=== PATIENT | female | born 1930 | race Caucasian/White ===

== ENCOUNTER 2017-06-07 12:06 | Inpatient (IN) ==
[2017-06-07] MEDS ORDERED: Isovue-370 500 ML INFUS..BTL IV ONE (12:16)
[2017-06-07] MEDS ORDERED: 0.9 % Sodium Chloride 1,000 ML IVC ONE (12:16)
[2017-06-07] MEDS ORDERED: Piperacillin/Tazobactam 3.375 GM in 0.9 % Sodium Chloride Mini Bag 100 ML IVPB ONE (12:16)
--- NOTE | 2017-06-07 12:53 | Emergency Department Note ---
Disposition Clinical Impression: Cellulitis Qualifiers: Site of cellulitis: extremity Site of cellulitis of extremity: lower extremity Laterality: right Qualified Code(s): L03.115 - Cellulitis of right lower limb Disposition: Admitted As Inpatient Condition: Good Time of Disposition: 12:55 General Adult HPI - General Chief complaint: ED Skin/Abscess/Foreign Body Stated complaint: R leg swelling/pain Time Seen by Provider: 06/07/17 12:14 Source: patient Limitations: no limitations Nursing Notes Reviewed: Yes Vital Signs Reviewed: Yes - History of Present Illness HPI Narrative: 86 year old female presentes to the ED with complaints of RLE cellulitis. She was refrred by Dr. Guevara to the eD for admission to the hospital. Davi sats that she is not a diabetic but for the past two weeks she has been eperincing pain in the righ calf and had an US done in [facility] which was negative for DVT altough she was gievn PO antibiotics for cellutlsi at that time and has essentially failed outpather therapy. She was following up romero rondon today for a possible procedure and he instructed her to come ot the ED for admision due to outpatinet therapy failure. The cellutlisi is erythematous on the RLE and fruit or nut farmer fromthe tibial platuea to the bottom of the foot. She denies fevers, it appears she was on keflex for therapy Pain Scale: 10 - Related Data Home Medications Medication Instructions Recorded Confirmed Lisinopril [Zestril] 40 mg PO DAILY 12/24/14 03/30/17 Metoprolol [Lopressor] 50 mg PO DAILY 12/24/14 03/30/17 Ibuprofen [Motrin] 600 mg PO TID PRN 05/19/16 03/30/17 Previous Rx's Medication Instructions Recorded Magnesium Oxide [Magnesium] 1 tab PO DAILY #30 tablet 01/27/17 Apixaban [Eliquis] 2.5 mg PO BID #60 tablet 02/16/17 OxyCODONE/APAP 7.5/325 [Percocet 1 tab PO Q12H PRN 30 Days #60 03/30/17 7.5/325 MG] tablet Hydroxyurea [Hydrea] 500 mg PO QDPC #34 capsule 04/04/17 Allergies Allergy/AdvReac Type Severity Reaction Status Date / Time Sulfa (Sulfonamide AdvReac Rash Verified 03/30/17 10:38 Antibiotics) Constitutional: Denies: fever, chills, weakness, weight change Eyes: Denies: eye pain, eye discharge, vision change ENT ED: Denies: ear pain, throat pain, dental pain, hearing loss, epistaxis, congestion, dysphagia Cardiovascular: Denies: chest pain, palpitations, dyspnea on exertion, edema, syncope Respiratory: Denies: cough, dyspnea, wheezes, hemoptysis, stridor Gastrointestinal: Denies: abdominal pain, nausea, vomiting, diarrhea, constipation, hematemesis, melena, hematochezia Genitourinary: Denies: dysuria, frequency, hematuria, discharge Musculoskeletal: Denies: back pain, neck pain, arthralgia, myalgia Integumentary: Reports: other (celllulitis). Denies: rash, abrasion, lesions Neurological: Denies: headache, weakness, numbness, paresthesias, confusion, abnormal gait, vertigo Psychiatric: Denies: anxiety, depression, suicidal thoughts, homicidal thoughts , auditory hallucinations, visual hallucinations Endocrine: Denies: fatigue Hematological/Lymphatic: Denies: easy bleeding, easy bruising Allergic/Immunologic: Denies: facial swelling, urticaria Past Medical History - Past Medical History Medical history: Reports: diabetes, hypertension Psychiatric history: Reports: no psych history - Social History Smoking Status: Never smoker Smokeless Tobacco Status: No Alcohol use: Reports: none Drug use: Reports: none Physical Exam - General Limitations: no limitations General appearance: alert, in no apparent distress - Head Head exam: atraumatic, normocephalic, normal inspection - Eye Eye exam: Present: normal appearance, PERRL, EOMI - Expanded Eye Exam Pupils: Bilateral: reactive - ENT ENT exam: normal exam, normal oropharynx, mucous membranes moist - Expanded ENT Exam External ear exam: Present: normal external inspection Mouth exam: Present: normal external inspection Teeth exam: Present: normal inspection Throat exam: Present: normal inspection - Neck Neck exam: Present: normal inspection, full ROM, trachea midline - Chest Chest inspection: Present: normal inspection, symmetric chest wall rise - Respiratory Respiratory exam: Present: normal lung sounds bilaterally - Cardiovascular Cardiovascular exam: Present: regular rate, normal rhythm, normal heart sounds - Abdominal Exam Abdominal exam: Present: soft, Non-Tender. Absent: tenderness, distention, guarding, rebound, rigidity - Extremities Exam Extremities exam: Present: normal inspection, full ROM. Absent: tenderness, pedal edema - Expanded Upper Extremity Exam Shoulder exam: Present: normal inspection, full ROM Arm exam: Present: normal inspection, full ROM Elbow exam: Present: normal inspection, full ROM Forearm/Wrist exam: Present: normal inspection, full ROM Hand exam: Present: normal inspection, full ROM Vascular exam: Normal: capillary refill, radial pulse - Expanded Lower Extremity Exam Hip/Pelvis exam: Present: normal inspection, full ROM Upper leg exam: Present: normal inspection, full ROM 1 - erythematous changes without abscess formatio, pulses prsent, (-) HOmans sign Knee exam: Present: normal inspection, full ROM Lower leg exam: Present: normal inspection, full ROM Ankle exam: Present: normal inspection, full ROM Foot/toe exam: Present: normal inspection, full ROM Neurovascular/Tendon exam: Absent: motor deficit, sensory deficit, tendon deficit - Back Exam Back exam: Present: normal inspection, full ROM. Absent: tenderness - Neurological Exam Neurological exam: Present: alert, oriented X3 - Expanded Neurological Exam Patient oriented to: Present: person, place, time Coma Scale Eye Opening: Spontaneous Coma Scale Motor Response: Obeys Commands Coma Scale Verbal Response: Oriented Coma Scale Total: 15 - Psychiatric Psychiatric exam: Present: normal affect, normal mood - Skin Skin exam: Present: warm, dry, intact, normal color Course Course Narrative: we will start cellutlisi workup with vanco/zosyn therapy and IVF and admit to medicine. Vital Signs Temperature 98.3 F 06/07/17 12:09 Pulse Rate 81 06/07/17 12:09 Respiratory Rate 18 06/07/17 12:09 Blood Pressure 187/76 06/07/17 12:09 O2 Sat by Pulse Oximetry 93 06/07/17 12:09 Temperature 98.3 F 06/07/17 12:09 Pulse Rate 81 06/07/17 12:09 Respiratory Rate 18 06/07/17 12:09 Blood Pressure 187/76 06/07/17 12:09 O2 Sat by Pulse Oximetry 93 06/07/17 12:09 Oxygen Delivery Oxygen Delivery Room Air Medical Decision Making - Medical Records Medical records reviewed: Yes I reviewed the patient's medical records. - Lab Data Lab results reviewed: Yes I reviewed the patient's lab results. - Radiology Data Radiology results reviewed: Yes I reviewed the patient's radiology results. - EKG Data EKG #1 EKG attestation: Yes I reviewed and interpreted this EKG. EKG results narrative: NSR with rate of 74. PVCs Present. LAD. LVH. NO STEMI. no old ekg. 1247
[2017-06-07 12:56] LABS: Basophils # 0.1 K/mcL (0.0-0.2); Basophils % 0.4 %; Eosinophils # 0.1 K/mcL (0.0-0.6); Eosinophils % 0.4 %; Hematocrit 48.9 % (35.3-44.9); Hemoglobin 14.7 g/dL (11.5-15.4); Immature Granulocytes % 2.9 % (0-4); Lymphocytes # 1.6 K/mcL (0.6-4.6); Lymphocytes % 6.8 %; Mean Corpuscular HGB Conc 30.1 g/dL (31.6-35.5); Mean Corpuscular Hemoglobin 26.8 pg (28.0-33.3); Mean Corpuscular Volume 89.2 fL (83.0-100.0); Monocytes # 1.5 K/mcL (0.0-1.3); Monocytes % 6.3 %; Platelet Count 286 K/mcL (140-400); Red Blood Count 5.48 M/mcL (3.82-4.97); Red Cell Distribution Width 20.9 % (11.5-14.5); Segmented Neutrophils % 83.2 %
[2017-06-07 13:02] LABS: INR 1.3; Prothrombin Time 13.9 Seconds (9.4-12.1)
[2017-06-07 13:05] LABS: Activated Partial Thrombo Time 40.6 Seconds (26.0-36.0)
[2017-06-07 13:23] LABS: Troponin I 0.03 ng/mL (< 0.04)
--- NOTE | 2017-06-07 13:34 | Emergency Department Note ---
Disposition Clinical Impression: Cellulitis Qualifiers: Site of cellulitis: extremity Site of cellulitis of extremity: lower extremity Laterality: right Qualified Code(s): L03.115 - Cellulitis of right lower limb Disposition: Admitted As Inpatient Condition: Good Referrals: Manuela Franco [employer] [Primary Care Provider] - Forms: ED Satisfaction Letter Time of Disposition: 13:43 Skin/Abscess/FB HPI Chief complaint: ED Skin/Abscess/Foreign Body Stated complaint: R leg swelling/pain Time Seen by Provider: 06/07/17 12:14 Source: patient, family Limitations: no limitations Nursing Notes Reviewed: Yes Vital Signs Reviewed: Yes HPI Narrative: 86-year-old female history of atrial fibrillation on Eliquis presents an emergency department for right leg infection and swelling. Patient states she saw Dr. Heller are yesterday and was told to come here for possible admission for her cellulitis after failing outpatient therapy. Patient states she has been having issues with her right foot after having reconstructive surgery. States over the past 2 weeks or so she is noticed some increase in swelling and redness. Ultrasound was performed at outside hospital and reportedly was negative for any deep vein thrombosis. She denies any chest pain or shortness of breath. She denies any fever nausea or vomiting. She has been taken antibiotic but does seem to be helping. Per the patient she is planning to have a procedure done by the vascular surgeon to help with possibly blood flow she reports. She has no history of peripheral stents are bypassed but she has had vein stripping performed before. Varney any other complaints such as recent injury or trauma. She denies history of diabetes. At this time basic labs, lactate and will initiate her on IV antibiotics Vancomycin and Zosyn. Also obtain a CT of the lower extremity to evaluate for any abscess. Patient will be admitted for further management and treatment. She is in agreement with this plan. Pt Subjective Complaint: rash, abscess/boil Home Medications Medication Instructions Recorded Confirmed Metoprolol [Lopressor] 50 mg PO BID 12/24/14 06/07/17 Aspirin [Lo-Dose Aspirin EC] 81 mg PO DAILY 06/07/17 06/07/17 Hydroxyurea [Hydrea] 500 mg PO MOTUWETHFR 06/07/17 06/07/17 LORazepam [Ativan] 0.5 mg PO TID PRN 06/07/17 06/07/17 Lisinopril [Zestril] 10 mg PO DAILY 06/07/17 06/07/17 Magnesium Oxide [Magnesium] 400 mg PO DAILY 06/07/17 06/07/17 Previous Rx's Medication Instructions Recorded Apixaban [Eliquis] 2.5 mg PO BID #60 tablet 02/16/17 OxyCODONE/APAP 7.5/325 [Percocet 1 tab PO Q12H PRN 30 Days #60 03/30/17 7.5/325 MG] tablet Allergies Allergy/AdvReac Type Severity Reaction Status Date / Time Sulfa (Sulfonamide AdvReac Rash Verified 03/30/17 10:38 Antibiotics) All systems ED: reviewed and negative except as stated. Review of Systems: As Per HPI Constitutional: Denies: fever, chills, weakness, weight change Eyes: Denies: eye pain, eye discharge, vision change ENT ED: Denies: ear pain, throat pain, dental pain, hearing loss, epistaxis, congestion, dysphagia Cardiovascular: Denies: chest pain, palpitations, dyspnea on exertion, edema, syncope Respiratory: Denies: cough, dyspnea, wheezes, hemoptysis, stridor Gastrointestinal: Denies: abdominal pain, nausea, vomiting, diarrhea, constipation, hematemesis, melena, hematochezia Genitourinary: Denies: dysuria, frequency, hematuria, discharge Musculoskeletal: Denies: back pain, neck pain, arthralgia, myalgia Integumentary: Reports: other (celllulitis). Denies: rash, abrasion, lesions Neurological: Denies: headache, weakness, numbness, paresthesias, confusion, abnormal gait, vertigo Psychiatric: Denies: anxiety, depression, suicidal thoughts, homicidal thoughts , auditory hallucinations, visual hallucinations Endocrine: Denies: fatigue Hematological/Lymphatic: Denies: easy bleeding, easy bruising Allergic/Immunologic: Denies: facial swelling, urticaria Past Medical History - Past Medical History Attestation: Yes The following information was validated with the patient. Source: patient Medical history: Reports: hypertension Psychiatric history: Reports: no psych history - Social History Smoking Status: Never smoker Smokeless Tobacco Status: No Alcohol use: Reports: none Drug use: Reports: none Physical Exam - General Limitations: no limitations General appearance: alert, in no apparent distress - Head Head exam: atraumatic, normocephalic, normal inspection - Eye Eye exam: Present: normal appearance, PERRL, EOMI - ENT ENT exam: normal exam, normal oropharynx, mucous membranes moist - Neck Neck exam: Present: normal inspection, full ROM, trachea midline - Chest Chest inspection: Present: normal inspection, symmetric chest wall rise. Absent : tenderness - Respiratory Respiratory exam: Present: normal lung sounds bilaterally. Absent: respiratory distress, wheezes - Cardiovascular Cardiovascular exam: Present: regular rate, irregular rhythm, normal heart sounds - Abdominal Exam Abdominal exam: Present: soft, Non-Tender, normal bowel sounds. Absent: tenderness, distention, guarding, rebound, rigidity - Expanded Lower Extremity Exam 1 - erythema, blanching, consistent with cellulitis Knee exam: Present: full ROM Lower leg exam: Present: full ROM, tenderness (RLE, tender varicose veins bilateral), swelling (RLE), erythema, other (bilateral varicose veins) Ankle exam: Present: full ROM, tenderness, swelling, erythema (RLE), other ( ulcer on the right heel) Foot/toe exam: Present: other (ulcer to sole of foot) - Neurological Exam Neurological exam: Present: alert, oriented X3 - Psychiatric Psychiatric exam: Present: normal affect, normal mood - Skin Skin exam: Present: dry, intact, rash, erythema Course Course Narrative: Patient is not septic appearing. Right lower extremity is erythematous from the foot all the way to mid calf. She has tenderness with palpation. It is erythematous and blanches consistent with cellulitis. She has failed outpatient therapy with oral antibiotics. Review of labs she has a leukocytosis 24 that has been persistent throughout her prior values. Her lactate is normal 1.2. Will obtain a CT with contrast of the right lower extremity to evaluate for any abscess. Sensation is intact. Delayed capillary refill. History of recent prior doppler ultrasound negative for deep vein thrombosis. She is been initiated on IV antibiotics and will be admitted. - Reevaluation(s) Reevaluation #1: CT without evidence of trainable abscess. Consistent with cellulitis. Patient will be admitted for continued IV antibiotics. Impression is cellulitis and history of polycythemia vera. - Consultations Consultation #1: Spoke with on-call hospitalist janis Becerra to admit for cellulitis failed therapy. No further orders at this time Time: 15:51 Vital Signs Temperature 98.3 F 06/07/17 12:09 Pulse Rate 81 06/07/17 12:09 Respiratory Rate 18 06/07/17 12:09 Blood Pressure 187/76 06/07/17 12:09 O2 Sat by Pulse Oximetry 93 06/07/17 12:09 Temperature 98.3 F 06/07/17 12:53 Pulse Rate 70 06/07/17 14:00 Respiratory Rate 20 06/07/17 14:00 Blood Pressure 202/73 06/07/17 14:00 O2 Sat by Pulse Oximetry 95 06/07/17 14:00 Oxygen Delivery Oxygen Delivery Room Air Skin/Abscess/Foreign Body - MDM Narrative Medical decision making narrative: Patient was discussed with my attending physician who agrees with ED management and final disposition. They independently evaluated the patient. Please refer to their attestation to this encounter for additional information. This note was generated by [employer] voice recognition software and as a result grammatical or spelling errors may occur using this program. - Medical Records Medical records reviewed: Yes I reviewed the patient's medical records. - Lab Data Lab results reviewed: Yes I reviewed the patient's lab results. Result diagrams: 06/07/17 12:45 06/07/17 12:45 Lab Results 06/07/17 06/07/17 06/07/17 Range/Units 12:45 12:45 12:45 WBC 24.1 H (4.3-11.1) K/mcL RBC 5.48 H (3.82-4.97) M/mcL Hgb 14.7 (11.5-15.4) g/dL Hct 48.9 H (35.3-44.9) % MCV 89.2 (83.0-100.0) fL MCH 26.8 L (28.0-33.3) pg MCHC 30.1 L (31.6-35.5) g/dL RDW 20.9 H (11.5-14.5) % Plt Count 286 (140-400) K/mcL MPV 11.0 (9.4-12.4) fL Immature Gran % 2.9 (0-4) % Seg Neutrophils % 83.2 % Lymphocytes % 6.8 % Monocytes % 6.3 % Eosinophils % 0.4 % Basophils % 0.4 % Neutrophils # 20.0 H (1.6-8.9) K/mcL Lymphocytes # 1.6 (0.6-4.6) K/mcL Monocytes # 1.5 H (0.0-1.3) K/mcL Eosinophils # 0.1 (0.0-0.6) K/mcL Basophils # 0.1 (0.0-0.2) K/mcL PT 13.9 H (9.4-12.1) Seconds INR 1.3 APTT 40.6 H (26.0-36.0) Seconds Sodium 138 (136-145) mEq/L Potassium 4.2 (3.5-5.1) mEq/L Chloride 108 H (98-107) mEq/L Carbon Dioxide 20 L (23-29) mEq/L BUN 23 (8-23) mg/dL Creatinine 0.97 (0.60-1.20) mg/dL Est GFR ( Amer) > 60 (> 60) Est GFR (Non-Af Amer) 54 L (> 60) BUN/Creatinine Ratio 24 (6-26) Glucose 74 (70-105) mg/dL Calculated Osmolality 288 (280-300) Lactic Acid (0.5-2.2) mmol/L Calcium 9.4 (8.6-10.3) mg/dL Phosphorus 3.8 (2.7-4.5) mg/dL Magnesium 2.0 (1.6-2.6) mg/dL Total Bilirubin 0.8 (0.3-1.0) mg/dL Direct Bilirubin 0.3 H (0.0-0.2) mg/dL Indirect Bilirubin 0.5 (0.0-1.2) mg/dL AST 15 (13-39) Units/L ALT 5 L (7-52) Units/L Alkaline Phosphatase 100 (34-104) Units/L Troponin I 0.03 (< 0.04) ng/mL Serum Total Protein 7.2 (6.4-8.9) g/dL Albumin 4.4 (3.5-5.7) g/dL Globulin 2.8 (2.4-3.5) g/dL Albumin/Globulin Ratio 1.6 (1.1-2.2) Urine Color (Yellow) Urine Clarity (Clear) Urine pH (5.0-8.0) pH Units Ur Specific [place] (1.010-1.025) Urine Protein (Neg-Trace) mg/dL Urine Glucose (UA) (Normal) mg/dL Urine Ketones (Negative) mg/dL Urine Blood (Negative) Urine Nitrite (Negative) Urine Bilirubin (Negative) Urine Urobilinogen (Normal) mg/dL Ur Leukocyte Esterase (Negative) Ur Culture Indicated? (NO) 06/07/17 06/07/17 Range/Units 12:45 13:55 WBC (4.3-11.1) K/mcL RBC (3.82-4.97) M/mcL Hgb (11.5-15.4) g/dL Hct (35.3-44.9) % MCV (83.0-100.0) fL MCH (28.0-33.3) pg MCHC (31.6-35.5) g/dL RDW (11.5-14.5) % Plt Count (140-400) K/mcL MPV (9.4-12.4) fL Immature Gran % (0-4) % Seg Neutrophils % % Lymphocytes % % Monocytes % % Eosinophils % % Basophils % % Neutrophils # (1.6-8.9) K/mcL Lymphocytes # (0.6-4.6) K/mcL Monocytes # (0.0-1.3) K/mcL Eosinophils # (0.0-0.6) K/mcL Basophils # (0.0-0.2) K/mcL PT (9.4-12.1) Seconds INR APTT (26.0-36.0) Seconds Sodium (136-145) mEq/L Potassium (3.5-5.1) mEq/L Chloride (98-107) mEq/L Carbon Dioxide (23-29) mEq/L BUN (8-23) mg/dL Creatinine (0.60-1.20) mg/dL Est GFR ( Amer) (> 60) Est GFR (Non-Af Amer) (> 60) BUN/Creatinine Ratio (6-26) Glucose (70-105) mg/dL Calculated Osmolality (280-300) Lactic Acid 1.2 (0.5-2.2) mmol/L Calcium (8.6-10.3) mg/dL Phosphorus (2.7-4.5) mg/dL Magnesium (1.6-2.6) mg/dL Total Bilirubin (0.3-1.0) mg/dL Direct Bilirubin (0.0-0.2) mg/dL Indirect Bilirubin (0.0-1.2) mg/dL AST (13-39) Units/L ALT (7-52) Units/L Alkaline Phosphatase (34-104) Units/L Troponin I (< 0.04) ng/mL Serum Total Protein (6.4-8.9) g/dL Albumin (3.5-5.7) g/dL Globulin (2.4-3.5) g/dL Albumin/Globulin Ratio (1.1-2.2) Urine Color Yellow (Yellow) Urine Clarity Clear (Clear) Urine pH 6.0 (5.0-8.0) pH Units Ur Specific [place] 1.015 (1.010-1.025) Urine Protein Negative (Neg-Trace) mg/dL Urine Glucose (UA) Normal (Normal) mg/dL Urine Ketones Negative (Negative) mg/dL Urine Blood Negative (Negative) Urine Nitrite Negative (Negative) Urine Bilirubin Negative (Negative) Urine Urobilinogen Normal (Normal) mg/dL Ur Leukocyte Esterase Negative (Negative) Ur Culture Indicated? NO (NO) - Radiology Data Radiology results reviewed: Yes I reviewed the patient's radiology results. Lower Extremity CT 06/07/17 12:16 IMPRESSION: 1. Circumferential fat stranding in the calf and dorsal forefoot compatible with cellulitis versus lymphedema. No drainable fluid collection. 2. No acute osseous abnormality. 3. 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 4. Status post talonavicular arthrodesis and calcaneal osteotomy without complication identified. D/ / Bret Fenton MD / Bret Fenton MD Interpreting Provider: Bret Fenton MD
[2017-06-07 13:42] LABS: Alanine Aminotransferase 5 Units/L (7-52); Albumin 4.4 g/dL (3.5-5.7); Albumin/Globulin Ratio 1.6 (1.1-2.2); Alkaline Phosphatase 100 Units/L (34-104); Aspartate Amino Transferase 15 Units/L (13-39); BUN/Creatinine Ratio 24 (6-26); Bilirubin,Direct 0.3 mg/dL (0.0-0.2); Bilirubin,Indirect 0.5 mg/dL (0.0-1.2); Bilirubin,Total 0.8 mg/dL (0.3-1.0); Blood Urea Nitrogen 23 mg/dL (8-23); Calcium 9.4 mg/dL (8.6-10.3); Carbon Dioxide 20 mEq/L (23-29); Chloride 108 mEq/L (98-107); Globulin 2.8 g/dL (2.4-3.5); Glucose 74 mg/dL (70-105); Osmolality,Calculated 288 (280-300); Phosphorous 3.8 mg/dL (2.7-4.5); Potassium 4.2 mEq/L (3.5-5.1); Sodium 138 mEq/L (136-145); Total Protein 7.2 g/dL (6.4-8.9); eGFR For African Americans > 60 (> 60); eGFR For Non-African Americans 54 (> 60)
[2017-06-07 14:29] LABS: Bilirubin,Urine Negative (Negative); Blood,Urine Negative (Negative); Clarity,Urine Clear (Clear); Color,Urine Yellow (Yellow); Glucose,Urine (UA) Normal (Normal); Ketones,Urine Negative (Negative); Leukocyte Esterase,Urine Negative (Negative); Nitrite,Urine Negative (Negative); Protein,Urine Negative (Neg-Trace); Specific Gravity,Urine 1.015 (1.010-1.025); Urobilinogen,Urine Normal (Normal)
[2017-06-07] MEDS ORDERED: *HR* FentaNYL (PF) 100 MCG/2 ML VIAL IVP ONE (15:57)
[2017-06-07] MEDS ORDERED: Acetaminophen 325 MG TABLET PO PRN (19:50)
[2017-06-07] MEDS: *HR* HYDROcodone/Acet 5/325 mg TABLET PO PRN (20:01)
[2017-06-07] MEDS ORDERED: *HR* LORazepam 0.5 MG TABLET PO PRN (22:04)
[2017-06-07] MEDS ORDERED: Naloxone 0.4 MG/ML INJ IVP PRN (22:08)
--- NOTE | 2017-06-07 22:17 | Internal Med History&Physical ---
<Segundo Kyle - Last Filed: 06/07/17 23:08> Date of Encounter: 06/07/17 Time of Encounter: 22:13 Internal Medicine - H&P: HPI Admitted From: Home Plans for Post Hospital Care: Home History of present illness: 86-year-old female history of atrial fibrillation on Eliquis presents to emergency department for right leg infection and swelling. Patient states she saw Dr. Heller yesterday and was told to come here for possible admission for her cellulitis after failing outpatient therapy. Patient states she has been having issues with her right foot after having reconstructive surgery. States over the past 2 weeks or so she is noticed some increase in swelling and redness. Ultrasound was performed at outside hospital and reportedly was negative for any deep vein thrombosis. She denies any chest pain or shortness of breath. She denies any fever nausea or vomiting. She has been taken antibiotic but does seem to be helping. Per the patient she is planning to have a procedure done by the vascular surgeon to help with possibly blood flow she reports. She has no history of peripheral stents or bypassed but she has had vein stripping performed before. denies any other complaints such as recent injury or trauma. She denies history of diabetes. At the ED, CT of right leg revealed possible cellulitis, she will be admitted as inpatient for further treatment. Past Med Surg Social Fam HX - Past Medical History Medical history: hypertension Psychiatric history: no psych history - Social History Smoking Status: Never smoker Smokeless Tobacco Status: No Alcohol use: none Drug use: none - Family History Mother Living Status: Age at : 80 Hx Family Endocrine Disorder: Yes (DM) Father Living Status: Age at : 90 Hx Family Cardiac Disorders: Yes Hx Family Cancer: Yes (colon) Hx Family GI Disorders: Yes (colostomy) Internal Medicine - H&P: Meds Metoprolol [Lopressor] 50 mg PO BID 12/24/14 [History] Apixaban [Eliquis] 2.5 mg PO BID #60 tablet 02/16/17 [Rx] OxyCODONE/APAP 7.5/325 [Percocet 7.5/325 MG] 1 tab PO Q12H PRN 30 Days #60 tablet 03/30/17 [Rx] Aspirin [Lo-Dose Aspirin EC] 81 mg PO DAILY 06/07/17 [History] Hydroxyurea [Hydrea] 500 mg PO MOTUWETHFR 06/07/17 [History] LORazepam [Ativan] 0.5 mg PO TID PRN 06/07/17 [History] Lisinopril [Zestril] 10 mg PO DAILY 06/07/17 [History] Magnesium Oxide [Magnesium] 400 mg PO DAILY 06/07/17 [History] 3 Allergy/AdvReac Type Severity Reaction Status Date / Time Sulfa (Sulfonamide AdvReac Rash Verified 03/30/17 10:38 Antibiotics) All Systems PM: A 10-system review of systems was performed and is negative for pertinent findings except as documented above in the HPI. Review of systems: REVIEW OF SYSTEMS: CONSTITUTIONAL: No weight loss, fever, chills, weakness or fatigue. HEENT: Eyes: No visual loss, blurred vision, double vision or yellow sclerae. Ears, Nose, Throat: No hearing loss, sneezing, congestion, runny nose or sore throat. SKIN: No rash or itching. CARDIOVASCULAR: No chest pain, chest pressure or chest discomfort. No palpitations or edema. RESPIRATORY: No shortness of breath, cough or sputum. GASTROINTESTINAL: No anorexia, nausea, vomiting or diarrhea. No abdominal pain or blood. GENITOURINARY: No dysuria, urgency, or frequency. NEUROLOGICAL: No headache, dizziness, syncope, paralysis, ataxia, numbness or tingling in the extremities. No change in bowel or bladder control. MUSCULOSKELETAL: see HPI. HEMATOLOGIC: No anemia, bleeding or bruising. LYMPHATICS: No enlarged nodes. No history of splenectomy. PSYCHIATRIC: No history of depression or anxiety. ENDOCRINOLOGIC: No reports of sweating, cold or heat intolerance. No polyuria or polydipsia. - Constitutional Vitals: Temp Pulse Resp BP Pulse Ox 98.5 F 88 18 165/66 98 06/07/17 19:04 06/07/17 19:04 06/07/17 19:04 06/07/17 20:39 06/07/17 19:04 General appearance: Present: A&O X 3 Exam: PHYSICAL EXAMINATION: GENERAL APPEARANCE: The patient is alert, oriented and in no acute distress. HEENT: Head is normocephalic. The sinuses are nontender. Pupils are equal and reactive. The nares are patent. Oropharynx clear without lesions. NECK: Supple without lymphadenopathy. HEART: Regular rate and rhythm. LUNGS: No crackles or wheezes are heard. ABDOMEN: Soft, nontender, nondistended with good bowel sounds heard. Inguinal area is normal. EXTREMITIES: right leg diffuse erythematous rash noted with swelling. NEUROLOGICAL: Gross nonfocal. SKIN: Warm and dry without any rash. Internal Med - H&P Results - Labs CBC & Chem 7: 06/07/17 12:45 06/07/17 12:45 - Assessment and plan (1) Cellulitis Current Visit: Yes Status: Acute Assessment and plan: - Severe leukocytosis, CT right leg revealed possible cellulitis without abscess. - Continue antibiotics Zosyn and vancomycin. Qualifiers: Site of cellulitis: extremity Site of cellulitis of extremity: lower extremity Laterality: right Qualified Code(s): L03.115 - Cellulitis of right lower limb (2) Chronic pain of lower extremity, bilateral Current Visit: No Status: Chronic Assessment and plan: - Doppler from outside hospital revealed no DVT. Right leg is cool with weak pulses. Patient also has hypersthethia. - History of PVD, the patient, she is planning to have angiogram by vascular surgery. - We will consult vascular surgery in the morning. (3) HTN (hypertension) Current Visit: No Status: Chronic Assessment and plan: - BP elevated due to stress and a pain. We will control pain. Continue home medication, adjust dose if indicated. Qualifiers: Hypertension type: essential hypertension Qualified Code(s): I10 - Essential (primary) hypertension (4) Polycythemia vera Current Visit: No Status: Chronic Assessment and plan: - H/H stable at this time, continue hydroxyurea, aspirin and Eliquis (5) PVD (peripheral vascular disease) Current Visit: No Status: Acute Assessment and plan: - Same as above. (6) Atrial fibrillation Current Visit: No Status: Chronic Assessment and plan: - Rate controlled, continue Eliquis. Qualifiers: Atrial fibrillation type: chronic Qualified Code(s): I48.2 - Chronic atrial fibrillation - Time Spent With Patient Total time spent is greater than 50% in coordination of care (as documented) at patient's floor/unit and/or counseling patient: Greater than 35 minutes <Jose M Centeno - Last Filed: 06/08/17 06:05> Date of Encounter: 06/08/17 Internal Medicine - H&P: HPI History of present illness: Ms. Honeycutt is a 86 year old female All Systems PM: A 10-system review of systems was performed and is negative for pertinent findings except as documented above in the HPI. - Constitutional Vitals: Temp Pulse Resp BP Pulse Ox 99.0 F 87 18 172/76 94 06/08/17 03:38 06/08/17 03:38 06/08/17 03:38 06/08/17 03:38 06/08/17 03:38 Internal Med - H&P Results - Labs CBC & Chem 7: 06/08/17 04:45 06/08/17 04:45 Labs: Short CBC 06/08/17 Range/Units 04:45 WBC 20.9 H (4.3-11.1) K/mcL Hgb 13.6 (11.5-15.4) g/dL Hct 44.5 (35.3-44.9) % Plt Count 247 (140-400) K/mcL Neutrophils # 16.9 H (1.6-8.9) K/mcL BMP 06/08/17 04:45 Sodium 141 Potassium 3.3 L Chloride 111 H Carbon Dioxide 21 L BUN 15 Creatinine 0.77 Glucose 84 Calcium 8.5 L Liver Function 06/08/17 Range/Units 04:45 Total Bilirubin 0.9 (0.3-1.0) mg/dL AST 14 (13-39) Units/L ALT 5 L (7-52) Units/L Alkaline Phosphatase 86 (34-104) Units/L Albumin 3.7 (3.5-5.7) g/dL - Attending Attestation I have seen and examined this patient independently. I have discussed with LDR NURSE Angelrd regarding the management plan. Agree with the documentation. - Assessment and plan (1) Polycythemia vera Current Visit: No Status: Chronic (2) HTN (hypertension) Current Visit: No Status: Chronic Qualifiers: Hypertension type: essential hypertension Qualified Code(s): I10 - Essential (primary) hypertension (3) PVD (peripheral vascular disease) Current Visit: No Status: Acute (4) Chronic pain of lower extremity, bilateral Current Visit: No Status: Chronic (5) Cellulitis Current Visit: Yes Status: Acute Qualifiers: Site of cellulitis: extremity Site of cellulitis of extremity: lower extremity Laterality: right Qualified Code(s): L03.115 - Cellulitis of right lower limb (6) Atrial fibrillation Current Visit: No Status: Chronic Qualifiers: Atrial fibrillation type: chronic Qualified Code(s): I48.2 - Chronic atrial fibrillation - Time Spent With Patient Total time spent is greater than 50% in coordination of care (as documented) at patient's floor/unit and/or counseling patient:
[2017-06-07] MEDS ORDERED: *HR* Heparin 5,000 UNIT/ML VIAL IVP PRN ×2 (23:25)
[2017-06-07] MEDS ORDERED: *HR* Heparin 5,000 UNIT/ML VIAL IVP ONE (23:25)
[2017-06-07] MEDS ORDERED: Heparin 25,000 UNIT/500 ML D5W 25,000 UNIT/500 ML BAG IVC SCH (23:30)
[2017-06-08] MEDS: Piperacillin/Tazobactam 3.375 GM in 0.9 % Sodium Chloride Mini Bag 100 ML IVPB SCH ×4 (00:54→23:39)
[2017-06-08] MEDS: *HR* HYDROcodone/Acet 5/325 mg TABLET PO PRN ×3 (02:22→20:23)
[2017-06-08 05:35] LABS: Basophils # 0.1 K/mcL (0.0-0.2); Basophils % 0.5 %; Eosinophils # 0.1 K/mcL (0.0-0.6); Eosinophils % 0.4 %; Hematocrit 44.5 % (35.3-44.9); Hemoglobin 13.6 g/dL (11.5-15.4); Immature Granulocytes % 2.7 % (0-4); Lymphocytes # 1.5 K/mcL (0.6-4.6); Lymphocytes % 7.3 %; Mean Corpuscular HGB Conc 30.6 g/dL (31.6-35.5); Mean Corpuscular Hemoglobin 26.5 pg (28.0-33.3); Mean Corpuscular Volume 86.7 fL (83.0-100.0); Mean Platelet Volume 11.3 fL (9.4-12.4); Monocytes # 1.7 K/mcL (0.0-1.3); Monocytes % 8.3 %; Neutrophils # 16.9 K/mcL (1.6-8.9); Platelet Count 247 K/mcL (140-400); Red Blood Count 5.13 M/mcL (3.82-4.97); Red Cell Distribution Width 21.2 % (11.5-14.5); Segmented Neutrophils % 80.8 %
[2017-06-08 05:53] LABS: Alanine Aminotransferase 5 Units/L (7-52); Albumin 3.7 g/dL (3.5-5.7); Albumin/Globulin Ratio 1.6 (1.1-2.2); Alkaline Phosphatase 86 Units/L (34-104); Aspartate Amino Transferase 14 Units/L (13-39); BUN/Creatinine Ratio 19 (6-26); Bilirubin,Total 0.9 mg/dL (0.3-1.0); Blood Urea Nitrogen 15 mg/dL (8-23); Calcium 8.5 mg/dL (8.6-10.3); Carbon Dioxide 21 mEq/L (23-29); Chloride 111 mEq/L (98-107); Globulin 2.3 g/dL (2.4-3.5); Glucose 84 mg/dL (70-105); Osmolality,Calculated 292 (280-300); Potassium 3.3 mEq/L (3.5-5.1); Sodium 141 mEq/L (136-145); eGFR For African Americans > 60 (> 60); eGFR For Non-African Americans > 60 (> 60)
[2017-06-08] MEDS: traMADol 50 MG TABLET PO PRN ×2 (06:46→13:44)
[2017-06-08] MEDS: Aspirin Enteric Coated 81 MG Tablet PO SCH (08:13)
[2017-06-08] MEDS: Magnesium Oxide 400 MG TABLET PO SCH (08:13)
[2017-06-08] MEDS: Lisinopril 20 MG TABLET PO SCH (08:13)
[2017-06-08 08:56] LABS: Activated Partial Thrombo Time 116.9 Seconds (26.0-36.0)
[2017-06-08] MEDS ORDERED: Apixaban 2.5 MG TABLET PO SCH (09:00)
[2017-06-08 09:27] LABS: Heparin anti-factor XA UFH 0.3 IU/mL (0.30-0.70)
[2017-06-08] MEDS ORDERED: Isovue-370 500 ML INFUS..BTL IV ONE (10:00)
[2017-06-08] MEDS: Hydroxyurea 500 MG CAPSULE PO SCH (11:22)
[2017-06-08] MEDS: Apixaban 5 MG TABLET PO SCH ×2 (13:44→20:23)
[2017-06-08] MEDS: Ondansetron 4 MG/2 ML VIAL IVP PRN (13:51)
--- NOTE | 2017-06-08 14:41 | Internal Med Progress Note ---
Date of Encounter: 06/08/17 Time of Encounter: 08:40 - Assessment and plan (1) Polycythemia vera Current Visit: Yes Status: Chronic Assessment and plan: Continue Eliquis. Heparin gtt d/cd, pt will not have angiogram done today due to cellulitis. Continue ASA and Hydroxyurea. (2) HTN (hypertension) Current Visit: No Status: Chronic Assessment and plan: Well-controlled. Continue to monitor. Continue home medications. Qualifiers: Hypertension type: essential hypertension Qualified Code(s): I10 - Essential (primary) hypertension (3) PVD (peripheral vascular disease) Current Visit: No Status: Acute Assessment and plan: Plan as above. Continue ASA and Eliquis, pt will follow up with Dr Garcia for angiography later. (4) Chronic pain of lower extremity, bilateral Current Visit: Yes Status: Chronic Assessment and plan: Patient reports chronic pain and bilateral lower extremities. Continue Tylenol , [place], Ultram prn. Pt with history of PVD. Doppler from outside hospital negative for DVT. Right leg red, edematous, warm, firm in medial calf area. Tender to palpation. Pt was to have angiogram today, will be postponed until when pt is not as ill. Continue home pain medications. (5) Cellulitis Current Visit: Yes Status: Acute Assessment and plan: Severe leukocytosis, CT right leg revealed possible cellulitis without abscess. CT aorta with runoff shows no flow-limiting disease noted in the abdominal aorta , bilateral, external arteries, common femoral arteries. On the right side there is scattered atherosclerosis with 50% narrowing of the right SFA. Subtotal occluded distally at the adductor hiatus with immediate reconstitution. There is 3 vessel runoff to the right foot. There is scattered atherosclerosis but no flow-limiting stenosis of left SFA. Suboptimal evaluation of bilateral popliteal artery secondary to artifact. Also noted is skin thickening and reticulation in the tissues involving bilateral legs. There is soft tissue calcification also identified with some edema findings nonspecific can be seen in the setting of dermatomyositis. We will continue to treat with antibiotics and monitor for improvement. Continue antibiotics Zosyn and vancomycin. Monitor labs and vitals Qualifiers: Site of cellulitis: extremity Site of cellulitis of extremity: lower extremity Laterality: right Qualified Code(s): L03.115 - Cellulitis of right lower limb (6) Atrial fibrillation Current Visit: No Status: Chronic Assessment and plan: Rate controlled, continue Eliqujose an MATEO. Qualifiers: Atrial fibrillation type: chronic Qualified Code(s): I48.2 - Chronic atrial fibrillation - Time Spent With Patient Total time spent is greater than 50% in coordination of care (as documented) at patient's floor/unit and/or counseling patient: less than 15 minutes - Subjective Interval history: Pt was seen and assessed at bedside at 0840. Dr. Garcia stopped to see pt, as well. Pt will not have angiogram until cellulitis is resolved. Pt states that she is feeling some better than she did when she arrived. She states that she has had the infection and pain in her leg for about 2 weeks. She denies headache , n/v/d, abdominal pain, chest pain, or myalgias. She denies fever, chills, rigors at home. - Constitutional Vitals: Temp Pulse Resp BP Pulse Ox 98.4 F 61 18 169/77 95 06/08/17 12:48 06/08/17 12:48 06/08/17 12:48 06/08/17 12:48 06/08/17 12:48 General appearance: Present: cooperative, A&O X 3, pleasant, answers questions appropriately - Head Head exam: Present: atraumatic, normal inspection, normocephalic - Eye Eye exam: Present: conjuntiva pink, sclera anicteric - Neck Neck exam general surgery: Present: supple, trachea midline. Absent: lymphadenopathy - Respiratory Respiratory exam: Present: CTAB. Absent: accessory muscle use, rales, rhonchi, wheezes - Cardiovascular Cardiovascular exam: Present: RRR, +S1, +S2. Absent: diastolic murmur, gallop, rubs, systolic murmur - GI/Abdominal GI/Abdominal exam: Present: soft, no peritoneal signs. Absent: distended, hepatomegaly, tenderness - Extremities Exam Extremities exam: Present: warm, radial pulses palpable and symmetrical. Absent : calf tenderness, cyanotic, normal capillary refill, normal inspection, pedal edema, tenderness - Expanded Lower Extremities Exam Lower Leg exam: Present: erythema, swelling, tenderness. Absent: normal inspection - Neurological Exam Neurological exam: Present: alert, oriented X3, strengths equal and symetr throughout. Absent: facial droop, speech deficit - Skin Skin exam: Present: dry, intact, normal color, rash, warm Internal Medicine: Result - Labs CBC & Chem 7: 06/08/17 04:45 06/08/17 04:45 Labs: Short CBC 06/08/17 Range/Units 04:45 WBC 20.9 H (4.3-11.1) K/mcL Hgb 13.6 (11.5-15.4) g/dL Hct 44.5 (35.3-44.9) % Plt Count 247 (140-400) K/mcL Neutrophils # 16.9 H (1.6-8.9) K/mcL BMP 06/08/17 04:45 Sodium 141 Potassium 3.3 L Chloride 111 H Carbon Dioxide 21 L BUN 15 Creatinine 0.77 Glucose 84 Calcium 8.5 L Liver Function 06/08/17 Range/Units 04:45 Total Bilirubin 0.9 (0.3-1.0) mg/dL AST 14 (13-39) Units/L ALT 5 L (7-52) Units/L Alkaline Phosphatase 86 (34-104) Units/L Albumin 3.7 (3.5-5.7) g/dL - ABG Interpretation ABG results: PT/INR, D-dimer PT 13.9 Seconds (9.4-12.1) H 06/07/17 12:45 - Impressions Impressions Aorta w/Runoff CTA 06/08/17 11:30 IMPRESSION: 1. No aneurysm or dissection. Scattered atherosclerosis of the abdominal aorta but no flow-limiting disease identified. Similar statement applies for the bilateral common external arteries and common femoral arteries. 2. On the right side, there is scattered atherosclerosis with less than 50% narrowing of the right SFA. Subtotal occlusion distally at the adductor hiatus with immediate reconstitution. Three-vessel runoff to the right foot. 3. Scattered atherosclerosis but no flow-limiting stenosis of the left SFA. Dominant supply to the left foot via the anterior tibial artery with weak attenuation of the peroneum and posterior tibial arteries. 4. Suboptimal evaluation of the bilateral popliteal artery secondary to artifact. 5. Regarding cellulitis, there is skin thickening and reticulation in the tissues involving the bilateral legs. Soft tissue calcification is also identified with some edema. Finding is nonspecific but can be seen in the setting of dermatomyositis. MRI would better evaluate. D/ / 06/08/2017 12:54:08 Derek Gonzalez / tresa Interpreting Provider: Derek Gonzalez Consult Discharge Plan - Plan Referrals: Manuela Franco CNP [Primary Care Provider] - 06/17/17 10:40 am
--- NOTE | 2017-06-08 17:11 | Vascular/Endovasc Consult Note ---
Date of Encounter: 06/08/17 Time of Encounter: 11:15 Assessment and Plan (1) Chronic pain of lower extremity, bilateral Current Visit: Yes Status: Chronic (2) Cellulitis Current Visit: Yes Status: Acute Qualifiers: Site of cellulitis: extremity Site of cellulitis of extremity: lower extremity Laterality: right Qualified Code(s): L03.115 - Cellulitis of right lower limb (3) Atrial fibrillation Current Visit: No Status: Chronic Qualifiers: Atrial fibrillation type: chronic Qualified Code(s): I48.2 - Chronic atrial fibrillation (4) HTN (hypertension) Current Visit: No Status: Chronic Qualifiers: Hypertension type: essential hypertension Qualified Code(s): I10 - Essential (primary) hypertension (5) PVD (peripheral vascular disease) Current Visit: No Status: Acute The patient was scheduled for an angiogram today, but due to her current clinical presentation, she will be scheduled for a CTA. She would not likely tolerate an HERNAN or an arterial duplex due to the sensitivity of her right leg. - History of Present Illness Consult date: 06/08/17 Consult reason: Right leg pain Chief complaint: Cellulitis History of present illness: Ms. Honeycutt is a 86 year old female with a history of right lower extremity cellulitis. She was previously admitted to [facility] and treated with intravenous antibiotics. She was discharged on oral antibiotics. She was found to have progressive pain and her white blood cell count was elevated so she was advised to go to the ER. She was admitted and started on intravenous antibiotics. Since admission, she reports that her leg is starting to feel better. She denies chest pain or shortness of breath. She denies fevers or chills. Past Med Surg Social Fam HX - Past Medical History Medical history: hypertension Psychiatric history: no psych history - Social History Smoking Status: Never smoker Smokeless Tobacco Status: No Alcohol use: none Drug use: none - Family History Mother Living Status: Age at : 80 Hx Family Endocrine Disorder: Yes (DM) Father Living Status: Age at : 90 Hx Family Cardiac Disorders: Yes Hx Family Cancer: Yes (colon) Hx Family GI Disorders: Yes (colostomy) Medications and Allergies Metoprolol [Lopressor] 50 mg PO BID 12/24/14 [History] Apixaban [Eliquis] 2.5 mg PO BID #60 tablet 02/16/17 [Rx] OxyCODONE/APAP 7.5/325 [Percocet 7.5/325 MG] 1 tab PO Q12H PRN 30 Days #60 tablet 03/30/17 [Rx] Aspirin [Lo-Dose Aspirin EC] 81 mg PO DAILY 06/07/17 [History] Hydroxyurea [Hydrea] 500 mg PO MOTUWETHFR 06/07/17 [History] LORazepam [Ativan] 0.5 mg PO TID PRN 06/07/17 [History] Lisinopril [Zestril] 10 mg PO DAILY 06/07/17 [History] Magnesium Oxide [Magnesium] 400 mg PO DAILY 06/07/17 [History] 3 Allergy/AdvReac Type Severity Reaction Status Date / Time Sulfa (Sulfonamide AdvReac Rash Verified 03/30/17 10:38 Antibiotics) All Systems Review: The remainder of the systems were reviewed and are negative Exam Vital Signs, Last 4 Hours Temp Pulse Resp BP Pulse Ox 06/08/17 15:22 98.0 F 68 16 161/81 91 General: Present: Conversant, No Apparent Distress HEENT: Present: Pupils equal Neck: Absent: JVD, Lymphadenopathy Cardiac: Present: Normal S1 and S2, Irregular Rhythm Lungs: Present: Normal Breath Sounds Neuro: Present: Alert and responsive, No focal deficits noted, Motor nerves grossly intact, Sensory nerves grossly intact Abdomen: Present: Soft, Non-tender. Absent: Masses Vascular: Present: Normal capillary refill, Edema (right lg) Skin: Present: Other (cellulitis noted on right lower extremity from the right knee to foot, tenderness particularly at the right medial calf.) Consult Discharge Plan - Plan Referrals: Manuela Franco CNP [Primary Care Provider] - 06/17/17 10:40 am
[2017-06-09] MEDS: Piperacillin/Tazobactam 3.375 GM in 0.9 % Sodium Chloride Mini Bag 100 ML IVPB SCH ×3 (08:50→23:27)
[2017-06-09] MEDS: Magnesium Oxide 400 MG TABLET PO SCH (08:51)
[2017-06-09] MEDS: Hydroxyurea 500 MG CAPSULE PO SCH (08:51)
[2017-06-09] MEDS: Aspirin Enteric Coated 81 MG Tablet PO SCH (08:51)
[2017-06-09] MEDS: *HR* HYDROcodone/Acet 5/325 mg TABLET PO PRN ×2 (08:53→15:30)
[2017-06-09] MEDS: Lisinopril 20 MG TABLET PO SCH (08:53)
[2017-06-09] MEDS: Apixaban 5 MG TABLET PO SCH ×2 (08:53→22:16)
[2017-06-09] MEDS ORDERED: hydroCHLOROthiazide 25 MG TABLET PO SCH (09:00)
[2017-06-09 09:07] LABS: Basophils # 0.1 K/mcL (0.0-0.2); Basophils % 0.4 %; Eosinophils # 0.1 K/mcL (0.0-0.6); Eosinophils % 0.5 %; Hematocrit 48.5 % (35.3-44.9); Hemoglobin 14.6 g/dL (11.5-15.4); Lymphocytes # 1.2 K/mcL (0.6-4.6); Mean Corpuscular HGB Conc 30.1 g/dL (31.6-35.5); Mean Corpuscular Volume 89.6 fL (83.0-100.0); Mean Platelet Volume 11.5 fL (9.4-12.4); Monocytes # 2.2 K/mcL (0.0-1.3); Neutrophils # 20.1 K/mcL (1.6-8.9); Nucleated Red Blood Cells 0.1 /100 WBC (0); Platelet Count 250 K/mcL (140-400); Red Blood Count 5.41 M/mcL (3.82-4.97); Red Cell Distribution Width 21.3 % (11.5-14.5); Segmented Neutrophils % 81.1 %
[2017-06-09 09:24] LABS: BUN/Creatinine Ratio 13 (6-26); Blood Urea Nitrogen 11 mg/dL (8-23); Calcium 8.5 mg/dL (8.6-10.3); Carbon Dioxide 21 mEq/L (23-29); Chloride 106 mEq/L (98-107); Glucose 87 mg/dL (70-105); Osmolality,Calculated 277 (280-300); Potassium 3.7 mEq/L (3.5-5.1); Sodium 134 mEq/L (136-145); eGFR For African Americans > 60 (> 60); eGFR For Non-African Americans > 60 (> 60)
[2017-06-09] MEDS: traMADol 50 MG TABLET PO PRN ×2 (11:21→22:18)
--- NOTE | 2017-06-09 13:34 | Internal Med Progress Note ---
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 Continue ASA and Hydroxyurea. (2) HTN (hypertension) Current Visit: Yes Status: Chronic Assessment and plan: Well-controlled. Continue to monitor. Continue home medications. Monitor VS per orders. Qualifiers: Hypertension type: essential hypertension Qualified Code(s): I10 - Essential (primary) hypertension (3) PVD (peripheral vascular disease) Current Visit: Yes Status: Chronic Assessment and plan: Plan as above. Continue ASA and Eliquis, pt will follow up with Dr Garcia for angiography later. 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 (4) Chronic pain of lower extremity, bilateral Current Visit: Yes Status: Chronic Assessment and plan: Patient reports chronic pain and bilateral lower extremities. Continue Tylenol , [place], Ultram prn. Pt reports that BLE are mangle tender cloth, but improved. (5) Cellulitis Current Visit: Yes Status: Acute Assessment and plan: Severe leukocytosis, not improving today. Overall, RLE appears to be improving, pt agress, but it is mangle tender cloth to palpation. MRI ordered to assess for changes associated with dermatomyositis. Continue antibiotics Zosyn and vancomycin. Monitor labs and vitals Qualifiers: Site of cellulitis: extremity Site of cellulitis of extremity: lower extremity Laterality: right Qualified Code(s): L03.115 - Cellulitis of right lower limb (6) Atrial fibrillation Current Visit: No Status: Chronic Assessment and plan: Rate controlled, continue Eliquis an BB. Qualifiers: Atrial fibrillation type: chronic Qualified Code(s): I48.2 - Chronic atrial fibrillation - Time Spent With Patient Total time spent is greater than 50% in coordination of care (as documented) at patient's floor/unit and/or counseling patient: less than 15 minutes - Subjective Interval history: Pt was seen and assessed at bedside at 0850. Pt states that she is feeling better than she did when she arrived and leg pain has improved. She states that she has had the infection and pain in her leg for about 2 weeks and has been hospitalized for the same, given IV abx, discharged on po without resolution of symptoms. She denies headache, n/v/d, abdominal pain, chest pain, or myalgias. She denies fever, chills, rigors at home. - Constitutional Vitals: Temp Pulse Resp BP Pulse Ox 98.7 F 91 16 152/61 94 06/09/17 11:13 06/09/17 11:13 06/09/17 11:13 06/09/17 12:17 06/09/17 11:13 General appearance: Present: cooperative, A&O X 3, pleasant, no acute distress, answers questions appropriately - Head Head exam: Present: atraumatic, normal inspection, normocephalic - Eye Eye exam: Present: normal appearance, conjuntiva pink, sclera anicteric - Neck Neck exam general surgery: Present: supple, trachea midline. Absent: lymphadenopathy - Respiratory Respiratory exam: Present: CTAB. Absent: accessory muscle use, rales, rhonchi, wheezes - Cardiovascular Cardiovascular exam: Present: RRR, +S1, +S2. Absent: diastolic murmur, gallop, rubs, systolic murmur - GI/Abdominal GI/Abdominal exam: Present: normal bowel sounds, soft. Absent: distended, tenderness - Extremities Exam Extremities exam: Present: tenderness, warm, radial pulses palpable and symmetrical. Absent: calf tenderness, cyanotic, normal capillary refill, normal inspection, pedal edema - Neurological Exam Neurological exam: Present: alert, oriented X3, no focal deficits. Absent: facial droop, speech deficit - Skin Skin exam: Present: dry, intact, normal color, warm. Absent: rash Internal Medicine: Result - Labs CBC & Chem 7: 06/09/17 08:44 06/09/17 08:44 Labs: Short CBC 06/09/17 Range/Units 08:44 WBC 24.8 H (4.3-11.1) K/mcL Hgb 14.6 (11.5-15.4) g/dL Hct 48.5 H (35.3-44.9) % Plt Count 250 (140-400) K/mcL Neutrophils # 20.1 H (1.6-8.9) K/mcL BMP 06/09/17 08:44 Sodium 134 L Potassium 3.7 Chloride 106 Carbon Dioxide 21 L BUN 11 Creatinine 0.83 Glucose 87 Calcium 8.5 L - ABG Interpretation ABG results: PT/INR, D-dimer PT 13.9 Seconds (9.4-12.1) H 06/07/17 12:45 - Impressions Impressions Aorta w/Runoff CTA 06/08/17 11:30 IMPRESSION: 1. No aneurysm or dissection. Scattered atherosclerosis of the abdominal aorta but no flow-limiting disease identified. Similar statement applies for the bilateral common external arteries and common femoral arteries. 2. On the right side, there is scattered atherosclerosis with less than 50% narrowing of the right SFA. Subtotal occlusion distally at the adductor hiatus with immediate reconstitution. Three-vessel runoff to the right foot. 3. Scattered atherosclerosis but no flow-limiting stenosis of the left SFA. Dominant supply to the left foot via the anterior tibial artery with weak attenuation of the peroneum and posterior tibial arteries. 4. Suboptimal evaluation of the bilateral popliteal artery secondary to artifact. 5. Regarding cellulitis, there is skin thickening and reticulation in the tissues involving the bilateral legs. Soft tissue calcification is also identified with some edema. Finding is nonspecific but can be seen in the setting of dermatomyositis. MRI would better evaluate. D/ / 06/08/2017 12:54:08 Derek Gonzalez / tresa Interpreting Provider: Derek Gonzalez Consult Discharge Plan - Plan Referrals: Manuela Franco CNP [Primary Care Provider] - 06/17/17 10:40 am
[2017-06-09] MEDS ORDERED: Gadolinium Contrast Agent (WT Based) IV PRN (13:38)
--- NOTE | 2017-06-09 15:38 | Vascular/[facility] Progress Note ---
Date of Encounter: 06/09/17 Time of Encounter: 14:20 - Assessment and plan (1) PVD (peripheral vascular disease) Current Visit: Yes Status: Chronic CTA reveals no evidence of critical limb ischemia. May schedule angiogram after cellulitis resolves. (2) Chronic pain of lower extremity, bilateral Current Visit: Yes Status: Chronic (3) Cellulitis Current Visit: Yes Status: Acute Cellulitis improved despite increased white blood cell count. Continue with antibiotics. MRI scheduled for today. Qualifiers: Site of cellulitis: extremity Site of cellulitis of extremity: lower extremity Laterality: right Qualified Code(s): L03.115 - Cellulitis of right lower limb (4) Atrial fibrillation Current Visit: No Status: Chronic Qualifiers: Atrial fibrillation type: chronic Qualified Code(s): I48.2 - Chronic atrial fibrillation (5) HTN (hypertension) Current Visit: Yes Status: Chronic Qualifiers: Hypertension type: essential hypertension Qualified Code(s): I10 - Essential (primary) hypertension - Subjective Interval history: The patient reports that her leg is less painful today. She denies any acute problems overnight. She denies chest pain or shortness of breath. Vital Signs, Last 4 Hours BP 06/09/17 12:17 152/61 - Physical Examination General: Present: Conversant, No Apparent Distress Cardiac: Present: Reg Rate and Rhythm Lungs: Present: Normal Breath Sounds Neuro: Present: Alert and responsive Vascular: Present: Normal capillary refill Results 06/10/17 04:05 06/10/17 04:05 Lab Results, Last 24 hours 06/09/17 08:44 06/09/17 08:44 Lab Results, Last 24 hours 06/09/17 06/09/17 08:44 08:44 WBC 24.8 H Hgb 14.6 Hct 48.5 H Plt Count 250 Sodium 134 L Potassium 3.7 Chloride 106 Carbon Dioxide 21 L BUN 11 Creatinine 0.83 Glucose 87 Calcium 8.5 L Consult Discharge Plan - Plan Referrals: Manuela Franco CNP [Primary Care Provider] - 06/17/17 10:40 am
[2017-06-09] MEDS: Ondansetron 4 MG/2 ML VIAL IVP PRN (17:34)
[2017-06-10 04:25] LABS: Basophils # 0.1 K/mcL (0.0-0.2); Basophils % 0.6 %; Eosinophils # 0.1 K/mcL (0.0-0.6); Eosinophils % 0.2 %; Hematocrit 46.8 % (35.3-44.9); Hemoglobin 14.2 g/dL (11.5-15.4); Immature Granulocytes % 3.1 % (0-4); Lymphocytes # 1.1 K/mcL (0.6-4.6); Lymphocytes % 4.7 %; Mean Corpuscular HGB Conc 30.3 g/dL (31.6-35.5); Mean Corpuscular Hemoglobin 26.5 pg (28.0-33.3); Mean Corpuscular Volume 87.5 fL (83.0-100.0); Mean Platelet Volume 10.9 fL (9.4-12.4); Monocytes # 1.7 K/mcL (0.0-1.3); Monocytes % 7.2 %; Neutrophils # 19.8 K/mcL (1.6-8.9); Platelet Count 209 K/mcL (140-400); Red Blood Count 5.35 M/mcL (3.82-4.97); Red Cell Distribution Width 21.5 % (11.5-14.5); Segmented Neutrophils % 84.2 %
[2017-06-10 04:45] LABS: Blood Urea Nitrogen 10 mg/dL (8-23); Carbon Dioxide 23 mEq/L (23-29); Chloride 107 mEq/L (98-107); Potassium 3.6 mEq/L (3.5-5.1); Sodium 137 mEq/L (136-145)
[2017-06-10 04:46] LABS: BUN/Creatinine Ratio 13 (6-26); Calcium 8.8 mg/dL (8.6-10.3); Glucose 90 mg/dL (70-105); Osmolality,Calculated 283 (280-300); eGFR For African Americans > 60 (> 60); eGFR For Non-African Americans > 60 (> 60)
[2017-06-10] MEDS: Lisinopril 20 MG TABLET PO SCH (07:38)
[2017-06-10] MEDS: Apixaban 5 MG TABLET PO SCH ×2 (07:38→20:22)
[2017-06-10] MEDS: Aspirin Enteric Coated 81 MG Tablet PO SCH (07:38)
[2017-06-10] MEDS: Magnesium Oxide 400 MG TABLET PO SCH (07:38)
[2017-06-10] MEDS: Hydroxyurea 500 MG CAPSULE PO SCH (07:39)
[2017-06-10] MEDS: Piperacillin/Tazobactam 3.375 GM in 0.9 % Sodium Chloride Mini Bag 100 ML IVPB SCH ×3 (07:39→23:29)
[2017-06-10] MEDS: hydroCHLOROthiazide 25 MG TABLET PO SCH (07:39)
[2017-06-10] MEDS: *HR* HYDROcodone/Acet 5/325 mg TABLET PO PRN ×3 (07:42→20:28)
[2017-06-10] MEDS: Ondansetron 4 MG/2 ML VIAL IVP PRN (11:44)
--- NOTE | 2017-06-10 17:09 | Vascular/[facility] Progress Note ---
Date of Encounter: 06/10/17 Time of Encounter: 11:30 - Assessment and plan (1) PVD (peripheral vascular disease) Current Visit: Yes Status: Chronic No indication for acute intervention. Will schedule angiogram after cellulitis resolves. Will reassess on Tuesday if patient remains hospitalized. Otherwise she may follow-up as an outpatient. (2) Chronic pain of lower extremity, bilateral Current Visit: Yes Status: Chronic (3) Cellulitis Current Visit: Yes Status: Acute Cellulitis slightly decreased today. Symptoms slightly improved. WBC decreasing. MRI reveals no evidence of myositis. Continue with intravenous antibiotics. Qualifiers: Site of cellulitis: extremity Site of cellulitis of extremity: lower extremity Laterality: right Qualified Code(s): L03.115 - Cellulitis of right lower limb (4) Atrial fibrillation Current Visit: No Status: Chronic Qualifiers: Atrial fibrillation type: chronic Qualified Code(s): I48.2 - Chronic atrial fibrillation (5) HTN (hypertension) Current Visit: Yes Status: Chronic Qualifiers: Hypertension type: essential hypertension Qualified Code(s): I10 - Essential (primary) hypertension - Subjective Interval history: Se reports continued but slow improvement of her leg pain. She denies any fevers or chills. She denies any acute issues. She denies chest pain or shortness of breath. Vital Signs, Last 4 Hours Temp Pulse Resp BP Pulse Ox 06/10/17 15:23 98.4 F 77 16 118/72 94 - Physical Examination General: Present: Conversant Cardiac: Present: Reg Rate and Rhythm Lungs: Present: Normal Breath Sounds Neuro: Present: Alert and responsive, No focal deficits noted Vascular: Present: Normal capillary refill, Cyanosis, Other (pedal signals are present bilaterally) Skin: Present: Other (tender at right calf and ankle, cellulitis present, no fluctuance) Results 06/10/17 04:05 06/10/17 04:05 Lab Results, Last 24 hours 06/10/17 06/10/17 04:05 04:05 WBC 23.6 H Hgb 14.2 Hct 46.8 H Plt Count 209 Sodium 137 Potassium 3.6 Chloride 107 Carbon Dioxide 23 BUN 10 Creatinine 0.80 Glucose 90 Calcium 8.8 - Imaging / Other Tests CT/CTA: report reviewed, image reviewed MRI/MRA: report reviewed Consult Discharge Plan - Plan Referrals: Manuela Franco, SENIOR CASE MANAGER [Primary Care Provider] - 06/17/17 10:40 am
--- NOTE | 2017-06-10 17:23 | Internal Med Progress Note ---
Date of Encounter: 06/10/17 Time of Encounter: 09:10 - Assessment and plan (1) Polycythemia vera Current Visit: Yes Status: Chronic Assessment and plan: Continue Eliquis. Continue ASA and Hydroxyurea. Follow up with heme/onc after discharge. (2) HTN (hypertension) Current Visit: Yes Status: Chronic Assessment and plan: Well-controlled. Continue home medications. Monitor VS per orders. Qualifiers: Hypertension type: essential hypertension Qualified Code(s): I10 - Essential (primary) hypertension (3) PVD (peripheral vascular disease) Current Visit: Yes Status: Chronic Assessment and plan: Chronic. Plan as above. Continue ASA and Eliquis, pt will follow up with Dr Garcia for angiography later. 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 No acute osseous abnormality. (4) Chronic pain of lower extremity, bilateral Current Visit: Yes Status: Chronic Assessment and plan: Patient reports chronic pain to bilateral lower extremities, complicated by 2 week history of cellulitis. Continue Tylenol, [place], Ultram prn. Pt reports that BLE are punch box tender, but improved. (5) Cellulitis Current Visit: Yes Status: Acute Assessment and plan: Severe leukocytosis, slight improvement. Overall, RLE appears to be improving, pt agress, but it is punch box tender to palpation, which is also improving. MRI with nonspecific subq edema in the calf and ankle compatible with cellulitis vs lymphedema. no edema to suggest myositis, no acute osseous abnormality Continue antibiotics Zosyn and vancomycin. Monitor labs and vitals Qualifiers: Site of cellulitis: extremity Site of cellulitis of extremity: lower extremity Laterality: right Qualified Code(s): L03.115 - Cellulitis of right lower limb (6) Atrial fibrillation Current Visit: Yes Status: Chronic Assessment and plan: Rate controlled, continue Eliquis an BB. Continue telemetry Qualifiers: Atrial fibrillation type: chronic Qualified Code(s): I48.2 - Chronic atrial fibrillation - Time Spent With Patient Total time spent is greater than 50% in coordination of care (as documented) at patient's floor/unit and/or counseling patient: less than 15 minutes - Subjective Interval history: Pt was seen and assessed at bedside at 0910. Pt states that she is feeling better and leg pain has improved. She denies headache, n/v/d, abdominal pain, chest pain, or myalgias. She denies fever, chills, rigors at home. Pt is aware that she may be here through the weekend and she is ok with that. - Constitutional Vitals: Temp Pulse Resp BP Pulse Ox 98.4 F 77 16 118/72 94 06/10/17 15:23 06/10/17 15:23 06/10/17 15:23 06/10/17 15:23 06/10/17 15:23 General appearance: Present: cooperative, A&O X 3, pleasant, no acute distress, answers questions appropriately - Head Head exam: Present: atraumatic, normal inspection, normocephalic - Eye Eye exam: Present: normal appearance, conjuntiva pink, sclera anicteric - Neck Neck exam general surgery: Present: supple, trachea midline. Absent: lymphadenopathy, tenderness - Respiratory Respiratory exam: Present: CTAB. Absent: accessory muscle use, chest wall tenderness, rales, respiratory distress, rhonchi, wheezes - Cardiovascular Cardiovascular exam: Present: RRR, +S1, +S2. Absent: diastolic murmur, gallop, rubs, systolic murmur - GI/Abdominal GI/Abdominal exam: Present: normal bowel sounds, soft. Absent: distended, hepatomegaly, tenderness - Extremities Exam Extremities exam: Present: pedal edema, tenderness, warm, radial pulses palpable and symmetrical. Absent: calf tenderness, cyanotic - Neurological Exam Neurological exam: Present: alert, oriented X3, no focal deficits. Absent: facial droop, speech deficit - Skin Skin exam: Present: dry, intact, normal color, warm. Absent: rash Internal Medicine: Result - Labs CBC & Chem 7: 06/10/17 04:05 06/10/17 04:05 Labs: Short CBC 06/10/17 Range/Units 04:05 WBC 23.6 H (4.3-11.1) K/mcL Hgb 14.2 (11.5-15.4) g/dL Hct 46.8 H (35.3-44.9) % Plt Count 209 (140-400) K/mcL Neutrophils # 19.8 H (1.6-8.9) K/mcL BMP 06/10/17 04:05 Sodium 137 Potassium 3.6 Chloride 107 Carbon Dioxide 23 BUN 10 Creatinine 0.80 Glucose 90 Calcium 8.8 - ABG Interpretation ABG results: PT/INR, D-dimer PT 13.9 Seconds (9.4-12.1) H 06/07/17 12:45 - Impressions Impressions Lower Extremity MRI 06/09/17 13:38 IMPRESSION: 1. Nonspecific circumferential subcutaneous edema in the calf and ankle and extending along the dorsum of the midfoot compatible with cellulitis versus lymphedema. No drainable fluid collection. 2. No intramuscular edema to suggest myositis. 3. No acute osseous abnormality. D/ / Bret Fenton MD / Bret Fenton MD Interpreting Provider: Bret Fenton MD Consult Discharge Plan - Plan Referrals: Manuela Franco CNP [Primary Care Provider] - 06/17/17 10:40 am
--- NOTE | 2017-06-10 18:04 | Electrocardiograph Report ---
[place] [id number] Test Date: 2017-06-07 Pat Name: Rosa Honeycutt Department: 102 Room: 3B13 Gender: F Medical Education Specialist: Jeni : 1930 Requested By: Caron Reddy Order Number: [id number] Reading MD: Yesi Vazquez Measurements Intervals K[place]it Rate: 74 P: 61 MS: 205 QRS: -36 QRSD: 116 T: 68 QT: 445 QTc: 473 Interpretive Statements SINUS RHYTHM WITH FREQUENT VENTRICULAR PREMATURE COMPLEXES MARKED LEFT AXIS DEVIATION [QRS AXIS < -30] LEFT VENTRICULAR HYPERTROPHY AND ST-T CHANGE [VOLTAGE CRITERIA PLUS ST/T ABNORMALITY] Electronically Signed On 06-10-2017 18:02:36 EDT by Yesi Vazquez
[2017-06-11 05:54] LABS: Basophils # 0.1 K/mcL (0.0-0.2); Basophils % 0.5 %; Eosinophils # 0.1 K/mcL (0.0-0.6); Eosinophils % 0.4 %; Hemoglobin 14.1 g/dL (11.5-15.4); Immature Granulocytes % 3.4 % (0-4); Lymphocytes # 1.4 K/mcL (0.6-4.6); Lymphocytes % 5.5 %; Mean Corpuscular Hemoglobin 26.8 pg (28.0-33.3); Mean Corpuscular Volume 89.4 fL (83.0-100.0); Mean Platelet Volume 10.7 fL (9.4-12.4); Monocytes # 2.1 K/mcL (0.0-1.3); Monocytes % 8.7 %; Neutrophils # 19.9 K/mcL (1.6-8.9); Nucleated Red Blood Cells 0.1 /100 WBC (0); Platelet Count 196 K/mcL (140-400); Red Blood Count 5.26 M/mcL (3.82-4.97); Red Cell Distribution Width 21.5 % (11.5-14.5); Segmented Neutrophils % 81.5 %
[2017-06-11 06:13] LABS: BUN/Creatinine Ratio 10 (6-26); Blood Urea Nitrogen 10 mg/dL (8-23); Calcium 8.7 mg/dL (8.6-10.3); Carbon Dioxide 23 mEq/L (23-29); Chloride 105 mEq/L (98-107); Glucose 61 mg/dL (70-105); Osmolality,Calculated 279 (280-300); Potassium 3.3 mEq/L (3.5-5.1); Sodium 136 mEq/L (136-145); eGFR For African Americans > 60 (> 60); eGFR For Non-African Americans 54 (> 60)
[2017-06-11] MEDS: Magnesium Oxide 400 MG TABLET PO SCH (08:16)
[2017-06-11] MEDS: *HR* HYDROcodone/Acet 5/325 mg TABLET PO PRN ×2 (08:16→16:00)
[2017-06-11] MEDS: Lisinopril 20 MG TABLET PO SCH (08:16)
[2017-06-11] MEDS: Apixaban 5 MG TABLET PO SCH ×2 (08:16→20:14)
[2017-06-11] MEDS: Aspirin Enteric Coated 81 MG Tablet PO SCH (08:16)
[2017-06-11] MEDS: Piperacillin/Tazobactam 3.375 GM in 0.9 % Sodium Chloride Mini Bag 100 ML IVPB SCH ×3 (08:16→23:45)
[2017-06-11] MEDS: hydroCHLOROthiazide 25 MG TABLET PO SCH (08:16)
[2017-06-11] MEDS: Hydroxyurea 500 MG CAPSULE PO SCH (08:19)
--- NOTE | 2017-06-11 15:41 | Internal Med Progress Note ---
Date of Encounter: 06/11/17 Time of Encounter: 08:30 - Assessment and plan (1) Polycythemia vera Current Visit: Yes Status: Chronic Assessment and plan: Continue Eliquis. Continue ASA and Hydroxyurea. Follow up with heme/onc after discharge. Likely source of leukocytosis. (2) HTN (hypertension) Current Visit: Yes Status: Chronic Assessment and plan: Well-controlled. Continue home medications. HCTZ stopped due to little to no effect on BP. Lisinopril increased to 20mg po daily, start in the a.m. Pt has Hydralazine 10mg IV for SBP> 160. Qualifiers: Hypertension type: essential hypertension Qualified Code(s): I10 - Essential (primary) hypertension (3) PVD (peripheral vascular disease) Current Visit: Yes Status: Chronic Assessment and plan: Chronic. Plan as above. Continue ASA and Eliquis, pt will follow up with Dr Garcia for angiography after cellulitis is resolved. (4) Chronic pain of lower extremity, bilateral Current Visit: Yes Status: Chronic Assessment and plan: Patient reports chronic pain to bilateral lower extremities, complicated by 2 week history of cellulitis. Continue Tylenol, [place], Ultram prn. Pt reports that BLE are blocking machine tender, but improved. Pain well controlled. (5) Cellulitis Current Visit: Yes Status: Acute Assessment and plan: Severe leukocytosis, slight improvement, likely unchanged due to polycythemia vera. Overall, RLE appears to be improving,but it is blocking machine tender to palpation. Continue antibiotics Zosyn and vancomycin. Monitor labs and vitals Renal function stable and WNL. Qualifiers: Site of cellulitis: extremity Site of cellulitis of extremity: lower extremity Laterality: right Qualified Code(s): L03.115 - Cellulitis of right lower limb (6) Atrial fibrillation Current Visit: Yes Status: Chronic Assessment and plan: Rate controlled, continue Eliquis and BB. Continue telemetry Pt denies chest pain. Qualifiers: Atrial fibrillation type: chronic Qualified Code(s): I48.2 - Chronic atrial fibrillation - Time Spent With Patient Total time spent is greater than 50% in coordination of care (as documented) at patient's floor/unit and/or counseling patient: less than 15 minutes - Subjective Interval history: Pt was seen and assessed at bedside at 0830. Pt states that she is feeling better and leg pain has improved. RLE foot is red and edematous today, she states that is normal for that foot and that is why she is having the angiogram. She reports that she has been sitting up on the side of the bed for several hours which makes it wores. Otherwise, she states that her leg looks and feels better. She denies headache, n/v/d, abdominal pain, chest pain, or myalgias. She denies fever, chills, rigors at home. - Constitutional Vitals: Temp Pulse Resp BP Pulse Ox 99.0 F 71 15 181/73 96 06/11/17 15:03 06/11/17 15:03 06/11/17 15:03 06/11/17 15:03 06/11/17 15:03 General appearance: Present: cooperative, A&O X 3, pleasant, no acute distress, answers questions appropriately - Head Head exam: Present: atraumatic, normal inspection, normocephalic - Eye Eye exam: Present: normal appearance, conjuntiva pink, sclera anicteric - Neck Neck exam general surgery: Present: supple, trachea midline - Respiratory Respiratory exam: Present: CTAB. Absent: accessory muscle use, chest wall tenderness, rales, respiratory distress, rhonchi, wheezes - Cardiovascular Cardiovascular exam: Present: RRR, +S1, +S2. Absent: diastolic murmur, gallop, rubs, systolic murmur - GI/Abdominal GI/Abdominal exam: Present: normal bowel sounds, soft. Absent: distended, hepatomegaly, tenderness - Extremities Exam Extremities exam: Present: normal capillary refill, normal inspection, warm, radial pulses palpable and symmetrical. Absent: calf tenderness, cyanotic, pedal edema, tenderness - Expanded Lower Extremities Exam Lower Leg exam: Present: erythema, swelling, tenderness. Absent: normal inspection Foot/Toe exam: Present: erythema, onychomycosis, swelling, tenderness. Absent: normal inspection - Neurological Exam Neurological exam: Present: alert, oriented X3, no focal deficits. Absent: facial droop, speech deficit - Skin Skin exam: Present: dry, intact, normal color, warm. Absent: rash Internal Medicine: Result - Labs CBC & Chem 7: 06/11/17 03:34 06/11/17 03:34 Labs: Short CBC 06/11/17 Range/Units 03:34 WBC 24.4 H (4.3-11.1) K/mcL Hgb 14.1 (11.5-15.4) g/dL Hct 47.0 H (35.3-44.9) % Plt Count 196 (140-400) K/mcL Neutrophils # 19.9 H (1.6-8.9) K/mcL BMP 06/11/17 03:34 Sodium 136 Potassium 3.3 L Chloride 105 Carbon Dioxide 23 BUN 10 Creatinine 0.98 Glucose 61 L Calcium 8.7 - ABG Interpretation ABG results: PT/INR, D-dimer PT 13.9 Seconds (9.4-12.1) H 06/07/17 12:45 Consult Discharge Plan - Plan Referrals: Manuela Franco CNP [Primary Care Provider] - 06/17/17 10:40 am
[2017-06-11] MEDS: traMADol 50 MG TABLET PO PRN (21:14)
[2017-06-12] MEDS: *HR* HYDROcodone/Acet 5/325 mg TABLET PO PRN ×3 (00:10→19:52)
[2017-06-12] MEDS ORDERED: *HR* OxyCODONE/APAP 5/325 TABLET PO ONE (04:13)
[2017-06-12 04:26] LABS: Basophils % 0.6 %
[2017-06-12 04:27] LABS: Eosinophils % 0.4 %; Hematocrit 47.7 % (35.3-44.9); Hemoglobin 14.6 g/dL (11.5-15.4); Immature Granulocytes % 3.4 % (0-4); Lymphocytes # 1.8 K/mcL (0.6-4.6); Lymphocytes % 6.7 %; Mean Corpuscular HGB Conc 30.6 g/dL (31.6-35.5); Mean Corpuscular Hemoglobin 27.2 pg (28.0-33.3); Mean Corpuscular Volume 88.8 fL (83.0-100.0); Mean Platelet Volume 11.5 fL (9.4-12.4); Monocytes % 8.2 %; Platelet Count 219 K/mcL (140-400); Red Blood Count 5.37 M/mcL (3.82-4.97); Red Cell Distribution Width 21.7 % (11.5-14.5); Segmented Neutrophils % 80.7 %
[2017-06-12 04:28] LABS: Basophils # 0.2 K/mcL (0.0-0.2); Eosinophils # 0.1 K/mcL (0.0-0.6); Monocytes # 2.2 K/mcL (0.0-1.3); Neutrophils # 21.6 K/mcL (1.6-8.9)
[2017-06-12 04:44] LABS: Platelet Estimate Normal (Normal)
[2017-06-12 04:50] LABS: BUN/Creatinine Ratio 13 (6-26); Blood Urea Nitrogen 11 mg/dL (8-23); Calcium 8.9 mg/dL (8.6-10.3); Carbon Dioxide 23 mEq/L (23-29); Chloride 107 mEq/L (98-107); Glucose 89 mg/dL (70-105); Osmolality,Calculated 285 (280-300); Potassium 3.6 mEq/L (3.5-5.1); Sodium 138 mEq/L (136-145); eGFR For African Americans > 60 (> 60); eGFR For Non-African Americans > 60 (> 60)
[2017-06-12] MEDS ORDERED: Aminoglycoside Consult 1 EACH MC ONE (08:05)
[2017-06-12] MEDS: Hydroxyurea 500 MG CAPSULE PO SCH (08:20)
[2017-06-12] MEDS: Piperacillin/Tazobactam 3.375 GM in 0.9 % Sodium Chloride Mini Bag 100 ML IVPB SCH (08:21)
[2017-06-12] MEDS: Lisinopril 20 MG TABLET PO SCH (08:21)
[2017-06-12] MEDS: Aspirin Enteric Coated 81 MG Tablet PO SCH (08:21)
[2017-06-12] MEDS: Apixaban 5 MG TABLET PO SCH ×2 (08:21→19:52)
[2017-06-12] MEDS: Magnesium Oxide 400 MG TABLET PO SCH (08:21)
[2017-06-12] MEDS ORDERED: Lisinopril 20 MG TABLET PO SCH (09:00)
[2017-06-13] MEDS: *HR* HYDROcodone/Acet 5/325 mg TABLET PO PRN (04:56)
[2017-06-13] MEDS: Apixaban 5 MG TABLET PO SCH (08:13)
[2017-06-13] MEDS: Magnesium Oxide 400 MG TABLET PO SCH (08:13)
[2017-06-13] MEDS: Aspirin Enteric Coated 81 MG Tablet PO SCH (08:13)
[2017-06-13] MEDS: Hydroxyurea 500 MG CAPSULE PO SCH (08:13)
[2017-06-13] MEDS ORDERED: Lisinopril 20 MG TABLET PO SCH (09:00)
--- NOTE | 2017-06-13 11:06 | Discharge Summary ---
- NOTES TO OUTPATIENT PROVIDER Notes to Outpatient Provider: Pt was admitted for cellulitis, treated with IV Vancomycin and Zosyn, transitioned to Clindamycin 300mg po QID. Pt had significant improvement and will be sent home to finish po antibiotics and will follow up with Dr. Heller to reschedule angiogram. 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 Follow up with heme/onc after discharge. Likely source of leukocytosis. Chronic leukocytosis since 2013. No other signs of infection. (2) HTN (hypertension) Priority: Secondary Status: Chronic Assessment and Plan: Well-controlled. Continue home medications. HCTZ stopped due to little to no effect on BP. Lisinopril increased to 20mg po daily, normal home dose was 10mg po daily. Continue at home. Pt had manual BP done in both arms prior to discharge. Pt with history of vascular disease, requested manual BP 165/70. Pt reports that her BP is better at home than it has been here, daughter agrees and states that pt is stressed out about getting home to her ill for whom she is the sole caregiver. Qualifiers: Hypertension type: essential hypertension Qualified Code(s): I10 - Essential (primary) hypertension (3) PVD (peripheral vascular disease) Priority: Secondary Status: Chronic Assessment and Plan: Chronic. Plan as above. Continue ASA and Eliquis, pt will follow up with Dr Garcia after discharge. (4) Chronic pain of lower extremity, bilateral Priority: Secondary Status: Chronic Assessment and Plan: Patient reports chronic pain to bilateral lower extremities, complicated by 2 week history of cellulitis. Pt reports that pain is controlled and much better. Continue home dose of Percocet. Doppler RLE negative for DVT/SVT Lower Extremity CT 06/07/17 12:16 IMPRESSION: 1. Circumferential fat stranding in the calf and dorsal forefoot compatible with cellulitis versus lymphedema. No drainable fluid collection. 2. No acute osseous abnormality. 3. 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 4. Status post talonavicular arthrodesis and calcaneal osteotomy without complication identified. D/ / Bret Fenton MD / Bret Fenton MD Interpreting Provider: Bret Fenton MD Aorta w/Runoff CTA 06/08/17 11:30 IMPRESSION: 1. No aneurysm or dissection. Scattered atherosclerosis of the abdominal aorta but no flow-limiting disease identified. Similar statement applies for the bilateral common external arteries and common femoral arteries. 2. On the right side, there is scattered atherosclerosis with less than 50% narrowing of the right SFA. Subtotal occlusion distally at the adductor hiatus with immediate reconstitution. Three-vessel runoff to the right foot. 3. Scattered atherosclerosis but no flow-limiting stenosis of the left SFA. Dominant supply to the left foot via the anterior tibial artery with weak attenuation of the peroneum and posterior tibial arteries. 4. Suboptimal evaluation of the bilateral popliteal artery secondary to artifact. 5. Regarding cellulitis, there is skin thickening and reticulation in the tissues involving the bilateral legs. Soft tissue calcification is also identified with some edema. Finding is nonspecific but can be seen in the setting of dermatomyositis. MRI would better evaluate. D/ / 06/08/2017 12:54:08 Derek Gonzalez / tresa Interpreting Provider: Derek Gonzalez Lower Extremity MRI 06/09/17 13:38 IMPRESSION: 1. Nonspecific circumferential subcutaneous edema in the calf and ankle and extending along the dorsum of the midfoot compatible with cellulitis versus lymphedema. No drainable fluid collection. 2. No intramuscular edema to suggest myositis. 3. No acute osseous abnormality. D/ / Bret Fenton MD / Bret Fenton MD Interpreting Provider: Bret Fenton MD (5) Cellulitis Priority: Secondary Status: Acute Assessment and Plan: Severe leukocytosis, likely unchanged due to polycythemia vera. Overall, RLE appears to be much better. Foot remains the same, pt will follow with Dr. Heller to complete angiogram after discharge. Continue Clindamycin po for 10 days. Qualifiers: Site of cellulitis: extremity Site of cellulitis of extremity: lower extremity Laterality: right Qualified Code(s): L03.115 - Cellulitis of right lower limb (6) Atrial fibrillation Priority: Secondary Status: Chronic Assessment and Plan: Rate controlled, continue Eliquis and BB. Pt denies chest pain, palpitations, or SOB. Qualifiers: Atrial fibrillation type: chronic Qualified Code(s): I48.2 - Chronic atrial fibrillation Hospital course: Ms. Honeycutt is a 86 year old female with PMH of PVD, arthritis, HAM, a-fib, polycythemia vera, and recent cellulitis with failed outpatient therapy. Pt was to have angiogram to RLE and was sent to ED for evaluation of cellulitis. She was admitted for IV antibiotics, Vancomycin and Zosyn, and improved significantly. She has been transitioned to Clindamycin 300mg po QID x7 days and will follow up with Dr Heller to reschedule her angiogram. Doppler RLE negative for SVT or DVT. Pt with severe leukocytosis, normal for pt, secondary to Polycythemia Vera. Family states is normal for pt, review of trend shows leukocytosis chronic since 2014. Vitals and labs are stable and WNL. Pt is ready for discharge. Discharge discussed with: patient, nurse - Time Spent with Patient Total time spent providing and/or coordinating discharge services: Less than 30 minutes - Discharge Medications Prescriptions: Clindamycin [Cleocin] 300 mg PO Q6HR #56 capsule Lisinopril [Zestril] 20 mg PO DAILY #30 tablet Home Medications: Metoprolol [Lopressor] 50 mg PO BID 12/24/14 [History] Apixaban [Eliquis] 2.5 mg PO BID #60 tablet 02/16/17 [Rx] OxyCODONE/APAP 7.5/325 [Percocet 7.5/325 MG] 1 tab PO Q12H PRN 30 Days #60 tablet 03/30/17 [Rx] Aspirin [Lo-Dose Aspirin EC] 81 mg PO DAILY 06/07/17 [History] Hydroxyurea [Hydrea] 500 mg PO MOTUWETHFR 06/07/17 [History] LORazepam [Ativan] 0.5 mg PO TID PRN 06/07/17 [History] Magnesium Oxide [Magnesium] 400 mg PO DAILY 06/07/17 [History] Clindamycin [Cleocin] 300 mg PO Q6HR #56 capsule 06/13/17 [Rx] Lisinopril [Zestril] 20 mg PO DAILY #30 tablet 06/13/17 [Rx] Allergies/Adverse Reactions: 3 Allergy/AdvReac Type Severity Reaction Status Date / Time Sulfa (Sulfonamide AdvReac Rash Verified 03/30/17 10:38 Antibiotics) Date of admission: 06/08/17 03:38 Primary care physician: Manuela Franco, [employer] Discharging clinician: Mary Hammer Anticipated date of discharge: 06/13/17 - Constitutional Vitals: Temp Pulse Resp BP Pulse Ox 98.8 F 77 16 187/68 93 06/13/17 07:20 06/13/17 07:20 06/13/17 07:20 06/13/17 07:20 06/13/17 07:20 General appearance: Present: cooperative, A&O X 3, pleasant, no acute distress, answers questions appropriately - Head Head exam: Present: atraumatic, normal inspection, normocephalic - Eye Eye exam: Present: normal appearance, conjuntiva pink, sclera anicteric - Neck Neck exam general surgery: Present: normal inspection, supple, trachea midline. Absent: lymphadenopathy - Respiratory Respiratory exam: Present: CTAB. Absent: accessory muscle use, rales, respiratory distress, rhonchi, wheezes - Cardiovascular Cardiovascular exam: Present: RRR, +S1, +S2. Absent: diastolic murmur, gallop, rubs, systolic murmur - GI/Abdominal GI/Abdominal exam: Present: normal bowel sounds, soft. Absent: distended, hepatomegaly, tenderness - Extremities Exam Extremities exam: Present: tenderness, warm, radial pulses palpable and symmetrical. Absent: calf tenderness, cyanotic, joint swelling, normal inspection, pedal edema - Neurological Exam Neurological exam: Present: alert, oriented X3, no focal deficits. Absent: altered, facial droop, speech deficit - Skin Skin exam: Present: dry, intact, normal color, warm. Absent: rash - Patient Status Disposition: Home, Self-Care Condition: Good Functional capacity at discharge: uses cane/walker Overall status at discharge: patient is progressing back to baseline - Discharge Instructions Instructions: Clindamycin (By mouth), Cellulitis (DC) Follow Up With: Manuela Franco CNP [Primary Care Provider] - 06/17/17 10:40 am Trevor Heller MD [Partnered Physician] - 07/06/17 2:30 pm (PAD) Additional Instructions: Please follow up with Dr. Heller for a recheck and to reschedule angiogram. Take your antibiotics every 6 hours until they are gone. Follow with your PCP as scheduled. Return to the ER immediately if your symptoms return or worsen, or for any other problems or concerns. REturn to your normal diet and activities as tolerated. - Diet and Activity Activity: increase activity as tolerated Diet: advance to your usual diet
[2017-06-13] MEDS ORDERED: amLODIPine 5 MG TABLET PO SCH (12:30)
[2017-06-13 14:44] VITALS: BP 185/75
== END 2017-06-13 16:26 | disposition home or self-care (01) | DRG 603 ==
LOC: EMEROO 12:06 → 3BNU 12:06
PROVIDERS: ADMIT Internal Medicine; ATTEND Pediatrics

== ENCOUNTER 2017-08-01 14:12 | Inpatient (IN) ==
--- NOTE | 2017-08-01 14:45 | Emergency Department Note ---
Disposition Clinical Impression: Cellulitis Qualifiers: Site of cellulitis: extremity Laterality: right Disposition: Admitted As Inpatient Condition: Good Referrals: Manuela Franco CNP [Primary Care Provider] - Forms: ED Satisfaction Letter Time of Disposition: 15:48 General Adult HPI - General Chief complaint: ED Extremity Problem,Nontraumatic Stated complaint: Right Foot Wound Time Seen by Provider: 08/01/17 14:32 Nursing Notes Reviewed: Yes Vital Signs Reviewed: Yes - History of Present Illness HPI Narrative: Patient failing outpatient therapy for MRSA in her right lower extremity. She has been on doxycycline for 1 week with ulcers on her right foot getting worse. She does see Dr. silveira for vascular. He started today and was requesting she come to the hospital for IV antibiotics. Pain Scale: 10 - Related Data Home Medications Medication Instructions Recorded Confirmed Magnesium Oxide [Magnesium] 400 mg PO DAILY 06/07/17 07/12/17 Hydroxyurea [Hydrea] 500 mg PO DAILY 07/12/17 07/12/17 Apixaban [Eliquis] 2.5 mg PO BID 08/01/17 08/01/17 Collagenase Oint [Santyl] 1 appl TP DAILY 08/01/17 08/01/17 Doxycycline Hyclate [Vibramycin] 100 mg PO BID 08/01/17 08/01/17 LORazepam [Ativan] 0.5 mg PO TID PRN 08/01/17 08/01/17 Metoprolol [Lopressor] 50 mg PO BID 08/01/17 08/01/17 Previous Rx's Medication Instructions Recorded OxyCODONE/APAP 7.5/325 [Percocet 1 tab PO Q12H PRN 30 Days #60 06/29/17 7.5/325 MG] tablet Clopidogrel [Plavix] 75 mg PO DAILY #30 tab 07/12/17 Allergies Allergy/AdvReac Type Severity Reaction Status Date / Time clindamycin AdvReac Shakiness Verified 07/12/17 06:53 Sulfa (Sulfonamide AdvReac Rash Verified 06/29/17 09:46 Antibiotics) All systems ED: reviewed and negative except as stated. Constitutional: Denies: fever, chills ENT ED: Denies: congestion Cardiovascular: Denies: chest pain, palpitations, syncope Respiratory: Denies: cough, dyspnea Gastrointestinal: Denies: abdominal pain, nausea, vomiting, diarrhea Genitourinary: Denies: urgency, dysuria, frequency Musculoskeletal: Denies: back pain, neck pain Integumentary: Reports: other (Ulcerative lesions to the right lower extremity. Getting worse over the past week. Has been on doxycycline. Purulent discharge.). Denies: rash Past Medical History - Past Medical History Attestation: Yes The following information was validated with the patient. Source: patient Medical history: Reports: atrial fibrillation, cancer, CVA, GERD, hypertension Surgical history: Reports: hysterectomy Psychiatric history: Reports: no psych history - Social History Smoking Status: Never smoker Smokeless Tobacco Status: Yes Alcohol use: Reports: none Drug use: Reports: none Physical Exam - General Limitations: no limitations General appearance: alert, in no apparent distress - Head Head exam: atraumatic, normocephalic, normal inspection - Eye Eye exam: Present: normal appearance, PERRL, EOMI - ENT ENT exam: normal exam, normal oropharynx, mucous membranes moist - Neck Neck exam: Present: normal inspection, full ROM, trachea midline - Chest Chest inspection: Present: normal inspection, symmetric chest wall rise - Respiratory Respiratory exam: Present: normal lung sounds bilaterally. Absent: respiratory distress, accessory muscle use - Cardiovascular Cardiovascular exam: Present: regular rate, normal rhythm, normal heart sounds - Abdominal Exam Abdominal exam: Present: soft, Non-Tender. Absent: tenderness, distention, guarding, rebound, rigidity, organomegaly - Expanded Upper Extremity Exam Shoulder exam: Present: normal inspection, full ROM Arm exam: Present: normal inspection, full ROM Elbow exam: Present: normal inspection, full ROM Forearm/Wrist exam: Present: normal inspection, full ROM Hand exam: Present: normal inspection, full ROM Vascular exam: Normal: capillary refill, radial pulse - Expanded Lower Extremity Exam Hip/Pelvis exam: Present: normal inspection, full ROM Upper leg exam: Present: normal inspection, full ROM Knee exam: Present: normal inspection, full ROM Lower leg exam: Present: normal inspection, full ROM Ankle exam: Present: normal inspection, full ROM Foot/toe exam: Present: full ROM, tenderness (To right foot), other (Multiple ulcerated lesions with purulent discharge of the right foot and posterior lower leg. 2 large lesions to the right great digit on her right foot. There are eschar areas.) Neurovascular/Tendon exam: Absent: motor deficit, sensory deficit, tendon deficit Course Course Narrative: Female patient sent to the emergency department after being seen at Dr. Heller office. She was diagnosed with MRSA in her right foot. She has been sent here for admission and IV antibiotics. 2 months ago she had a "wound to her left foot. One month ago it began to become ulcerated. One week ago she was started on doxycycline for drainage. She has failed outpatient therapy and continues to have drainage from these wounds. They have been dressed appropriately daily from home health nurses however they continue to get worse. She has seen Dr. Heller and had balloons placed in her legs. She states that her surgeries have failed. We will get a basic lab workup on patient and start her on IV vancomycin. She has the microbiology with her along with the sensitivities. He does appear to be sensitive to vancomycin. We will start this. - Consultations Consultation #1: I spoke with Dr Heller. He is requesting a podiatry consult and admission with IV antibiotics. Time: 15:21 Consultation #2: I spoke with Dr Maxwell he will see the Pt tomorrow. Time: 15:28 Consultation #3: Dr Dr Nascimento accepted Pt in stable condition. Time: 15:31 Vital Signs Temperature 98.1 F 08/01/17 14:14 Pulse Rate 90 08/01/17 14:14 Respiratory Rate 14 08/01/17 14:14 Blood Pressure 194/89 08/01/17 14:14 O2 Sat by Pulse Oximetry 97 08/01/17 14:14 Temperature 98.1 F 08/01/17 14:44 Pulse Rate 58 08/01/17 15:34 Respiratory Rate 17 08/01/17 15:34 Blood Pressure 193/75 08/01/17 15:34 O2 Sat by Pulse Oximetry 98 08/01/17 15:34 Oxygen Delivery Oxygen Delivery Room Air Medical Decision Making - Medical Records Medical records reviewed: Yes I reviewed the patient's medical records. - Lab Data Lab results reviewed: Yes I reviewed the patient's lab results. Result diagrams: 08/01/17 14:55 08/01/17 14:55 Lab Results 08/01/17 08/01/17 Range/Units 14:55 14:55 WBC 15.4 H (4.3-11.1) K/mcL RBC 4.17 (3.82-4.97) M/mcL Hgb 12.7 (11.5-15.4) g/dL Hct 40.7 (35.3-44.9) % MCV 97.6 D (83.0-100.0) fL MCH 30.5 (28.0-33.3) pg MCHC 31.2 L (31.6-35.5) g/dL RDW 23.6 H (11.5-14.5) % Plt Count 250 (140-400) K/mcL MPV 11.0 (9.4-12.4) fL Sodium 136 (136-145) mEq/L Potassium 4.3 (3.5-5.1) mEq/L Chloride 105 (98-107) mEq/L Carbon Dioxide 22 L (23-29) mEq/L BUN 17 (8-23) mg/dL Creatinine 0.88 (0.60-1.20) mg/dL Est GFR ( Amer) > 60 (> 60) Est GFR (Non-Af Amer) > 60 (> 60) BUN/Creatinine Ratio 19 (6-26) Glucose 111 H (70-105) mg/dL Calculated Osmolality 284 (280-300) Calcium 9.5 (8.6-10.3) mg/dL - EKG Data EKG #1 EKG attestation: Yes I reviewed and interpreted this EKG. EKG results narrative: Sinus rhythm with frequent PVCs. Ventricular rate is 62. OR interval is 195. QRS duration is 125. QTC is 447. QTC is 452. No signs of acute ischemia. No significant changes from previous EKG dated 07/07/2017. She also have frequent PVCs at that time.
--- NOTE | 2017-08-01 15:02 | Emergency Department Note ---
Disposition Clinical Impression: Cellulitis Disposition: Admitted As Inpatient Condition: Good General Adult HPI - General Chief complaint: ED Extremity Problem,Nontraumatic Stated complaint: Right Foot Wound Time Seen by Provider: 08/01/17 14:32 Nursing Notes Reviewed: Yes Vital Signs Reviewed: Yes - History of Present Illness Pain Scale: 10 - Related Data Home Medications Medication Instructions Recorded Confirmed Magnesium Oxide [Magnesium] 400 mg PO DAILY 06/07/17 08/01/17 Hydroxyurea [Hydrea] 500 mg PO DAILY 07/12/17 08/01/17 Apixaban [Eliquis] 2.5 mg PO BID 08/01/17 08/01/17 Collagenase Oint [Santyl] 1 appl TP DAILY 08/01/17 08/01/17 Doxycycline Hyclate [Vibramycin] 100 mg PO BID 08/01/17 08/01/17 LORazepam [Ativan] 0.5 mg PO TID PRN 08/01/17 08/01/17 Metoprolol [Lopressor] 50 mg PO BID 08/01/17 08/01/17 Previous Rx's Medication Instructions Recorded OxyCODONE/APAP 7.5/325 [Percocet 1 tab PO Q12H PRN 30 Days #60 06/29/17 7.5/325 MG] tablet Clopidogrel [Plavix] 75 mg PO DAILY #30 tab 07/12/17 Allergies Allergy/AdvReac Type Severity Reaction Status Date / Time clindamycin AdvReac Shakiness Verified 07/12/17 06:53 Sulfa (Sulfonamide AdvReac Rash Verified 06/29/17 09:46 Antibiotics) Past Medical History - Past Medical History Medical history: Reports: atrial fibrillation, cancer, CVA, GERD, hypertension Surgical history: Reports: hysterectomy Psychiatric history: Reports: no psych history - Social History Smoking Status: Never smoker Smokeless Tobacco Status: Yes Alcohol use: Reports: none Drug use: Reports: none Course Vital Signs Temperature 98.1 F 08/01/17 14:14 Pulse Rate 90 08/01/17 14:14 Respiratory Rate 14 08/01/17 14:14 Blood Pressure 194/89 08/01/17 14:14 O2 Sat by Pulse Oximetry 97 08/01/17 14:14 Temperature 98.1 F 08/01/17 14:44 Pulse Rate 58 08/01/17 15:34 Respiratory Rate 14 08/01/17 16:06 Blood Pressure 185/99 08/01/17 16:06 O2 Sat by Pulse Oximetry 98 08/01/17 15:34 Oxygen Delivery Oxygen Delivery Room Air Medical Decision Making - MDM Narrative Medical decision making narrative: 1600 hrs.: Admission to hospitalist with podiatry consult. - Lab Data Result diagrams: 08/01/17 14:55 08/01/17 14:55 Lab Results 08/01/17 08/01/17 08/01/17 Range/Units 14:55 14:55 14:55 WBC 15.4 H (4.3-11.1) K/mcL RBC 4.17 (3.82-4.97) M/mcL Hgb 12.7 (11.5-15.4) g/dL Hct 40.7 (35.3-44.9) % MCV 97.6 D (83.0-100.0) fL MCH 30.5 (28.0-33.3) pg MCHC 31.2 L (31.6-35.5) g/dL RDW 23.6 H (11.5-14.5) % Plt Count 250 (140-400) K/mcL MPV 11.0 (9.4-12.4) fL Immature Gran % 0.8 (0-4) % Seg Neutrophils % 78.9 % Lymphocytes % 8.3 % Monocytes % 11.0 % Eosinophils % 0.6 % Basophils % 0.4 % Neutrophils # 12.2 H (1.6-8.9) K/mcL Lymphocytes # 1.3 (0.6-4.6) K/mcL Monocytes # 1.7 H (0.0-1.3) K/mcL Eosinophils # 0.1 (0.0-0.6) K/mcL Basophils # 0.1 (0.0-0.2) K/mcL Platelet Estimate Normal (Normal) Anisocytosis 1+ A (Not Present) ESR 11 (0-15) mm/hr Sodium 136 (136-145) mEq/L Potassium 4.3 (3.5-5.1) mEq/L Chloride 105 (98-107) mEq/L Carbon Dioxide 22 L (23-29) mEq/L BUN 17 (8-23) mg/dL Creatinine 0.88 (0.60-1.20) mg/dL Est GFR ( Amer) > 60 (> 60) Est GFR (Non-Af Amer) > 60 (> 60) BUN/Creatinine Ratio 19 (6-26) Glucose 111 H (70-105) mg/dL Calculated Osmolality 284 (280-300) Calcium 9.5 (8.6-10.3) mg/dL C-Reactive Protein 14 H (Less than 10) mg/L Attestation Statement - Attestation Attestation: This documentation is done with the assistance of Dragon dictation. Despite efforts made to ensure accuracy, there may be inaccuracies in interventional physiatrist or spelling and typographical errors. I examined this patient and my medical decision-making was reviewed with the Resident Physician. I agree with the documented findings, disposition and treatment plan as described except to the extent set forth below. Patient presents today and was seen by Dr. Carrillo and myself I agree with her evaluation management plan, supervise care the patient's stay. Patient has no lesions on her right foot is followed by vascular. She had cultures done grew out MRSA. She is allergic to clindamycin and also Bactrim so we will start her on vancomycin check labs and admit. She is in agreement with plan. She has been on vancomycin the past.
[2017-08-01 15:10] LABS: Basophils # 0.1 K/mcL (0.0-0.2); Basophils % 0.4 %; Eosinophils # 0.1 K/mcL (0.0-0.6); Eosinophils % 0.6 %; Hematocrit 40.7 % (35.3-44.9); Hemoglobin 12.7 g/dL (11.5-15.4); Immature Granulocytes % 0.8 % (0-4); Lymphocytes # 1.3 K/mcL (0.6-4.6); Lymphocytes % 8.3 %; Mean Corpuscular HGB Conc 31.2 g/dL (31.6-35.5); Mean Corpuscular Hemoglobin 30.5 pg (28.0-33.3); Mean Corpuscular Volume 97.6 fL (83.0-100.0); Monocytes # 1.7 K/mcL (0.0-1.3); Neutrophils # 12.2 K/mcL (1.6-8.9); Platelet Count 250 K/mcL (140-400); Red Blood Count 4.17 M/mcL (3.82-4.97); Red Cell Distribution Width 23.6 % (11.5-14.5); Segmented Neutrophils % 78.9 %
[2017-08-01 15:26] LABS: BUN/Creatinine Ratio 19 (6-26); Blood Urea Nitrogen 17 mg/dL (8-23); Calcium 9.5 mg/dL (8.6-10.3); Carbon Dioxide 22 mEq/L (23-29); Chloride 105 mEq/L (98-107); Glucose 111 mg/dL (70-105); Osmolality,Calculated 284 (280-300); Potassium 4.3 mEq/L (3.5-5.1); Sodium 136 mEq/L (136-145); eGFR For African Americans > 60 (> 60); eGFR For Non-African Americans > 60 (> 60)
[2017-08-01 15:51] LABS: Anisocytosis 1+ (Not Present); Platelet Estimate Normal (Normal)
[2017-08-01 16:05] LABS: C-Reactive Protein 14 mg/L (Less than 10)
[2017-08-01] MEDS ORDERED: Acetaminophen 325 MG TABLET PO PRN (17:11)
[2017-08-01] MEDS: *HR* OxyCODONE/APAP 7.5/325 TABLET PO PRN (18:02)
[2017-08-01] MEDS: *HR* HYDROcodone/Acet 5/325 mg TABLET PO PRN (20:38)
[2017-08-01] MEDS ORDERED: Naloxone 0.4 MG/ML INJ IVP PRN (20:54)
[2017-08-02] MEDS: *HR* LORazepam 0.5 MG TABLET PO PRN ×2 (00:01→22:24)
[2017-08-02] MEDS: *HR* OxyCODONE/APAP 7.5/325 TABLET PO PRN ×3 (02:55→14:35)
[2017-08-02 05:02] LABS: Hematocrit 37.6 % (35.3-44.9); Mean Corpuscular HGB Conc 31.9 g/dL (31.6-35.5); Mean Corpuscular Hemoglobin 31.3 pg (28.0-33.3); Mean Corpuscular Volume 97.9 fL (83.0-100.0); Mean Platelet Volume 11.2 fL (9.4-12.4); Platelet Count 212 K/mcL (140-400); Red Blood Count 3.84 M/mcL (3.82-4.97); Red Cell Distribution Width 23.5 % (11.5-14.5)
[2017-08-02 05:21] LABS: BUN/Creatinine Ratio 18 (6-26); Blood Urea Nitrogen 14 mg/dL (8-23); Calcium 9.1 mg/dL (8.6-10.3); Carbon Dioxide 23 mEq/L (23-29); Chloride 108 mEq/L (98-107); Glucose 84 mg/dL (70-105); Osmolality,Calculated 288 (280-300); Potassium 3.9 mEq/L (3.5-5.1); Sodium 139 mEq/L (136-145); eGFR For African Americans > 60 (> 60); eGFR For Non-African Americans > 60 (> 60)
--- NOTE | 2017-08-02 05:22 | Internal Med History&Physical ---
Date of Encounter: 08/02/17 Time of Encounter: 19:20 Internal Medicine - H&P: HPI Chief complaint: Right foot wounds Admitted From: Home Plans for Post Hospital Care: Home History of present illness: Ms. Honeycutt is a 86 year old female Patient has been seen outpatient by Dr. Maxwell of major gifts [facility] and Dr. Heller of vascular surgery for her right foot. She has been having wounds and infections. For the last week she has been treated with doxycycline, however the foot infections have not improved. She has had the wounds for what she describes as quite a while, initially seen by wound care in [place], and while there a debridement was attempted but unsuccessful. She was then referred to the hospital for admission to be treated with IV antibiotics. It is quite painful, and she is unable to walk on her foot. Past Med Surg Social Fam HX - Past Medical History Medical history: atrial fibrillation, cancer, CVA, GERD, hypertension Additional medical history: POLYCYTHEMIA. SKIN CANCER Psychiatric history: no psych history - Past Surgical History Surgical History: hysterectomy Additional surgical history: bilateral knee replacements,R leg balloon procedure for circulation, TKR. BILAT FOOT RECONSTRUCTION - Social History Smoking Status: Never smoker Smokeless Tobacco Status: Yes Alcohol use: none Drug use: none - Family History Mother Adopted: No Family Member Ethnicity: Non- Living Status: Hx Family Cardiac Disorders: No Hx Family Respiratory Disorders: No Hx Family Cancer: Yes Hx Family GI Disorders: No Hx Family Endocrine Disorder: Yes Hx Family Neuromuscular Disorders: No Hx Family Neurologic Disorders: No Hx Family HEENT Disorders: No Hx Family Autoimmune Disorders: No Father Adopted: No Family Member Ethnicity: Non- Living Status: Hx Family Cardiac Disorders: Yes Hx Family Respiratory Disorders: Yes Hx Family Cancer: No Hx Family GI Disorders: No Hx Family Endocrine Disorder: No Hx Family Neuromuscular Disorders: No Hx Family Neurologic Disorders: No Hx Family HEENT Disorders: No Hx Family Autoimmune Disorders: No Internal Medicine - H&P: Meds Magnesium Oxide [Magnesium] 400 mg PO DAILY 06/07/17 [History] OxyCODONE/APAP 7.5/325 [Percocet 7.5/325 MG] 1 tab PO Q12H PRN 30 Days #60 tablet 06/29/17 [Rx] Clopidogrel [Plavix] 75 mg PO DAILY #30 tab 07/12/17 [Rx] Hydroxyurea [Hydrea] 500 mg PO DAILY 07/12/17 [History] Apixaban [Eliquis] 2.5 mg PO BID 08/01/17 [History] Collagenase Oint [Santyl] 1 appl TP DAILY 08/01/17 [History] Doxycycline Hyclate [Vibramycin] 100 mg PO BID 08/01/17 [History] LORazepam [Ativan] 0.5 mg PO TID PRN 08/01/17 [History] Metoprolol [Lopressor] 50 mg PO BID 08/01/17 [History] 3 Allergy/AdvReac Type Severity Reaction Status Date / Time clindamycin AdvReac Shakiness Verified 07/12/17 06:53 Sulfa (Sulfonamide AdvReac Rash Verified 06/29/17 09:46 Antibiotics) All Systems PM: A 10-system review of systems was performed and is negative for pertinent findings except as documented above in the HPI. - Constitutional Vitals: Temp Pulse Resp BP Pulse Ox 98.2 F 64 15 185/78 96 08/02/17 04:26 08/02/17 04:26 08/02/17 04:26 08/02/17 04:26 08/02/17 04:26 General appearance: Present: A&O X 3, pleasant, no acute distress - Head Head exam: Present: atraumatic, normocephalic - Eye Eye exam: Present: EOMI, normal appearance - Respiratory Respiratory exam: Present: CTAB. Absent: rales, respiratory distress, rhonchi - Cardiovascular Cardiovascular exam: Present: irregular rhythm. Absent: diastolic murmur, systolic murmur - GI/Abdominal GI/Abdominal exam: Present: normal bowel sounds, soft. Absent: distended - Extremities Exam Extremities exam: Present: warm Additional comments: Right foot exam as follows: For wounds one located at the right calf approximately 1 cm in diameter, one wound right heel approximately 2 cm in diameter, one wound at great toe irregular borders greater than 1.5 cm and dark in color. Additional wound about 3 cm x 2 cm located approximately to the great toe and extending to the medial side of the foot. There is erythema of the skin surrounding the wounds, and tenderness with palpation. - Neurological Exam Neurological exam: Present: alert, altered, CN II-XII intact, oriented X3 - Skin Skin exam: Present: rash Additional comments: Please see foot exam above for details. Internal Med - H&P Results - Labs CBC & Chem 7: 08/02/17 04:25 08/02/17 04:25 Labs: Short CBC 08/02/17 Range/Units 04:25 WBC 11.3 H (4.3-11.1) K/mcL Hgb 12.0 (11.5-15.4) g/dL Hct 37.6 (35.3-44.9) % Plt Count 212 (140-400) K/mcL - VTE Reasons for not Prescribing Prophylaxis: Not indicated-Anticoagulated or INR therapeutic - Assessment and plan (1) Cellulitis Current Visit: Yes Status: Acute Assessment and plan: Failed outpatient therapy with doxycycline, has been evaluated by podiatry and vascular surgery. They have been contacted by the emergency room and will see the patient during her hospital stay. Continue vancomycin IV. Monitor vitals. Follow-up blood cultures. Qualifiers: Site of cellulitis: extremity Laterality: right Qualified Code(s): L03.115 - Cellulitis of right lower limb (2) Atrial fibrillation Current Visit: No Status: Chronic Assessment and plan: Stable, on metoprolol, plavix and eliquis,. We will continue these medications. Will need to consider alternatives if patient requires surgical procedure for her foot. Qualifiers: Atrial fibrillation type: chronic Qualified Code(s): I48.2 - Chronic atrial fibrillation (3) PVD (peripheral vascular disease) Current Visit: No Status: Chronic Assessment and plan: Likely the root cause of her foot ulcers and subsequent infections. Patient follows with [facility] and vascular surgeon as indicated above. Treating for cellulitis as above. (4) Anxiety Current Visit: Yes Status: Acute Assessment and plan: Stable, patient takes lorazepam for this. Continue during hospital stay (5) HTN (hypertension) Current Visit: No Status: Chronic Assessment and plan: Chronic, continue home meds. Qualifiers: Hypertension type: essential hypertension Qualified Code(s): I10 - Essential (primary) hypertension - Time Spent With Patient Total time spent is greater than 50% in coordination of care (as documented) at patient's floor/unit and/or counseling patient: Greater than 35 minutes
--- NOTE | 2017-08-02 06:40 | Electrocardiograph Report ---
[place] [id number] Test Date: 2017-08-01 Pat Name: Rosa Honeycutt Department: 103 Room: 3A22 Gender: F Mobile Home Technician: JACKIE TSAIB: [id number] Requested By: Jennifer Carrillo Order Number: [id number] Reading MD: Jorge Cuello Measurements Intervals [place] Rate: 62 P: 64 OK: 195 QRS: -32 QRSD: 125 T: 77 QT: 447 QTc: 452 Interpretive Statements SINUS RHYTHM WITH FREQUENT VENTRICULAR PREMATURE COMPLEXES MARKED LEFT AXIS DEVIATION LEFT VENTRICULAR HYPERTROPHY AND ST-T CHANGE Electronically Signed On 08-02-2017 6:39:36 EDT by Jorge Cuello
[2017-08-02] MEDS: *HR* HYDROcodone/Acet 5/325 mg TABLET PO PRN (08:01)
[2017-08-02] MEDS: Hydroxyurea 500 MG CAPSULE PO SCH (08:01)
[2017-08-02] MEDS: Magnesium Oxide 400 MG TABLET PO SCH (08:01)
--- NOTE | 2017-08-02 08:28 | Event Note ---
<Chance De - Last Filed: 08/02/17 13:18> Date of Encounter: 08/02/17 Time of Encounter: 08:15 Subjective: Patient seen and examined resting comfortably in bed. Patient remains on antibioitcs and is NPO, awaiting Podiatry/ vascular surgery recommendations. Her right foot pain is controlled on current medications. Objective: Last Vital Signs Temp 98.3 F 08/02/17 07:31 Pulse 77 08/02/17 07:31 Resp 16 08/02/17 07:31 BP 203/80 08/02/17 07:31 Pulse Ox 98 08/02/17 07:31 Physical Exam: General appearance: Present: A&O X 3, pleasant, no acute distress Head exam: Present: atraumatic, normocephalic Eye exam: Present: EOMI, normal appearance Respiratory exam: Present: CTAB. Absent: rales, respiratory distress, rhonchi Cardiovascular exam: Present: irregular rhythm. Absent: diastolic murmur, systolic murmur GI/Abdominal exam: Present: normal bowel sounds, soft. Absent: distended Extremities exam: Present: multiple right foot wounds, one located at the right calf approximately 1 cm in diameter, one wound right heel approximately 2 cm in diameter, one wound at right great toe with irregular borders greater than 1.5 cm and dark in color, and additional wound about 3 cm x 2 cm located proximal to the great toe and extending to the medial side of the foot with erythema of the skin surrounding the wounds and tenderness with palpation. Thready distal pulses RLE, 2+ distal pulses LLE Neurological exam: Present: alert, altered, CN II-XII intact, oriented X3 Skin exam: Present: erythema, warm and dry Assessment and plan: (1) Cellulitis Current Visit: Yes Status: Acute Assessment and plan: Failed outpatient therapy with doxycycline, patient has been evaluated by podiatry and vascular surgery. Continue IV vancomycin and Zosyn (Day 1) Blood cultures and wound cultures pending. NPO, Awaiting Podiatry/ vascular surgery recommendations Qualifiers: Site of cellulitis: extremity Laterality: right Qualified Code(s): L03.115 - Cellulitis of right lower limb (2) PVD (peripheral vascular disease) Current Visit: No Status: Chronic Assessment and plan: Likely etiology of her foot ulcers and subsequent infections. 07/29/17 EV arterial imaging LE RT revealed proximal right popliteal artery occlusion Patient follows with general i farmworker and vascular surgeon. Treating for cellulitis as above. Case discussed with vascular surgeon, awaiting further Podiatry recommendations. (3) Atrial fibrillation Current Visit: No Status: Chronic Assessment and plan: Rate controlled on Metoprolol. Hold Plavix and Eliquis due to possible surgical procedure for her foot. Qualifiers: Atrial fibrillation type: chronic Qualified Code(s): I48.2 - Chronic atrial fibrillation (4) Anxiety Current Visit: Yes Status: Acute Assessment and plan: Stable, Continue lorazepam during hospital stay (5) HTN (hypertension) Current Visit: No Status: Chronic Assessment and plan: Continue home meds. Qualifiers: Hypertension type: essential hypertension Qualified Code(s): I10 - Essential (primary) hypertension (6) DVT prophylaxis Current Visit: No Status: Chronic Assessment and plan: Hold Plavix and Eliquis due to possible surgical procedure for her foot. Plan discussed with and agreed upon with Dr. Mcnamara. <Leo Mcnamara - Last Filed: 08/02/17 14:46> Date of Encounter: 08/02/17 I examined this patient and my medical decision-making was reviewed with the Resident Physician Dr. De. I agree with the documented findings, disposition and treatment plan as described except to the extent set forth below. Ms. Honeycutt is a 86 year old female with known PMH of Paroxysmal A fib on eliquis for anti coag, severe PAD on Plavix, recurrent Rt foot ulcer. Pt was sent to hospital from Dr. Heller office for further work up and possible debridement. Pt does c/o severe Rt foot pain. Gen: A, A, O x 3 in mild distress with pain Ext: 2-3 CM ulcer over Rt heel. 2 cm size circular ulcers over Rt foot dorsum region at great toe, with tenderness, swelling and erythema. a/p 1. Rt foot ulcer with cellulites 2. Severe PAD Vascualr surgery and Podiatry consulted May need wound debridement, however prior to that will check with vascular surgery wether pt needs any angiogram cont empirical abx Hold Eliquis and Plavix 3. Paroxysmal A fib rate controlled
[2017-08-02] MEDS ORDERED: Apixaban 2.5 MG TABLET PO SCH (09:00)
[2017-08-02] MEDS: Piperacillin/Tazobactam 3.375 GM in 0.9 % Sodium Chloride Mini Bag 100 ML IVPB SCH ×3 (10:12→23:12)
[2017-08-02] MEDS: Lisinopril 20 MG TABLET PO SCH (10:14)
[2017-08-02] MEDS ORDERED: *HR* Heparin 5,000 UNIT/ML VIAL SQ SCH (14:00)
[2017-08-02] MEDS ORDERED: *HR* OxyCODONE Immed Rel 5 MG TABLET PO PRN (15:11)
[2017-08-02] MEDS ORDERED: Gadolinium Contrast Agent (WT Based) IV PRN (15:40)
--- NOTE | 2017-08-02 15:51 | Podiatry Consult Note ---
Date of Encounter: 08/02/17 Time of Encounter: 13:00 Assessment and Plan (1) Cellulitis Current visit: Yes Status: Acute Continue with current antibiotic therapy Failed outpatient doxycycline therapy Now on Zosyn and Vanc x1 day Blood and wound cultures pending Per assessment there is minimal clinical suspicion of abscess formation or osteomyelitis Wounds appear related to ischemic insult Will order MRI of the foot to rule out any underlying osteomyelitis or abscess formation Qualifiers: Site of cellulitis: extremity Site of cellulitis of extremity: lower extremity Laterality: right Qualified Code(s): L03.115 - Cellulitis of right lower limb (2) 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 Current visit: No Status: Chronic Most recent HERNAN Side Location Pressure Index Result Right Posterior Tibial 104 0.51 Right Dorsalis Pedis 71 0.35 Left Posterior Tibial 171 0.83 Left Dorsalis Pedis 174 0.85 Ankle Brachial Index Right Systolic Diastolic HERNAN Brachial 190 0.51 Dorsalis Pedis 71 0.35 Posterior Tibial 104 0.51 Left Systolic Diastolic HERNAN Brachial 205 0.85 Dorsalis Pedis 174 0.85 Posterior Tibial 171 0.83 Wounds appear ischemic per clinical assessment- recommend vascular consult- Once blood flow is restored can take patient for I&D of wounds to promote healing Explained to patient, verbalized understanding Continue with pain control at this time. 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 History of Present Illness HPI: Ms. Honeycutt is a 86 year old female admitted to [facility] for management of wounds of the RLE. Patient has PMH sig for polycythemia vera and PVD. Patient reports about 1 year ago she started having severe pain to her foot. States there were no ulcerations just pain. Patient reports about 1 month ago ulcerations to her foot opened up. States she sees nela on an outpatient basis and saw him in clinic yesterday prior to coming to the ED. Patient was treated on PO doxycycline. Patient was admitted and started on vanc and zosyn. Admit WBC 15.4 , CRP 14, ESR 11. Patient denies any fevers, chills, n/v or flu like symptoms. There is no odor noted within room. Patient is a poor historian. Past Med Surg Social Fam HX - Past Medical History Medical history: atrial fibrillation, cancer, CVA, GERD, hypertension Additional medical history: POLYCYTHEMIA. SKIN CANCER Psychiatric history: no psych history - Past Surgical History Surgical History: hysterectomy Additional surgical history: bilateral knee replacements,R leg balloon procedure for circulation, TKR. BILAT FOOT RECONSTRUCTION - Social History Smoking Status: Never smoker Smokeless Tobacco Status: Yes Alcohol use: none Drug use: none - Family History Mother Adopted: No Family Member Ethnicity: Non- Living Status: Hx Family Cardiac Disorders: No Hx Family Respiratory Disorders: No Hx Family Cancer: Yes Hx Family GI Disorders: No Hx Family Endocrine Disorder: Yes Hx Family Neuromuscular Disorders: No Hx Family Neurologic Disorders: No Hx Family HEENT Disorders: No Hx Family Autoimmune Disorders: No Father Adopted: No Family Member Ethnicity: Non- Living Status: Hx Family Cardiac Disorders: Yes Hx Family Respiratory Disorders: Yes Hx Family Cancer: No Hx Family GI Disorders: No Hx Family Endocrine Disorder: No Hx Family Neuromuscular Disorders: No Hx Family Neurologic Disorders: No Hx Family HEENT Disorders: No Hx Family Autoimmune Disorders: No Medications and Allergies Magnesium Oxide [Magnesium] 400 mg PO DAILY 06/07/17 [History] OxyCODONE/APAP 7.5/325 [Percocet 7.5/325 MG] 1 tab PO Q12H PRN 30 Days #60 tablet 06/29/17 [Rx] Clopidogrel [Plavix] 75 mg PO DAILY #30 tab 07/12/17 [Rx] Hydroxyurea [Hydrea] 500 mg PO DAILY 07/12/17 [History] Apixaban [Eliquis] 2.5 mg PO BID 08/01/17 [History] Collagenase Oint [Santyl] 1 appl TP DAILY 08/01/17 [History] Doxycycline Hyclate [Vibramycin] 100 mg PO BID 08/01/17 [History] LORazepam [Ativan] 0.5 mg PO TID PRN 08/01/17 [History] Metoprolol [Lopressor] 50 mg PO BID 08/01/17 [History] Lisinopril [Zestril] 10 mg PO DAILY 08/02/17 [History] 3 Allergy/AdvReac Type Severity Reaction Status Date / Time clindamycin AdvReac Shakiness Verified 07/12/17 06:53 Sulfa (Sulfonamide AdvReac Rash Verified 06/29/17 09:46 Antibiotics) All Systems Reviewed: The remainder of the systems were reviewed and are negative - Constitutional Constitutional: other (awake, alert and oriented ) - Cardiovascular Cardiovascular: other Additional comments: patient has known history of afib Denies any chest pain or sob - Respiratory Respiratory: other Additional comments: normal respirations, denies any cough, denies sob, denies any drainage. - Musculoskeletal Additional comments: patient reports severe pain to foot. 09/23. Patient states pain has been ongoing x1 year but worst in the past month. Patient reports pain is most profound to ulceration sites. Physical Exam - Constitutional Vitals: Temp Pulse Resp BP Pulse Ox 98.3 F 94 16 169/71 95 08/02/17 12:07 08/02/17 12:07 08/02/17 12:07 08/02/17 12:07 08/02/17 12:07 Exam: General Examination: CONSTITUTIONAL: Alert, oriented, in no acute distress, non-toxic. EXTREMITIES: CFT sluggish to toes 3-4 seconds. Edema +1 and pedal pulses non palpable DP/PT to right, mild faint palpation to left. SKIN: Skin with decreased turgor, decreased subcutaneous tissue, skin thin and shiny with trophic changes associated with comorbidities as described in history.. See noted ulcerations under foot examination NEUROLOGIC: Intact sensation to light or moderate touch- severe pain to touch. - Expanded Lower Extremities Exam Foot/Toe exam: Present: full ROM 1 - Small [id number] ulceration, shallow, no surrounding edema or erythema. No drainage noted. No warmth noted at this time. 1 - Ischemic heel wound, [id number], 100% eschar base, mild surrounding erythema and edema. No warmth. No drainage. No odor. No probe to bone. 1 - ischemic ulceration, [id number] ischemic base 100% mild surrounding edema and erythema- no warmth. No odor. No drainage. No probe to bone 2 - ischemic ulceration- [id number]. 100% eschar base- mild edema and erythema surrounding, no warmth, no drainage. No odor. No probe to bone Results - Labs Result Diagrams: 08/02/17 04:25 08/02/17 04:25 Labs: Abnormal lab results WBC 11.3 K/mcL (4.3-11.1) H 08/02/17 04:25 RDW 23.5 % (11.5-14.5) H 08/02/17 04:25 Neutrophils # 12.2 K/mcL (1.6-8.9) H 08/01/17 14:55 Monocytes # 1.7 K/mcL (0.0-1.3) H 08/01/17 14:55 Anisocytosis 1+ (Not Present) A 08/01/17 14:55 Chloride 108 mEq/L (98-107) H 08/02/17 04:25 C-Reactive Protein 14 mg/L (Less than 10) H 08/01/17 14:55 H & H 08/02/17 Range/Units 04:25 Hgb 12.0 (11.5-15.4) g/dL Hct 37.6 (35.3-44.9) % All other labs normal. Consult Discharge Plan - Plan Referrals: Manuela Franco, DIRECTOR OF USER EXPERIENCE [Primary Care Provider] -
--- NOTE | 2017-08-02 18:05 | Vascular/Endovasc Consult Note ---
Date of Encounter: 08/02/17 Time of Encounter: 17:00 Assessment and Plan (1) Atherosclerosis of [place] arteries of right leg with ulceration of other part of foot Current Visit: Yes Status: Chronic The patient is a history of peripheral vascular disease. She is previously undergone a right popliteal artery angioplasty for a high-grade stenosis. The patient also was noted to have an occluded dorsalis pedis artery as well as an occlusion of the posterior tibial artery at the level of the ankle. She is limited collateralization of flow into the foot. At this time the patient has a severe cellulitis with active ulcerations of her forefoot and hindfoot in the right lower extremity. Her cultures are positive for MRSA. She failed oral doxycycline therapy. She is now admitted with intravenous vancomycin and Zosyn. White blood cell count has decreased since admission. She reports that she has not had fevers since admission. The patient recently underwent ankle- brachial indices. Her right ankle-brachial index is consistent with moderate disease. An ankle-brachial index of 0.51 is not typically consistent with the severity of disease seen in the patient's right forefoot. Concern for distal non-reconstructable tibial disease exists. This combined with her underlying cellulitis, possible osteomyelitis and possible abscess, the patient is at significant risk for amputation. It is recommended that intravenous antibiotics are continued in this patient. The patient is scheduled for an MRI of the foot to rule out osteomyelitis and/or abscess formation. If abscess formation and her osteomyelitis has been identified the patient may require debridement by podiatry. Repeat angiography can be considered for this patient provided her white blood cell count continues to trend downward. If revascularization is not an option amputation may be required. This was discussed the patient in detail and all questions were answered. The plan of care was discussed with the patient and her son. (2) Cellulitis Current Visit: Yes Status: Acute Qualifiers: Site of cellulitis: extremity Site of cellulitis of extremity: lower extremity Laterality: right Qualified Code(s): L03.115 - Cellulitis of right lower limb (3) Atrial fibrillation Current Visit: No Status: Chronic Qualifiers: Atrial fibrillation type: chronic Qualified Code(s): I48.2 - Chronic atrial fibrillation (4) HTN (hypertension) Current Visit: No Status: Chronic Qualifiers: Hypertension type: essential hypertension Qualified Code(s): I10 - Essential (primary) hypertension - History of Present Illness Consult date: 08/02/17 Consult reason: Peripheral vascular disease with ulceration Chief complaint: MRSA cellulitis with right lower extremity ulcers History of present illness: Ms. Honeycutt is a 86 year old female with a history of hypertension, atrial fibrillation and peripheral vascular disease with ulceration. The patient has a history of severe and refractory right lower extremity cellulitis which was initially treated by her primary physician and weight trainer with oral antibiotics. The patient has required multiple admissions to the hospital due to the recurrent and refractory cellulitis of the right lower extremity. She is previously undergone a CT scan and MRI of the extremity. The etiology of her cellulitis remained unclear. The patient previously underwent an angiography was found have a popliteal artery stenosis. This was treated with angioplasty. The patient was also noted to have severe distal tibial disease at and below the level of the ankle including a posterior tibial artery occlusion and dorsalis pedis artery occlusion. The patient reports that she has developed progressive ulcerations on her right foot. She was seen and treated by her weight trainer over the last few weeks. She was treated with oral antibiotics for a cellulitis. Her culture revealed MRSA. She reported that during the last week the antibiotics had no significant improvement in her cellulitis had progressed. She was directed to the emergency room for admission intravenous antibiotics and podiatry consultation. The patient reports that she has not had any fever since admission. She was seen by the podiatry physician microbiology lab assistant but she has not yet seen the attending weight trainer. Vascular surgery was called for further input and evaluation. The patient denies chest pain or shortness of breath. Past Med Surg Social Fam HX - Past Medical History Medical history: atrial fibrillation, cancer, CVA, GERD, hypertension Additional medical history: POLYCYTHEMIA. SKIN CANCER Psychiatric history: no psych history - Past Surgical History Surgical History: hysterectomy Additional surgical history: bilateral knee replacements,R leg balloon procedure for circulation, TKR. BILAT FOOT RECONSTRUCTION - Social History Smoking Status: Never smoker Smokeless Tobacco Status: Yes Alcohol use: none Drug use: none - Family History Mother Adopted: No Family Member Ethnicity: Non- Living Status: Hx Family Cardiac Disorders: No Hx Family Respiratory Disorders: No Hx Family Cancer: Yes Hx Family GI Disorders: No Hx Family Endocrine Disorder: Yes Hx Family Neuromuscular Disorders: No Hx Family Neurologic Disorders: No Hx Family HEENT Disorders: No Hx Family Autoimmune Disorders: No Father Adopted: No Family Member Ethnicity: Non- Living Status: Hx Family Cardiac Disorders: Yes Hx Family Respiratory Disorders: Yes Hx Family Cancer: No Hx Family GI Disorders: No Hx Family Endocrine Disorder: No Hx Family Neuromuscular Disorders: No Hx Family Neurologic Disorders: No Hx Family HEENT Disorders: No Hx Family Autoimmune Disorders: No Medications and Allergies Magnesium Oxide [Magnesium] 400 mg PO DAILY 06/07/17 [History] OxyCODONE/APAP 7.5/325 [Percocet 7.5/325 MG] 1 tab PO Q12H PRN 30 Days #60 tablet 06/29/17 [Rx] Clopidogrel [Plavix] 75 mg PO DAILY #30 tab 07/12/17 [Rx] Hydroxyurea [Hydrea] 500 mg PO DAILY 07/12/17 [History] Apixaban [Eliquis] 2.5 mg PO BID 08/01/17 [History] Collagenase Oint [Santyl] 1 appl TP DAILY 08/01/17 [History] Doxycycline Hyclate [Vibramycin] 100 mg PO BID 08/01/17 [History] LORazepam [Ativan] 0.5 mg PO TID PRN 08/01/17 [History] Metoprolol [Lopressor] 50 mg PO BID 08/01/17 [History] Lisinopril [Zestril] 10 mg PO DAILY 08/02/17 [History] 3 Allergy/AdvReac Type Severity Reaction Status Date / Time clindamycin AdvReac Shakiness Verified 07/12/17 06:53 Sulfa (Sulfonamide AdvReac Rash Verified 06/29/17 09:46 Antibiotics) All Systems Review: The remainder of the systems were reviewed and are negative Exam Vital Signs, Last 4 Hours Temp Pulse Resp BP Pulse Ox 08/02/17 17:53 98.2 F 94 18 201/80 96 08/02/17 15:53 98.3 F 76 16 206/89 95 General: Present: Conversant, No Apparent Distress HEENT: Present: Atraumatic, Pupils equal Neck: Absent: JVD, Left Carotid bruit, Right Carotid bruit Cardiac: Present: Normal S1 and S2, No Murmur Lungs: Present: Normal Breath Sounds, No Wheeze, Rales, Rhonchi Neuro: Present: Alert and responsive, Motor nerves grossly intact, Sensory nerves grossly intact Abdomen: Present: Soft, Non-tender Vascular: Present: Pulse, diminished (Right pedal pulses are absent.). Absent: Edema Skin: Present: Wound/ulcer(s) (Multiple ulcers are present on the right for and hindfoot, no fluctuance is noted, erythema is noted.) Consult Discharge Plan - Plan Referrals: Manuela Franco, [facility] [Primary Care Provider] -
[2017-08-02] MEDS: MORPHINE SUL Oral CONC 10 MG/0.5 ML ORAL.SYG SL PRN ×2 (18:53→23:11)
[2017-08-03] MEDS: MORPHINE SUL Oral CONC 10 MG/0.5 ML ORAL.SYG SL PRN ×4 (03:17→15:36)
[2017-08-03 06:37] LABS: Basophils % 0.3 %; Eosinophils # 0.1 K/mcL (0.0-0.6); Eosinophils % 0.5 %; Hematocrit 38.7 % (35.3-44.9); Hemoglobin 11.9 g/dL (11.5-15.4); Immature Granulocytes % 0.6 % (0-4); Lymphocytes # 1.1 K/mcL (0.6-4.6); Lymphocytes % 7.5 %; Mean Corpuscular HGB Conc 30.7 g/dL (31.6-35.5); Mean Corpuscular Hemoglobin 30.3 pg (28.0-33.3); Mean Corpuscular Volume 98.5 fL (83.0-100.0); Mean Platelet Volume 11.2 fL (9.4-12.4); Monocytes # 1.6 K/mcL (0.0-1.3); Monocytes % 11.3 %; Neutrophils # 11.6 K/mcL (1.6-8.9); Platelet Count 249 K/mcL (140-400); Red Blood Count 3.93 M/mcL (3.82-4.97); Segmented Neutrophils % 79.8 %
[2017-08-03 06:47] LABS: INR 1.5; Prothrombin Time 16.6 Seconds (9.4-12.1)
--- NOTE | 2017-08-03 06:50 | Internal Med Progress Note ---
<Chance De - Last Filed: 08/03/17 13:58> Date of Encounter: 08/03/17 Time of Encounter: 06:48 - Assessment and plan (1) Cellulitis Current Visit: Yes Status: Acute Assessment and plan: Failed outpatient therapy with doxycycline, patient has been evaluated by podiatry and vascular surgery. Continue IV vancomycin and Zosyn (Day 1) Wound cultures presumptively positive for MRSA Blood cultures show no growth to date. MRI was negative for osteomyelitis. Case discussed with Podiatry and vascular surgeon. Will continue symptomatic care, dressing changes, IV antibiotics, and increase analgesics. Continue MRSA precautions ID consulted for further recommendations. Qualifiers: Site of cellulitis: extremity Site of cellulitis of extremity: lower extremity Laterality: right Qualified Code(s): L03.115 - Cellulitis of right lower limb (2) Atherosclerosis of [place] arteries of right leg with ulceration of other part of foot Current Visit: Yes Status: Chronic Assessment and plan: Likely etiology of her foot ulcers and subsequent infections. 07/29/17 EV arterial imaging LE RT revealed proximal right popliteal artery occlusion Case discussed with Podiatry and vascular surgeon. Will continue symptomatic care, dressing changes, IV antibiotics, and increase analgesics dose. (3) HTN (hypertension) Current Visit: No Status: Chronic Assessment and plan: Patient reports elevated blood pressure due to poorly controlled pain with current analgesic regimen. Continue home meds Start Amlodipine Continue monitoring Qualifiers: Hypertension type: essential hypertension Qualified Code(s): I10 - Essential (primary) hypertension (4) Atrial fibrillation Current Visit: No Status: Chronic Assessment and plan: Rate controlled on Metoprolol. Resume home Plavix and Eliquis given surgical procedure for her foot is unlikely during current hospitalization Qualifiers: Atrial fibrillation type: chronic Qualified Code(s): I48.2 - Chronic atrial fibrillation (5) Anxiety Current Visit: Yes Status: Acute Assessment and plan: Stable, Continue lorazepam during hospital stay (6) DVT prophylaxis Current Visit: Yes Status: Acute Assessment and plan: Resume home Plavix and Eliquis given surgical procedure for her foot is unlikely during current hospitalization - Time Spent With Patient Total time spent is greater than 50% in coordination of care (as documented) at patient's floor/unit and/or counseling patient: - Subjective Interval history: Patient seen and examined resting comfortably in bed. MRI was negative for osteomyelitis. Patient reports elevatedf blood pressure due to poorly controlled pain with current analgesic regimen. Case discussed with Podiatry and vascular surgeon. Will continue symptomatic care, dressing changes, IV antibiotics, and increase analgesics. ID consulted for further recommendations. - Constitutional Vitals: Temp Pulse Resp BP Pulse Ox 98.6 F 69 15 187/71 98 08/03/17 05:30 08/03/17 05:30 08/03/17 05:30 08/03/17 05:30 08/03/17 05:30 General appearance: Present: cooperative, mild distress, A&O X 3, pleasant, answers questions appropriately. Absent: no acute distress - Head Head exam: Present: atraumatic, normocephalic - Eye Eye exam: Present: PERRL, conjuntiva pink, sclera anicteric Pupils: Present: PERRL - ENT ENT exam: Present: mucous membranes dry, normal oropharynx - Neck Neck exam general surgery: Present: supple, trachea midline. Absent: lymphadenopathy - Respiratory Respiratory exam: Present: CTAB. Absent: accessory muscle use, decreased breath sounds, rales, rhonchi, wheezes - Cardiovascular Cardiovascular exam: Present: RRR, +S1, +S2. Absent: diastolic murmur, gallop, rubs, systolic murmur - GI/Abdominal GI/Abdominal exam: Present: normal bowel sounds, soft, no peritoneal signs. Absent: distended, tenderness - Extremities Exam Extremities exam: Present: warm, radial pulses palpable and symmetrical. Absent : calf tenderness, cyanotic, normal inspection (multiple right foot wounds, one located at the right calf approximately 1 cm in diameter, one wound right heel approximately 2 cm in diameter, one wound at right great toe with irregular borders greater than 1.5 cm and dark in color, and additional wound about 3 cm x 2 cm located proximal to the great toe and extending to the medial side of the foot with erythema of the skin surrounding the wounds and tenderness with palpation. Thready distal pulses RLE, 2+ distal pulses LLE), pedal edema - Back Exam Back exam: Present: normal inspection. Absent: paraspinal tenderness, tenderness - Neurological Exam Neurological exam: Present: CN II-XII intact, oriented X3, no focal deficits. Absent: pronater drift, facial droop, speech deficit - Psychiatric Psychiatric exam: Present: normal affect, normal mood - Skin Skin exam: Present: dry, intact, warm. Absent: normal color Internal Medicine: Result - Labs CBC & Chem 7: 08/03/17 06:01 08/03/17 06:01 Labs: Short CBC 08/03/17 Range/Units 06:01 WBC 14.5 H (4.3-11.1) K/mcL Hgb 11.9 (11.5-15.4) g/dL Hct 38.7 (35.3-44.9) % Plt Count 249 (140-400) K/mcL - Pulse Oximetry Interpretation Digit-Finger Pulse Oximetry Readin (On RA) - Impressions Impressions Ankle MRI 08/02/17 00:00 IMPRESSION: 1. Metallic susceptibility artifact does limit evaluation of the hindfoot. Within limits of the exam no evidence for osteomyelitis of the hindfoot. 2. Diffuse soft tissue edema throughout the ankle and extending to the dorsal foot with mild enhancement of the great toe suggestive of cellulitis. There is an apparent ulceration along the lateral aspect of the great toe. No organized drainable fluid collection identified. 3. No evidence for osteomyelitis of the forefoot. 4. 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 5. 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 6. Findings suggesting remote injury of the anterior talofibular ligament. 7. Tendinosis of the Achilles tendon. D/ / Arley Pedarza MD / Arley Pedraza MD Interpreting Provider: Arley Pedraza MD Foot MRI 08/02/17 15:40 IMPRESSION: 1. Metallic susceptibility artifact does limit evaluation of the hindfoot. Within limits of the exam no evidence for osteomyelitis of the hindfoot. 2. Diffuse soft tissue edema throughout the ankle and extending to the dorsal foot with mild enhancement of the great toe suggestive of cellulitis. There is an apparent ulceration along the lateral aspect of the great toe. No organized drainable fluid collection identified. 3. No evidence for osteomyelitis of the forefoot. 4. 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 5. 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 6. Findings suggesting remote injury of the anterior talofibular ligament. 7. Tendinosis of the Achilles tendon. D/ / Arley Pedraza MD / Arley Pedraza MD Interpreting Provider: Arley Pedraza MD - VTE Reasons for not Prescribing Prophylaxis: Not indicated-Anticoagulated or INR therapeutic Consult Discharge Plan - Plan Referrals: Manuela Franco [facility] [Primary Care Provider] - <NaimaLeo - Last Filed: 08/03/17 14:18> Date of Encounter: 08/03/17 - Assessment and plan (1) HTN (hypertension) Current Visit: No Status: Chronic Qualifiers: Hypertension type: essential hypertension Qualified Code(s): I10 - Essential (primary) hypertension (2) Cellulitis Current Visit: Yes Status: Acute Qualifiers: Site of cellulitis: extremity Site of cellulitis of extremity: lower extremity Laterality: right Qualified Code(s): L03.115 - Cellulitis of right lower limb (3) Atrial fibrillation Current Visit: No Status: Chronic Qualifiers: Atrial fibrillation type: chronic Qualified Code(s): I48.2 - Chronic atrial fibrillation (4) Anxiety Current Visit: Yes Status: Acute (5) Atherosclerosis of [place] arteries of right leg with ulceration of other part of foot Current Visit: Yes Status: Chronic (6) DVT prophylaxis Current Visit: Yes Status: Acute - Time Spent With Patient Total time spent is greater than 50% in coordination of care (as documented) at patient's floor/unit and/or counseling patient: - Constitutional Vitals: Temp Pulse Resp BP Pulse Ox 98.5 F 86 15 197/77 95 08/03/17 10:37 08/03/17 10:37 08/03/17 10:37 08/03/17 10:37 08/03/17 10:37 Internal Medicine: Result - Labs CBC & Chem 7: 08/03/17 06:01 08/03/17 06:01 Labs: Short CBC 08/03/17 Range/Units 06:01 WBC 14.5 H (4.3-11.1) K/mcL Hgb 11.9 (11.5-15.4) g/dL Hct 38.7 (35.3-44.9) % Plt Count 249 (140-400) K/mcL Neutrophils # 11.6 H (1.6-8.9) K/mcL BMP 08/03/17 06:01 Sodium 138 Potassium 3.8 Chloride 107 Carbon Dioxide 22 L BUN 11 Creatinine 0.77 Glucose 80 Calcium 9.2 - ABG Interpretation ABG results: PT/INR, D-dimer PT 16.6 Seconds (9.4-12.1) H 08/03/17 06:01 - Impressions Impressions Ankle MRI 08/02/17 00:00 IMPRESSION: 1. Metallic susceptibility artifact does limit evaluation of the hindfoot. Within limits of the exam no evidence for osteomyelitis of the hindfoot. 2. Diffuse soft tissue edema throughout the ankle and extending to the dorsal foot with mild enhancement of the great toe suggestive of cellulitis. There is an apparent ulceration along the lateral aspect of the great toe. No organized drainable fluid collection identified. 3. No evidence for osteomyelitis of the forefoot. 4. 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 5. 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 6. Findings suggesting remote injury of the anterior talofibular ligament. 7. Tendinosis of the Achilles tendon. D/ / Arley Pedraza MD / Arley Pedraza MD Interpreting Provider: Arley Pedraza MD Foot MRI 08/02/17 15:40 IMPRESSION: 1. Metallic susceptibility artifact does limit evaluation of the hindfoot. Within limits of the exam no evidence for osteomyelitis of the hindfoot. 2. Diffuse soft tissue edema throughout the ankle and extending to the dorsal foot with mild enhancement of the great toe suggestive of cellulitis. There is an apparent ulceration along the lateral aspect of the great toe. No organized drainable fluid collection identified. 3. No evidence for osteomyelitis of the forefoot. 4. 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 5. 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 6. Findings suggesting remote injury of the anterior talofibular ligament. 7. Tendinosis of the Achilles tendon. D/ / Arley Pedraza MD / Arley Pedraza MD Interpreting Provider: Arley Pedraza MD - Attending Attestation I examined this patient and my medical decision-making was reviewed with the Resident Physician Dr. De. I agree with the documented findings, disposition and treatment plan as described except to the extent set forth below. Ms. Honeycutt is a 86 year old female with known PMH of Paroxysmal A fib on eliquis for anti coag, severe PAD on Plavix, recurrent Rt foot ulcer. Pt was sent to hospital from Dr. Heller office for further care with possible IV abx and podatrist eval.. Pt still c/o severe Rt foot pain. Gen: A, A, O x 3 in mild distress with pain Ext: 2-3 CM ulcer over Rt heel. 2 cm size circular ulcers over Rt foot dorsum region at great toe, with tenderness, swelling and erythema. a/p 1. Rt foot ulcer with cellulites 2. Severe PAD Podiatry not planning on any debridement recommend cont IV abx and pain management Vascular surgery also recommend IV abx and pain meds Wound cx growing Staph - possibly MRSA cont zosyn and Vanc ID consulted for further abx management resumed Eliquis and Plavix for better pain management, started on Morphin ER 15mg BID with Roxanol for break through pain 3. Paroxysmal A fib rate controlled Since pt is not need any surgeries, resumed home anti coag Eliquis
[2017-08-03 06:56] LABS: BUN/Creatinine Ratio 14 (6-26); Blood Urea Nitrogen 11 mg/dL (8-23); Calcium 9.2 mg/dL (8.6-10.3); Carbon Dioxide 22 mEq/L (23-29); Chloride 107 mEq/L (98-107); Glucose 80 mg/dL (70-105); Osmolality,Calculated 284 (280-300); Potassium 3.8 mEq/L (3.5-5.1); Sodium 138 mEq/L (136-145); eGFR For African Americans > 60 (> 60); eGFR For Non-African Americans > 60 (> 60)
[2017-08-03 07:01] LABS: Platelet Estimate Normal (Normal)
[2017-08-03 07:02] LABS: Anisocytosis 1+ (Not Present)
[2017-08-03] MEDS: Piperacillin/Tazobactam 3.375 GM in 0.9 % Sodium Chloride Mini Bag 100 ML IVPB SCH ×2 (08:35→19:04)
[2017-08-03] MEDS: Magnesium Oxide 400 MG TABLET PO SCH (08:36)
[2017-08-03] MEDS: Lisinopril 20 MG TABLET PO SCH (08:36)
[2017-08-03] MEDS: Hydroxyurea 500 MG CAPSULE PO SCH (08:36)
[2017-08-03] MEDS ORDERED: *HR* OxyCODONE ER (12 HR) 10 MG TABLET PO SCH (12:00)
[2017-08-03] MEDS: *HR* OxyCODONE ER (12 HR) 10 MG TABLET PO SCH ×2 (13:00→23:44)
[2017-08-03] MEDS: amLODIPine 5 MG TABLET PO SCH (15:35)
[2017-08-03] MEDS ORDERED: 0.9 % Sodium Chloride 2,000 ML ONE (15:58)
[2017-08-03] MEDS ORDERED: Heparin 1,000 UNITS/500 mL 500 ML ONE (15:58)
[2017-08-03] MEDS ORDERED: ISOVUE-250 150 ML INFUS..BTL IV ONE (15:58)
[2017-08-03] MEDS ORDERED: *HR* Heparin 10,000 UNIT/10 ML VIAL ONE (15:58)
[2017-08-03] MEDS ORDERED: Ondansetron 4 MG/2 ML VIAL ONE (17:22)
--- NOTE | 2017-08-03 17:31 | Pre-Sedation Evaluation ---
Pre-sedation evaluation - Pre-sedation checklist Date of procedure: 08/03/17 Procedure: peripheral angiogram Recent Vitals: Last Vital Signs Temp 98.1 F 08/03/17 15:09 Pulse 71 08/03/17 15:09 Resp 14 08/03/17 15:09 BP 168/74 08/03/17 15:09 Pulse Ox 95 08/03/17 15:09 H&P (including ROS) documented in medical record: Yes Previous reaction to sedatives/anesthetics: No Dietary Status: No solid food in preceding 4 hrs and no liquid in preceding 2 hrs Dentition: dentures removed ASA Classification *see protocol: CLASS III-Severe systemic disease Plan of Care: Pt appropriate candidate for procedure/moderate/conscious sedation , Risks/benefits of procedure/sedation discussed w/ patient/family
--- NOTE | 2017-08-03 18:20 | Procedure Note ---
Date of procedure: 08/03/17 Pre-op diagnosis: Peripheral vascular disease with ulceration Post-op diagnosis: same Procedure: Angiogram with right popliteal angioplasty and 5 x 27mm stent placement via 6 cypriot sheath in left common femoral artery. Starclose deployed for hemostasis. Anesthesia: local Surgeon: Trevor Heller Was there an itinerant teacher assistant present: No Estimated blood loss (cc): 1 Specimen: None Pathology: none sent Condition: stable (no complications) Disposition: floor
[2017-08-03] MEDS: *HR* FentaNYL PATCH 50 MCG PATCH TD SCH (19:22)
--- NOTE | 2017-08-03 20:03 | Infectious Disease Consult ---
Date of Encounter: 08/03/17 Time of Encounter: 20:00 Assessment and Plan (1) Chronic foot ulcer Status: Acute Assessment and plan: Has been following wound care Received Keflex 3 courses in May and July of this year with no improvement Likely secondary to ischemia Cultures positive for staph aureus presumably MRSA Qualifiers: Laterality: right Non-pressure ulcer stage: unspecified non-pressure ulcer stage Qualified Code(s): L97.519 - Non-pressure chronic ulcer of other part of right foot with unspecified severity (2) Cellulitis Status: Acute Assessment and plan: Likely secondary to MRSA MRIs of the ankle and the foot noted, no osteomyelitis, no abscesses. Patient is on vancomycin and Zosyn. Cultures only suggesting MRSA, but I understand if we need to cover gram- negative including Pseudomonas Consider the seeing Zosyn and starting cefepime since the combination of cefepime and vancomycin are less nephrotoxic Patient is 86 years old so we will watch kidney function very closely. CrCl now measured at around 40 Goal vancomycin trough is only 10 dose adjust cefepime based on CrCl to 1 gram daily Once clinically better we will likely switch her to oral antibiotics Duration of treatment likely 14 days Qualifiers: Site of cellulitis: extremity Site of cellulitis of extremity: lower extremity Laterality: right Qualified Code(s): L03.115 - Cellulitis of right lower limb (3) Atrial fibrillation Status: Chronic Qualifiers: Atrial fibrillation type: chronic Qualified Code(s): I48.2 - Chronic atrial fibrillation (4) Atherosclerosis of [place] arteries of right leg with ulceration of other part of foot Status: Chronic (5) PVD (peripheral vascular disease) Status: Chronic Infectious Disease HPI - Data of Consult Patient: new to practice Consult date: 08/03/17 Requesting Physician: Wayne Nascimento Primary Care Provider: Manuela Franco CNP - Consult Narrative Reason for consult: cellulitis History of present illness: Ms. Honeycutt is a 86 year old female Patient is an 86-year-old woman who came to [place] on 08/01 for right foot wound, we are consulted on 08/07 for cellulitis and peripheral vascular disease when needing antibiotic recommendations. Patient is an 86-year-old woman with extensive past medical history including atrial fibrillation is rate controlled, history of CVA history of malignancy, hypertension follows vascular surgery (Dr. Heller) as outpatient has chronic peripheral vascular disease and apparently chronic foot wound. Based on the records from [facility] looks like Dr. martinez has given her a 3 different courses of Keflex in May and July of this year. The foot infection did not improve and the wound was not looking any better. Patient was being followed by wound care in [place] and debridement attempt was unsuccessful. Patient was referred to the hospital for IV antibiotics. Since admission patient has been afebrile, heart rate within normal limit, she has been hypertensive though and her blood pressure sometimes is as high as 197/ 77. Presenting labs were WBC of 15.4, normal kidney function with a BUN of 17 creatinine 0.88, ESR of 11 and CRP of 14. Initial blood cultures were no growth to date. Foot wound culture grew staph aureus presumed MRSA. Patient had a foot MRI which revealed metallic susceptibility artifact does limited evaluation of the hindfoot. Within limits of the exam no evidence of osteomyelitis of the hindfoot. Diffuse soft tissue edema throughout the ankle and extending to the dorsal foot with mild enhancement of the great toe suggestive of cellulitis. There is an apparent ulceration along the lateral aspect of the great toe. No organized drainable fluid collection identified. No evidence for osteomyelitis of the forefoot. Patient was taken for angioplasty by Dr. martinez today and she underwent an angiogram with right popliteal angioplasty and 527 mm stent placement the 6-Amharic sheath in the left common femoral artery. CC: Wayne Nascimento Past Med Surg Social Fam HX - Past Medical History Medical history: atrial fibrillation, cancer, CVA, GERD, hypertension Additional medical history: POLYCYTHEMIA. SKIN CANCER Psychiatric history: no psych history - Past Surgical History Surgical History: hysterectomy Additional surgical history: bilateral knee replacements,R leg balloon procedure for circulation, TKR. BILAT FOOT RECONSTRUCTION - Social History Smoking Status: Never smoker Smokeless Tobacco Status: Yes Alcohol use: none Drug use: none - Family History Mother Adopted: No Family Member Ethnicity: Non- Living Status: Hx Family Cardiac Disorders: No Hx Family Respiratory Disorders: No Hx Family Cancer: Yes Hx Family GI Disorders: No Hx Family Endocrine Disorder: Yes Hx Family Neuromuscular Disorders: No Hx Family Neurologic Disorders: No Hx Family HEENT Disorders: No Hx Family Autoimmune Disorders: No Father Adopted: No Family Member Ethnicity: Non- Living Status: Hx Family Cardiac Disorders: Yes Hx Family Respiratory Disorders: Yes Hx Family Cancer: No Hx Family GI Disorders: No Hx Family Endocrine Disorder: No Hx Family Neuromuscular Disorders: No Hx Family Neurologic Disorders: No Hx Family HEENT Disorders: No Hx Family Autoimmune Disorders: No Infectious Disease-CN:Meds Magnesium Oxide [Magnesium] 400 mg PO DAILY 06/07/17 [History] OxyCODONE/APAP 7.5/325 [Percocet 7.5/325 MG] 1 tab PO Q12H PRN 30 Days #60 tablet 06/29/17 [Rx] Clopidogrel [Plavix] 75 mg PO DAILY #30 tab 07/12/17 [Rx] Hydroxyurea [Hydrea] 500 mg PO DAILY 07/12/17 [History] Apixaban [Eliquis] 2.5 mg PO BID 08/01/17 [History] Collagenase Oint [Santyl] 1 appl TP DAILY 08/01/17 [History] Doxycycline Hyclate [Vibramycin] 100 mg PO BID 08/01/17 [History] LORazepam [Ativan] 0.5 mg PO TID PRN 08/01/17 [History] Metoprolol [Lopressor] 50 mg PO BID 08/01/17 [History] Lisinopril [Zestril] 10 mg PO DAILY 08/02/17 [History] 3 Allergy/AdvReac Type Severity Reaction Status Date / Time clindamycin AdvReac Shakiness Verified 07/12/17 06:53 Sulfa (Sulfonamide AdvReac Rash Verified 06/29/17 09:46 Antibiotics) Review of systems: 10 point review of systems done, negative other for nausea and what is mentioned in history of present illness Exam - Constitutional Vitals: Temp Pulse Resp BP Pulse Ox 98.4 F 83 15 169/72 95 08/03/17 19:08 08/03/17 19:08 08/03/17 19:08 08/03/17 19:08 08/03/17 19:08 General appearance: no acute distress, no febrile - Head Head exam: Present: atraumatic, normocephalic - Eye Eye exam: Present: EOMI, PERRL - Neck Neck exam: Present: full ROM. Absent: meningismus - Respiratory Respiratory exam: Present: CTAB. Absent: wheezes - Cardiovascular Cardiovascular exam: Absent: RRR Additional comments: Irregularly irregular. No murmur noted. - GI/Abdominal GI/Abdominal exam: Present: normal bowel sounds, soft. Absent: tenderness - Extremities Exam Additional comments: Lower extremity surgically wrapped. There is some erythema and warmth to touch. - Neurological Exam Neurological exam: Present: alert, oriented X3 - Psychiatric Psychiatric exam: Present: normal affect, normal mood Infectious Disease CN: Results - Labs CBC & Chem 7: 08/03/17 06:01 08/03/17 06:01 Cultures: Cultures 08/02/17 10:20 Wound Culture - Preliminary Right Foot Staphylococcus aureus - VTE Reasons for not Prescribing Prophylaxis: Not indicated-Anticoagulated or INR therapeutic Consult Discharge Plan - Plan Referrals: Manuela Franco, BACKPACKERS MANAGER [Primary Care Provider] -
[2017-08-03] MEDS ORDERED: Ondansetron 4 MG/2 ML VIAL IVP PRN (20:24)
[2017-08-03] MEDS ORDERED: Apixaban 5 MG TABLET PO SCH (21:00)
[2017-08-03] MEDS: Cefepime HCl 1,000 MG in Water for inj. (sterile) 20 ML 10 ML IVP SCH (21:22)
[2017-08-03] MEDS: *HR* LORazepam 0.5 MG TABLET PO PRN (23:44)
[2017-08-03] MEDS: *HR* OxyCODONE/APAP 5/325 TABLET PO PRN (23:44)
[2017-08-04 04:54] LABS: Basophils # 0.1 K/mcL (0.0-0.2); Basophils % 0.4 %; Eosinophils # 0.1 K/mcL (0.0-0.6); Eosinophils % 0.8 %; Hematocrit 44.4 % (35.3-44.9); Immature Granulocytes % 0.9 % (0-4); Lymphocytes # 1.5 K/mcL (0.6-4.6); Lymphocytes % 9.3 %; Mean Corpuscular HGB Conc 30.9 g/dL (31.6-35.5); Mean Corpuscular Hemoglobin 30.9 pg (28.0-33.3); Mean Corpuscular Volume 100.2 fL (83.0-100.0); Mean Platelet Volume 11.7 fL (9.4-12.4); Monocytes # 1.7 K/mcL (0.0-1.3); Monocytes % 10.5 %; Neutrophils # 12.4 K/mcL (1.6-8.9); Platelet Count 238 K/mcL (140-400); Red Blood Count 4.43 M/mcL (3.82-4.97); Red Cell Distribution Width 23.9 % (11.5-14.5); Segmented Neutrophils % 78.1 %
[2017-08-04 04:59] LABS: Hemoglobin 13.7 g/dL (11.5-15.4)
[2017-08-04 05:16] LABS: BUN/Creatinine Ratio 13 (6-26); Blood Urea Nitrogen 10 mg/dL (8-23); Calcium 9.2 mg/dL (8.6-10.3); Carbon Dioxide 24 mEq/L (23-29); Chloride 105 mEq/L (98-107); Glucose 78 mg/dL (70-105); Osmolality,Calculated 282 (280-300); Potassium 3.9 mEq/L (3.5-5.1); Sodium 137 mEq/L (136-145); eGFR For African Americans > 60 (> 60); eGFR For Non-African Americans > 60 (> 60)
[2017-08-04 05:17] LABS: Platelet Estimate Normal (Normal)
[2017-08-04 05:20] LABS: Anisocytosis 1+ (Not Present)
--- NOTE | 2017-08-04 07:24 | Internal Med Progress Note ---
<Chance De - Last Filed: 08/04/17 11:49> Date of Encounter: 08/04/17 Time of Encounter: 07:22 - Assessment and plan (1) Cellulitis Current Visit: Yes Status: Acute Assessment and plan: Failed outpatient therapy, patient has been evaluated by ID, podiatry and vascular surgery. Wound cultures positive for MRSA Blood cultures show no growth to date. MRI was negative for osteomyelitis. Will continue symptomatic care, dressing changes, IV antibiotics, and increase analgesics. Continue MRSA precautions ID recommended switching IV Zosyn to Cefepime since the combination of Cefepime and Vancomycin are less nephrotoxic. Continue IV vancomycin (Day 2) and Cefepime (Day 1) Once clinically better we will likely switch her to oral antibiotics Duration of treatment likely 14 days Qualifiers: Site of cellulitis: extremity Site of cellulitis of extremity: lower extremity Laterality: right Qualified Code(s): L03.115 - Cellulitis of right lower limb (2) Atherosclerosis of [place] arteries of right leg with ulceration of other part of foot Current Visit: Yes Status: Chronic Assessment and plan: POD#1 s/p angiogram with right popliteal angioplasty and 5 x 27mm stent placement via 6 gibraltarian sheath in left common femoral artery. 07/29/17 EV arterial imaging LE RT revealed proximal right popliteal artery occlusion Will continue symptomatic care, dressing changes, IV antibiotics, and analgesics. Vascular surgeon following. Continue Plavix. She will follow-up in vascular clinic in 1 month (3) HTN (hypertension) Current Visit: No Status: Chronic Assessment and plan: Patient reports elevated blood pressure due to pain. Continue home meds Started Amlodipine Continue monitoring Qualifiers: Hypertension type: essential hypertension Qualified Code(s): I10 - Essential (primary) hypertension (4) Atrial fibrillation Current Visit: No Status: Chronic Assessment and plan: Rate controlled on Metoprolol. Resume home Plavix and Eliquis Qualifiers: Atrial fibrillation type: chronic Qualified Code(s): I48.2 - Chronic atrial fibrillation (5) Anxiety Current Visit: Yes Status: Acute Assessment and plan: Stable, Continue lorazepam during hospital stay (6) DVT prophylaxis Current Visit: Yes Status: Acute Assessment and plan: Resume home Plavix and Eliquis - Time Spent With Patient Total time spent is greater than 50% in coordination of care (as documented) at patient's floor/unit and/or counseling patient: - Subjective Interval history: Patient seen and examined resting comfortably in bed on POD#1 s/p angiogram with right popliteal angioplasty and 5 x 27mm stent placement via 6 gibraltarian sheath in left common femoral artery. Patient reports her pain level is well controlled pain with current analgesic regimen. ID recommended switching IV Zosyn to Cefepime since the combination of Cefepime and Vancomycin are less nephrotoxic. - Constitutional Vitals: Temp Pulse Resp BP Pulse Ox 98.0 F 74 15 150/74 93 08/04/17 05:29 08/04/17 05:29 08/04/17 05:29 08/04/17 05:29 08/04/17 05:29 General appearance: Present: cooperative, A&O X 3, pleasant, no acute distress, answers questions appropriately. Absent: mild distress - Head Head exam: Present: atraumatic, normocephalic - Eye Eye exam: Present: PERRL, conjuntiva pink, sclera anicteric Pupils: Present: PERRL - ENT ENT exam: Present: mucous membranes moist, normal exam, normal oropharynx - Neck Neck exam general surgery: Present: supple, trachea midline. Absent: lymphadenopathy - Respiratory Respiratory exam: Present: CTAB. Absent: accessory muscle use, rales, rhonchi, wheezes - Cardiovascular Cardiovascular exam: Present: RRR, +S1, +S2. Absent: diastolic murmur, gallop, rubs, systolic murmur - GI/Abdominal GI/Abdominal exam: Present: normal bowel sounds, soft, no peritoneal signs. Absent: distended, tenderness - Extremities Exam Extremities exam: Present: warm, radial pulses palpable and symmetrical. Absent : calf tenderness, cyanotic, normal inspection, pedal edema Additional comments: multiple right foot wounds, one located at the right calf approximately 1 cm in diameter, one wound right heel approximately 2 cm in diameter, one wound at right great toe with irregular borders greater than 1.5 cm and dark in color, and additional wound about 3 cm x 2 cm located proximal to the great toe and extending to the medial side of the foot with erythema of the skin surrounding the wounds and tenderness with palpation. - Incison Incision: Present: red, clean and dry (left groin ecchymosis) - Back Exam Back exam: Present: normal inspection. Absent: paraspinal tenderness, tenderness - Neurological Exam Neurological exam: Present: CN II-XII intact, oriented X3, no focal deficits. Absent: pronater drift, facial droop, speech deficit - Psychiatric Psychiatric exam: Present: normal affect, normal mood - Skin Skin exam: Present: dry, intact, warm. Absent: normal color (ecchymosis left groin, no bleeding) Internal Medicine: Result - Labs CBC & Chem 7: 08/04/17 04:01 08/04/17 04:01 Labs: Short CBC 08/04/17 Range/Units 04:01 WBC 15.9 H (4.3-11.1) K/mcL Hgb 13.7 D (11.5-15.4) g/dL Hct 44.4 (35.3-44.9) % Plt Count 238 (140-400) K/mcL Neutrophils # 12.4 H (1.6-8.9) K/mcL BMP 08/04/17 04:01 Sodium 137 Potassium 3.9 Chloride 105 Carbon Dioxide 24 BUN 10 Creatinine 0.80 Glucose 78 Calcium 9.2 - ABG Interpretation ABG results: PT/INR, D-dimer PT 16.6 Seconds (9.4-12.1) H 08/03/17 06:01 - Pulse Oximetry Interpretation Digit-Finger Pulse Oximetry Readin (On RA) - VTE Reasons for not Prescribing Prophylaxis: Not indicated-Anticoagulated or INR therapeutic Documentation of Mechanical Device: Intermittent pneumatic compression device Consult Discharge Plan - Plan Referrals: Manuela Franco CNP [Primary Care Provider] - 08/12/17 10:40 am (Please take with you to your appointment your ID, and copay if you have one per the office of Manuela Franco) Trevor Heller MD [Partnered Physician] - 09/20/17 2:40 pm <Leo Mcnamara - Last Filed: 08/04/17 12:27> Date of Encounter: 08/04/17 - Assessment and plan (1) HTN (hypertension) Current Visit: No Status: Chronic Qualifiers: Hypertension type: essential hypertension Qualified Code(s): I10 - Essential (primary) hypertension (2) Cellulitis Current Visit: Yes Status: Acute Qualifiers: Site of cellulitis: extremity Site of cellulitis of extremity: lower extremity Laterality: right Qualified Code(s): L03.115 - Cellulitis of right lower limb (3) Atrial fibrillation Current Visit: No Status: Chronic Qualifiers: Atrial fibrillation type: chronic Qualified Code(s): I48.2 - Chronic atrial fibrillation (4) Anxiety Current Visit: Yes Status: Acute (5) Atherosclerosis of [place] arteries of right leg with ulceration of other part of foot Current Visit: Yes Status: Chronic (6) DVT prophylaxis Current Visit: Yes Status: Acute - Time Spent With Patient Total time spent is greater than 50% in coordination of care (as documented) at patient's floor/unit and/or counseling patient: - Constitutional Vitals: Temp Pulse Resp BP Pulse Ox 98.4 F 71 16 143/53 94 08/04/17 12:15 08/04/17 12:15 08/04/17 12:15 08/04/17 12:15 08/04/17 12:15 Internal Medicine: Result - Labs CBC & Chem 7: 08/04/17 04:01 08/04/17 04:01 Labs: Short CBC 08/04/17 Range/Units 04:01 WBC 15.9 H (4.3-11.1) K/mcL Hgb 13.7 D (11.5-15.4) g/dL Hct 44.4 (35.3-44.9) % Plt Count 238 (140-400) K/mcL Neutrophils # 12.4 H (1.6-8.9) K/mcL BMP 08/04/17 04:01 Sodium 137 Potassium 3.9 Chloride 105 Carbon Dioxide 24 BUN 10 Creatinine 0.80 Glucose 78 Calcium 9.2 - ABG Interpretation ABG results: PT/INR, D-dimer PT 16.6 Seconds (9.4-12.1) H 08/03/17 06:01 - Attending Attestation I examined this patient and my medical decision-making was reviewed with the Resident Physician Dr. De. I agree with the documented findings, disposition and treatment plan as described except to the extent set forth below. Ms. Honeycutt is a 86 year old female with known PMH of Paroxysmal A fib on eliquis for anti coag, severe PAD on Plavix, recurrent Rt foot ulcer. Pt was sent to hospital from Dr. Heller office for further care with possible IV abx and carpentry specialist eval.. Pt did go for angiogram with Rt popliteal angioplasty and stent placement. Pt states her pain is better today. Gen: A, A, O x 3 Ext: 2-3 CM ulcer over Rt heel. 2 cm size circular ulcers over Rt foot dorsum region at great toe, with tenderness, swelling and erythema. a/p 1. Rt foot ulcer with cellulites 2. Severe PAD Wound cx growing Staph - possibly MRSA cont cefepime and Vanc ID consulted for further abx management- appreciate their recommendations resumed Eliquis and Plavix Since pt had a stent placed now, will recheck with carpentry specialist about wound debridement 3. Severe PAD s/p angiogram with right popliteal angioplasty and stent placement cont Eliquis and Plavix 4. Paroxysmal A fib rate controlled resumed eliquis too
[2017-08-04] MEDS: Hydroxyurea 500 MG CAPSULE PO SCH (08:47)
[2017-08-04] MEDS: Magnesium Oxide 400 MG TABLET PO SCH (08:47)
[2017-08-04] MEDS: Apixaban 5 MG TABLET PO SCH ×2 (08:48→22:52)
[2017-08-04] MEDS: Lisinopril 20 MG TABLET PO SCH (08:49)
[2017-08-04] MEDS: amLODIPine 5 MG TABLET PO SCH (08:49)
[2017-08-04] MEDS: *HR* HYDROcodone/Acet 5/325 mg TABLET PO PRN ×2 (08:51→17:34)
--- NOTE | 2017-08-04 09:20 | Vascular/[facility] Progress Note ---
Date of Encounter: 08/04/17 Time of Encounter: 07:45 - Assessment and plan (1) Atherosclerosis of [place] arteries of right leg with ulceration of other part of foot Current Visit: Yes Status: Chronic The patient is a history of peripheral vascular disease. She underwent a right superficial femoral angioplasty and stent placement. She now has polyphasic pedal signals at the ankle. Her right foot wounds appear stable. She has no hematoma. She may be discharged from a vascular standpoint. She will continue with plavix. She will follow-up in vascular clinic in 1 month. Podiatry to further evaluate right lower extremity wounds. (2) Cellulitis Current Visit: Yes Status: Acute Continue antibiotics per hospitalist service. Qualifiers: Site of cellulitis: extremity Site of cellulitis of extremity: lower extremity Laterality: right Qualified Code(s): L03.115 - Cellulitis of right lower limb (3) Atrial fibrillation Current Visit: No Status: Chronic Qualifiers: Atrial fibrillation type: chronic Qualified Code(s): I48.2 - Chronic atrial fibrillation (4) HTN (hypertension) Current Visit: No Status: Chronic Qualifiers: Hypertension type: essential hypertension Qualified Code(s): I10 - Essential (primary) hypertension - Subjective Procedure(s) Performed: The patient reports that her leg feels much better today. She denies any fevers or chills. She denies chest pain or shortness of breath. Vital Signs, Last 4 Hours Temp Pulse Resp BP Pulse Ox 08/04/17 07:15 98.3 F 71 14 169/66 95 08/04/17 05:29 98.0 F 74 15 150/74 93 - Physical Examination General: Present: Conversant HEENT: Present: Atraumatic, Pupils equal Cardiac: Present: Normal S1 and S2 Lungs: Present: Normal Breath Sounds Neuro: Present: Alert and responsive, Motor nerves grossly intact, Sensory nerves grossly intact Vascular: Present: Normal capillary refill, Pulse, normal, Surgical incisions ( no hematoma at left groin). Absent: Cyanosis, Edema Abdomen: Present: Soft, Non-tender Skin: Present: Wound/ulcer(s) (ulcers unchanges at right foot.) - VTE Reasons for not Prescribing Prophylaxis: Not indicated-Anticoagulated or INR therapeutic Documentation of Mechanical Device: Intermittent pneumatic compression device Results 08/04/17 04:01 08/04/17 04:01 Lab Results, Last 24 hours 08/04/17 08/04/17 04:01 04:01 WBC 15.9 H Hgb 13.7 D Hct 44.4 Plt Count 238 Sodium 137 Potassium 3.9 Chloride 105 Carbon Dioxide 24 BUN 10 Creatinine 0.80 Glucose 78 Calcium 9.2 Consult Discharge Plan - Plan Referrals: Manuela Franco, [employer] [Primary Care Provider] -
[2017-08-04] MEDS: *HR* LORazepam 0.5 MG TABLET PO PRN (10:04)
[2017-08-04] MEDS: *HR* OxyCODONE ER (12 HR) 10 MG TABLET PO SCH (13:33)
[2017-08-04] MEDS: *HR* OxyCODONE/APAP 5/325 TABLET PO PRN (15:14)
[2017-08-04] MEDS: Cefepime HCl 1,000 MG in Water for inj. (sterile) 20 ML 10 ML IVP SCH (22:52)
[2017-08-05] MEDS: *HR* OxyCODONE ER (12 HR) 10 MG TABLET PO SCH ×2 (02:26→15:18)
[2017-08-05 05:58] LABS: Basophils % 0.3 %; Eosinophils # 0.1 K/mcL (0.0-0.6); Eosinophils % 0.8 %; Hematocrit 36.4 % (35.3-44.9); Immature Granulocytes % 0.9 % (0-4); Lymphocytes # 1.1 K/mcL (0.6-4.6); Lymphocytes % 8.3 %; Mean Corpuscular Hemoglobin 30.8 pg (28.0-33.3); Mean Corpuscular Volume 99.2 fL (83.0-100.0); Mean Platelet Volume 11.1 fL (9.4-12.4); Monocytes # 1.8 K/mcL (0.0-1.3); Monocytes % 13.4 %; Platelet Count 242 K/mcL (140-400); Red Blood Count 3.67 M/mcL (3.82-4.97); Red Cell Distribution Width 23.7 % (11.5-14.5); Segmented Neutrophils % 76.3 %
[2017-08-05 06:06] LABS: Neutrophils # 10.1 K/mcL (1.6-8.9)
[2017-08-05 06:07] LABS: Hemoglobin 11.3 g/dL (11.5-15.4)
[2017-08-05 06:16] LABS: BUN/Creatinine Ratio 18 (6-26); Blood Urea Nitrogen 14 mg/dL (8-23); Calcium 8.9 mg/dL (8.6-10.3); Carbon Dioxide 22 mEq/L (23-29); Chloride 106 mEq/L (98-107); Glucose 70 mg/dL (70-105); Osmolality,Calculated 283 (280-300); Potassium 3.7 mEq/L (3.5-5.1); Sodium 137 mEq/L (136-145); eGFR For African Americans > 60 (> 60); eGFR For Non-African Americans > 60 (> 60)
[2017-08-05 06:40] LABS: Anisocytosis 3+ (Not Present); Hypochromasia Present (Not Present); Tear Drop Cells 1+ (Not Present)
[2017-08-05 06:41] LABS: Platelet Estimate Normal (Normal)
--- NOTE | 2017-08-05 08:56 | Internal Med Progress Note ---
<Chance De - Last Filed: 08/05/17 09:21> Date of Encounter: 08/05/17 Time of Encounter: 08:54 - Assessment and plan (1) Cellulitis Current Visit: Yes Status: Acute Assessment and plan: Failed outpatient therapy, patient has been evaluated by ID, podiatry and vascular surgery. Wound cultures positive for MRSA Blood cultures show no growth to date. MRI was negative for osteomyelitis. Will continue symptomatic care, dressing changes, IV antibiotics, and increase analgesics. Continue MRSA precautions ID switched IV Zosyn to Cefepime since the combination of Cefepime and Vancomycin is less nephrotoxic. Continue IV vancomycin (Day 3) and Cefepime (Day 2) Once clinically better we will likely switch her to oral antibiotics Duration of treatment likely 14 days Qualifiers: Site of cellulitis: extremity Site of cellulitis of extremity: lower extremity Laterality: right Qualified Code(s): L03.115 - Cellulitis of right lower limb (2) Atherosclerosis of [place] arteries of right leg with ulceration of other part of foot Current Visit: Yes Status: Chronic Assessment and plan: POD#1 s/p angiogram with right popliteal angioplasty and 5 x 27mm stent placement via 6 haitian sheath in left common femoral artery. 07/29/17 EV arterial imaging LE RT revealed proximal right popliteal artery occlusion Will continue symptomatic care, dressing changes, IV antibiotics, and analgesics. Continue Plavix. Vascular surgeon following. She will follow-up in vascular clinic in 1 month PT/OT consults ordered. (3) HTN (hypertension) Current Visit: No Status: Chronic Assessment and plan: Patient reports elevated blood pressure due to pain. Continue home meds Continue Amlodipine Continue monitoring Qualifiers: Hypertension type: essential hypertension Qualified Code(s): I10 - Essential (primary) hypertension (4) Atrial fibrillation Current Visit: No Status: Chronic Assessment and plan: Rate controlled on Metoprolol. Resume home Plavix and Eliquis Qualifiers: Atrial fibrillation type: chronic Qualified Code(s): I48.2 - Chronic atrial fibrillation (5) Anxiety Current Visit: Yes Status: Acute Assessment and plan: Stable, Continue lorazepam during hospital stay (6) DVT prophylaxis Current Visit: Yes Status: Acute Assessment and plan: Resume home Plavix and Eliquis - Time Spent With Patient Total time spent is greater than 50% in coordination of care (as documented) at patient's floor/unit and/or counseling patient: - Subjective Interval history: Patient seen and examined resting comfortably in bed on POD#2 s/p angiogram with right popliteal angioplasty and 5 x 27mm stent placement via 6 haitian sheath in left common femoral artery. Patient reports her pain level is well controlled pain with current analgesic regimen. She denies any new c/o and was able to sleep last Pm without difficulty. PT/OT consults ordered. - Constitutional Vitals: Temp Pulse Resp BP Pulse Ox 98.4 F 86 16 153/66 94 08/05/17 06:47 08/05/17 06:47 08/05/17 06:47 08/05/17 06:47 08/05/17 06:47 General appearance: Present: cooperative, A&O X 3, pleasant, no acute distress, answers questions appropriately. Absent: mild distress - Head Head exam: Present: atraumatic, normocephalic - Eye Eye exam: Present: PERRL, conjuntiva pink, sclera anicteric Pupils: Present: PERRL - ENT ENT exam: Present: mucous membranes moist, normal oropharynx - Neck Neck exam general surgery: Present: supple, trachea midline. Absent: lymphadenopathy - Respiratory Respiratory exam: Present: CTAB. Absent: accessory muscle use, rales, rhonchi, wheezes - Cardiovascular Cardiovascular exam: Present: RRR, +S1, +S2. Absent: diastolic murmur, gallop, rubs, systolic murmur - GI/Abdominal GI/Abdominal exam: Present: normal bowel sounds, soft, no peritoneal signs. Absent: distended, tenderness - Extremities Exam Extremities exam: Present: warm, radial pulses palpable and symmetrical. Absent : calf tenderness, cyanotic, normal inspection (multiple right foot wounds, one located at the right calf approximately 1 cm in diameter, one wound right heel approximately 2 cm in diameter, one wound at right great toe with irregular borders greater than 1.5 cm and dark in color, and additional wound about 3 cm x 2 cm located proximal to the great toe and extending to the medial side of the foot with erythema of the skin surrounding the wounds and tenderness with palpation. ), pedal edema - Back Exam Back exam: Present: normal inspection. Absent: paraspinal tenderness, tenderness - Neurological Exam Neurological exam: Present: CN II-XII intact, oriented X3, no focal deficits. Absent: pronater drift, facial droop, speech deficit - Psychiatric Psychiatric exam: Present: normal affect, normal mood - Skin Skin exam: Present: dry (multiple right foot wounds, one located at the right calf approximately 1 cm in diameter, one wound right heel approximately 2 cm in diameter, one wound at right great toe with irregular borders greater than 1.5 cm and dark in color, and additional wound about 3 cm x 2 cm located proximal to the great toe and extending to the medial side of the foot with erythema of the skin surrounding the wounds and tenderness with palpation. ), intact Internal Medicine: Result - Labs CBC & Chem 7: 08/05/17 03:30 08/05/17 03:30 Labs: Short CBC 08/05/17 Range/Units 03:30 WBC 13.2 H (4.3-11.1) K/mcL Hgb 11.3 L D (11.5-15.4) g/dL Hct 36.4 (35.3-44.9) % Plt Count 242 (140-400) K/mcL Neutrophils # 10.1 H (1.6-8.9) K/mcL BMP 08/05/17 03:30 Sodium 137 Potassium 3.7 Chloride 106 Carbon Dioxide 22 L BUN 14 Creatinine 0.77 Glucose 70 Calcium 8.9 - ABG Interpretation ABG results: PT/INR, D-dimer PT 16.6 Seconds (9.4-12.1) H 08/03/17 06:01 - Pulse Oximetry Interpretation Digit-Finger Pulse Oximetry Readin (On RA) - VTE Reasons for not Prescribing Prophylaxis: Not indicated-Anticoagulated or INR therapeutic Documentation of Mechanical Device: Intermittent pneumatic compression device Consult Discharge Plan - Plan Referrals: Manuela Franco CNP [Primary Care Provider] - 08/12/17 10:40 am (Please take with you to your appointment your ID, and copay if you have one per the office of Manuela Franco) Trevor Heller MD [Partnered Physician] - 09/20/17 2:40 pm <Yordan Wetzel - Last Filed: 08/05/17 17:44> Date of Encounter: 08/05/17 - Assessment and plan (1) HTN (hypertension) Current Visit: No Status: Chronic Qualifiers: Hypertension type: essential hypertension Qualified Code(s): I10 - Essential (primary) hypertension (2) Cellulitis Current Visit: Yes Status: Acute Qualifiers: Site of cellulitis: extremity Site of cellulitis of extremity: lower extremity Laterality: right Qualified Code(s): L03.115 - Cellulitis of right lower limb (3) Atrial fibrillation Current Visit: No Status: Chronic Qualifiers: Atrial fibrillation type: chronic Qualified Code(s): I48.2 - Chronic atrial fibrillation (4) Anxiety Current Visit: Yes Status: Acute (5) Atherosclerosis of [place] arteries of right leg with ulceration of other part of foot Current Visit: Yes Status: Chronic (6) DVT prophylaxis Current Visit: Yes Status: Acute - Time Spent With Patient Total time spent is greater than 50% in coordination of care (as documented) at patient's floor/unit and/or counseling patient: - Constitutional Vitals: Temp Pulse Resp BP Pulse Ox 98.3 F 73 15 135/62 97 08/05/17 14:48 08/05/17 14:48 08/05/17 14:48 08/05/17 14:48 08/05/17 14:48 Internal Medicine: Result - Labs CBC & Chem 7: 08/05/17 03:30 08/05/17 03:30 Labs: Short CBC 08/05/17 Range/Units 03:30 WBC 13.2 H (4.3-11.1) K/mcL Hgb 11.3 L D (11.5-15.4) g/dL Hct 36.4 (35.3-44.9) % Plt Count 242 (140-400) K/mcL Neutrophils # 10.1 H (1.6-8.9) K/mcL BMP 08/05/17 03:30 Sodium 137 Potassium 3.7 Chloride 106 Carbon Dioxide 22 L BUN 14 Creatinine 0.77 Glucose 70 Calcium 8.9 - ABG Interpretation ABG results: PT/INR, D-dimer PT 16.6 Seconds (9.4-12.1) H 08/03/17 06:01 - Attending Attestation I examined this patient and my medical decision-making was reviewed with the Resident Physician. I agree with the documented findings, disposition and treatment plan as described except to the extent set forth below.
[2017-08-05] MEDS: Apixaban 5 MG TABLET PO SCH ×2 (09:36→21:46)
[2017-08-05] MEDS: Magnesium Oxide 400 MG TABLET PO SCH (09:36)
[2017-08-05] MEDS: Hydroxyurea 500 MG CAPSULE PO SCH (09:37)
[2017-08-05] MEDS: amLODIPine 5 MG TABLET PO SCH (09:37)
[2017-08-05] MEDS: Lisinopril 20 MG TABLET PO SCH (09:37)
[2017-08-05] MEDS: *HR* HYDROcodone/Acet 5/325 mg TABLET PO PRN ×2 (09:37→19:07)
[2017-08-05] MEDS: *HR* LORazepam 0.5 MG TABLET PO PRN ×2 (10:53→21:45)
--- NOTE | 2017-08-05 13:37 | Invasive Diagnostic Lab Proc ---
Name: Rosa Honeycutt Date of Study: 08/03/2017 Date: 1930 Ht: 168.0 in Medical Record#: [id number] Age: 86 Wt: 80.8 lb Gender: Female BSA: 1.91 Order #: [id number] BMI: 28.63 Physicians Performing MD: Trevor Heller MD Referring MD: Referring MD: Staff Name Position Time In Inge Harmon RN Chief Librarian Branch Doris Maldonado RN Chief Librarian Branch Taisha, Peggy RT (R) Scrub Deidre Blankenship RN Nurse SherrieTaty hernandez RN Monitor Indications Peripheral Vascular Disease with nonhealing right lower extremity ulcerations Procedures Performed AORTOGRAPHY, ABDOMINAL S&I FEM/POPL REVASC W/STENT ANGIOGRAM, EXT UNILAT S&I Pre-Procedure Checklist Informed consent is complete signed and on chart. H&P is on chart. ID band is on and ID verified with patient. Patient NPO for procedure The procedure was described for the patient and questions were answered. ECG is on chart. Rhythm: NSR Plan of Care Patient will tolerate the procedure without complications. Adequate level of comfort will be maintained. Hemodynamics will remain stable Patient will recover from procedure without complications. Respiratory function will be maintained. Cardiac rhythm will remain stable. Patient temperature will be maintained. Patient and/or family have verbalized understanding of the procedure. Patient Education Chief Complaint/Reason for Test: Peripheral angiogram Developmental Category: Geriatric (65+ years) Learning Barriers: None Education Needs: Procedure Education Method: Verbal Information Taught: Peripheral angiogram Educational Evaluation: Able to repeat information Intravenous Access Time IV Size Location DC'd Fluid/Drip Rate Units RN 17:03 20g 1 /" Patent On Arrival Lt Antecubital 0.9NaCl 25 ml/hr Doris Maldonado RN Allergies SULFA clindamycin Sulfa (Sulfonamide Antibiotics) Vital Signs Time BP Systolic BP Diastolic HR O2 Sats ASA 05:06 PM 168 74 71 95 05:29 PM 05:29 PM 05:44 PM 05:59 PM Procedure Medications Time Medication Dose Units Method Route 05:35 PM Zofran 4 mg Intravenous 05:45 PM Lidocaine 2% 10 ml Subcutaneous 05:52 PM Heparin 3000 units Intra-arterial ASA Classification: CLASS III- Severe systemic disease (i.e. prior AMI, diabetes with vascular complications, morbid obesity) Otilia Score Preprocedure Postprocedure Activity 2- Moves 4 extremities sustained head lift Activity 2- Moves 4 extremities sustained head lift Circulation 2- SBP +/= 20 points of pre-anesthetic level Circulation 2- SBP +/= 20 points of pre-anesthetic level Consciousness 2- Awake and alert oriented x 3 Consciousness 2- Awake and alert oriented x 3 O2 Saturation 2- Able to maintain O2 satruation of 92% on room air O2 Saturation 2- Able to maintain O2 satruation of 92% on room air Respiratory 2- Able to deep breathe and cough well Respiratory 2- Able to deep breathe and cough well Total Score 10 Total Score 10 Contrast: Isovue 250- 150ml Contrast Amount: 31 ml Fluoro Dose: 94 mGy Procedure Log Time Note Entered By 05:03 PM Pt arrived to aquatic laborer 1 at 17:03 scoates 05:09 PM Inge Harmon RN Position: Chief Librarian Branch Time in: 17:09 scoates 05:09 PM Doris Maldonado RN Position: Chief Librarian Branch Time in: 17:09 scoates 05:09 PM Peggy Sumner RT (R) Position: Scrub Time in: 17:09 scoates 05:09 PM Deidre Blankenship RN Position: Nurse Time in: 17:09 scoates 05:10 PM Taty Fuentes RN Position: Monitor Time in: 17:10 scoates 05:28 PM Meet and crystal completed scoates 05:28 PM Sign in performed according to hospital policy. scoates 05:28 PM Procedure start 17:28 scoates 05:26 PM Physician arrived 17:26 scoates 05:29 PM Hair removed from procedure site in procedure lab using clippers. bilateral groin prepped with Chloraprep by Deidre Blankenship RN, then patient was draped. Skin intact. scoates 05:29 PM Time: 17:29 Is patient comfortable and pain free?: Yes scoates 05:29 PM Time: 17:29LOC: 5 = Fully awake and oriented or at pre-proc level scoates 05:29 PM Patient charges- Angio tray pack, Pulse Oximetry and ACIST tubing and transducer scoates 05:33 PM ecchymosis observed to left hip, left inner thigh, and left lower abdomen. Pt also has an open wound to right groin. No drainage observed. scoates 05:35 PM Time: 17:35 Zofran 4 mg Intravenous Given by Doris Maldonado RN scoates 05:39 PM ASA Class CLASS III- Severe systemic disease (i.e. prior AMI, diabetes with vascular complications, morbid obesity) scoates 05:42 PM Time out perfomed scoates 05:44 PM Time: 17:29LOC: 5 = Fully awake and oriented or at pre-proc level scoates 05:44 PM Time: 17:29 Is patient comfortable and pain free?: yes scoates 05:45 PM 17:45 10 ml Lidocaine 2% to left groin Subcutaneous Given By Trevor Heller MD scoates 05:46 PM Access obtained in the left femoral artery by percutaneous puncture. 4 Fr. 10 cm Terumo [place] sheath placed in left femoral artery scoates 05:46 PM 0.035 180cm AthleteNetworkson wire utilized to assist with catheter placement scoates 05:46 PM 4Fr Omniflush catheter inserted over the wire scoates 05:47 PM Abdominal aorta angiography performed in AP contrast injected 20/10 mls. scoates 05:49 PM 5ml of contrast hand injected into right SFA scoates 05:50 PM 5 ml of contrast hand injected into right SFA scoates 05:51 PM Catheter removed scoates 05:53 PM 17:52 Heparin 3000 units Intra-arterial by Trevor Heller MD scoates 05:52 PM Sheath exchanged for a 6 Fr 45 cm Terumo [place] sheath inserted into left femoral artery scoates 05:54 PM 0.014 Journey 300cm guidewire advanced to target vessel. scoates 05:55 PM 4Fr 150cm Orange Blazer guide catheter across target lesion scoates 05:57 PM 2cc contrast injected scoates 05:58 PM Orange Blazer removed scoates 05:59 PM Time: 17:44 Is patient comfortable and pain free?: Yes scoates 05:59 PM Time: 17:44LOC: 5 = Fully awake and oriented or at pre-proc level scoates 06:00 PM 4 mm x 200 mm Precision Honing Machine Operator balloon catheter placed into right popliteal scoates 06:03 PM Balloon inflated @ 10 shelby for 80 seconds scoates 06:05 PM Balloon removed intact scoates 06:09 PM 5 mm x 27 mm Express LD stent placed in right superficial femoral artery Lot # [id number] scoates 06:09 PM Stent deployed @ 12 shelby for 14 seconds scoates 06:11 PM 10cc contrast injected scoates 06:12 PM Stent delivery system removed intact scoates 06:12 PM Guide wire removed intact scoates 06:12 PM Guide catheter removed intact scoates 06:13 PM Procedure completed at 18:13 scoates 06:13 PM Sign Out completed: Radiation Dose 94.22 mGy Fluoro Time: 4.8 minutes. Isovue 250- 150ml contrast 31 ml given by Trevor Heller MD. Complications: None. Confirmed administered medications:Yes scoates 06:14 PM Isovue 250- 150ml,1 bottle(s) used. scoates 06:15 PM Arterial sheath pulled. [place] Starclose closure device used and was Successful [id number] S/N. scoates 06:15 PM Time: 17:59LOC: 5 = Fully awake and oriented or at pre-proc level scoates 06:15 PM Time: 17:59 Is patient comfortable and pain free?: Yes scoates 06:15 PM Estimated Blood Loss: minimal scoates 06:15 PM Post Blood Pressure: 155/84 scoates 06:15 PM Information taught: Peripheral angiogram and Starclose scoates 06:15 PM Education needs: Procedure, Plan of Care, and Responsibilities of Patient in Care scoates 06:15 PM Learning barriers: None scoates 06:15 PM Education methods: Verbal scoates 06:15 PM Education evaluation: Able to repeat information scoates 06:15 PM Patient pain level 0/10 scoates 06:16 PM Site status No bleeding/hematoma - Lt Groin as reported by Sites, Peggy RT (R) at 18:15 scoates 06:16 PM Opsite applied scoates 06:16 PM Delay to floor: No scoates 06:16 PM Pt taken to 2N Room# 5 scoates 06:16 PM Family placed in consult room. scoates 06:16 PM Complications: None scoates 06:16 PM Fluoro Time: 4.8 minutes scoates 06:16 PM Isovue 250- 150ml contrast 31 ml given by Trevor Heller MD scoates 06:16 PM Radiation Dose 94.22 mGy scoates 06:22 PM Report given to Rolo YING. Pt taken to , Room # 05 18:22 scoates 06:24 PM Patient out of room 18:24 scoates Peripheral Anatomy Vessel Pathology Lesion Stenosis Aneurysm Diameter Thrombus Type Right Popliteal Lesion 100 Right Post. Tibial Lesion 100 Right Dorsalis Pedis Lesion 100 Peripheral Intervention Anatomical Region:LE Vessel Segment:Undefined Bookmark: [email or web address] Pathology Type:Lesion Pre-Stenosis:100 Post-Stenosis:0 Post Procedure Information Blood Pressure: 155/84 mmHg Post procedure instructions given Report Given To: oneal Site Checks Time Location Status Staff Sheath In? Note 6:15:00 PM Lt Groin No bleeding/hematoma Sites, Peggy RT (R) Pulses Time Site Pre Procedure Post Procedure Note 08/03/2017 5:03:00 PM Bilateral DP 1+ Updated by Kiah Cote, RT (R) on 08/05/2017 1:29:40 PM electronically signed on 08/05/2017 1:30:07 PM with status of Final
--- NOTE | 2017-08-05 16:37 | Infectious Disease Progress No ---
Date of Encounter: 08/05/17 Time of Encounter: 16:35 - Assessment and Plan (1) Chronic foot ulcer Current Visit: Yes Status: Acute as been following wound care Received Keflex 3 courses in May and July of this year with no improvement Likely secondary to ischemia Cultures positive for MRSA Qualifiers: Laterality: right Non-pressure ulcer stage: unspecified non-pressure ulcer stage Qualified Code(s): L97.519 - Non-pressure chronic ulcer of other part of right foot with unspecified severity (2) Cellulitis Current Visit: Yes Status: Acute ikely secondary to MRSA MRIs of the ankle and the foot noted, no osteomyelitis, no abscesses. Patient is on vancomycin and Zosyn. Cultures only suggesting MRSA, but I understand if we need to cover gram- negative including Pseudomonas Consider the seeing Zosyn and starting cefepime since the combination of cefepime and vancomycin are less nephrotoxic Patient is 86 years old so we will watch kidney function very closely. CrCl now measured at around 40 Goal vancomycin trough is only 10 dose adjust cefepime based on CrCl to 1 gram daily Once clinically better we will likely switch her to oral antibiotics Duration of treatment likely 14 days Considered the seeing patient on doxycycline and Cipro Qualifiers: Site of cellulitis: extremity Site of cellulitis of extremity: lower extremity Laterality: right Qualified Code(s): L03.115 - Cellulitis of right lower limb (3) Atrial fibrillation Current Visit: No Status: Chronic Qualifiers: Atrial fibrillation type: chronic Qualified Code(s): I48.2 - Chronic atrial fibrillation (4) Atherosclerosis of [place] arteries of right leg with ulceration of other part of foot Current Visit: Yes Status: Chronic (5) PVD (peripheral vascular disease) Current Visit: No Status: Chronic - Subjective Interval history: Patient seen and examined. Appears comfortable. No acute distress. Patient continues to be afebrile heart rate is stable. O2 sats within normal limit WBC is slightly better today than yesterday at 13.2 with normal differential. BUN/creatinine within normal limits Vanco trough 13 Wound culture is still positive for MRSA no other organism identified Infect Dis PN-Objective Data - Labs CBC & Chem 7: 08/05/17 03:30 08/05/17 03:30 Labs: Laboratory Results - last 24 hr 08/03/17 08/05/17 08/05/17 11:26 03:30 03:30 WBC 13.2 H RBC 3.67 L Hgb 11.3 L D Hct 36.4 MCV 99.2 MCH 30.8 MCHC 31.0 L RDW 23.7 H Plt Count 242 MPV 11.1 Immature Gran % 0.9 Seg Neutrophils % 76.3 Lymphocytes % 8.3 Monocytes % 13.4 Eosinophils % 0.8 Basophils % 0.3 Neutrophils # 10.1 H Lymphocytes # 1.1 Monocytes # 1.8 H Eosinophils # 0.1 Basophils # 0.0 Platelet Estimate Normal Hypochromasia Present A Anisocytosis 3+ A Tear Drop Cells 1+ A Sodium 137 Potassium 3.7 Chloride 106 Carbon Dioxide 22 L BUN 14 Creatinine 0.77 Est GFR ( Amer) > 60 Est GFR (Non-Af Amer) > 60 BUN/Creatinine Ratio 18 Glucose 70 POC Glucose 94 Calculated Osmolality 283 Calcium 8.9 Vancomycin Trough 08/05/17 14:56 WBC RBC Hgb Hct MCV MCH MCHC RDW Plt Count MPV Immature Gran % Seg Neutrophils % Lymphocytes % Monocytes % Eosinophils % Basophils % Neutrophils # Lymphocytes # Monocytes # Eosinophils # Basophils # Platelet Estimate Hypochromasia Anisocytosis Tear Drop Cells Sodium Potassium Chloride Carbon Dioxide BUN Creatinine Est GFR ( Amer) Est GFR (Non-Af Amer) BUN/Creatinine Ratio Glucose POC Glucose Calculated Osmolality Calcium Vancomycin Trough 13 H Cultures: Cultures 08/02/17 10:20 Wound Culture - Final Right Foot Methicillin Resistant S.aureus Exam - Constitutional Vitals: Temp Pulse Resp BP Pulse Ox 98.3 F 73 15 135/62 97 08/05/17 14:48 08/05/17 14:48 08/05/17 14:48 08/05/17 14:48 08/05/17 14:48 General appearance: no acute distress, no febrile - Head Head exam: Present: atraumatic, normocephalic - Respiratory Respiratory exam: Present: CTAB. Absent: wheezes - Cardiovascular Cardiovascular exam: Present: RRR, +S1, +S2 - GI/Abdominal GI/Abdominal exam: Present: normal bowel sounds, soft. Absent: tenderness - Extremities Exam Additional comments: Wrapped unable to evaluate - VTE Reasons for not Prescribing Prophylaxis: Not indicated-Anticoagulated or INR therapeutic Documentation of Mechanical Device: Intermittent pneumatic compression device Consult Discharge Plan - Plan Referrals: Manuela Franco CNP [Primary Care Provider] - 08/12/17 10:40 am (Please take with you to your appointment your ID, and copay if you have one per the office of Manuela Franco) Trevor Heller MD [Partnered Physician] - 09/20/17 2:40 pm
[2017-08-05] MEDS: Cefepime HCl 1,000 MG in Water for inj. (sterile) 20 ML 10 ML IVP SCH (21:46)
[2017-08-05] MEDS: *HR* OxyCODONE/APAP 5/325 TABLET PO PRN (21:46)
[2017-08-06] MEDS: *HR* OxyCODONE ER (12 HR) 10 MG TABLET PO SCH ×2 (01:37→13:41)
[2017-08-06 04:20] LABS: Basophils % 0.3 %; Eosinophils # 0.1 K/mcL (0.0-0.6); Eosinophils % 0.8 %; Hematocrit 34.2 % (35.3-44.9); Hemoglobin 10.7 g/dL (11.5-15.4); Immature Granulocytes % 0.7 % (0-4); Lymphocytes # 1.2 K/mcL (0.6-4.6); Lymphocytes % 11.7 %; Mean Corpuscular HGB Conc 31.3 g/dL (31.6-35.5); Mean Corpuscular Hemoglobin 31.3 pg (28.0-33.3); Mean Platelet Volume 11.2 fL (9.4-12.4); Monocytes # 1.5 K/mcL (0.0-1.3); Monocytes % 14.1 %; Neutrophils # 7.7 K/mcL (1.6-8.9); Platelet Count 227 K/mcL (140-400); Red Blood Count 3.42 M/mcL (3.82-4.97); Red Cell Distribution Width 23.2 % (11.5-14.5); Segmented Neutrophils % 72.4 %
[2017-08-06 04:36] LABS: BUN/Creatinine Ratio 18 (6-26); Blood Urea Nitrogen 14 mg/dL (8-23); Calcium 8.6 mg/dL (8.6-10.3); Carbon Dioxide 22 mEq/L (23-29); Chloride 110 mEq/L (98-107); Glucose 83 mg/dL (70-105); Osmolality,Calculated 286 (280-300); Potassium 3.7 mEq/L (3.5-5.1); Sodium 138 mEq/L (136-145); eGFR For African Americans > 60 (> 60); eGFR For Non-African Americans > 60 (> 60)
[2017-08-06 05:01] LABS: Anisocytosis 2+ (Not Present); Hypochromasia Present (Not Present); Large Platelets Present (Not Present); Platelet Estimate Normal (Normal); Poikilocytosis 1+ (Not Present); Reactive Lymphocytes Present (Not Present); Tear Drop Cells 1+ (Not Present)
[2017-08-06] MEDS: Magnesium Oxide 400 MG TABLET PO SCH (07:50)
[2017-08-06] MEDS: Apixaban 5 MG TABLET PO SCH (07:50)
[2017-08-06] MEDS: amLODIPine 5 MG TABLET PO SCH (07:50)
[2017-08-06] MEDS: Hydroxyurea 500 MG CAPSULE PO SCH (07:50)
[2017-08-06] MEDS: Lisinopril 20 MG TABLET PO SCH (07:50)
--- NOTE | 2017-08-06 09:23 | Podiatry Progress Note ---
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 This will be a long arduous course that immediately surgical intervention to debride these wounds would be counterproductive given the fact there is marginalize circulation, that aggressive debridement may not yield positive outcome from a surgical standpoint. #3 we will approach wound care conservatively with use of enzymatic debridement/Santyl dressings twice a day. We will let the wounds declare themselves as to whether they have a reasonable opportunity to heal over time and that we will monitor her closely as an outpatient in wound care clinic. We discussed the need for taken as wound care and follow-up with vascular surgery. Patient and son both voice comprehension. They both realize that there are no guarantees or assurances as to the outcome of conservative measures but the fact that intervention surgically may precipitate amputation. Subjective Principal diagnosis: Multiple, Ischemic ulcers right foot Interval history: This 86-year-old female underwent endovascular procedure for ischemic right foot multiple ulcerations approximately 72 hours ago. She presently states she has significantly less pain than she did prior to the procedure. She presently is comfortable resting in bed talking on the phone no acute distress. Vital signs are stable. Patient still complains of pain of the right foot when she moves about/transfers from the bed to chair. Objective - Vital Signs Vital Signs: Vital Signs Temp Pulse Resp BP Pulse Ox 08/06/17 07:43 98.7 F 77 17 146/71 97 08/06/17 04:52 98 F 72 15 134/63 93 08/06/17 00:25 98.8 F 62 15 137/71 92 08/05/17 19:52 98.4 F 79 16 147/66 95 08/05/17 14:48 98.3 F 73 15 135/62 97 08/05/17 10:52 98.6 F 96 16 152/76 93 Intake and Output 08/05/17 08/06/17 08/06/17 23:59 07:59 15:59 Intake Total 370 / 370 0 / 0 Output Total 600 / 600 0 / 0 Balance -230 / -230 0 / 0 Intake: IV Fluids 250 / 250 Vancocin 1,000 MG In 0.9 % 250 / 250 Sodium Chloride 250 ML @ 167 mls/hr IVPB Q24H [facility] Rx#: [id number] Oral 120 / 120 0 / 0 Output: Urine 600 / 600 0 / 0 Other: Meal Dinner Percent of Meal Consumed 100% Weight 76 kg Patient Weight 08/06/17 23:59 Weight 76 kg - Exam Exam: 3 separate ischemic wounds dorsal medial great toe medial aspect of the first metatarsal distal right heel posterior aspect of the right Achilles tendon. All wounds are dry clean and unstageable. Wounds as measured. No cellulitis or lymphangitis no odor no purulence. No fluctuance. No exudate. Small amount of serosanguineous drainage on the bandage. Not impressive. Capillary Refill: sluggish - Lab Result Diagrams: 08/06/17 03:55 08/06/17 03:55 Labs: Abnormal lab results RBC 3.42 M/mcL (3.82-4.97) L 08/06/17 03:55 Hgb 10.7 g/dL (11.5-15.4) L 08/06/17 03:55 Hct 34.2 % (35.3-44.9) L 08/06/17 03:55 MCHC 31.3 g/dL (31.6-35.5) L 08/06/17 03:55 RDW 23.2 % (11.5-14.5) H 08/06/17 03:55 Monocytes # 1.5 K/mcL (0.0-1.3) H 08/06/17 03:55 Reactive Lymphocytes Present (Not Present) A 08/06/17 03:55 Large Platelets Present (Not Present) A 08/06/17 03:55 Hypochromasia Present (Not Present) A 08/06/17 03:55 Poikilocytosis 1+ (Not Present) A 08/06/17 03:55 Anisocytosis 2+ (Not Present) A 08/06/17 03:55 Tear Drop Cells 1+ (Not Present) A 08/06/17 03:55 PT 16.6 Seconds (9.4-12.1) H 08/03/17 06:01 Chloride 110 mEq/L (98-107) H 08/06/17 03:55 Carbon Dioxide 22 mEq/L (23-29) L 08/06/17 03:55 C-Reactive Protein 14 mg/L (Less than 10) H 08/01/17 14:55 Vancomycin Trough 13 mcg/mL (5-10) H 08/05/17 14:56 Microbiology, Last 48 Hours 08/02/17 10:20 Wound Culture - Final Right Foot Methicillin Resistant S.aureus - VTE Reasons for not Prescribing Prophylaxis: Not indicated-Anticoagulated or INR therapeutic Documentation of Mechanical Device: Intermittent pneumatic compression device Consult Discharge Plan - Plan Referrals: Manuela Franco CNP [Primary Care Provider] - 08/12/17 10:40 am (Please take with you to your appointment your ID, and copay if you have one per the office of Manuela Franco) Trevor Heller MD [Partnered Physician] - 09/20/17 2:40 pm
--- NOTE | 2017-08-06 10:51 | Discharge Summary ---
<Sesar Nuñez - Last Filed: 08/06/17 13:12> - NOTES TO OUTPATIENT PROVIDER Notes to Outpatient Provider: Antibiotic course of Levaquin and Doxy. Plan for close follow up with wound care clinic. Holding Mag-Ox for potential interaction with Doxy, will order for repeat Mag level in 1 week and PCP can re- evaluate risk/benefit of holding Mag-Ox. 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 Priority: Primary Status: Chronic (2) Cellulitis Priority: Secondary Status: Acute Qualifiers: Site of cellulitis: extremity Site of cellulitis of extremity: lower extremity Laterality: right Qualified Code(s): L03.115 - Cellulitis of right lower limb (3) Atherosclerosis of [place] arteries of right leg with ulceration of other part of foot Priority: Secondary Status: Chronic (4) HTN (hypertension) Priority: Secondary Status: Chronic Qualifiers: Hypertension type: essential hypertension Qualified Code(s): I10 - Essential (primary) hypertension (5) Atrial fibrillation Priority: Secondary Status: Chronic Qualifiers: Atrial fibrillation type: chronic Qualified Code(s): I48.2 - Chronic atrial fibrillation (6) Anxiety Priority: Secondary Status: Acute (7) DVT prophylaxis Priority: Secondary Status: Acute Hospital course: Ms. Honeycutt is a 86 year old female that was admitted for RLE wounds that failed outpatient therapy. Patient has been seen as an outpatient by Dr. Maxwell, cobol application developer and Dr. Heller,vascular surgery for her right foot. She was noted to have ulcerations and possible infection. Failed outpatient treatment with Doxycycline only. Initially seen by wound care in [place], and while there a debridement was attempted but unsuccessful. She was then referred to the hospital for admission to be treated with IV antibiotics. Due to severe pain she was unable to walk on her foot. During admission she was initialy treated with Vancomycin and Zosyn. Infectious Disease consulted, Zosyn was transitioned to Cefepime to reduce combined nephrotoxic affect on the kidneys. MRI was negative for osteomyletitis. 07/29/17 EV arterial imaging LE RT revealed proximal right popliteal artery occlusion. Patient underwent angiogram with right popliteal angioplasty and a 5x 27mm stent placement via 6 stateless sheath in the left common femoral artery. Patient notes RLE pain and warmth improved. She has been evaluated by Pt/OT and plans to go to [facility] for rehab later today. Wound culture grew MRSA, plan to discharge on oral antibiotics or levaquin and doxycycline. Planning for close follow up with wound care and vascular surgery. Discharge discussed with: patient - Time Spent with Patient Total time spent providing and/or coordinating discharge services: Greater than 30 minutes (45mins) - Discharge Medications Prescriptions: Oxycodone HCl/Acetaminophen [Percocet 5-325 mg Tablet] 1 each PO Q4HR PRN 4 Days #24 tablet PRN Reason: Breakthrough Pain amLODIPine [Norvasc] 10 mg PO DAILY 30 Days #60 tablet Doxycycline Hyclate [Vibramycin] 100 mg PO BID 14 Days #28 capsule Fentanyl [Duragesic] 50 mcg TD Q72H 3 Days #1 patch.td72 levoFLOXacin [Levaquin] 750 mg PO DAILY #14 tablet Lisinopril [Zestril] 20 mg PO DAILY 30 Days #60 tablet LORazepam [Ativan] 0.5 mg PO TID PRN 4 Days #12 tablet PRN Reason: Anxiety Oxycodone HCl [Oxycontin] 10 mg PO Q12H 4 Days #8 tab.er.12h Home Medications: OxyCODONE/APAP 7.5/325 [Percocet 7.5/325 MG] 1 tab PO Q12H PRN 30 Days #60 tablet 06/29/17 [Rx] Clopidogrel [Plavix] 75 mg PO DAILY #30 tab 07/12/17 [Rx] Hydroxyurea [Hydrea] 500 mg PO DAILY 07/12/17 [History] Apixaban [Eliquis] 2.5 mg PO BID 08/01/17 [History] Collagenase Oint [Santyl] 1 appl TP DAILY 08/01/17 [History] Metoprolol [Lopressor] 50 mg PO BID 08/01/17 [History] Doxycycline Hyclate [Vibramycin] 100 mg PO BID 14 Days #28 capsule 08/06/17 [Rx] Fentanyl [Duragesic] 50 mcg TD Q72H 3 Days #1 patch.td72 08/06/17 [Rx] LORazepam [Ativan] 0.5 mg PO TID PRN 4 Days #12 tablet 08/06/17 [Rx] Lisinopril [Zestril] 20 mg PO DAILY 30 Days #60 tablet 08/06/17 [Rx] Oxycodone HCl [Oxycontin] 10 mg PO Q12H 4 Days #8 tab.er.12h 08/06/17 [Rx] Oxycodone HCl/Acetaminophen [Percocet 5-325 mg Tablet] 1 each PO Q4HR PRN 4 Days #24 tablet 08/06/17 [Rx] amLODIPine [Norvasc] 10 mg PO DAILY 30 Days #60 tablet 08/06/17 [Rx] levoFLOXacin [Levaquin] 750 mg PO DAILY #14 tablet 08/06/17 [Rx] Allergies/Adverse Reactions: 3 Allergy/AdvReac Type Severity Reaction Status Date / Time clindamycin AdvReac Shakiness Verified 07/12/17 06:53 Sulfa (Sulfonamide AdvReac Rash Verified 06/29/17 09:46 Antibiotics) Date of admission: 08/01/17 15:52 Primary care physician: Manuela Franco CNP Consults: 08/01/17 17:12 Consult for Pharmacy Education [CONS] Routine Reason for Consult: Vancomycin Dosing Call Completed: No 08/02/17 13:07 Consult to Vascular Surgery [CONS] Routine Consulting Provider: Vascular Surgery [place] Reason for Consult: PAD Time Notified: 13:09 Call Completed: Yes 08/03/17 11:58 Consult to Infectious Diseases [CONS] Routine Consulting Provider: Infectious Disease [place] Reason for Consult: Cellulitis, PVD, antibiotic recommendation Time Notified: 11:59 Call Completed: Yes 08/05/17 09:19 Consult to Physical Therapy [CONS] Routine Comment: Evaluate, develop and implement POC Reason for Consult: right foot ulcer Does patient have active BEDREST order?: No Is patient medically & hemodynamically stable?: Yes Patient assessed for mobility or mobilized this visit?: No OT [Consult to Occupational Therapy] [CONS] Routine Comment: Evaluate, develop and implement POC Reason for Consult: right foot ulcer Does patient have active BEDREST order?: No Is patient medically & hemodynamically stable?: Yes Patient assessed for mobility or mobilized this visit?: No Discharging clinician: Yordan Wetzel Anticipated date of discharge: 08/06/17 - Constitutional Vitals: Temp Pulse Resp BP Pulse Ox 98.7 F 77 17 146/71 97 08/06/17 07:43 08/06/17 07:43 08/06/17 07:43 08/06/17 07:43 08/06/17 07:43 General appearance: Present: cooperative, A&O X 3, pleasant, no acute distress, answers questions appropriately. Absent: mild distress - Head Head exam: Present: atraumatic, normocephalic - Eye Eye exam: Present: EOMI, normal appearance, conjuntiva pink, sclera anicteric - ENT ENT exam: Present: mucous membranes moist - Neck Neck exam general surgery: Present: full ROM, normal inspection, supple - Respiratory Respiratory exam: Present: CTAB. Absent: accessory muscle use, rales, respiratory distress, rhonchi, stridor, wheezes - Cardiovascular Cardiovascular exam: Present: RRR, +S1, +S2. Absent: diastolic murmur, gallop, rubs, systolic murmur - GI/Abdominal GI/Abdominal exam: Present: normal bowel sounds, soft. Absent: tenderness, no peritoneal signs - Extremities Exam Extremities exam: Present: tenderness (L groin with bruising and tenderness to palpation. RLE dressing is clean, dry, and intact. ), warm (RLE is slightly warmer than LLE). Absent: cyanotic (and no erythema), pedal edema - Neurological Exam Neurological exam: Present: alert, oriented X3, no focal deficits. Absent: speech deficit - Psychiatric Psychiatric exam: Present: normal affect, normal mood - Skin Additional comments: RLE skin not evaluated at this time due to dressing is clean/dry/intact at this time. Wounds seen and evaluated by podiatry this morning. - Patient Status Disposition: Transfer Inpatient Rehab Fac Condition: Good Functional capacity at discharge: uses cane/walker Overall status at discharge: patient is progressing back to baseline - Discharge Instructions Follow Up With: Manuela Franco CNP [Primary Care Provider] - 08/12/17 10:40 am (Please take with you to your appointment your ID, and copay if you have one per the office of Manuela Franco) Trevor Heller MD [Partnered Physician] - 09/20/17 2:40 pm Additional Instructions: Please complete antibiotics x 14 days. Hold Mag-Ox for potential drug interaction with Doxycycline, plan to recheck Mag level in 1 week. Wound care: with use of enzymatic debridement/Santyl dressings twice a day. Plan for close follow up with wound care. Plan for follow up with vascular surgery in 1 month as outpatient. - Diet and Activity Activity: as per physical therapy Diet: low salt diet - VTE Reasons for not Prescribing Prophylaxis: Not indicated-Anticoagulated or INR therapeutic Documentation of Mechanical Device: Intermittent pneumatic compression device <Yordan Wetzel - Last Filed: 08/06/17 15:31> Date of Encounter: 08/06/17 - Discharge Diagnosis (1) HTN (hypertension) Status: Chronic Qualifiers: Hypertension type: essential hypertension Qualified Code(s): I10 - Essential (primary) hypertension (2) Cellulitis Status: Acute Qualifiers: Site of cellulitis: extremity Site of cellulitis of extremity: lower extremity Laterality: right Qualified Code(s): L03.115 - Cellulitis of right lower limb (3) Atrial fibrillation Status: Chronic Qualifiers: Atrial fibrillation type: chronic Qualified Code(s): I48.2 - Chronic atrial fibrillation (4) 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 Honeycutt is a 86 year old female - Time Spent with Patient Total time spent providing and/or coordinating discharge services: Date of admission: 08/01/17 15:52 Primary care physician: Manuela Franco CNP Consults: 08/01/17 17:12 Consult for Pharmacy Education [CONS] Routine Reason for Consult: Vancomycin Dosing Call Completed: No 08/02/17 13:07 Consult to Vascular Surgery [CONS] Routine Consulting Provider: Vascular Surgery [place] Reason for Consult: PAD Time Notified: 13:09 Call Completed: Yes 08/03/17 11:58 Consult to Infectious Diseases [CONS] Routine Consulting Provider: Infectious Disease [place] Reason for Consult: Cellulitis, PVD, antibiotic recommendation Time Notified: 11:59 Call Completed: Yes 08/05/17 09:19 Consult to Physical Therapy [CONS] Routine Comment: Evaluate, develop and implement POC Reason for Consult: right foot ulcer Does patient have active BEDREST order?: No Is patient medically & hemodynamically stable?: Yes Patient assessed for mobility or mobilized this visit?: No OT [Consult to Occupational Therapy] [CONS] Routine Comment: Evaluate, develop and implement POC Reason for Consult: right foot ulcer Does patient have active BEDREST order?: No Is patient medically & hemodynamically stable?: Yes Patient assessed for mobility or mobilized this visit?: No - Constitutional Vitals: Temp Pulse Resp BP Pulse Ox 98.7 F 68 18 152/64 97 08/06/17 11:07 08/06/17 11:07 08/06/17 11:07 08/06/17 11:07 08/06/17 11:07 - Attending Attestation I examined this patient and my medical decision-making was reviewed with the Resident Physician. I agree with the documented findings, disposition and treatment plan as described except to the extent set forth below.
[2017-08-06] MEDS: *HR* OxyCODONE/APAP 5/325 TABLET PO PRN (11:03)
[2017-08-06 11:15] VITALS: BP 152/64
--- NOTE | 2017-08-06 12:07 | Vascular/[facility] Progress Note ---
Date of Encounter: 08/05/17 Time of Encounter: 15:00 - Assessment and plan (1) Atherosclerosis of [place] arteries of right leg with ulceration of other part of foot Current Visit: Yes Status: Chronic The patient is a history of peripheral vascular disease. Her foot remained warm and well perfused. She is polyphasic pedal signals at the level of the ankle. His no hematoma. She may follow-up in clinic as an outpatient. Podiatry will continue to follow the patient regarding her wound. Antibiotics as directed by infectious disease. We will sign off on this patient. Reconsult if necessary. (2) Cellulitis Current Visit: Yes Status: Acute Qualifiers: Qualified Code(s): L03.115 - Cellulitis of right lower limb (3) Atrial fibrillation Current Visit: No Status: Chronic Qualifiers: Qualified Code(s): I48.2 - Chronic atrial fibrillation (4) HTN (hypertension) Current Visit: No Status: Chronic Qualifiers: Qualified Code(s): I10 - Essential (primary) hypertension - Subjective Interval history: The patient reports that her leg is feeling much better today. She denies any fevers or chills. She denies any chest pain or shortness of breath. Vital Signs, Last 4 Hours Temp Pulse Resp BP Pulse Ox 08/06/17 11:07 98.7 F 68 18 152/64 97 - Physical Examination General: Present: Conversant HEENT: Present: Pupils equal Cardiac: Present: Reg Rate and Rhythm Lungs: Present: Normal Breath Sounds Neuro: Present: Alert and responsive, Motor nerves grossly intact, Sensory nerves grossly intact Vascular: Present: Normal capillary refill, Pulse, normal (Pedal signals are polyphasic), Color/Temperature (Warm), Surgical incisions (No hematoma at the left groin). Absent: Cyanosis, Edema Abdomen: Present: Soft, Non-tender Skin: Present: Wound/ulcer(s) (Ulcers are unchanged decreased erythema noted) - VTE Reasons for not Prescribing Prophylaxis: Not indicated-Anticoagulated or INR therapeutic Documentation of Mechanical Device: Intermittent pneumatic compression device Results 08/06/17 03:55 08/06/17 03:55 Lab Results, Last 24 hours 08/06/17 08/06/17 03:55 03:55 WBC 10.6 Hgb 10.7 L Hct 34.2 L Plt Count 227 Sodium 138 Potassium 3.7 Chloride 110 H Carbon Dioxide 22 L BUN 14 Creatinine 0.80 Glucose 83 Calcium 8.6 Consult Discharge Plan - Plan Referrals: Manuela Franco CNP [Primary Care Provider] - 08/12/17 10:40 am (Please take with you to your appointment your ID, and copay if you have one per the office of Manuela Franco) Trevor Heller MD [Partnered Physician] - 09/20/17 2:40 pm
--- NOTE | 2017-08-06 12:35 | Physician Discharge Referral ---
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 Priority: Primary Status: Chronic (2) Cellulitis Priority: Secondary Status: Acute (3) Atherosclerosis of [place] arteries of right leg with ulceration of other part of foot Priority: Secondary Status: Chronic (4) HTN (hypertension) Priority: Secondary Status: Chronic (5) Atrial fibrillation Priority: Secondary Status: Chronic (6) Anxiety Priority: Secondary Status: Acute (7) DVT prophylaxis Priority: Secondary Status: Acute Prognosis: Fair Aware of Diagnosis: Patient, Family Aware of Prognosis: Patient, Family - Transfer Medications Prescriptions: amLODIPine [Norvasc] 10 mg PO DAILY 30 Days #60 tablet Doxycycline Hyclate [Vibramycin] 100 mg PO BID 14 Days #28 capsule levoFLOXacin [Levaquin] 750 mg PO DAILY #14 tablet Lisinopril [Zestril] 20 mg PO DAILY 30 Days #60 tablet Home Medications: OxyCODONE/APAP 7.5/325 [Percocet 7.5/325 MG] 1 tab PO Q12H PRN 30 Days #60 tablet 06/29/17 [Rx] Clopidogrel [Plavix] 75 mg PO DAILY #30 tab 07/12/17 [Rx] Hydroxyurea [Hydrea] 500 mg PO DAILY 07/12/17 [History] Apixaban [Eliquis] 2.5 mg PO BID 08/01/17 [History] Collagenase Oint [Santyl] 1 appl TP DAILY 08/01/17 [History] LORazepam [Ativan] 0.5 mg PO TID PRN 08/01/17 [History] Metoprolol [Lopressor] 50 mg PO BID 08/01/17 [History] Doxycycline Hyclate [Vibramycin] 100 mg PO BID 14 Days #28 capsule 08/06/17 [Rx] Lisinopril [Zestril] 20 mg PO DAILY 30 Days #60 tablet 08/06/17 [Rx] amLODIPine [Norvasc] 10 mg PO DAILY 30 Days #60 tablet 08/06/17 [Rx] levoFLOXacin [Levaquin] 750 mg PO DAILY #14 tablet 08/06/17 [Rx] Allergies/Adverse Reactions: 3 Allergy/AdvReac Type Severity Reaction Status Date / Time clindamycin AdvReac Shakiness Verified 07/12/17 06:53 Sulfa (Sulfonamide AdvReac Rash Verified 06/29/17 09:46 Antibiotics) - Respiratory Orders None Smoking Cessation: Smoking cessation has been advised. For more information, call the [place] Tobacco Quit Line at 7-864-WZAY-NOW. - Lab Orders Lab Orders: Other (include drug levels w/frequency) (Ordered BMP and Mag level to be completed in the next 5-7 days.) - Advance Directives Living Will: Yes Code Status: Full Code - Mobility Orders Chair, Ambulate - Rehabiliation Orders Rehab Potential: Fair Rehab Orders: Evaluation for Physical Therapy, Evaluation for Occupational Therapy - Treatments Skin tear care topically daily PRN per policy, May check for fecal impaction rectally daily PRN, Fleet enema rectally every other day PRN cleansing purposes List/Other: Wound care conservatively with use of enzymatic debridement/Santyl dressings twice a day. (Close follow up with outpatient wound care.) - Diet Orders Cardiac CERTIFICATION: I certify that the transfer of the above named patient to an Extended Care Facility is necessary for the continuing treatment of the diagnosis listed. The above information is true and accurate reflection of patient's current condition. Confidential - Redisclosure prohibited without a patient's written consent.
[2017-08-06] MEDS: *HR* FentaNYL PATCH 50 MCG PATCH TD SCH (13:42)
== END 2017-08-06 14:38 | DRG 253 ==
LOC: EMEROO 14:12 → SUATTDRO 15:52 → 3ANU 15:52 → 2NNU 08-03 18:01 → 3ANU 08-04 16:59
PROVIDERS: ADMIT Family Medicine; ATTEND Student in an Organized Health Care Education/Training Program

== ENCOUNTER 2017-10-05 14:58 | Inpatient (IN) ==
--- NOTE | 2017-10-05 15:10 | Emergency Department Note ---
Disposition Clinical Impression: Ulcer of right foot, Ulcer of right calf Skin ulcer of right great toe Qualifiers: Qualified Code(s): L97.512 - Disposition: Admitted As Inpatient Condition: Fair Time of Disposition: 23:45 Wound/Laceration HPI - General Stated Complaint: MRSA in wounds Time Seen by Provider: 10/05/17 15:02 - History of Present Illness HPI Narrative: 86-year-old female presents from podiatry office to the emergency department for admission for IV antibiotics. She has history of peripheral vascular disease, polycythemia vera. She has had ulcers on her right foot for the past year. They are painful though she is still ambulatory with a walker. She does have home health nurse that comes to change her bandaging every day. Wound culture from her primary care physician at [facility] showed multiple organisms also susceptible to vancomycin. She followed with Dr. Brito today who is out of the office. His partner, gracie Delacruz evaluated her and recommended she present to the emergency department for admission to the hospitalist, podiatry consult, infectious disease consult, and possible operative debridement. Patient is no other complaints at this time. PMH: CVA, hypertension, peripheral vascular disease, polycythemia vera with hydroxyurea. Followed by [place] [facility], Dr. Brito. History of polycythemia vera with Dmitriy 2 mutation. 4 phlebotomies last on 2012. Antiplatelet: Aspirin 81 mg daily Anti-coagulan: Eliquis ROS: Positive: As above Negative: Knee pain, ankle pain, chest pain, palpitations, fever, chills, diaphoresis, dyspnea, dominant pain. - Related Data Home Medications Medication Instructions Recorded Confirmed Hydroxyurea [Hydrea] 500 mg PO MOTUWETHFR 07/12/17 10/05/17 Apixaban [Eliquis] 2.5 mg PO BID 08/01/17 10/05/17 Collagenase Oint [Santyl] 1 appl TP DAILY 08/01/17 10/05/17 Metoprolol [Lopressor] 50 mg PO BID 08/01/17 10/05/17 Ampicillin Trihydrate 500 mg PO QID 10/05/17 10/05/17 Doxycycline Hyclate [Vibramycin] 100 mg PO BID 10/05/17 10/05/17 Lisinopril [Zestril] 10 mg PO DAILY 10/05/17 10/05/17 Previous Rx's Medication Instructions Recorded OxyCODONE/APAP 7.5/325 [Percocet 1 tab PO Q12H PRN 30 Days #60 06/29/17 7.5/325 MG] tablet Clopidogrel [Plavix] 75 mg PO DAILY #30 tab 07/12/17 LORazepam [Ativan] 0.5 mg PO TID PRN 4 Days #12 tablet 08/06/17 Oxycodone HCl [Oxycontin] 10 mg PO Q12H 4 Days #8 tab.er.12h 08/06/17 Allergies Allergy/AdvReac Type Severity Reaction Status Date / Time Sulfa (Sulfonamide AdvReac Severe Rash Verified 10/05/17 18:49 Antibiotics) clindamycin AdvReac Shakiness Verified 07/12/17 06:53 All systems ED: reviewed and negative except as stated. Review of Systems: As Per HPI Past Medical History - Past Medical History Medical history: Reports: atrial fibrillation, cancer, CVA, GERD, hypertension Surgical history: Reports: hysterectomy, LE stent (s) Psychiatric history: Reports: anxiety, panic disorder - Social History Smoking Status: Never smoker Smokeless Tobacco Status: Yes Alcohol use: Reports: none Drug use: Reports: none Physical Exam Vital Signs Reviewed General: Patient is alert, oriented, and in no acute distress. Head: atraumatic, normocephalic Eye: normal appearance, no scleral icterus, no conjunctival injection ENT: mucous membranes moist, normal external ear exam Neck: normal inspection, trachea midline, full ROM Chest: normal inspection, symmetric chest rise Respiratory: Good respiratory effort. Bilateral breath sounds are clear without wheezing, crackles, or rhonchi. Cardiovascular: Regular rate and rhythm. No clicks, rubs, gallops, or murmors. Normal heart sounds. Abdomen: Bowel sounds present normoactive x-4 quadrants. Abdomen is soft, nondistended, and nontender. No guarding or rebound. No organomegaly noted. Musculoskeletal: Spontaneously moving all extremities. Skin: warm, dry. Ulcer on right heel-2 cm diameter, full-thickness, beefy red with yellow sloughing. Ulcer of right medial distal calf, 1 cm, full-thickness , with yellow sloughing. Ulcer of right great toe-3 cm x 6 cm, full-thickness, beefy red with yellow sloughing. No surrounding erythema of the skin. Neuro: Alert and oriented x4. Sensation light touch intact. Psych: Patient's affect is appropriate for situation. Course Course Narrative: 08/02/17 MRI right foot and ankle with and without contrast radiology impression : MR/MR foot RT wo/w con IMPRESSION: 1. Metallic susceptibility artifact does limit evaluation of the hindfoot. Within limits of the exam no evidence for osteomyelitis of the hindfoot. 2. Diffuse soft tissue edema throughout the ankle and extending to the dorsal foot with mild enhancement of the great toe suggestive of cellulitis. There is an apparent ulceration along the lateral aspect of the great toe. No organized drainable fluid collection identified. 3. No evidence for osteomyelitis of the forefoot. 4. 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 5. 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 6. Findings suggesting remote injury of the anterior talofibular ligament. 7. Tendinosis of the Achilles tendon. D/ / Arley Pedraza MD / Arley Pedraza MD Interpreting Provider: Arley Pedraza MD I discussed the patient with the podiatry office nurse. Patient was sent from that office at the request of Dr. Dong; he requested patient be admitted to hospitals with podiatry and infectious disease consultation.. Previous visit, patient did see her primary care physician Rex; documentation of that lack about she is being faxed from podiatry office to the ER. Discussed the patient with on-call podiatry, Dr. Jain. He plans on taking the patient to the OR for debridement. He requested admission to hospitals with podiatry consultation. I discussed the patient with the mini physician, Dr. Daley, who agrees to accept the patient for continued evaluation and management of her foot ulcers Vital Signs Temperature 98.4 F 10/05/17 15:12 Pulse Rate 59 10/05/17 15:12 Respiratory Rate 16 10/05/17 15:12 Blood Pressure 177/68 10/05/17 15:12 O2 Sat by Pulse Oximetry 96 10/05/17 15:12 Temperature 98.0 F 10/05/17 21:03 Pulse Rate 64 10/05/17 21:03 Respiratory Rate 14 10/05/17 21:03 Blood Pressure 184/78 10/05/17 21:03 O2 Sat by Pulse Oximetry 97 10/05/17 21:03 Oxygen Delivery Oxygen Delivery Room Air Wound/Laceration - Lab Data Result diagrams: 10/05/17 15:47 10/05/17 15:47 Lab Results 10/05/17 10/05/17 10/05/17 Range/Units 15:47 15:47 15:47 WBC 17.6 H (4.3-11.1) K/mcL RBC 3.94 (3.82-4.97) M/mcL Hgb 11.7 (11.5-15.4) g/dL Hct 37.8 (35.3-44.9) % MCV 95.9 (83.0-100.0) fL MCH 29.7 (28.0-33.3) pg MCHC 31.0 L (31.6-35.5) g/dL RDW 16.9 H (11.5-14.5) % Plt Count 273 (140-400) K/mcL MPV 11.1 (9.4-12.4) fL Immature Gran % 1.0 (0-4) % Seg Neutrophils % 76.8 % Lymphocytes % 8.9 % Monocytes % 11.5 % Eosinophils % 1.3 % Basophils % 0.5 % Neutrophils # 13.5 H (1.6-8.9) K/mcL Lymphocytes # 1.6 (0.6-4.6) K/mcL Monocytes # 2.0 H (0.0-1.3) K/mcL Eosinophils # 0.2 (0.0-0.6) K/mcL Basophils # 0.1 (0.0-0.2) K/mcL Sodium 129 L (136-145) mEq/L Potassium 5.3 H (3.5-5.1) mEq/L Chloride 98 (98-107) mEq/L Carbon Dioxide 25 (23-29) mEq/L BUN 27 H (8-23) mg/dL Creatinine 1.11 (0.60-1.20) mg/dL Est GFR ( Amer) 56 L (> 60) Est GFR (Non-Af Amer) 46 L (> 60) BUN/Creatinine Ratio 24 (6-26) Glucose 91 (70-105) mg/dL Calculated Osmolality 273 L (280-300) Lactic Acid 0.6 (0.5-2.2) mmol/L Calcium 9.1 (8.6-10.3) mg/dL Attestation Statement - Attestation Attestation: I examined this patient and my medical decision-making was reviewed with the Resident Physician. I agree with the documented findings, disposition and treatment plan as described except to the extent set forth below. Findings consistent with infected ulcers. Patient will be admitted for podiatry consultation, antibiotics initiated, prior to consult initiated from the emergency department.
[2017-10-05] MEDS ORDERED: Td (TENIVAC) Vaccine 0.5 ML VIAL IM ONE (15:27)
[2017-10-05] MEDS ORDERED: Vancomycin 1,000 MG VIAL IVPB ONE (15:27)
[2017-10-05] MEDS ORDERED: Tdap (Boostrix) Vaccine 0.5 ML SYRINGE IM ONE ×2 (15:41→15:51)
[2017-10-05 16:00] LABS: Basophils # 0.1 K/mcL (0.0-0.2); Basophils % 0.5 %; Eosinophils # 0.2 K/mcL (0.0-0.6); Eosinophils % 1.3 %; Hematocrit 37.8 % (35.3-44.9); Hemoglobin 11.7 g/dL (11.5-15.4); Lymphocytes # 1.6 K/mcL (0.6-4.6); Lymphocytes % 8.9 %; Mean Corpuscular Hemoglobin 29.7 pg (28.0-33.3); Mean Corpuscular Volume 95.9 fL (83.0-100.0); Mean Platelet Volume 11.1 fL (9.4-12.4); Monocytes % 11.5 %; Neutrophils # 13.5 K/mcL (1.6-8.9); Platelet Count 273 K/mcL (140-400); Red Blood Count 3.94 M/mcL (3.82-4.97); Red Cell Distribution Width 16.9 % (11.5-14.5); Segmented Neutrophils % 76.8 %
[2017-10-05 16:25] LABS: Calcium 9.1 mg/dL (8.6-10.3); Potassium 5.3 mEq/L (3.5-5.1)
[2017-10-05] MEDS ORDERED: *HR* OxyCODONE Immed Rel 5 MG TABLET PO STA (16:30)
[2017-10-05] MEDS ORDERED: Lidocaine -MPF 1% 2 ML VIAL INFILT STA (16:39)
[2017-10-05] MEDS ORDERED: Acetaminophen 325 MG TABLET PO PRN (17:56)
[2017-10-05] MEDS ORDERED: Naloxone 0.4 MG/ML INJ IVP PRN (17:56)
[2017-10-05] MEDS ORDERED: *HR* OxyCODONE Immed Rel 5 MG TABLET PO PRN (17:56)
[2017-10-05] MEDS ORDERED: *HR* HYDROcodone/Acet 5/325 mg TABLET PO PRN (17:56)
[2017-10-05] MEDS ORDERED: 0.9 % Sodium Chloride 1,000 ML IVC SCH (18:00)
[2017-10-05] MEDS ORDERED: *HR* LORazepam 0.5 MG TABLET PO PRN (18:16)
[2017-10-05] MEDS ORDERED: *HR* OxyCODONE/APAP 7.5/325 TABLET PO PRN (18:16)
--- NOTE | 2017-10-05 18:44 | Internal Med History&Physical ---
Date of Encounter: 10/05/17 Time of Encounter: 17:45 Internal Medicine - H&P: HPI Chief complaint: non healing foot ulcer Admitted From: Emergency Dept Plans for Post Hospital Care: Transfer Long Term Facility History of present illness: Ms. Honeycutt is a 86 year old female with past medical history of hypertension, peripheral vascular disease, polycythemia vera with jak2 mutation, CVA, He presents to the ER from podiatry office. She has history for chronic ulcer on her right foot with pain for more than one year and ulcer developing for past many months she was recently treated with antibiotics inpatient and had significant wound care. She also had a recent stent placed in her right lower extremity for poor perfusion. She had a nurse came to change dressing every day. wound culture drawn and drawn recently through MRSA enterococcus faecalis and another gram-positive organism. She denies any fevers chills nausea vomiting. She was on doxycycline and ampicillin outpatient orally. Denies any diarrhea or constipation bowel or urinary complaints. Patient notably was on hydroxyurea for her polycythemia vera which has been on hold as it might have contributed to the ulcer as per patient, also her Plavix is on hold. She takes pain medication at home. She will hold her ambulate and feel comfortable. Past Med Surg Social Fam HX - Past Medical History Medical history: atrial fibrillation, cancer, CVA, GERD, hypertension Additional medical history: POLYCYTHEMIA. SKIN CANCER Psychiatric history: anxiety, panic disorder - Past Surgical History Surgical History: hysterectomy, LE stent (s) Additional surgical history: bilateral knee replacements,R leg balloon procedure for circulation, TKR. BILAT FOOT RECONSTRUCTION - Social History Smoking Status: Never smoker Smokeless Tobacco Status: Yes Alcohol use: none Drug use: none Current living situation: With Family Activity Level: Uses cane/walker - Family History Mother Adopted: No Family Member Ethnicity: Non- Living Status: Hx Family Cardiac Disorders: Yes Hx Family Respiratory Disorders: No Hx Family Cancer: No Hx Family GI Disorders: No Hx Family Endocrine Disorder: Yes Hx Family Neuromuscular Disorders: No Hx Family Neurologic Disorders: Yes Hx Family HEENT Disorders: No Hx Family Autoimmune Disorders: No Father Adopted: No Family Member Ethnicity: Non- Living Status: Hx Family Cardiac Disorders: Yes Hx Family Respiratory Disorders: No Hx Family Cancer: Yes Hx Family GI Disorders: No Hx Family Endocrine Disorder: No Hx Family Neuromuscular Disorders: Yes Hx Family Neurologic Disorders: Yes Hx Family HEENT Disorders: No Hx Family Autoimmune Disorders: No Internal Medicine - H&P: Meds OxyCODONE/APAP 7.5/325 [Percocet 7.5/325 MG] 1 tab PO Q12H PRN 30 Days #60 tablet 06/29/17 [Rx] Clopidogrel [Plavix] 75 mg PO DAILY #30 tab 07/12/17 [Rx] Hydroxyurea [Hydrea] 500 mg PO MOTUWETHFR 07/12/17 [History] Apixaban [Eliquis] 2.5 mg PO BID 08/01/17 [History] Collagenase Oint [Santyl] 1 appl TP DAILY 08/01/17 [History] Metoprolol [Lopressor] 50 mg PO BID 08/01/17 [History] LORazepam [Ativan] 0.5 mg PO TID PRN 4 Days #12 tablet 08/06/17 [Rx] Oxycodone HCl [Oxycontin] 10 mg PO Q12H 4 Days #8 tab.er.12h 08/06/17 [Rx] Ampicillin Trihydrate 500 mg PO QID 10/05/17 [History] Doxycycline Hyclate [Vibramycin] 100 mg PO BID 10/05/17 [History] Lisinopril [Zestril] 10 mg PO DAILY 10/05/17 [History] 3 Allergy/AdvReac Type Severity Reaction Status Date / Time Sulfa (Sulfonamide AdvReac Severe Rash Verified 10/05/17 18:49 Antibiotics) clindamycin AdvReac Shakiness Verified 07/12/17 06:53 All Systems PM: A 10-system review of systems was performed and is negative for pertinent findings except as documented above in the HPI. - Constitutional Constitutional: no fever(s), no night sweats - EENT Eyes: no change in vision, no discharge, no pain, no photophobia Ears: no ear discharge, no ear pain, no tinnitus Nose, mouth and throat: no dysphagia, no nasal discharge, no neck pain, no sore throat - Cardiovascular Cardiovascular ROS IM: no chest pain, no diaphoresis, no dyspnea, no lightheadedness, no palpitations, no syncope - Respiratory Respiratory: no cough, no dyspnea, no wheezing, no excessive phlegm production - Gastrointestinal Gastrointestinal: no abdominal pain, no diarrhea, no hematemesis, no hematochezia, no melena, no nausea, no vomiting - Genitourinary Genitourinary: no change in urinary stream, no dysuria, no flank pain, no hematuria - Musculoskeletal Musculoskeletal ROS IM: no numbness, no tingling - Integumentary Integumentary IM: as per HPI, skin ulcer, no rash, no unusual bruising - Neurological Neurological ROS: no confusion, no convulsions, no focal weakness, no numbness, no tingling, no tremor(s) - Hematologic/Lymphatic Hematologic/Lymphatic: no easy bruising - Constitutional Vitals: Temp Pulse Resp BP Pulse Ox 98.4 F 60 16 177/78 96 10/05/17 15:12 10/05/17 16:27 10/05/17 18:05 10/05/17 18:05 10/05/17 16:27 General appearance: Present: cooperative, A&O X 3, pleasant, no acute distress Exam: Constitutional: Denies fever, chills, or fatigue - Head Head exam: Present: atraumatic, normocephalic - Eye Eye exam: Present: PERRL, conjuntiva pink, sclera anicteric Pupils: Present: PERRL - Neck Neck exam general surgery: Present: supple, trachea midline. Absent: lymphadenopathy - Respiratory Respiratory exam: Present: CTAB. Absent: accessory muscle use, rales, rhonchi, wheezes - Cardiovascular Cardiovascular exam: Present: RRR, +S1, +S2. Absent: diastolic murmur, gallop, rubs, systolic murmur - GI/Abdominal GI/Abdominal exam: Present: normal bowel sounds, soft, no peritoneal signs. Absent: distended, tenderness - Neurological Exam Neurological exam: Present: CN II-XII intact, motor sensory deficit, oriented X3. Absent: pronater drift, facial droop, speech deficit - Skin Skin exam: Present: dry, intact - Head Head exam: Present: atraumatic, normal inspection - Eye Eye exam: Present: conjunctival injection, EOMI - ENT ENT exam: Present: mucous membranes moist, normal exam - Neck Neck exam general surgery: Present: full ROM - Respiratory Respiratory exam: Absent: accessory muscle use, rales - Cardiovascular Cardiovascular exam: Present: irregular rhythm, RRR, +S1, +S2 - GI/Abdominal GI/Abdominal exam: Present: soft, no peritoneal signs. Absent: hepatomegaly - Extremities Exam Extremities exam: Present: calf tenderness, pedal edema, warm - Expanded Lower Extremities Exam Ankle exam: Present: tenderness Foot/Toe exam: Present: tenderness Neuro vascular tendon exam: Absent: motor deficit, pulse deficit (Rt foot covered with recent dressing. Image shown by family indicated 2 deep ulcer with slough on Rt ball of toe medially and on heal medially about 2x3 cm) - Neurological Exam Neurological exam: Present: alert, CN II-XII intact, oriented X3, no focal deficits - Psychiatric Psychiatric exam: Present: normal affect, normal mood Internal Med - H&P Results - Labs CBC & Chem 7: 10/05/17 15:47 10/05/17 15:47 - Assessment and plan (1) Skin ulcer of right great toe Current Visit: Yes Status: Acute Assessment and plan: Patient has nonhealing ulcer on her right foot likely due to her PVD. She is growing MRSA and Enterococcus faecalis. We will admit the patient inpatient for IV antibiotics we will keep patient on vancomycin. We will reculture the wounds. We will consult podiatry and infectious disease. Patient might need debridement of her wounds. We will also consult wound care. Will continue patient's home pain medication regimen Qualifiers: Qualified Code(s): L97.512 - Non-pressure chronic ulcer of other part of right foot with fat layer exposed (2) Atrial fibrillation Current Visit: No Status: Chronic Assessment and plan: Patient currently rate controlled with metoprolol Anticoagulated with Copaxone and 2.5 mg twice a day. we will continue it Qualifiers: Atrial fibrillation type: chronic Qualified Code(s): I48.2 - Chronic atrial fibrillation (3) HTN (hypertension) Current Visit: No Status: Chronic Assessment and plan: Patient is on lisinopril for hypertension however has hyperkalemia. We will hold the home lisinopril for now and keep patient on hydralazine 25 q8hr. Qualifiers: Hypertension type: essential hypertension Qualified Code(s): I10 - Essential (primary) hypertension (4) PVD (peripheral vascular disease) Current Visit: No Status: Chronic (5) Polycythemia vera Current Visit: No Status: Chronic Assessment and plan: Will continue patient's low-dose aspirin (6) Hyponatremia Current Visit: Yes Status: Acute Assessment and plan: Patient with a mild hyponatremia with sodium of 129. We will keep patient on gentle hydration with 100 mL of normal saline for 1 L. We will follow labs in the morning. (7) Hyperkalemia Current Visit: Yes Status: Acute Assessment and plan: Patient's potassium is 5.3 minimally elevated without EKG changes We will hold patient's home lisinopril for now. Follow up in the morning. - Time Spent With Patient Total time spent is greater than 50% in coordination of care (as documented) at patient's floor/unit and/or counseling patient: Greater than 35 minutes - VTE Reasons for not Prescribing Prophylaxis: Not indicated-Anticoagulated or INR therapeutic
[2017-10-05] MEDS: *HR* OxyCODONE ER (12 HR) 10 MG TABLET PO SCH (20:31)
[2017-10-05] MEDS: Apixaban 2.5 MG TABLET PO SCH (20:31)
--- NOTE | 2017-10-05 21:23 | Podiatry Consult Note ---
Date of Encounter: 10/05/17 Time of Encounter: 19:00 Assessment and Plan (1) Chronic ulcer of right foot with fat layer exposed Current visit: Yes Status: Acute full thickness ulcerations 2 dorsomedial right foot over 1st ray and one posterior heel I had a thorough review with the patient and family regarding my findings and recommendations for treatment. We discussed her infection present and MRI which was done. Discussed her increased wbc count and MRSA which grew from her wound culture done at [facility]. C/W vancomycin. consult ID for abx recommendations. OR tomorrow as add on for excisional debridement of right foot wounds. Nature of procedure, risks vs benefits, potential complications and consequences of surgery discussed. all questions answered and the informed consent was signed. NPO after breakfast. History of Present Illness HPI: Ms. Honeycutt is a 86 year old female who has been seeing Dr. Brito in the woundcare center for her right foot wounds. She went to [facility] where a culture was taken which came back MRSA and labs were done showing an elevated wbc of 17.5. She says her right foot big toe has become increasingly painful and red. She denies any injuries. She says the wounds look worse. She denies f/c/n/v. Patient has been previously evaluated and treated by Vascular, Dr. Heller. Past Med Surg Social Fam HX - Past Medical History Medical history: atrial fibrillation, cancer, CVA, GERD, hypertension Additional medical history: POLYCYTHEMIA. SKIN CANCER Psychiatric history: anxiety, panic disorder - Past Surgical History Surgical History: hysterectomy, LE stent (s) Additional surgical history: bilateral knee replacements,R leg balloon procedure for circulation, TKR. BILAT FOOT RECONSTRUCTION - Social History Smoking Status: Never smoker Smokeless Tobacco Status: Yes Alcohol use: none Drug use: none - Family History Mother Adopted: No Family Member Ethnicity: Non- Living Status: Hx Family Cardiac Disorders: Yes Hx Family Respiratory Disorders: No Hx Family Cancer: No Hx Family GI Disorders: No Hx Family Endocrine Disorder: Yes Hx Family Neuromuscular Disorders: No Hx Family Neurologic Disorders: Yes Hx Family HEENT Disorders: No Hx Family Autoimmune Disorders: No Father Adopted: No Family Member Ethnicity: Non- Living Status: Hx Family Cardiac Disorders: Yes Hx Family Respiratory Disorders: No Hx Family Cancer: Yes Hx Family GI Disorders: No Hx Family Endocrine Disorder: No Hx Family Neuromuscular Disorders: Yes Hx Family Neurologic Disorders: Yes Hx Family HEENT Disorders: No Hx Family Autoimmune Disorders: No Medications and Allergies OxyCODONE/APAP 7.5/325 [Percocet 7.5/325 MG] 1 tab PO Q12H PRN 30 Days #60 tablet 06/29/17 [Rx] Clopidogrel [Plavix] 75 mg PO DAILY #30 tab 07/12/17 [Rx] Hydroxyurea [Hydrea] 500 mg PO MOTUWETHFR 07/12/17 [History] Apixaban [Eliquis] 2.5 mg PO BID 08/01/17 [History] Collagenase Oint [Santyl] 1 appl TP DAILY 08/01/17 [History] Metoprolol [Lopressor] 50 mg PO BID 08/01/17 [History] LORazepam [Ativan] 0.5 mg PO TID PRN 4 Days #12 tablet 08/06/17 [Rx] Oxycodone HCl [Oxycontin] 10 mg PO Q12H 4 Days #8 tab.er.12h 08/06/17 [Rx] Ampicillin Trihydrate 500 mg PO QID 10/05/17 [History] Doxycycline Hyclate [Vibramycin] 100 mg PO BID 10/05/17 [History] Lisinopril [Zestril] 10 mg PO DAILY 10/05/17 [History] 3 Allergy/AdvReac Type Severity Reaction Status Date / Time Sulfa (Sulfonamide AdvReac Severe Rash Verified 10/05/17 18:49 Antibiotics) clindamycin AdvReac Shakiness Verified 07/12/17 06:53 All Systems Reviewed: The remainder of the systems were reviewed and are negative - Constitutional Constitutional: no fever(s) - Cardiovascular Cardiovascular: no chest pain, no dyspnea - Respiratory Respiratory: no cough, no dyspnea - Musculoskeletal Musculoskeletal: other (pain right foot) Physical Exam - Constitutional Vitals: Temp Pulse Resp BP Pulse Ox 98.0 F 64 14 184/78 97 10/05/17 21:03 10/05/17 21:03 10/05/17 21:03 10/05/17 21:03 10/05/17 21:03 - Ankle & Foot Instability: anterior talofibular ligament injury tests: positive Exam: well developed and nourished female in no acute distress CFT < 3 sec x 5 digits right foot. foot is warm to touch. erythema of the right hallux and mild edema. pain with palpation of the right hallux and wounds and with attempted motion of the 1st MTP joint. two words dorsomedial foot with no fluctuance. intact sensation to touch. significantly fibrotic base. Results - Labs Result Diagrams: 10/05/17 15:47 10/05/17 15:47 Labs: Abnormal lab results WBC 17.6 K/mcL (4.3-11.1) H 10/05/17 15:47 MCHC 31.0 g/dL (31.6-35.5) L 10/05/17 15:47 RDW 16.9 % (11.5-14.5) H 10/05/17 15:47 Neutrophils # 13.5 K/mcL (1.6-8.9) H 10/05/17 15:47 Monocytes # 2.0 K/mcL (0.0-1.3) H 10/05/17 15:47 Sodium 129 mEq/L (136-145) L 10/05/17 15:47 Potassium 5.3 mEq/L (3.5-5.1) H 10/05/17 15:47 BUN 27 mg/dL (8-23) H 10/05/17 15:47 Est GFR ( Amer) 56 (> 60) L 10/05/17 15:47 Est GFR (Non-Af Amer) 46 (> 60) L 10/05/17 15:47 Calculated Osmolality 273 (280-300) L 10/05/17 15:47 All other labs normal. Consult Discharge Plan - Plan Referrals: Manuela Franco, [employer] [Primary Care Provider] -
[2017-10-05] MEDS: hydrALAZINE 25 MG TABLET PO SCH (23:12)
[2017-10-06 03:33] LABS: Hematocrit 38.5 % (35.3-44.9); Hemoglobin 11.9 g/dL (11.5-15.4); Mean Corpuscular HGB Conc 30.9 g/dL (31.6-35.5); Mean Corpuscular Hemoglobin 30.1 pg (28.0-33.3); Mean Corpuscular Volume 97.5 fL (83.0-100.0); Platelet Count 251 K/mcL (140-400); Red Blood Count 3.95 M/mcL (3.82-4.97); Red Cell Distribution Width 16.8 % (11.5-14.5)
[2017-10-06 03:53] LABS: Alanine Aminotransferase 6 Units/L (7-52); Albumin 3.7 g/dL (3.5-5.7); Albumin/Globulin Ratio 1.6 (1.1-2.2); Alkaline Phosphatase 97 Units/L (34-104); Aspartate Amino Transferase 19 Units/L (13-39); BUN/Creatinine Ratio 23 (6-26); Bilirubin,Total 0.7 mg/dL (0.3-1.0); Blood Urea Nitrogen 22 mg/dL (8-23); Calcium 8.8 mg/dL (8.6-10.3); Carbon Dioxide 23 mEq/L (23-29); Chloride 104 mEq/L (98-107); Globulin 2.3 g/dL (2.4-3.5); Glucose 82 mg/dL (70-105); Osmolality,Calculated 276 (280-300); Potassium 4.8 mEq/L (3.5-5.1); Sodium 132 mEq/L (136-145); eGFR For Non-African Americans 56 (> 60)
[2017-10-06] MEDS: *HR* OxyCODONE ER (12 HR) 10 MG TABLET PO SCH (05:42)
[2017-10-06] MEDS: hydrALAZINE 25 MG TABLET PO SCH (08:28)
[2017-10-06] MEDS: Apixaban 2.5 MG TABLET PO SCH (08:28)
[2017-10-06] MEDS ORDERED: Collagenase Oint 1 APPL GRAM TP SCH (09:00)
[2017-10-06] MEDS ORDERED: Aspirin Enteric Coated 81 MG Tablet PO SCH (09:00)
--- NOTE | 2017-10-06 09:37 | Internal Med Progress Note ---
Hospitalist Progress Note - Encounter Date of Encounter: 10/06/17 Time of Encounter: 09:43 - Subjective Interval History: Patient seen and examined this morning denies new complaints no fever or chills nausea vomiting or diarrhea - Exam Vitals: Temp Pulse Resp BP Pulse Ox 98.0 F 64 15 174/70 91 10/06/17 07:01 10/06/17 07:01 10/06/17 07:01 10/06/17 07:01 10/06/17 08:32 Exam: Constitutional: Denies fever, chills, or fatigue - Head Head exam: Present: atraumatic, normocephalic - Eye Eye exam: Present: PERRL, conjuntiva pink, sclera anicteric Pupils: Present: PERRL - Neck Neck exam general surgery: Present: supple, trachea midline. Absent: lymphadenopathy - Respiratory Respiratory exam: Present: CTAB. Absent: accessory muscle use, rales, rhonchi, wheezes - Cardiovascular Cardiovascular exam: Present: RRR, +S1, +S2. Absent: diastolic murmur, gallop, rubs, systolic murmur - GI/Abdominal GI/Abdominal exam: Present: normal bowel sounds, soft, no peritoneal signs. Absent: distended, tenderness - Neurological Exam Neurological exam: Present: CN II-XII intact, motor sensory deficit, oriented X3. Absent: pronater drift, facial droop, speech deficit - Skin Skin exam: Present: dry, intact Etremeties: foot dressing in place. - Assessment and Plan (1) Skin ulcer of right great toe Current Visit: Yes Status: Acute Assessment and Plan: Patient has nonhealing ulcer on her right foot likely due to her PVD. She is growing MRSA and Enterococcus faecalis. We will admit the patient inpatient for IV antibiotics we will keep patient on vancomycin. f/u ID recommendation. We will consult podiatry and infectious disease. Patient might need debridement of her wounds. Plan for OR today for excisional debrideent. Will continue patient's home pain medication regimen (2) Atrial fibrillation Current Visit: No Status: Chronic Assessment and Plan: Patient currently rate controlled with metoprolol Anticoagulated with Copaxone and 2.5 mg twice a day. Will hold given plan for debridement (3) HTN (hypertension) Current Visit: No Status: Chronic Assessment and Plan: Patient is on lisinopril for hypertension however has hyperkalemia. - We will hold the home lisinopril for now and keep patient on hydralazine 25 q8hr. - Will resume lisinopril once potassium normalize. (4) PVD (peripheral vascular disease) Current Visit: No Status: Chronic (5) Polycythemia vera Current Visit: No Status: Chronic Assessment and Plan: Will continue patient's low-dose aspirin (6) Hyponatremia Current Visit: Yes Status: Acute Assessment and Plan: Patient with a mild hyponatremia with sodium of 129. Improved. No further fluid needed (7) Hyperkalemia Current Visit: Yes Status: Acute Assessment and Plan: Improved to 4.8 Continue to hold patient's home lisinopril for now. - Time Spent with Patient Total time spent is greater than 50% in coordination of care (as documented) at patient's floor/unit and/or counseling patient: Internal Medicine: Result - Labs CBC & Chem 7: 10/06/17 03:18 10/06/17 03:18 Labs: Short CBC 10/06/17 Range/Units 03:18 WBC 16.7 H (4.3-11.1) K/mcL Hgb 11.9 (11.5-15.4) g/dL Hct 38.5 (35.3-44.9) % Plt Count 251 (140-400) K/mcL BMP 10/06/17 03:18 Sodium 132 L Potassium 4.8 Chloride 104 Carbon Dioxide 23 BUN 22 Creatinine 0.95 Glucose 82 Calcium 8.8 Liver Function 10/06/17 Range/Units 03:18 Total Bilirubin 0.7 (0.3-1.0) mg/dL AST 19 (13-39) Units/L ALT 6 L (7-52) Units/L Alkaline Phosphatase 97 (34-104) Units/L Albumin 3.7 (3.5-5.7) g/dL - VTE Reasons for not Prescribing Prophylaxis: Not indicated-Anticoagulated or INR therapeutic Consult Discharge Plan - Plan Referrals: Manuela Franco, VESSEL MASTER [Primary Care Provider] - (1) Skin ulcer of right great toe Qualifiers: Qualified Code(s): L97.512 - Non-pressure chronic ulcer of other part of right foot with fat layer exposed (2) Atrial fibrillation Qualifiers: Atrial fibrillation type: chronic Qualified Code(s): I48.2 - Chronic atrial fibrillation (3) HTN (hypertension) Qualifiers: Hypertension type: essential hypertension Qualified Code(s): I10 - Essential (primary) hypertension
[2017-10-06] MEDS ORDERED: *HR* OxyCODONE/APAP 5/325 TABLET PO PRN (10:11)
--- NOTE | 2017-10-06 14:37 | Infectious Disease Consult ---
Date of Encounter: 10/06/17 Time of Encounter: 14:31 Assessment and Plan (1) Leukocytosis Status: Acute Assessment and plan: The patient's white count was elevated at 17.6 thousand with neutrophilic predominance upon admission. Improved. Continue to trend. Likely secondary to right foot ulcer infection. Qualifiers: Leukocytosis type: unspecified Qualified Code(s): D72.829 - Elevated white blood cell count, unspecified (2) Ulcer of right foot Status: Acute Assessment and plan: Location: Medial aspect of the first metatarsal. Etiology: Unclear. Duration: about six months per the patient. Follows with [facility]. Wound culture obtained as an outpatient supposedly grew MRSA and Enterococcus. She also had a positive MRSA culture in July. No imaging has been done. Podiatry consulted and following. Planning to take the patient to the OR later today. Please obtain wound cultures intra-op. Check ESR and CRP. Wound care and activity restrictions per the podiatry team. Continue Vancomycin IV. Pharmacy to dose. Goal trough ~15. Start Zosyn 3.375 grams IV Q8H. Duration of treatment depends on the clinical picture. Monitor renal function and for drug toxicity and dose-adjust antibiotics. Qualifiers: Non-pressure ulcer stage: with fat layer exposed Qualified Code(s): L97.512 - Non-pressure chronic ulcer of other part of right foot with fat layer exposed (3) Skin ulcer of right great toe Status: Acute Assessment and plan: Location: Medial aspect of the right great toe. Etiology: Unclear. Duration: Approximately 6 months. Follows with the [facility]. Wound culture obtained as an outpatient supposedly grew MRSA and Enterococcus, although I am unsure which wound was cultured. She also had a positive MRSA culture in July, again it is unclear which wound was cultured. No imaging has been done. Podiatry consulted and following. Planning to take the patient to the OR later today. Please obtain wound cultures intra-op. Check ESR and CRP. Wound care and activity restrictions per the podiatry team. Continue Vancomycin IV. Pharmacy to dose. Goal trough ~15. Start Zosyn 3.375 grams IV Q8H. Duration of treatment depends on the clinical picture. Monitor renal function and for drug toxicity and dose-adjust antibiotics. Qualifiers: Qualified Code(s): L97.512 - Non-pressure chronic ulcer of other part of right foot with fat layer exposed (4) Ulcer of right heel Status: Acute Assessment and plan: Location: Posterior aspect of the right heel. Etiology unclear. Duration: About 6 months. Clinically does not appear infected. Podiatry consulted. Continue wound care per the podiatry team. Qualifiers: Non-pressure ulcer stage: limited to breakdown of skin Qualified Code(s): L97.411 - Non-pressure chronic ulcer of right heel and midfoot limited to breakdown of skin (5) Ulcer of right calf Status: Acute Assessment and plan: Location: Posterior right calf. Clinically does not appear infected. Wound care per the Podiatry team. Qualifiers: Non-pressure ulcer stage: limited to breakdown of skin Qualified Code(s): L97.211 - Non-pressure chronic ulcer of right calf limited to breakdown of skin (6) Hyponatremia Status: Acute Assessment and plan: Etiology unclear. Improved. Further workup and management per the primary team. (7) HTN (hypertension) Status: Chronic Qualifiers: Hypertension type: essential hypertension Qualified Code(s): I10 - Essential (primary) hypertension (8) Polycythemia Status: Chronic (9) PVD (peripheral vascular disease) Status: Chronic Assessment and plan: Status post abdominal aortography, femoropopliteal revascularization with T LA, and angiogram of the right lower extremity June [address] Heller. 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 Status post repeat abdominal aortography, femoropopliteal revascularization with stent, and angiogram of the right lower extremity in July [address] Heller. (10) Atrial fibrillation Status: Chronic Qualifiers: Atrial fibrillation type: chronic Qualified Code(s): I48.2 - Chronic atrial fibrillation Infectious Disease HPI - Data of Consult Patient: new to practice Consult date: 10/06/17 Requesting Physician: Thomas Bledsoe MD Primary Care Provider: Manuela Franco CNP - Consult Narrative Reason for consult: Right foot wounds History of present illness: Ms. Honeycutt is a 86 year old female with a past medical history of hypertension, PVD status post right lower extremity angioplasty with stent placement in July 2017, polycythemia vera, CVA, A. fib, GERD, skin cancer, and bilateral foot reconstruction approximately 45 years ago. The patient was admitted to the hospital October 05 for right foot infection. We are consulted October 06 for antibiotic recommendations for right foot infection. Briefly, the patient's 86-year-old female with a past medical history as stated above. The patient presented to the emergency department with complaints of worsening ulcers to her right foot. The patient tells me that she has had multiple ulcers to the right foot of unknown etiology for the last 6 months. She had been seeing podiatry down at [facility] who referred her to the wound clinic here at [facility]. Back in July, the patient was hospitalized for cellulitis. MRI completed during that hospitalization was negative for osteomyelitis. She received IV Vanco and cefepime on here and was discharged home on oral doxycycline and Cipro, which improved her symptoms. It was at that time that she underwent angiogram with stent placement. Wound cultures at that time grew out MRSA. The patient has continued to have nonhealing ulcers to the right foot despite aggressive wound care. She was noted to have progression of her wounds and a wound culture obtained by her home health nurse came back positive for enterococcus and ampicillin sensitive enterococcus. She was started on oral doxycycline and oral ampicillin by her primary care provider. She was scheduled to see the wound clinic on the day of admission, but was advised to come to the emergency department for admission to the hospital. Upon arrival, the patient was afebrile and hemodynamically stable. She did have leukocytosis with neutrophilic predominance. Lactic acid and renal function were normal. Blood cultures obtained 2 sets are pending. She was started on Vanco and admitted to the hospital for further evaluation. Since admission, the patient remains afebrile hemodynamically stable. Her leukocytosis is improving. She has been evaluated by podiatry and is scheduled to operating room later today for debridement of her wounds. She is currently only on IV vancomycin. We have been asked to evaluate and make further recommendations. During my exam today, the patient endorses a history as stated above. She states she was in her usual state of health prior to admission. She denies any fevers or chills or rigors. Denies chest pain, shortness of breath, or cough. She denies URI symptoms. She reports some intermittent nausea since starting oral antibiotics, but denies vomiting. She reports that at baseline her appetite is pretty poor, but she does force herself to eat. She denies abdominal pain, urinary complaints. She denies oral thrush or additional skin lesions except as previously mentioned. The patient lives at home with her and son. She is retired. She denies any tobacco alcohol, or illicit drug use. She denies any travel outside the [facility]. She denies any known infectious diseases. CC: Thomas Bledsoe MD Past Med Surg Social Fam HX - Past Medical History Attestation: Yes The following information was validated with the patient. Source: patient, old records reviewed, nursing notes reviewed Medical history: atrial fibrillation, cancer (skin cancer), CVA, GERD, hypertension Additional medical history: POLYCYTHEMIA. SKIN CANCER Psychiatric history: anxiety, panic disorder - Past Surgical History Surgical History: hysterectomy, LE stent (s) Additional surgical history: bilateral knee replacements,R leg balloon procedure for circulation, TKR. BILAT FOOT RECONSTRUCTION - Social History Smoking Status: Never smoker Smokeless Tobacco Status: Yes Alcohol use: none Drug use: none Occupational status: retired Current living situation: Home, With Family Activity Level: Uses cane/walker Recent Out of Country Travel Within the Last 8 Weeks: No Exposure or Possible Exposure to Illness During Travel: No - Family History Mother Adopted: No Family Member Ethnicity: Non- Living Status: Hx Family Cardiac Disorders: Yes Hx Family Respiratory Disorders: No Hx Family Cancer: No Hx Family GI Disorders: No Hx Family Endocrine Disorder: Yes Hx Family Neuromuscular Disorders: No Hx Family Neurologic Disorders: Yes Hx Family HEENT Disorders: No Hx Family Autoimmune Disorders: No Father Adopted: No Family Member Ethnicity: Non- Living Status: Hx Family Cardiac Disorders: Yes Hx Family Respiratory Disorders: No Hx Family Cancer: Yes Hx Family GI Disorders: No Hx Family Endocrine Disorder: No Hx Family Neuromuscular Disorders: Yes Hx Family Neurologic Disorders: Yes Hx Family HEENT Disorders: No Hx Family Autoimmune Disorders: No Infectious Disease-CN:Meds Clopidogrel [Plavix] 75 mg PO DAILY #30 tab 07/12/17 [Rx] Hydroxyurea [Hydrea] 500 mg PO MOTUWETHFR 07/12/17 [History] Apixaban [Eliquis] 2.5 mg PO BID 08/01/17 [History] Collagenase Oint [Santyl] 1 appl TP DAILY 08/01/17 [History] Metoprolol [Lopressor] 50 mg PO BID 08/01/17 [History] LORazepam [Ativan] 0.5 mg PO TID PRN 4 Days #12 tablet 08/06/17 [Rx] Ampicillin Trihydrate 500 mg PO QID 10/05/17 [History] Doxycycline Hyclate [Vibramycin] 100 mg PO BID 10/05/17 [History] Lisinopril [Zestril] 10 mg PO DAILY 10/05/17 [History] OxyCODONE/APAP 5/325 [Percocet 5/325 MG] 1 each PO TID 10/06/17 [History] Oxycodone HCl 10 mg PO Q6H 10/06/17 [History] 3 Allergy/AdvReac Type Severity Reaction Status Date / Time Sulfa (Sulfonamide AdvReac Severe Rash Verified 10/05/17 18:49 Antibiotics) clindamycin AdvReac Shakiness Verified 07/12/17 06:53 All systems: reviewed and no additional remarkable complaints except as stated Exam - Constitutional Vitals: Temp Pulse Resp BP Pulse Ox 98.3 F 93 15 155/73 96 10/06/17 10:11 10/06/17 10:11 10/06/17 10:11 10/06/17 10:11 10/06/17 10:11 General appearance: average body habitus, cooperative, no acute distress - Head Head exam: Present: atraumatic, normal inspection, normocephalic - Eye Eye exam: Present: EOMI, normal appearance, PERRL Pupils: Present: normal accommodation - ENT ENT exam: Present: mucous membranes moist - Neck Neck exam: Present: normal inspection - Respiratory Respiratory exam: Present: CTAB. Absent: rales, respiratory distress, rhonchi, wheezes - Cardiovascular Cardiovascular exam: Present: irregular rhythm. Absent: tachycardia - GI/Abdominal GI/Abdominal exam: Present: normal bowel sounds, soft. Absent: distended, tenderness - Extremities Exam Extremities exam: Present: tenderness (right foot). Absent: joint swelling, pedal edema Additional comments: Grade 2 ulcer noted to the medial aspect of the right gret toe with 100% slough in the wound bed. No drainage, fluctuance, or warmth noted. Mild perwound erythema noted. Grade 2 ulcer noted to the medial aspect of the right MTP #1 with 50% slough. No draiange,fluctuance, or warmth noted. Mild periwound erythema noted. Scabbed ulceration noted to the posterior right heel without erythema, warmth, drainage, or fluctuance. Scabbed ulceration noted to the posterior/medial aspect of the right calf/ankle without redness warmth, or erythema noted. - Neurological Exam Neurological exam: Present: alert, oriented X3, no focal deficits - Psychiatric Psychiatric exam: Present: normal affect, normal mood - Skin Skin exam: Present: dry, intact, normal color, warm Infectious Disease CN: Results - Labs CBC & Chem 7: 10/06/17 03:18 10/06/17 03:18 Cultures: Cultures 10/05/17 15:47 Blood Culture - Preliminary Peripheral Venipuncture Culture is incubating and being continuously monitored for growth. Final report to follow. 10/05/17 15:47 Blood Culture - Preliminary Peripheral Venipuncture Culture is incubating and being continuously monitored for growth. Final report to follow. - VTE Reasons for not Prescribing Prophylaxis: Not indicated-Anticoagulated or INR therapeutic Consult Discharge Plan - Plan Referrals: Manuela Franco, DENTAL LABORATORY TECHNOLOGY TEACHER [Primary Care Provider] -
[2017-10-06] MEDS ORDERED: Piperacillin/Tazobactam 3.375 GM in 0.9 % Sodium Chloride Mini Bag 100 ML IVPB SCH (16:00)
--- NOTE | 2017-10-06 16:30 | Anesthesia Evaluation PreOp ---
Date of Encounter: 10/06/17 Time of Encounter: 16:28 - Past History Planned Operation: I and D R foot Cardiac History: HTN, Arrhythmia (hx of afib) Pulmonary History: Denies Any Significant HX MANAGER OF PROGRAM History: CVA (residual R hand numbness), Other (anxiety, depression) Other Medical History: GERD, Other (skin ca,polycythemia) Anesthesia History: No Prior Anesthetic Complications, Past Anesthesia ( hysterectomy, brigette TKR, R leg balloon angioplasty and stent) Alcohol Use: none Drug use: none Medications and Allergies Clopidogrel [Plavix] 75 mg PO DAILY #30 tab 07/12/17 [Rx] Hydroxyurea [Hydrea] 500 mg PO MOTUWETHFR 07/12/17 [History] Apixaban [Eliquis] 2.5 mg PO BID 08/01/17 [History] Collagenase Oint [Santyl] 1 appl TP DAILY 08/01/17 [History] Metoprolol [Lopressor] 50 mg PO BID 08/01/17 [History] LORazepam [Ativan] 0.5 mg PO TID PRN 4 Days #12 tablet 08/06/17 [Rx] Ampicillin Trihydrate 500 mg PO QID 10/05/17 [History] Doxycycline Hyclate [Vibramycin] 100 mg PO BID 10/05/17 [History] Lisinopril [Zestril] 10 mg PO DAILY 10/05/17 [History] OxyCODONE/APAP 5/325 [Percocet 5/325 MG] 1 each PO TID 10/06/17 [History] Oxycodone HCl 10 mg PO Q6H 10/06/17 [History] 3 Allergy/AdvReac Type Severity Reaction Status Date / Time Sulfa (Sulfonamide AdvReac Severe Rash Verified 10/05/17 18:49 Antibiotics) clindamycin AdvReac Shakiness Verified 07/12/17 06:53 - Meds/Allergy Pre-op Review Medications Reviewed: Yes Allergies Reviewed: Yes Beta Blockers on Current Med List: Yes If Beta Blockers taken, Date/Time (Last Dose taken): 828am today Anesthesia Results - Labs 10/06/17 03:18 10/06/17 03:18 - Imaging EKG: report reviewed ( Interpretive Statements SINUS RHYTHM WITH FREQUENT VENTRICULAR PREMATURE COMPLEXES MARKED LEFT AXIS DEVIATION LEFT VENTRICULAR HYPERTROPHY AND ST-T CHANGE Electronically Signed On 08-02-2017 6:39:36 EDT by Jorge Cuello) Anesthesia Exam Vital Signs/O2 Sat, Most Current Temp Pulse Resp BP Pulse Ox 98.1 F 53 14 186/70 94 10/06/17 14:44 10/06/17 14:44 10/06/17 14:44 10/06/17 14:44 10/06/17 14:44 Weight: 79kg NPO (# of Hours): >8 - HEENT Pupil (Motor): Pupils equal, EOMI Mallampati: II Oral Opening: Greater than 3 - MANAGER OF PROGRAM LOC: Oriented MANAGER OF PROGRAM Motor: Normal RUE, Normal LUE, Normal RLE, Normal LLE, Normal Face MANAGER OF PROGRAM Sensory: Normal: LUE, RLE, LLE, Face, Deficit: RUE (numbness) - Cardiac Rhythm: Regular - Pulmonary Breath Sounds: bilateral Clear Respiratory Effort: Symmetrical Anesthesia Assess/Plan ASA Score: 3 Modified Lorna Scale for Level of Consciousness: Cooperative, oriented, and tranquil Anesthetic Plan: MAC Monitoring Plan: Standard Monitors Recovery Plan: PACU
[2017-10-06] MEDS ORDERED: Lidocaine -MPF 2% 2 ML VIAL ONE (16:47)
[2017-10-06] MEDS ORDERED: Lidocaine 1% 20 ML MDV ONE (16:52)
[2017-10-06] MEDS ORDERED: *HR* Propofol 200 MG/20 ML VIAL IVP ONE ×2 (16:52→16:53)
[2017-10-06] MEDS ORDERED: *HR* Magnesium Sulfate 1 GM/2 ML VIAL ONE (17:25)
[2017-10-06] MEDS ORDERED: *HR* Morphine 10 MG/ML VIAL ONE (17:30)
--- NOTE | 2017-10-06 17:51 | Anesthesia Evaluation Post Op ---
Date of Encounter: 10/06/17 Time of Encounter: 17:50 - Vital Signs Vital Signs: see nursing notes - Airway Airway: Non-obstructed - Cardiovascular Regular Rate - Mental Status Mental Status: Alert & Oriented, Answers Appropriately, Baseline Status - Pain Pain Scale: 0 Pain Scale used: Numeric (1 - 10) - Nausea Vomiting Nausea Vomiting: Not Present - Hydration Hydration: NPO - Discharge PostOp Status: Transfer Patient to floor
--- NOTE | 2017-10-06 18:02 | Operative Note ---
Date of procedure: 10/06/17 Pre-op diagnosis: Right foot multiple non-healing ulcerations Post-op diagnosis: same Procedure: excisional debridement of wounds into deep fascia first 20 sq cm and additional application of PRP Implants: none Complications: none Anesthesia: GETA Local Anesthetics: 1% Lidocaine HCL SubQ (cc) Surgeon: Elton Dong Was there an rn first assistant present: No Estimated blood loss (cc): 15 Specimen: none Condition: stable Disposition: PACU Procedure in Detail: Indications: 86-year-old female with multiple chronic right foot wounds the first at the heel measuring 2 cm x 2 cm x 0.3 cm and the second at the medial aspect of the first MTP joint measuring 4.5 cm x 3.5 cm x 0.3 cm and one on the distal medial hallux measuring 3 cm x 3 cm x 0.3 cm which have surrounding erythema. And they all have fibronecrotic bases. MRI was done and negative for abscess or osteomyelitis. Patient has had previous workup and procedures by vascular. Patient did come with a wound culture showing MRSA of the right foot wounds and an elevated white count over 17 on admission. Inflammatory markers were low. Nature of the above procedure, risks versus benefits potential complications and consequences of surgery and her condition were discussed at length. No guarantees were made that the wounds would heal and she understood that she would still have wounds to heal on her feet. All of her questions were answered and the informed consent was signed. The right foot was scrubbed prepped and draped in the usual sterile fashion. 1% lidocaine plain was injected into the patient's right foot and the following procedures began Excisional debridement of right foot wounds to the leve of the deep fascia. Attention was directed to the posterior aspect of the patient's heel where the Misonex debrider was utilized to remove fibrnecrotic tissue into the deep fasial layer. Attention was then directed medial and the Misonex debrider was utlized to remove fibronecrotic tissue into the deep fascia layer at the two remaining wound sites. No purulence was expressed. The wounds had a completely granular base. There was a thin layer covering the dorsal aspect of the bone of the first metatarsal and phalanx. Bone was not exposed. The wound bases had increased granulation tissue present. PRP was spun by the perfusion team and was applied to all of the wounds followed by Adaptic, 4 x 4 gauze and Kerlix. The patient tolerated the anesthesia and the procedure well and was escorted to the recovery room with vital signs stable and capillary refill time intact to the right foot. The right foot was warm to touch. There was adequate hemostasis. Patient will return to the floor where she will continue IV antibiotics.
[2017-10-06] MEDS ORDERED: Naloxone 0.4 MG/ML INJ IVP PRN (18:07)
[2017-10-06] MEDS ORDERED: Acetaminophen 325 MG TABLET PO PRN (18:07)
[2017-10-06] MEDS ORDERED: *HR* Labetalol 20 MG/4 ML SYRINGE IVP ONE (18:17)
[2017-10-06] MEDS: *HR* OxyCODONE/APAP 5/325 TABLET PO PRN ×2 (18:25→22:32)
[2017-10-06] MEDS ORDERED: *HR* OxyCODONE/APAP 5/325 TABLET PO ONE (21:32)
[2017-10-06] MEDS: *HR* LORazepam 0.5 MG TABLET PO PRN (21:44)
[2017-10-07] MEDS: Piperacillin/Tazobactam 3.375 GM in 0.9 % Sodium Chloride Mini Bag 100 ML IVPB SCH ×4 (00:04→23:11)
[2017-10-07] MEDS: hydrALAZINE 25 MG TABLET PO SCH ×4 (00:04→23:14)
[2017-10-07] MEDS: *HR* OxyCODONE/APAP 5/325 TABLET PO PRN ×4 (02:28→19:53)
[2017-10-07] MEDS: Aspirin Enteric Coated 81 MG Tablet PO SCH (08:33)
--- NOTE | 2017-10-07 08:47 | Internal Med Progress Note ---
Hospitalist Progress Note - Encounter Date of Encounter: 10/07/17 Time of Encounter: 08:45 - Subjective Interval History: Patient seen and examined this morning. no fever or chills nausea vomiting or diarrhea. Currently pain is not well-controlled. Overnight elevated blood pressure. - Exam Vitals: Temp Pulse Resp BP Pulse Ox 97.9 F 79 18 197/78 97 10/07/17 06:42 10/07/17 06:42 10/07/17 06:42 10/07/17 06:42 10/07/17 06:42 Exam: Constitutional: Denies fever, chills, or fatigue - Head Head exam: Present: atraumatic, normocephalic - Eye Eye exam: Present: PERRL, conjuntiva pink, sclera anicteric pupils: Present: PERRL - Neck Neck exam general surgery: Present: supple, trachea midline. Absent: lymphadenopathy - Respiratory Respiratory exam: Present: CTAB. Absent: accessory muscle use, rales, rhonchi, wheezes - Cardiovascular Cardiovascular exam: Present: RRR, +S1, +S2. Systolic murmur in aortic region. Absent: diastolic murmur, gallop, rubs, - GI/Abdominal GI/Abdominal exam: Present: normal bowel sounds, soft, no peritoneal signs. Absent: distended, tenderness - Neurological Exam Neurological exam: Present: CN II-XII intact, motor sensory deficit, oriented X3. Absent: pronater drift, facial droop, speech deficit - Skin Skin exam: Present: dry, intact Extremities: Foot dressing in place. Leg elevated on pillow. - Assessment and Plan (1) Skin ulcer of right great toe Current Visit: Yes Status: Acute Assessment and Plan: - Patient has nonhealing ulcer on her right foot on medial aspect of first metatarsal and great toe. likely due to her PVD. - She was growing MRSA and Enterococcus faecalis. - continue IV antibiotics we will keep patient on vancomycin and zosyn. ID rec appreciated. -podiatry and infectious disease following. - Status post excisional debridement of wound, I doubt fibronecrotic tissue is removed into the physician -Pain currently not controlled well. She is on Percocet 5325 one every 4 hours when necessary. We had morphine SL 5q4hr prn. I'll escalate as needed - Follow up podiatry for activity restrictions and wound care (2) Atrial fibrillation Current Visit: No Status: Chronic Assessment and Plan: Patient currently rate controlled with metoprolol Anticoagulated with apixaban 2.5 mg twice a day. Will resume. (3) HTN (hypertension) Current Visit: No Status: Chronic Assessment and Plan: Patient is on lisinopril for hypertension however had hyperkalemia. - We will resume lisinopril for today. c/w hydralazine 25 q8hr and prn 10 mg IV. - Elevated likely due to poor pain control. Pain medication and rest (4) PVD (peripheral vascular disease) Current Visit: No Status: Chronic (5) Polycythemia vera Current Visit: No Status: Chronic Assessment and Plan: Will continue patient's low-dose aspirin (6) Hyponatremia Current Visit: Yes Status: Acute Assessment and Plan: Patient with a mild hyponatremia with sodium of 129. - Better with 1 L of NS. - f/u BMP tommorrow. (7) Hyperkalemia Current Visit: Yes Status: Acute Assessment and Plan: - Improved to 4.8 - Follow BMP tomorrow - lisinopril resumed. DVT Prophylaxis: On apixaban - Time Spent with Patient Total time spent is greater than 50% in coordination of care (as documented) at patient's floor/unit and/or counseling patient: Internal Medicine: Result - Labs CBC & Chem 7: 10/06/17 03:18 10/06/17 03:18 - VTE Reasons for not Prescribing Prophylaxis: Not indicated-Anticoagulated or INR therapeutic Consult Discharge Plan - Plan Referrals: Manuela Franco, SCHOOL BUS MONITOR [Primary Care Provider] - (2) Atrial fibrillation Qualifiers: Atrial fibrillation type: chronic Qualified Code(s): I48.2 - Chronic atrial fibrillation (3) HTN (hypertension) Qualifiers: Hypertension type: essential hypertension Qualified Code(s): I10 - Essential (primary) hypertension
[2017-10-07] MEDS: MORPHINE SUL Oral CONC 10 MG/0.5 ML ORAL.SYG SL PRN ×3 (10:30→21:04)
[2017-10-07] MEDS: Apixaban 5 MG TABLET PO SCH ×2 (11:16→21:03)
[2017-10-07 12:59] LABS: Basophils # 0.1 K/mcL (0.0-0.2); Basophils % 0.5 %; Eosinophils # 0.2 K/mcL (0.0-0.6); Eosinophils % 0.8 %; Hemoglobin 12.8 g/dL (11.5-15.4); Immature Granulocytes % 1.3 % (0-4); Lymphocytes # 1.1 K/mcL (0.6-4.6); Lymphocytes % 5.6 %; Mean Corpuscular HGB Conc 31.2 g/dL (31.6-35.5); Mean Corpuscular Hemoglobin 30.2 pg (28.0-33.3); Mean Corpuscular Volume 96.7 fL (83.0-100.0); Mean Platelet Volume 11.1 fL (9.4-12.4); Monocytes # 2.6 K/mcL (0.0-1.3); Monocytes % 13.9 %; Neutrophils # 14.7 K/mcL (1.6-8.9); Platelet Count 286 K/mcL (140-400); Red Blood Count 4.24 M/mcL (3.82-4.97); Red Cell Distribution Width 16.9 % (11.5-14.5); Segmented Neutrophils % 77.9 %
[2017-10-07 13:34] LABS: BUN/Creatinine Ratio 16 (6-26); Blood Urea Nitrogen 15 mg/dL (8-23); Carbon Dioxide 26 mEq/L (23-29); Chloride 104 mEq/L (98-107); Glucose 106 mg/dL (70-105); Osmolality,Calculated 281 (280-300); Potassium 4.4 mEq/L (3.5-5.1); Sodium 135 mEq/L (136-145); eGFR For Non-African Americans 57 (> 60)
--- NOTE | 2017-10-07 14:45 | Infectious Disease Progress No ---
Date of Encounter: 10/07/17 Time of Encounter: 14:43 - Assessment and Plan (1) Leukocytosis Current Visit: Yes Status: Acute The patient's white count was elevated at 17.6 thousand with neutrophilic predominance upon admission. SLightly worse today, likely secondary to recent surgery. Continue to trend. Likely secondary to right foot ulcer infection. Qualifiers: Leukocytosis type: unspecified Qualified Code(s): D72.829 - Elevated white blood cell count, unspecified (2) Ulcer of right foot Current Visit: Yes Status: Acute Location: Medial aspect of the first metatarsal. Etiology: Unclear. Duration: about six months per the patient. Follows with [facility]. Wound culture obtained as an outpatient supposedly grew MRSA and Enterococcus. She also had a positive MRSA culture in July. No imaging has been done. Podiatry consulted and following. Status post I & D 10/06/17. Operative note reviewed. No purulence noted. No cultures taken. ESR 11, CRP 15. Wound care and activity restrictions per the podiatry team. Continue Vancomycin IV. Pharmacy to dose. Goal trough ~15. Continue Zosyn 3.375 grams IV Q8H. Duration of treatment depends on the clinical picture, but likely 14 days post- op. Can likely switch to PO doxycycline 100mg PO BID and amoxicillin 500mg PO BID to complete the course of treatment. Monitor renal function and for drug toxicity and dose-adjust antibiotics. Qualifiers: Non-pressure ulcer stage: with fat layer exposed Qualified Code(s): L97.512 - Non-pressure chronic ulcer of other part of right foot with fat layer exposed (3) Skin ulcer of right great toe Current Visit: Yes Status: Acute Location: Medial aspect right great toe. Etiology: Unclear. Duration: about six months per the patient. Follows with [facility]. Wound culture obtained as an outpatient supposedly grew MRSA and Enterococcus. She also had a positive MRSA culture in July. No imaging has been done. Podiatry consulted and following. Status post I & D 10/06/17. Operative note reviewed. No purulence noted. No cultures taken. ESR 11, CRP 15. Wound care and activity restrictions per the podiatry team. Continue Vancomycin IV. Pharmacy to dose. Goal trough ~15. Continue Zosyn 3.375 grams IV Q8H. Duration of treatment depends on the clinical picture, but likely 14 days post- op. Can likely switch to PO doxycycline 100mg PO BID and amoxicillin 500mg PO BID to complete the course of treatment. Monitor renal function and for drug toxicity and dose-adjust antibiotics. Qualifiers: Non-pressure ulcer stage: with fat layer exposed Qualified Code(s): L97.512 - Non-pressure chronic ulcer of other part of right foot with fat layer exposed (4) Ulcer of right heel Current Visit: Yes Status: Acute Location: Posterior aspect of the right heel. Etiology unclear. Duration: About 6 months. Clinically does not appear infected. Podiatry consulted. Continue wound care per the podiatry team. Qualifiers: Non-pressure ulcer stage: limited to breakdown of skin Qualified Code(s): L97.411 - Non-pressure chronic ulcer of right heel and midfoot limited to breakdown of skin (5) Ulcer of right calf Current Visit: Yes Status: Acute Location: Posterior right calf. Clinically does not appear infected. Wound care per the Podiatry team. Qualifiers: Non-pressure ulcer stage: limited to breakdown of skin Qualified Code(s): L97.211 - Non-pressure chronic ulcer of right calf limited to breakdown of skin (6) Hyponatremia Current Visit: Yes Status: Acute Etiology unclear. Improved. Further workup and management per the primary team. (7) HTN (hypertension) Current Visit: No Status: Chronic Qualifiers: Hypertension type: essential hypertension Qualified Code(s): I10 - Essential (primary) hypertension (8) Polycythemia Current Visit: No Status: Chronic (9) PVD (peripheral vascular disease) Current Visit: No Status: Chronic Status post abdominal aortography, femoropopliteal revascularization with T LA, and angiogram of the right lower extremity June [address] Heller. 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 Status post repeat abdominal aortography, femoropopliteal revascularization with stent, and angiogram of the right lower extremity in July [address] Heller. (10) Atrial fibrillation Current Visit: No Status: Chronic Qualifiers: Atrial fibrillation type: chronic Qualified Code(s): I48.2 - Chronic atrial fibrillation - Subjective Interval history: Patient seen and examined. No acute events noted overnight. Patient states overall she feels well. Denies fevers, chills, or rigors. Denies chest pain, shortness of breath, or cough. Denies nausea, vomiting, or diarrhea. Denies abdominal pain, urinary complaints or appetite changes. Denies oral thrush or new skin lesions. Denies pain at the surgical site at this time. She wants to go home. Infect Dis PN-Objective Data - Labs CBC & Chem 7: 10/07/17 12:39 10/07/17 12:39 Labs: Laboratory Results - last 24 hr 10/06/17 10/06/17 10/06/17 11:21 15:16 15:16 WBC RBC Hgb Hct MCV MCH MCHC RDW Plt Count MPV Immature Gran % Seg Neutrophils % Lymphocytes % Monocytes % Eosinophils % Basophils % Neutrophils # Lymphocytes # Monocytes # Eosinophils # Basophils # ESR 11 Sodium Potassium Chloride Carbon Dioxide BUN Creatinine Est GFR ( Amer) Est GFR (Non-Af Amer) BUN/Creatinine Ratio Glucose POC Glucose 93 Calculated Osmolality Calcium C-Reactive Protein 15 H 10/07/17 10/07/17 12:39 12:39 WBC 18.9 H RBC 4.24 Hgb 12.8 Hct 41.0 MCV 96.7 MCH 30.2 MCHC 31.2 L RDW 16.9 H Plt Count 286 MPV 11.1 Immature Gran % 1.3 Seg Neutrophils % 77.9 Lymphocytes % 5.6 Monocytes % 13.9 Eosinophils % 0.8 Basophils % 0.5 Neutrophils # 14.7 H Lymphocytes # 1.1 Monocytes # 2.6 H Eosinophils # 0.2 Basophils # 0.1 ESR Sodium 135 L Potassium 4.4 Chloride 104 Carbon Dioxide 26 BUN 15 Creatinine 0.93 Est GFR ( Amer) > 60 Est GFR (Non-Af Amer) 57 L BUN/Creatinine Ratio 16 Glucose 106 H POC Glucose Calculated Osmolality 281 Calcium 9.0 C-Reactive Protein Exam - Constitutional Vitals: Temp Pulse Resp BP Pulse Ox 98.5 F 65 18 165/65 95 10/07/17 14:07 10/07/17 14:07 10/07/17 14:07 10/07/17 14:07 10/07/17 14:07 General appearance: average body habitus, cooperative, no acute distress - Head Head exam: Present: atraumatic, normal inspection, normocephalic - Eye Eye exam: Present: EOMI, normal appearance Pupils: Present: normal accommodation - ENT ENT exam: Present: mucous membranes moist - Neck Neck exam: Present: normal inspection - Respiratory Respiratory exam: Present: CTAB. Absent: rales, respiratory distress, rhonchi, wheezes - Cardiovascular Cardiovascular exam: Present: RRR, +S1, +S2 - GI/Abdominal GI/Abdominal exam: Present: normal bowel sounds, soft. Absent: distended, tenderness - Extremities Exam Extremities exam: Present: normal inspection. Absent: joint swelling, pedal edema, tenderness Additional comments: Right foot dressing C/D/I. - Neurological Exam Neurological exam: Present: alert, oriented X3, no focal deficits - Psychiatric Psychiatric exam: Present: normal affect, normal mood - Skin Skin exam: Present: dry, intact, normal color, warm - VTE Reasons for not Prescribing Prophylaxis: Not indicated-Anticoagulated or INR therapeutic Consult Discharge Plan - Plan Referrals: Manuela Franco, NUCLEAR POWERPLANT MECHANIC [Primary Care Provider] -
--- NOTE | 2017-10-07 16:29 | Podiatry Progress Note ---
Date of Encounter: 10/07/17 Time of Encounter: 12:00 - Assessment and Plan (1) Cellulitis Current Visit: No Status: Acute POD #1 excisional debridement of wounds into deep fascia first 20 sq cm and additional application of PRP Patient resting comfortably Reports a moderate amount of pain Dressing removed and wounds assessed at bedside. Wounds appear to be healing as expected at this time There is a small amount of exposed bone noted to wound to medial MT head #1- will order for wound vac to be applied to this area Change MWF- cleanse with saline, apply adaptic to wound and then small black simplace sponge to 125mmhg suction will send wound vac paperwork for Patient wanting to go home soon May be discharged with PO antibiotics per ID Patient states she has [facility]- will need wound vac orders as well as orders for daily dressing changes to remaining wounds Remaining wounds will be adaptic 4x4 and kerlix. 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 Dong. Patient resting comfortably in bed on arrival. Patient is anxious about dressing change. States her foot is painful. Notes most pain to medial MT head wound. Patient dressing CDI- no strike through drainage noted. Patient denies any fevers, chills, n/v or flu like symptoms Patient denies any calf pain or SOB. Rates pain /10. Objective - Vital Signs Vital Signs: Vital Signs Temp Pulse Resp BP Pulse Ox 10/07/17 14:07 98.5 F 65 18 165/65 95 10/07/17 11:18 164/61 10/07/17 10:29 98.2 F 72 18 143/60 96 10/07/17 06:42 97.9 F 79 18 197/78 97 10/07/17 03:47 98.2 F 65 15 156/50 97 10/06/17 22:48 98.1 F 68 15 151/54 95 10/06/17 21:13 97.6 F 85 16 177/75 96 10/06/17 19:06 98.5 F 78 12 192/86 96 10/06/17 18:35 98.7 F 70 12 186/74 97 10/06/17 18:09 98.7 F 79 12 202/66 92 Intake and Output 10/07/17 10/07/17 10/07/17 07:59 15:59 23:59 Intake Total 300 / 300 460 / 460 Output Total 1200 / 1200 500 / 500 Balance -900 / -900 -40 / -40 Intake: IV Fluids 100 / 100 100 / 100 Zosyn 3.375 GM In 0.9 % Sodium 100 / 100 100 / 100 Chloride (Mini-Bag +) 100 ML @ 25 mls/hr IVPB Q8HR [facility] Rx#: [id number] Oral 200 / 200 360 / 360 Output: Urine 1200 / 1200 500 / 500 Other: Meal Lunch Percent of Meal Consumed 5% Stool Size Small Stool Consistency formed Stool Color Brown # Bowel Movements 0 - Exam Exam: Podiatry General Exam: General appearance: alert awake oriented X 3. Calm and pleasant, no acute distress.. Vascular: Pedal pulses faint DP/PT , No evidence of cyanosis, pallor or rubor, Edema graded at 1+/4, Skin Temperature warm, No calf pain with manual compression. capillary refill time is immediate to digits. Neurologic: Sensation intact with light touch to foot. . Postop Exam: S/P Debridement of wounds of right foot Wound to medial toe #1, medial mt head #1 and heel of right foot Medial mt head: 3cmx3.5cmx0.1- scant exposure to bone at the plantar base of wound. 100% healthy granulation tissue noted to wound. No drainage noted. Slight surrounding edema and erythema. No odor . Medial great toe [id number] wound with 100% healthy granulation tissue- scant bleeding noted. Some dry blood surrounding wound. Slight erythema and edema noted. Right heel: 2.5cmx2.5cmx0.1cm wound with 80% thin fibrous slough and 20% healthy granulation tissue. No drainage. No odor. Slight surrounding edema and erythema noted. No probe to underlying tissue or bone - Lab Result Diagrams: 10/10/17 10:32 10/10/17 10:32 Labs: Abnormal lab results WBC 18.9 K/mcL (4.3-11.1) H 10/07/17 12:39 MCHC 31.2 g/dL (31.6-35.5) L 10/07/17 12:39 RDW 16.9 % (11.5-14.5) H 10/07/17 12:39 Neutrophils # 14.7 K/mcL (1.6-8.9) H 10/07/17 12:39 Monocytes # 2.6 K/mcL (0.0-1.3) H 10/07/17 12:39 Sodium 135 mEq/L (136-145) L 10/07/17 12:39 Est GFR (Non-Af Amer) 57 (> 60) L 10/07/17 12:39 Glucose 106 mg/dL (70-105) H 10/07/17 12:39 ALT 6 Units/L (7-52) L 10/06/17 03:18 C-Reactive Protein 15 mg/L (Less than 10) H 10/06/17 15:16 Serum Total Protein 6.0 g/dL (6.4-8.9) L 10/06/17 03:18 Globulin 2.3 g/dL (2.4-3.5) L 10/06/17 03:18 Vancomycin Trough 11 mcg/mL (5-10) H 10/07/17 15:00 - VTE Reasons for not Prescribing Prophylaxis: Not indicated-Anticoagulated or INR therapeutic Consult Discharge Plan - Plan Referrals: Manuela Franco, TECHNOLOGY STRATEGIST [Primary Care Provider] - Prescriptions: Amoxicillin 500 mg PO BID 8 Days #16 tablet
[2017-10-07] MEDS ORDERED: Ondansetron 4 MG/2 ML VIAL IVP PRN (22:40)
[2017-10-08 06:14] LABS: Basophils # 0.1 K/mcL (0.0-0.2); Basophils % 0.4 %; Eosinophils # 0.2 K/mcL (0.0-0.6); Eosinophils % 0.9 %; Hemoglobin 11.9 g/dL (11.5-15.4); Immature Granulocytes % 1.3 % (0-4); Lymphocytes # 1.6 K/mcL (0.6-4.6); Lymphocytes % 8.3 %; Mean Corpuscular HGB Conc 31.3 g/dL (31.6-35.5); Mean Corpuscular Hemoglobin 30.1 pg (28.0-33.3); Mean Platelet Volume 11.4 fL (9.4-12.4); Monocytes # 2.3 K/mcL (0.0-1.3); Monocytes % 12.4 %; Neutrophils # 14.2 K/mcL (1.6-8.9); Platelet Count 303 K/mcL (140-400); Red Blood Count 3.96 M/mcL (3.82-4.97); Red Cell Distribution Width 17.1 % (11.5-14.5); Segmented Neutrophils % 76.7 %
[2017-10-08 06:36] LABS: BUN/Creatinine Ratio 20 (6-26); Blood Urea Nitrogen 16 mg/dL (8-23); Calcium 8.7 mg/dL (8.6-10.3); Carbon Dioxide 21 mEq/L (23-29); Chloride 108 mEq/L (98-107); Glucose 110 mg/dL (70-105); Osmolality,Calculated 284 (280-300); Potassium 4.1 mEq/L (3.5-5.1); Sodium 136 mEq/L (136-145); eGFR For Non-African Americans > 60 (> 60)
[2017-10-08] MEDS: Piperacillin/Tazobactam 3.375 GM in 0.9 % Sodium Chloride Mini Bag 100 ML IVPB SCH ×2 (09:21→16:10)
[2017-10-08] MEDS: Ketorolac 30 MG/ML VIAL IVP PRN (09:22)
[2017-10-08] MEDS: Aspirin Enteric Coated 81 MG Tablet PO SCH (09:23)
[2017-10-08] MEDS: Apixaban 5 MG TABLET PO SCH ×2 (09:23→20:53)
[2017-10-08] MEDS: hydrALAZINE 25 MG TABLET PO SCH ×2 (09:23→16:11)
--- NOTE | 2017-10-08 11:24 | Internal Med Progress Note ---
Hospitalist Progress Note - Encounter Date of Encounter: 10/08/17 Time of Encounter: 11:33 - Subjective Interval History: Patient seen and examined this morning. no fever or chills nausea vomiting or diarrhea. Currently pain is well-controlled except this morning. Overnight elevated blood pressure. - Exam Vitals: Temp Pulse Resp BP Pulse Ox 97.8 F 58 14 154/66 92 10/08/17 10:21 10/08/17 10:21 10/08/17 10:21 10/08/17 10:21 10/08/17 10:21 Exam: Constitutional: Denies fever, chills, or fatigue, ambulatory - Head Head exam: Present: atraumatic, normocephalic - Eye Eye exam: Present: PERRL, conjuntiva pink, sclera anicteric pupils: Present: PERRL - Neck Neck exam general surgery: Present: supple, trachea midline. Absent: lymphadenopathy - Respiratory Respiratory exam: Present: CTAB. Absent: accessory muscle use, rales, rhonchi, wheezes - Cardiovascular Cardiovascular exam: Present: RRR, +S1, +S2. Systolic murmur in aortic region. Absent: diastolic murmur, gallop, rubs, - GI/Abdominal GI/Abdominal exam: Present: normal bowel sounds, soft, no peritoneal signs. Absent: distended, tenderness - Neurological Exam Neurological exam: Present: CN II-XII intact, motor sensory deficit, oriented X3. Absent: pronater drift, facial droop, speech deficit - Skin Skin exam: Present: dry, intact Extremities: Foot dressing in place with wound vac which was place yesterday evening . Leg elevated on pillow. - Assessment and Plan (1) Skin ulcer of right great toe Current Visit: Yes Status: Acute (2) Atrial fibrillation Current Visit: No Status: Chronic (3) HTN (hypertension) Current Visit: No Status: Chronic (4) PVD (peripheral vascular disease) Current Visit: No Status: Chronic (5) Polycythemia vera Current Visit: No Status: Chronic (6) Hyponatremia Current Visit: Yes Status: Acute (7) Hyperkalemia Current Visit: Yes Status: Acute (8) Leukocytosis Current Visit: Yes Status: Acute (9) Ulcer of right foot Current Visit: Yes Status: Acute - Summary of Assessment and Plan Summary of Assessment and Plan: Ulcers on Rt foot - Patient has nonhealing ulcer on her right foot on medial aspect of first metatarsal and great toe. Possible related to her PVD. - She was growing MRSA and Enterococcus faecalis on outpatient cultures when she was send to hospital. - continue IV vancomycin and zosyn. ID rec appreciated. Blood culture NGTD. - podiatry and infectious disease following. - Status post excisional debridement of wound 10/06/17. No pus noted. No cultures from wound. - Pain better controlled. But increased after wound vac placement. Patient would ask for already prescribe pain medicine. zofran for nausea - Currently patient ambulates herself without asking occasionally. Asked for no weight bearing per Podiatry. - Patient has C- will need wound vac and daily dressing changes orders. Follows with [facility]. - To follow up in wound care with 1 week following discharge. - Appreciate ID recommendation. Duration of treatment likely 14 days post-op. Will switch to PO doxycycline 100mg PO BID and amoxicillin 500mg PO BID to complete the course of treatment on discharge. - f/u CBC and BMP tommorow. Plan for Discharge tommorrow. Leukocytosis: - Likely related to surgery - Continue abx as above - ID recommendation appreciated. HTN: - lisinopril Initially held for hyperkalemia. - now resumed. - Elevated related to her Pain. Advice to ask for pain medication. - c/w hydralazine 25 q8hr. Will change IV hydralazine to IV labetalol for prn control Hyponatremia: - Now resolved after 1 L of NS. AFib: - rate controlled with metoprolol - Anticoagulated with apixaban 2.5 mg twice a day. Polycythemia vera - continue patient's low-dose aspirinsumed. DVT ppx: - On apixaban. - Time Spent with Patient Total time spent is greater than 50% in coordination of care (as documented) at patient's floor/unit and/or counseling patient: Internal Medicine: Result - Labs CBC & Chem 7: 10/08/17 06:01 10/08/17 06:01 Labs: Short CBC 10/07/17 10/08/17 Range/Units 12:39 06:01 WBC 18.9 H 18.6 H (4.3-11.1) K/mcL Hgb 12.8 11.9 (11.5-15.4) g/dL Hct 41.0 38.0 (35.3-44.9) % Plt Count 286 303 (140-400) K/mcL Neutrophils # 14.7 H 14.2 H (1.6-8.9) K/mcL BMP 10/07/17 10/08/17 12:39 06:01 Sodium 135 L 136 Potassium 4.4 4.1 Chloride 104 108 H Carbon Dioxide 26 21 L BUN 15 16 Creatinine 0.93 0.82 Glucose 106 H 110 H Calcium 9.0 8.7 - VTE Reasons for not Prescribing Prophylaxis: Not indicated-Anticoagulated or INR therapeutic Consult Discharge Plan - Plan Referrals: Manuela Franco, CODING MANAGER [Primary Care Provider] - (1) Skin ulcer of right great toe Qualifiers: Non-pressure ulcer stage: with fat layer exposed Qualified Code(s): L97.512 - Non-pressure chronic ulcer of other part of right foot with fat layer exposed (2) Atrial fibrillation Qualifiers: Atrial fibrillation type: chronic Qualified Code(s): I48.2 - Chronic atrial fibrillation (3) HTN (hypertension) Qualifiers: Hypertension type: essential hypertension Qualified Code(s): I10 - Essential (primary) hypertension (8) Leukocytosis Qualifiers: Leukocytosis type: unspecified Qualified Code(s): D72.829 - Elevated white blood cell count, unspecified (9) Ulcer of right foot Qualifiers: Non-pressure ulcer stage: with fat layer exposed Qualified Code(s): L97.512 - Non-pressure chronic ulcer of other part of right foot with fat layer exposed
[2017-10-09] MEDS: hydrALAZINE 25 MG TABLET PO SCH ×3 (00:35→15:41)
[2017-10-09] MEDS: Piperacillin/Tazobactam 3.375 GM in 0.9 % Sodium Chloride Mini Bag 100 ML IVPB SCH ×3 (00:35→15:42)
[2017-10-09] MEDS: Ketorolac 30 MG/ML VIAL IVP PRN ×2 (04:51→16:49)
[2017-10-09 07:31] LABS: Basophils # 0.1 K/mcL (0.0-0.2); Basophils % 0.6 %; Eosinophils # 0.2 K/mcL (0.0-0.6); Eosinophils % 0.9 %; Hematocrit 37.4 % (35.3-44.9); Hemoglobin 11.7 g/dL (11.5-15.4); Immature Granulocytes % 1.9 % (0-4); Lymphocytes # 1.3 K/mcL (0.6-4.6); Lymphocytes % 7.3 %; Mean Corpuscular HGB Conc 31.3 g/dL (31.6-35.5); Mean Corpuscular Hemoglobin 29.3 pg (28.0-33.3); Mean Corpuscular Volume 93.5 fL (83.0-100.0); Mean Platelet Volume 11.1 fL (9.4-12.4); Monocytes # 2.2 K/mcL (0.0-1.3); Monocytes % 12.1 %; Neutrophils # 13.9 K/mcL (1.6-8.9); Platelet Count 331 K/mcL (140-400); Red Cell Distribution Width 17.2 % (11.5-14.5); Segmented Neutrophils % 77.2 %
[2017-10-09 07:55] LABS: BUN/Creatinine Ratio 22 (6-26); Blood Urea Nitrogen 19 mg/dL (8-23); Calcium 8.9 mg/dL (8.6-10.3); Carbon Dioxide 21 mEq/L (23-29); Chloride 108 mEq/L (98-107); Glucose 95 mg/dL (70-105); Osmolality,Calculated 286 (280-300); Sodium 137 mEq/L (136-145); eGFR For Non-African Americans > 60 (> 60)
[2017-10-09] MEDS: Aspirin Enteric Coated 81 MG Tablet PO SCH (08:29)
[2017-10-09] MEDS: Apixaban 5 MG TABLET PO SCH ×2 (08:29→21:37)
--- NOTE | 2017-10-09 14:19 | Internal Med Progress Note ---
Hospitalist Progress Note - Encounter Date of Encounter: 10/09/17 Time of Encounter: 08:10 - Subjective Interval History: Patient seen and examined this morning. no fever or chills nausea vomiting or diarrhea. Currently pain is reasonable controlled. blood pressure better . - Exam Vitals: Temp Pulse Resp BP Pulse Ox 98.6 F 97 14 138/67 95 10/09/17 13:51 10/09/17 13:51 10/09/17 13:51 10/09/17 13:51 10/09/17 13:51 Exam: Const: Vital signs listed above. In no acute distress. Alert and oriented Xs 3. No mood disorders noted, calm affect. Lymph/Neck: No masses, thyromegaly, or abnormal cervical notes. No bruit. Tracheal midline. Cardio: RRR, Normal S1, S2 w/o murmurs, rubs or gallops. Skin warm and dry. No peripheral edema. Respiratory: Chest symmetrical, respirations non-labored. No dullness or flatness. Clear bilaterally to auscultation, non-tender to palpitation. Musculo: No deformity or scoliosis noted. No cyanosis or edema. Appropriate muscle strength bilaterally. Neurologic: No focal deficits, cranial nerves II-XII grossly intact with normal sensation, reflexes, coordination, muscle strength and tone. GI/Abdomen: Soft, non tender, non distended, no hepatosplemomegaly, normal bowel sounds, no masses noted. Extremeties: Wound vac in place. Leg elevated and with dressing. - Assessment and Plan (1) Skin ulcer of right great toe Current Visit: Yes Status: Acute (2) Atrial fibrillation Current Visit: No Status: Chronic (3) HTN (hypertension) Current Visit: No Status: Chronic (4) PVD (peripheral vascular disease) Current Visit: No Status: Chronic (5) Polycythemia vera Current Visit: No Status: Chronic (6) Hyponatremia Current Visit: Yes Status: Acute (7) Hyperkalemia Current Visit: Yes Status: Acute (8) Leukocytosis Current Visit: Yes Status: Acute (9) Ulcer of right foot Current Visit: Yes Status: Acute - Summary of Assessment and Plan Summary of Assessment and Plan: Ulcers on Rt foot - Patient has nonhealing ulcer on her right foot on medial aspect of first metatarsal and great toe. Possible related to her PVD. - She was growing MRSA and Enterococcus faecalis on outpatient cultures when she was send to hospital. - continue IV vancomycin and zosyn. ID rec appreciated. Blood culture NGTD. - Status post excisional debridement of wound 10/06/17. No pus noted. No cultures from wound. - Pain controlled. On toradol, prn percocet and prn morphine - To ambulate with no weight bearing per Podiatry. - Patient has HHC- will need wound vac and daily dressing changes orders on discharge. Follows with [facility]. - To follow up in wound care with 1 week following discharge. - Appreciate ID recommendation. antibiotics for 14 days post-op. Will switch to PO doxycycline 100mg PO BID and amoxicillin 500mg PO BID to complete the course of treatment on discharge. - Plan for Discharge tommorrow once home health is set up. Leukocytosis: - Likely related to surgery - Continue abx as above - ID recommendation appreciated. HTN: - lisinopril initially held for hyperkalemia. - now resumed. - Elevated related to her Pain. Advice to ask for pain medication. - c/w hydralazine 25 q8hr. prn IV hydralazine continued as low HR. Hyponatremia: - Now resolved after 1 L of NS. AFib: - rate controlled with metoprolol - Anticoagulated with apixaban 2.5 mg twice a day. Polycythemia vera - continue patient's low-dose aspirinsumed. DVT ppx: - On apixaban. - Time Spent with Patient Total time spent is greater than 50% in coordination of care (as documented) at patient's floor/unit and/or counseling patient: Internal Medicine: Result - Labs CBC & Chem 7: 10/09/17 06:47 10/09/17 06:47 Labs: Short CBC 10/09/17 Range/Units 06:47 WBC 18.0 H (4.3-11.1) K/mcL Hgb 11.7 (11.5-15.4) g/dL Hct 37.4 (35.3-44.9) % Plt Count 331 (140-400) K/mcL Neutrophils # 13.9 H (1.6-8.9) K/mcL BMP 10/09/17 06:47 Sodium 137 Potassium 4.0 Chloride 108 H Carbon Dioxide 21 L BUN 19 Creatinine 0.87 Glucose 95 Calcium 8.9 - VTE Reasons for not Prescribing Prophylaxis: Not indicated-Anticoagulated or INR therapeutic Consult Discharge Plan - Plan Referrals: Manuela Franco, MANAGER BENEFIT [Primary Care Provider] - (1) Skin ulcer of right great toe Qualifiers: Non-pressure ulcer stage: with fat layer exposed Qualified Code(s): L97.512 - Non-pressure chronic ulcer of other part of right foot with fat layer exposed (2) Atrial fibrillation Qualifiers: Atrial fibrillation type: chronic Qualified Code(s): I48.2 - Chronic atrial fibrillation (3) HTN (hypertension) Qualifiers: Hypertension type: essential hypertension Qualified Code(s): I10 - Essential (primary) hypertension (8) Leukocytosis Qualifiers: Leukocytosis type: unspecified Qualified Code(s): D72.829 - Elevated white blood cell count, unspecified (9) Ulcer of right foot Qualifiers: Non-pressure ulcer stage: with fat layer exposed Qualified Code(s): L97.512 - Non-pressure chronic ulcer of other part of right foot with fat layer exposed
[2017-10-09] MEDS: *HR* OxyCODONE/APAP 5/325 TABLET PO PRN (21:37)
[2017-10-09] MEDS: *HR* LORazepam 0.5 MG TABLET PO PRN (21:37)
[2017-10-10] MEDS: hydrALAZINE 25 MG TABLET PO SCH ×3 (00:24→16:32)
[2017-10-10] MEDS: Piperacillin/Tazobactam 3.375 GM in 0.9 % Sodium Chloride Mini Bag 100 ML IVPB SCH ×3 (00:24→16:32)
[2017-10-10] MEDS: Aspirin Enteric Coated 81 MG Tablet PO SCH (08:07)
[2017-10-10] MEDS: Apixaban 5 MG TABLET PO SCH ×2 (08:07→20:55)
[2017-10-10] MEDS: Ketorolac 30 MG/ML VIAL IVP PRN (08:08)
[2017-10-10 11:08] LABS: Basophils # 0.1 K/mcL (0.0-0.2); Basophils % 0.5 %; Eosinophils # 0.2 K/mcL (0.0-0.6); Eosinophils % 0.7 %; Hematocrit 41.2 % (35.3-44.9); Hemoglobin 12.8 g/dL (11.5-15.4); Immature Granulocytes % 2.5 % (0-4); Lymphocytes # 1.4 K/mcL (0.6-4.6); Lymphocytes % 6.3 %; Mean Corpuscular HGB Conc 31.1 g/dL (31.6-35.5); Mean Corpuscular Hemoglobin 29.6 pg (28.0-33.3); Mean Corpuscular Volume 95.2 fL (83.0-100.0); Mean Platelet Volume 11.4 fL (9.4-12.4); Monocytes # 2.4 K/mcL (0.0-1.3); Monocytes % 10.9 %; Neutrophils # 17.5 K/mcL (1.6-8.9); Platelet Count 397 K/mcL (140-400); Red Blood Count 4.33 M/mcL (3.82-4.97); Red Cell Distribution Width 17.2 % (11.5-14.5); Segmented Neutrophils % 79.1 %
[2017-10-10 11:22] LABS: BUN/Creatinine Ratio 20 (6-26); Blood Urea Nitrogen 19 mg/dL (8-23); Calcium 8.9 mg/dL (8.6-10.3); Carbon Dioxide 25 mEq/L (23-29); Chloride 106 mEq/L (98-107); Glucose 115 mg/dL (70-105); Osmolality,Calculated 285 (280-300); Potassium 3.8 mEq/L (3.5-5.1); Sodium 136 mEq/L (136-145); eGFR For Non-African Americans 56 (> 60)
[2017-10-10] MEDS: *HR* OxyCODONE/APAP 5/325 TABLET PO PRN ×2 (12:22→20:55)
--- NOTE | 2017-10-10 12:56 | Internal Med Progress Note ---
Hospitalist Progress Note - Encounter Date of Encounter: 10/10/17 Time of Encounter: 08:45 - Subjective Interval History: Patient seen and examined this morning. no fever or chills nausea vomiting or diarrhea. Currently pain is reasonable controlled. blood pressure better , however still elevated. - Exam Vitals: Temp Pulse Resp BP Pulse Ox 98.4 F 77 14 187/80 95 10/10/17 07:23 10/10/17 07:23 10/10/17 07:23 10/10/17 07:23 10/10/17 07:23 Exam: Const: Vital signs listed above. In no acute distress. Alert and oriented Xs 3. No mood disorders noted, calm affect. Lymph/Neck: No masses, thyromegaly, or abnormal cervical notes. No bruit. Tracheal midline. Cardio: RRR, Normal S1, S2 w/o murmurs, rubs or gallops. Skin warm and dry. No peripheral edema. Respiratory: Chest symmetrical, respirations non-labored. No dullness or flatness. Clear bilaterally to auscultation, non-tender to palpitation. Musculo: No deformity or scoliosis noted. No cyanosis or edema. Appropriate muscle strength bilaterally. Neurologic: No focal deficits, cranial nerves II-XII grossly intact with normal sensation, reflexes, coordination, muscle strength and tone. GI/Abdomen: Soft, non tender, non distended, no hepatosplemomegaly, normal bowel sounds, no masses noted. Extremeties: Wound vac in place. Leg elevated and with dressing. - Assessment and Plan (1) Skin ulcer of right great toe Current Visit: Yes Status: Acute (2) Atrial fibrillation Current Visit: No Status: Chronic (3) HTN (hypertension) Current Visit: No Status: Chronic (4) PVD (peripheral vascular disease) Current Visit: No Status: Chronic (5) Polycythemia vera Current Visit: No Status: Chronic (6) Hyponatremia Current Visit: Yes Status: Resolved (7) Hyperkalemia Current Visit: Yes Status: Acute (8) Leukocytosis Current Visit: Yes Status: Acute (9) Ulcer of right foot Current Visit: Yes Status: Acute - Summary of Assessment and Plan Summary of Assessment and Plan: Ulcers on Rt foot - Patient has nonhealing ulcer on her right foot on medial aspect of first metatarsal and great toe. Possible related to her PVD. - She was growing MRSA and Enterococcus faecalis on outpatient cultures when she was send to hospital. - continue IV vancomycin. zosyn discontinued today. ID rec appreciated. Blood culture NGTD. - Status post excisional debridement of wound 10/06/17. No pus noted. No cultures from wound. - Pain controlled. toradol discontinued due to elevated BP eventhough her pain was better controlled with it. c/w prn percocet and prn morphine - To ambulate with no weight bearing per Podiatry. - Patient has C- will need wound vac and daily dressing changes orders on discharge. Follows with [facility]. - To follow up in wound care with 1 week following discharge. - Appreciate ID recommendation. antibiotics for 14 days post-op. Will switch to PO doxycycline 100mg PO BID and amoxicillin 500mg PO BID to complete the course of treatment on discharge. - Plan for Discharge tommorrow once home health and wound care is set up. Leukocytosis: - Elevated at baseline. Likely related to Polycythemia vera. - Continue abx as above - ID recommendation appreciated. HTN: - lisinopril initially held for hyperkalemia. - now resumed. - Elevated related to her Pain. - c/w hydralazine 25 q8hr. amlodipine added given elevated BP. prn IV hydralazine continued as low HR. Will need to f/u after discharge with PCP as these antihypertensive are new and may need adjustment. Hyponatremia: - Now resolved after 1 L of NS. AFib: - rate controlled with metoprolol - Anticoagulated with apixaban 2.5 mg twice a day. Polycythemia vera - continue patient's low-dose aspirin resumed. DVT ppx: - On apixaban. - Time Spent with Patient Total time spent is greater than 50% in coordination of care (as documented) at patient's floor/unit and/or counseling patient: Internal Medicine: Result - Labs CBC & Chem 7: 10/10/17 10:32 10/10/17 10:32 Labs: Short CBC 10/10/17 Range/Units 10:32 WBC 22.1 H (4.3-11.1) K/mcL Hgb 12.8 (11.5-15.4) g/dL Hct 41.2 (35.3-44.9) % Plt Count 397 (140-400) K/mcL Neutrophils # 17.5 H (1.6-8.9) K/mcL BMP 10/10/17 10:32 Sodium 136 Potassium 3.8 Chloride 106 Carbon Dioxide 25 BUN 19 Creatinine 0.95 Glucose 115 H Calcium 8.9 - VTE Reasons for not Prescribing Prophylaxis: Not indicated-Anticoagulated or INR therapeutic Consult Discharge Plan - Plan Referrals: Manuela Franco, RECREATION ATTENDANT [Primary Care Provider] - Prescriptions: Amoxicillin 500 mg PO BID 8 Days #16 tablet (1) Skin ulcer of right great toe Qualifiers: Non-pressure ulcer stage: with fat layer exposed Qualified Code(s): L97.512 - Non-pressure chronic ulcer of other part of right foot with fat layer exposed (2) Atrial fibrillation Qualifiers: Atrial fibrillation type: chronic Qualified Code(s): I48.2 - Chronic atrial fibrillation (3) HTN (hypertension) Qualifiers: Hypertension type: essential hypertension Qualified Code(s): I10 - Essential (primary) hypertension (8) Leukocytosis Qualifiers: Leukocytosis type: unspecified Qualified Code(s): D72.829 - Elevated white blood cell count, unspecified (9) Ulcer of right foot Qualifiers: Non-pressure ulcer stage: with fat layer exposed Qualified Code(s): L97.512 - Non-pressure chronic ulcer of other part of right foot with fat layer exposed
[2017-10-10] MEDS: MORPHINE SUL Oral CONC 10 MG/0.5 ML ORAL.SYG SL PRN (13:48)
--- NOTE | 2017-10-10 14:38 | Infectious Disease Progress No ---
Date of Encounter: 10/10/17 Time of Encounter: 14:36 - Assessment and Plan (1) Leukocytosis Current Visit: Yes Status: Acute The patient's white count was elevated at 17.6 thousand with neutrophilic predominance upon admission. Continues to be elevated, but reviewing the patient's labs reveals persistent leukocytosis dating back several years. 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 Continue to trend. Qualifiers: Leukocytosis type: unspecified Qualified Code(s): D72.829 - Elevated white blood cell count, unspecified (2) Ulcer of right foot Current Visit: Yes Status: Acute Location: Medial aspect of the first metatarsal. Etiology: Unclear. Duration: about six months per the patient. Follows with [facility]. Wound culture obtained as an outpatient supposedly grew MRSA and Enterococcus. She also had a positive MRSA culture in July. No imaging has been done. Podiatry consulted and following. Status post I & D 10/06/17. Operative note reviewed. No purulence noted. No cultures taken. ESR 11, CRP 15. Wound care and activity restrictions per the podiatry team. Continue Vancomycin IV. Pharmacy to dose. Goal trough ~15. Discontinue Zosyn. Duration of treatment depends on the clinical picture, but likely 14 days post- op. Can likely switch to PO doxycycline 100mg PO BID and amoxicillin 500mg PO BID to complete the course of treatment. Monitor renal function and for drug toxicity and dose-adjust antibiotics. Qualifiers: Non-pressure ulcer stage: with fat layer exposed Qualified Code(s): L97.512 - Non-pressure chronic ulcer of other part of right foot with fat layer exposed (3) Skin ulcer of right great toe Current Visit: Yes Status: Acute Location: Medial aspect right great toe. Etiology: Unclear. Duration: about six months per the patient. Follows with [facility]. Wound culture obtained as an outpatient supposedly grew MRSA and Enterococcus. She also had a positive MRSA culture in July. No imaging has been done. Podiatry consulted and following. Status post I & D 10/06/17. Operative note reviewed. No purulence noted. No cultures taken. ESR 11, CRP 15. Wound care and activity restrictions per the podiatry team. Continue Vancomycin IV. Pharmacy to dose. Goal trough ~15. Discontinue Zosyn. Duration of treatment depends on the clinical picture, but likely 14 days post- op. Can likely switch to PO doxycycline 100mg PO BID and amoxicillin 500mg PO BID to complete the course of treatment. Monitor renal function and for drug toxicity and dose-adjust antibiotics. Qualifiers: Non-pressure ulcer stage: with fat layer exposed Qualified Code(s): L97.512 - Non-pressure chronic ulcer of other part of right foot with fat layer exposed (4) Ulcer of right heel Current Visit: Yes Status: Acute Location: Posterior aspect of the right heel. Etiology unclear. Duration: About 6 months. Clinically does not appear infected. Podiatry consulted. Continue wound care per the podiatry team. Qualifiers: Non-pressure ulcer stage: limited to breakdown of skin Qualified Code(s): L97.411 - Non-pressure chronic ulcer of right heel and midfoot limited to breakdown of skin (5) Ulcer of right calf Current Visit: Yes Status: Acute Location: Posterior right calf. Clinically does not appear infected. Wound care per the Podiatry team. 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 Improved. Further workup and management per the primary team. (7) HTN (hypertension) Current Visit: No Status: Chronic Qualifiers: Hypertension type: essential hypertension Qualified Code(s): I10 - Essential (primary) hypertension (8) Polycythemia Current Visit: No Status: Chronic (9) PVD (peripheral vascular disease) Current Visit: No Status: Chronic Status post abdominal aortography, femoropopliteal revascularization with T LA, and angiogram of the right lower extremity June [address] Heller. 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 Status post repeat abdominal aortography, femoropopliteal revascularization with stent, and angiogram of the right lower extremity in July [address] Heller. (10) Atrial fibrillation Current Visit: No Status: Chronic Qualifiers: Atrial fibrillation type: chronic Qualified Code(s): I48.2 - Chronic atrial fibrillation - Subjective Interval history: Patient seen and examined. No acute events noted overnight. Patient states overall she feels well. Denies fevers, chills, or rigors. Denies chest pain, shortness of breath, or cough. Denies nausea, vomiting, or diarrhea. Denies abdominal pain, urinary complaints or appetite changes. Denies oral thrush or new skin lesions. Denies pain at the surgical site at this time. She wants to go home. Infect Dis PN-Objective Data - Labs CBC & Chem 7: 10/10/17 10:32 10/10/17 10:32 Labs: Laboratory Results - last 24 hr 10/09/17 10/10/17 10/10/17 14:33 10:32 10:32 WBC 22.1 H RBC 4.33 Hgb 12.8 Hct 41.2 MCV 95.2 MCH 29.6 MCHC 31.1 L RDW 17.2 H Plt Count 397 MPV 11.4 Immature Gran % 2.5 Seg Neutrophils % 79.1 Lymphocytes % 6.3 Monocytes % 10.9 Eosinophils % 0.7 Basophils % 0.5 Neutrophils # 17.5 H Lymphocytes # 1.4 Monocytes # 2.4 H Eosinophils # 0.2 Basophils # 0.1 Sodium 136 Potassium 3.8 Chloride 106 Carbon Dioxide 25 BUN 19 Creatinine 0.95 Est GFR ( Amer) > 60 Est GFR (Non-Af Amer) 56 L BUN/Creatinine Ratio 20 Glucose 115 H Calculated Osmolality 285 Calcium 8.9 Vancomycin Trough 14 H Exam - Constitutional Vitals: Temp Pulse Resp BP Pulse Ox 98.4 F 77 14 187/80 95 10/10/17 07:23 10/10/17 07:23 10/10/17 07:23 10/10/17 07:23 10/10/17 07:23 General appearance: average body habitus, cooperative, no acute distress - Head Head exam: Present: atraumatic, normal inspection, normocephalic - Eye Eye exam: Present: EOMI, normal appearance, PERRL Pupils: Present: normal accommodation - ENT ENT exam: Present: mucous membranes moist - Neck Neck exam: Present: normal inspection - Respiratory Respiratory exam: Present: CTAB. Absent: rales, respiratory distress, rhonchi, wheezes - Cardiovascular Cardiovascular exam: Present: RRR, +S1, +S2 - GI/Abdominal GI/Abdominal exam: Present: normal bowel sounds, soft. Absent: distended, tenderness - Extremities Exam Extremities exam: Absent: joint swelling, pedal edema, tenderness Additional comments: Right great toe medial aspect surgical site with scabbing noted. No surrounding warmth, erythema, fluctuance, or tenderness. Surgical site noted to the medial aspect of the right foot overlying MTPJ #1 with wound VAC dressing intact. Sponge well-compressed. No leak. 125mm Hg continuous suction. No surrounding warmth, erythema, fluctuance, or tenderness. - Neurological Exam Neurological exam: Present: alert, oriented X3, no focal deficits - Psychiatric Psychiatric exam: Present: normal affect, normal mood - Skin Skin exam: Present: dry, intact, normal color, warm - VTE Reasons for not Prescribing Prophylaxis: Not indicated-Anticoagulated or INR therapeutic Consult Discharge Plan - Plan Referrals: Manuela Franco CNP [Primary Care Provider] - Prescriptions: Amoxicillin 500 mg PO BID 8 Days #16 tablet - Attending Attestation I examined this patient and my medical decision-making was reviewed with Marta Ferguson CNP. I agree with the documented findings, disposition and treatment plan as described except to the extent set forth below.
[2017-10-10] MEDS: amLODIPine 5 MG TABLET PO SCH (18:05)
[2017-10-10] MEDS: *HR* LORazepam 0.5 MG TABLET PO PRN (20:59)
[2017-10-11] MEDS: Piperacillin/Tazobactam 3.375 GM in 0.9 % Sodium Chloride Mini Bag 100 ML IVPB SCH ×2 (00:41→09:12)
[2017-10-11] MEDS: hydrALAZINE 25 MG TABLET PO SCH ×3 (00:41→16:30)
[2017-10-11] MEDS: amLODIPine 5 MG TABLET PO SCH (09:13)
[2017-10-11] MEDS: Apixaban 5 MG TABLET PO SCH ×2 (09:13→20:57)
[2017-10-11] MEDS: Aspirin Enteric Coated 81 MG Tablet PO SCH (09:13)
--- NOTE | 2017-10-11 10:29 | Infectious Disease Progress No ---
Date of Encounter: 10/11/17 Time of Encounter: 09:25 - Assessment and Plan (1) Leukocytosis Current Visit: Yes Status: Acute The patient's white count was elevated at 17.6 thousand with neutrophilic predominance upon admission. Continues to be elevated, but reviewing the patient's labs reveals persistent leukocytosis dating back several years. 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 Continue to trend. Qualifiers: Leukocytosis type: unspecified Qualified Code(s): D72.829 - Elevated white blood cell count, unspecified (2) Ulcer of right foot Current Visit: Yes Status: Acute Location: Medial aspect of the first metatarsal. Etiology: Unclear. Duration: about six months per the patient. Follows with [facility]. Wound culture obtained as an outpatient supposedly grew MRSA and Enterococcus. She also had a positive MRSA culture in July. No imaging has been done. Podiatry consulted and following. Status post I & D 10/06/17. Operative note reviewed. No purulence noted. No cultures taken. ESR 11, CRP 15. Wound care and activity restrictions per the podiatry team. Continue Vancomycin IV. Pharmacy to dose. Goal trough ~15. Duration of treatment depends on the clinical picture, but likely 14 days post- op. Can likely switch to PO doxycycline 100mg PO BID and amoxicillin 500mg PO BID to complete the course of treatment. Treat through 10/20/17. Monitor renal function and for drug toxicity and dose-adjust antibiotics. Qualifiers: Non-pressure ulcer stage: with fat layer exposed Qualified Code(s): L97.512 - Non-pressure chronic ulcer of other part of right foot with fat layer exposed (3) Skin ulcer of right great toe Current Visit: Yes Status: Acute Location: Medial aspect right great toe. Etiology: Unclear. Duration: about six months per the patient. Follows with [facility]. Wound culture obtained as an outpatient supposedly grew MRSA and Enterococcus. She also had a positive MRSA culture in July. No imaging has been done. Podiatry consulted and following. Status post I & D 10/06/17. Operative note reviewed. No purulence noted. No cultures taken. ESR 11, CRP 15. Wound care and activity restrictions per the podiatry team. Continue Vancomycin IV. Pharmacy to dose. Goal trough ~15. Discontinue Zosyn. Duration of treatment depends on the clinical picture, but likely 14 days post- op. Can likely switch to PO doxycycline 100mg PO BID and amoxicillin 500mg PO BID to complete the course of treatment. Treat through 10/20/17. Monitor renal function and for drug toxicity and dose-adjust antibiotics. Qualifiers: Non-pressure ulcer stage: with fat layer exposed Qualified Code(s): L97.512 - Non-pressure chronic ulcer of other part of right foot with fat layer exposed (4) Ulcer of right heel Current Visit: Yes Status: Acute Location: Posterior aspect of the right heel. Etiology unclear. Duration: About 6 months. Clinically does not appear infected. Podiatry consulted. Continue wound care per the podiatry team. Qualifiers: Non-pressure ulcer stage: limited to breakdown of skin Qualified Code(s): L97.411 - Non-pressure chronic ulcer of right heel and midfoot limited to breakdown of skin (5) Ulcer of right calf Current Visit: Yes Status: Acute Location: Posterior right calf. Clinically does not appear infected. Wound care per the Podiatry team. 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 Resolved. (7) HTN (hypertension) Current Visit: No Status: Chronic Qualifiers: Hypertension type: essential hypertension Qualified Code(s): I10 - Essential (primary) hypertension (8) Polycythemia Current Visit: No Status: Chronic (9) PVD (peripheral vascular disease) Current Visit: No Status: Chronic Status post abdominal aortography, femoropopliteal revascularization with T LA, and angiogram of the right lower extremity June [address] Heller. 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 Status post repeat abdominal aortography, femoropopliteal revascularization with stent, and angiogram of the right lower extremity in July [address] Heller. (10) Atrial fibrillation Current Visit: No Status: Chronic Qualifiers: Atrial fibrillation type: chronic Qualified Code(s): I48.2 - Chronic atrial fibrillation - Subjective Interval history: Patient seen and examined. No acute events noted overnight. Patient states overall she feels well and wants to go home. Denies fevers, chills, or rigors. Denies chest pain, shortness of breath, or cough. Reports some intermittent nausea, none currently. Denies vomiting or diarrhea. Denies abdominal pain, urinary complaints or appetite changes. Denies oral thrush or new skin lesions. Denies pain at the surgical site at this time. Infect Dis PN-Objective Data - Labs CBC & Chem 7: 10/10/17 10:32 10/10/17 10:32 Labs: Laboratory Results - last 24 hr 10/10/17 10/10/17 10:32 10:32 WBC 22.1 H RBC 4.33 Hgb 12.8 Hct 41.2 MCV 95.2 MCH 29.6 MCHC 31.1 L RDW 17.2 H Plt Count 397 MPV 11.4 Immature Gran % 2.5 Seg Neutrophils % 79.1 Lymphocytes % 6.3 Monocytes % 10.9 Eosinophils % 0.7 Basophils % 0.5 Neutrophils # 17.5 H Lymphocytes # 1.4 Monocytes # 2.4 H Eosinophils # 0.2 Basophils # 0.1 Sodium 136 Potassium 3.8 Chloride 106 Carbon Dioxide 25 BUN 19 Creatinine 0.95 Est GFR ( Amer) > 60 Est GFR (Non-Af Amer) 56 L BUN/Creatinine Ratio 20 Glucose 115 H Calculated Osmolality 285 Calcium 8.9 Exam - Constitutional Vitals: Temp Pulse Resp BP Pulse Ox 98.9 F 96 14 183/64 95 10/11/17 07:32 10/11/17 07:32 10/11/17 07:32 10/11/17 07:32 10/11/17 07:32 General appearance: average body habitus, cooperative, no acute distress - Head Head exam: Present: atraumatic, normal inspection, normocephalic - Eye Eye exam: Present: EOMI, normal appearance, PERRL Pupils: Present: normal accommodation - ENT ENT exam: Present: mucous membranes moist - Neck Neck exam: Present: normal inspection - Respiratory Respiratory exam: Present: CTAB. Absent: rales, respiratory distress, rhonchi, wheezes - Cardiovascular Cardiovascular exam: Present: RRR, +S1, +S2 - GI/Abdominal GI/Abdominal exam: Present: normal bowel sounds, soft. Absent: distended, tenderness - Extremities Exam Extremities exam: Absent: joint swelling, pedal edema, tenderness Additional comments: Right foot dressing C/D/I. - Neurological Exam Neurological exam: Present: alert, oriented X3, no focal deficits - Psychiatric Psychiatric exam: Present: normal affect, normal mood - Skin Skin exam: Present: dry, intact, normal color, warm - VTE Reasons for not Prescribing Prophylaxis: Not indicated-Anticoagulated or INR therapeutic Consult Discharge Plan - Plan Referrals: Manuela Franco CNP [Primary Care Provider] - Prescriptions: Amoxicillin 500 mg PO BID 8 Days #16 tablet
[2017-10-11] MEDS: *HR* OxyCODONE/APAP 5/325 TABLET PO PRN ×3 (11:43→20:56)
[2017-10-11] MEDS: MORPHINE SUL Oral CONC 10 MG/0.5 ML ORAL.SYG SL PRN ×2 (14:01→22:27)
--- NOTE | 2017-10-11 15:19 | Internal Med Progress Note ---
Hospitalist Progress Note - Encounter Date of Encounter: 10/11/17 Time of Encounter: 11:00 - Subjective Interval History: patient is doing well has o complainst no over night events pain is controlled denies fever, chills, Chest pain, SOB, palpitations, N/v/D - Exam Vitals: Temp Pulse Resp BP Pulse Ox 98.2 F 87 14 148/61 96 10/11/17 15:01 10/11/17 15:01 10/11/17 15:01 10/11/17 15:01 10/11/17 15:01 Exam: General: Patient is alert, oriented, no acute distress, Head: atraumatic, normocephalic, Eye: normal appearance, PERRL, no scleral icterus, no conjunctival injection ENT: mucous membranes moist, normal external ear exam Neck: normal inspection, trachea midline, full ROM, no carotid bruits Chest: normal inspection, symmetric chest rise Respiratory: Good respiratory effort. Bilateral breath sounds are clear without wheezing, crackles, or rhonchi. Cardiovascular: Regular rate and rhythm. s1 and s2 No clicks, rubs, gallops, or murmors. Abdomen: Bowel sounds present normoactive x-4 quadrants. Abdomen is soft, nondistended. no Epigastric tenderness. No guarding or rebound. No organomegaly noted, musculoskeletal: Spontaneously moving all extremities. no edema, no calf tenderness Skin: warm, dry, intact.right leg is wrapped in clean dressing with wound vac Neuro: Alert and oriented x4. Sensation light touch intact. Cranial nerves 2- 12 is intact. Not aphasic, gait is steady, rapid hand movements intact, finger- to-nose intact, Psych: Patient's affect is normal - Assessment and Plan (1) Ulcer of right foot Current Visit: Yes Status: Acute Assessment and Plan: Patient has nonhealing ulcer on her right foot on medial aspect of first metatarsal and great toe. Possible related to her PVD. - She was growing MRSA and Enterococcus faecalis on outpatient cultures when she was send to hospital. - continue IV vancomycin. ID rec appreciated. Blood culture NGTD. - Status post excisional debridement of wound 10/06/17. No pus noted. No cultures from wound. - Pain controlled. toradol discontinued due to elevated BP eventhough her pain was better controlled with it. c/w prn percocet and prn morphine - To ambulate with no weight bearing per Podiatry. - Patient has HHC- will need wound vac and daily dressing changes orders on discharge. Follows with [facility]. - To follow up in wound care with 1 week following discharge. - Appreciate ID recommendation. antibiotics for 14 days post-op. Will switch to PO doxycycline 100mg PO BID and amoxicillin 500mg PO BID to complete the course of treatment on discharge. plan is to discharge once wound vac and HH is reinstated (2) Polycythemia vera Current Visit: No Status: Chronic Assessment and Plan: Will continue patient's low-dose aspirin (3) HTN (hypertension) Current Visit: No Status: Chronic Assessment and Plan: Patient is on lisinopril for hypertension however had hyperkalemia. lisinopril, amlodipine c/w hydralazine 25 q8hr and prn 10 mg IV. Elevated likely due to poor pain control. Pain medication and rest (4) Atrial fibrillation Current Visit: No Status: Chronic Assessment and Plan: Patient currently rate controlled with metoprolol Anticoagulated with apixaban 2.5 mg twice a day. (5) Hyponatremia Current Visit: Yes Status: Resolved (6) Leukocytosis Current Visit: Yes Status: Acute Assessment and Plan: Elevated at baseline. Likely related to Polycythemia vera. ID on board will continue ABx (7) DVT prophylaxis Current Visit: Yes Status: Acute Assessment and Plan: on eliquis - Time Spent with Patient Total time spent is greater than 50% in coordination of care (as documented) at patient's floor/unit and/or counseling patient: Internal Medicine: Result - Labs CBC & Chem 7: 10/10/17 10:32 10/10/17 10:32 - VTE Reasons for not Prescribing Prophylaxis: Not indicated-Anticoagulated or INR therapeutic Consult Discharge Plan - Plan Referrals: Manuela Franco, [employer] MANAGER [Primary Care Provider] - Prescriptions: Amoxicillin 500 mg PO BID 8 Days #16 tablet (1) Ulcer of right foot Qualifiers: Non-pressure ulcer stage: with fat layer exposed Qualified Code(s): L97.512 - Non-pressure chronic ulcer of other part of right foot with fat layer exposed (3) HTN (hypertension) Qualifiers: Hypertension type: essential hypertension Qualified Code(s): I10 - Essential (primary) hypertension (4) Atrial fibrillation Qualifiers: Atrial fibrillation type: chronic Qualified Code(s): I48.2 - Chronic atrial fibrillation (6) Leukocytosis Qualifiers: Leukocytosis type: unspecified Qualified Code(s): D72.829 - Elevated white blood cell count, unspecified
[2017-10-11] MEDS: *HR* LORazepam 0.5 MG TABLET PO PRN (21:02)
[2017-10-12] MEDS: hydrALAZINE 25 MG TABLET PO SCH ×3 (00:12→16:09)
[2017-10-12 05:57] LABS: Hematocrit 39.7 % (35.3-44.9); Hemoglobin 12.3 g/dL (11.5-15.4); Mean Corpuscular Hemoglobin 28.5 pg (28.0-33.3); Mean Corpuscular Volume 92.1 fL (83.0-100.0); Mean Platelet Volume 11.2 fL (9.4-12.4); Platelet Count 398 K/mcL (140-400); Red Blood Count 4.31 M/mcL (3.82-4.97); Red Cell Distribution Width 17.7 % (11.5-14.5)
[2017-10-12 06:21] LABS: BUN/Creatinine Ratio 22 (6-26); Blood Urea Nitrogen 18 mg/dL (8-23); Calcium 8.9 mg/dL (8.6-10.3); Carbon Dioxide 23 mEq/L (23-29); Chloride 108 mEq/L (98-107); Glucose 83 mg/dL (70-105); Osmolality,Calculated 287 (280-300); Potassium 3.7 mEq/L (3.5-5.1); Sodium 138 mEq/L (136-145); eGFR For Non-African Americans > 60 (> 60)
[2017-10-12] MEDS: Apixaban 5 MG TABLET PO SCH (08:39)
[2017-10-12] MEDS: Aspirin Enteric Coated 81 MG Tablet PO SCH (08:39)
[2017-10-12] MEDS: amLODIPine 5 MG TABLET PO SCH (08:41)
[2017-10-12] MEDS: *HR* OxyCODONE/APAP 5/325 TABLET PO PRN ×2 (08:48→16:07)
[2017-10-12 10:39] VITALS: BP 150/60
--- NOTE | 2017-10-12 10:44 | Discharge Summary ---
- NOTES TO OUTPATIENT PROVIDER Notes to Outpatient Provider: follow up with podiatry Orders not resulted at time of discharge: Pending orders 10/12/17 15:00 Vancomycin,Trough Timed Date of Encounter: 10/12/17 Time of Encounter: 10:38 - Discharge Diagnosis (1) Ulcer of right foot Priority: Primary Status: Acute Qualifiers: Non-pressure ulcer stage: with fat layer exposed Qualified Code(s): L97.512 - Non-pressure chronic ulcer of other part of right foot with fat layer exposed (2) Polycythemia vera Priority: Secondary Status: Chronic (3) HTN (hypertension) Priority: Secondary Status: Chronic Qualifiers: Hypertension type: essential hypertension Qualified Code(s): I10 - Essential (primary) hypertension (4) Atrial fibrillation Priority: Secondary Status: Chronic Qualifiers: Atrial fibrillation type: chronic Qualified Code(s): I48.2 - Chronic atrial fibrillation (5) Leukocytosis Priority: Secondary Status: Acute Qualifiers: Leukocytosis type: unspecified Qualified Code(s): D72.829 - Elevated white blood cell count, unspecified (6) DVT prophylaxis Priority: Secondary Status: Acute Hospital course: Ms. Honeycutt is a 86 year old female 86 year old female with a past medical history of hypertension, PVD status post right lower extremity angioplasty with stent placement in July 2017, polycythemia vera, CVA, A. fib, GERD, skin cancer , and bilateral foot reconstruction approximately 45 years ago. The patient was admitted to the hospital October 05 for right foot infection. she was started on IV ABx. podiatry and ID were consulted and recommendations were followed. she was treated with IV Abx. She was growing MRSA and Enterococcus faecalis on outpatient cultures when she was send to hospital. Status post excisional debridement of wound 10/06/17 by podiatry and wound vac placement . No pus noted. No cultures from wound. To ambulate with no weight bearing per Podiatry. CM and Sw were consulted as she needed reinstatement of [employer] along with wound vac and daily dressing changes. she understands that she will need to follow up with 1 week following discharge. she was switch to PO doxycycline 100mg PO BID and amoxicillin 500mg PO BID to complete the course of treatment on discharge. to continue until 10/20/17 as per ID recommendations. Discharge discussed with: patient, social work, case management - Time Spent with Patient Total time spent providing and/or coordinating discharge services: Less than 30 minutes - Discharge Medications Prescriptions: Amoxicillin 500 mg PO BID 8 Days #16 tablet Doxycycline 100 mg PO BID 8 Days #16 capsule Home Medications: Clopidogrel [Plavix] 75 mg PO DAILY #30 tab 07/12/17 [Rx] Hydroxyurea [Hydrea] 500 mg PO MOTUWETHFR 07/12/17 [History] Apixaban [Eliquis] 2.5 mg PO BID 08/01/17 [History] Metoprolol [Lopressor] 50 mg PO BID 08/01/17 [History] LORazepam [Ativan] 0.5 mg PO TID PRN 4 Days #12 tablet 08/06/17 [Rx] Lisinopril [Zestril] 10 mg PO DAILY 10/05/17 [History] OxyCODONE/APAP 5/325 [Percocet 5/325 MG] 1 each PO TID 10/06/17 [History] Oxycodone HCl 10 mg PO Q6H 10/06/17 [History] Amoxicillin 500 mg PO BID 8 Days #16 tablet 10/10/17 [Rx] Doxycycline 100 mg PO BID 8 Days #16 capsule 10/12/17 [Rx] Allergies/Adverse Reactions: 3 Allergy/AdvReac Type Severity Reaction Status Date / Time Sulfa (Sulfonamide AdvReac Severe Rash Verified 10/05/17 18:49 Antibiotics) clindamycin AdvReac Shakiness Verified 07/12/17 06:53 Date of admission: 10/05/17 17:56 Primary care physician: Manuela Franco CNP Consults: 10/05/17 18:43 Consult to Infectious Diseases [CONS] Routine Consulting Provider: Infectious [facility] [place] Reason for Consult: Non-healing foot ulcer Call Completed: No 10/05/17 18:47 Consult to Nutrition [CONS] Stat Comment: Consulting Provider: NUTRITION Reason for Dietary Consult: MST Score Consult to Classifier Tender [CONS] Stat Reason for SW Consult: home health 10/05/17 19:08 Consult to Wound Care [CONS] Routine Reason for Consult: non healing rt foot ulcer Call Completed: No 10/06/17 17:45 Consult to Physical Therapy [CONS] Routine Comment: Evaluate, develop and implement POC Reason for Consult: s/p right foot debridement of ulcer Does patient have active BEDREST order?: No Is patient medically & hemodynamically stable?: Yes - Constitutional Vitals: Temp Pulse Resp BP Pulse Ox 98.5 F 87 16 175/79 96 10/12/17 06:35 10/12/17 06:35 10/12/17 06:35 10/12/17 06:35 10/12/17 06:35 General appearance: Present: cooperative, A&O X 3, pleasant, no acute distress Exam: General: Patient is alert, oriented, no acute distress, Head: atraumatic, normocephalic, Eye: normal appearance, PERRL, no scleral icterus, no conjunctival injection ENT: mucous membranes moist, normal external ear exam Neck: normal inspection, trachea midline, full ROM, no carotid bruits Chest: normal inspection, symmetric chest rise Respiratory: Good respiratory effort. Bilateral breath sounds are clear without wheezing, crackles, or rhonchi. Cardiovascular: Regular rate and rhythm. s1 and s2 No clicks, rubs, gallops, or murmors. Abdomen: Bowel sounds present normoactive x-4 quadrants. Abdomen is soft, nondistended. no Epigastric tenderness. No guarding or rebound. No organomegaly noted, musculoskeletal: Spontaneously moving all extremities. no edema, no calf tenderness Skin: warm, dry, intact.right leg is wrapped in clean dressing with wound vac Neuro: Alert and oriented x4. Sensation light touch intact. Cranial nerves 2- 12 is intact. Not aphasic, gait is steady, rapid hand movements intact, finger- to-nose intact, Psych: Patient's affect is normal - Patient Status Disposition: Home Health Service Condition: Fair Overall status at discharge: patient is progressing back to baseline - Discharge Instructions Follow Up With: Richie Brito DPM [Partnered Physician] - ([facility] called, left a voice mail. Will call with appointment if we do not get it before the patient is discharged. Thank you) Forms: ED Satisfaction Letter - Diet and Activity Activity: as per physical therapy Diet: advance to your usual diet - VTE Reasons for not Prescribing Prophylaxis: Not indicated-Anticoagulated or INR therapeutic
--- NOTE | 2017-10-12 14:13 | Infectious Disease Progress No ---
Date of Encounter: 10/12/17 Time of Encounter: 10:50 - Assessment and Plan (1) Leukocytosis Current Visit: Yes Status: Acute The patient's white count was elevated at 17.6 thousand with neutrophilic predominance upon admission. Continues to be elevated, but reviewing the patient's labs reveals persistent leukocytosis dating back several years. 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 Continue to trend. Qualifiers: Leukocytosis type: unspecified Qualified Code(s): D72.829 - Elevated white blood cell count, unspecified (2) Ulcer of right foot Current Visit: Yes Status: Acute Location: Medial aspect of the first metatarsal. Etiology: Unclear. Duration: about six months per the patient. Follows with [facility]. Wound culture obtained as an outpatient supposedly grew MRSA and Enterococcus. She also had a positive MRSA culture in July. No imaging has been done. Podiatry consulted and following. Status post I & D 10/06/17. Operative note reviewed. No purulence noted. No cultures taken. ESR 11, CRP 15. Wound care and activity restrictions per the podiatry team. Continue Vancomycin IV. Pharmacy to dose. Goal trough ~15. Duration of treatment depends on the clinical picture, but likely 14 days post- op. Can likely switch to PO doxycycline 100mg PO BID and amoxicillin 500mg PO BID to complete the course of treatment. Treat through 10/20/17. Monitor renal function and for drug toxicity and dose-adjust antibiotics. Qualifiers: Non-pressure ulcer stage: with fat layer exposed Qualified Code(s): L97.512 - Non-pressure chronic ulcer of other part of right foot with fat layer exposed (3) Skin ulcer of right great toe Current Visit: Yes Status: Acute Location: Medial aspect right great toe. Etiology: Unclear. Duration: about six months per the patient. Follows with [facility]. Wound culture obtained as an outpatient supposedly grew MRSA and Enterococcus. She also had a positive MRSA culture in July. No imaging has been done. Podiatry consulted and following. Status post I & D 10/06/17. Operative note reviewed. No purulence noted. No cultures taken. ESR 11, CRP 15. Wound care and activity restrictions per the podiatry team. Continue Vancomycin IV. Pharmacy to dose. Goal trough ~15. Discontinue Zosyn. Duration of treatment depends on the clinical picture, but likely 14 days post- op. Can likely switch to PO doxycycline 100mg PO BID and amoxicillin 500mg PO BID to complete the course of treatment. Treat through 10/20/17. Monitor renal function and for drug toxicity and dose-adjust antibiotics. Qualifiers: Non-pressure ulcer stage: with fat layer exposed Qualified Code(s): L97.512 - Non-pressure chronic ulcer of other part of right foot with fat layer exposed (4) Ulcer of right heel Current Visit: Yes Status: Acute Location: Posterior aspect of the right heel. Etiology unclear. Duration: About 6 months. Clinically does not appear infected. Podiatry consulted. Continue wound care per the podiatry team. Qualifiers: Non-pressure ulcer stage: limited to breakdown of skin Qualified Code(s): L97.411 - Non-pressure chronic ulcer of right heel and midfoot limited to breakdown of skin (5) Ulcer of right calf Current Visit: Yes Status: Acute Location: Posterior right calf. Clinically does not appear infected. Wound care per the Podiatry team. 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 Improved. Further workup and management per the primary team. (7) HTN (hypertension) Current Visit: No Status: Chronic Qualifiers: Hypertension type: essential hypertension Qualified Code(s): I10 - Essential (primary) hypertension (8) Polycythemia Current Visit: No Status: Chronic (9) PVD (peripheral vascular disease) Current Visit: No Status: Chronic Status post abdominal aortography, femoropopliteal revascularization with T LA, and angiogram of the right lower extremity June [address] Heller. 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 Status post repeat abdominal aortography, femoropopliteal revascularization with stent, and angiogram of the right lower extremity in July [address] Heller. (10) Atrial fibrillation Current Visit: No Status: Chronic Qualifiers: Atrial fibrillation type: chronic Qualified Code(s): I48.2 - Chronic atrial fibrillation - Subjective Interval history: Patient seen and examined. No acute events noted overnight. Patient states overall she feels well and wants to go home. Denies fevers, chills, or rigors. Denies chest pain, shortness of breath, or cough. Reports some intermittent nausea, none currently. Denies vomiting or diarrhea. Denies abdominal pain, urinary complaints or appetite changes. Denies oral thrush or new skin lesions. Reports pain at the surgical site at this time. Infect Dis PN-Objective Data - Labs CBC & Chem 7: 10/12/17 04:59 10/12/17 04:59 Labs: Laboratory Results - last 24 hr 10/12/17 10/12/17 04:59 04:59 WBC 20.3 H RBC 4.31 Hgb 12.3 Hct 39.7 MCV 92.1 MCH 28.5 MCHC 31.0 L RDW 17.7 H Plt Count 398 MPV 11.2 Sodium 138 Potassium 3.7 Chloride 108 H Carbon Dioxide 23 BUN 18 Creatinine 0.83 Est GFR ( Amer) > 60 Est GFR (Non-Af Amer) > 60 BUN/Creatinine Ratio 22 Glucose 83 Calculated Osmolality 287 Calcium 8.9 Exam - Constitutional Vitals: Temp Pulse Resp BP Pulse Ox 98.4 F 82 16 150/60 96 10/12/17 10:38 10/12/17 10:38 10/12/17 10:38 10/12/17 10:38 10/12/17 10:38 General appearance: average body habitus, cooperative, no acute distress - Head Head exam: Present: atraumatic, normal inspection, normocephalic - Eye Eye exam: Present: EOMI, normal appearance, PERRL Pupils: Present: normal accommodation - ENT ENT exam: Present: mucous membranes moist - Neck Neck exam: Present: normal inspection - Respiratory Respiratory exam: Present: CTAB. Absent: rales, respiratory distress, rhonchi, wheezes - Cardiovascular Cardiovascular exam: Present: RRR, +S1, +S2 - GI/Abdominal GI/Abdominal exam: Present: normal bowel sounds, soft. Absent: distended, tenderness - Extremities Exam Extremities exam: Present: normal inspection. Absent: joint swelling, pedal edema, tenderness Additional comments: Right foot wound VAC dressing without leak at 125mm Hg continuous suction. Scant serosanguinous drainage noted in the canister. Overlying guaze dressing C/ D/I. - Neurological Exam Neurological exam: Present: alert, oriented X3, no focal deficits - Psychiatric Psychiatric exam: Present: normal affect, normal mood - Skin Skin exam: Present: dry, intact, normal color, warm - VTE Reasons for not Prescribing Prophylaxis: Not indicated-Anticoagulated or INR therapeutic Consult Discharge Plan - Plan Referrals: Richie Brito DPM [Partnered Physician] - ([facility] called, left a voice mail. Will call with appointment if we do not get it before the patient is discharged. Thank you) Prescriptions: Amoxicillin 500 mg PO BID 8 Days #16 tablet Doxycycline 100 mg PO BID 8 Days #16 capsule
[2017-10-12] MEDS: MORPHINE SUL Oral CONC 10 MG/0.5 ML ORAL.SYG SL PRN (14:32)
[2017-10-12] MEDS ORDERED: Aminoglycoside Consult 1 EACH MC ONE (16:25)
== END 2017-10-12 16:26 | disposition home health service (06) | DRG 264 ==
LOC: EMEROOARM 14:58 → 3ANU 14:58 → SUATTDRO 17:56 → 3ANU 18:07
PROVIDERS: ADMIT Internal Medicine; ATTEND Internal Medicine

== ENCOUNTER 2018-06-16 06:14 | Inpatient (IN) ==
[2018-06-16] MEDS ORDERED: CeFAZolin Syr 2,000MG/20 ML 2,000 MG/20 ML SYRINGE IVPB ONE (06:36)
[2018-06-16] MEDS ORDERED: Ringers Solution, Lactated 1,000 ML IVC SCH (06:45)
[2018-06-16] MEDS ORDERED: *HR* FentaNYL (PF) 100 MCG/2 ML VIAL ONE ×2 (07:08→09:15)
[2018-06-16] MEDS ORDERED: *HR* Propofol 200 MG/20 ML VIAL IVP ONE (07:08)
[2018-06-16] MEDS ORDERED: Lidocaine -MPF 2% 2 ML VIAL ONE ×2 (07:10→07:49)
[2018-06-16] MEDS ORDERED: Dexamethasone 4 MG/ML VIAL ONE (07:10)
[2018-06-16] MEDS ORDERED: *HR* Succinylcholine 200 MG/10 ML VIAL IVP ONE (07:10)
[2018-06-16] MEDS ORDERED: Ondansetron 4 MG/2 ML VIAL ONE (07:10)
[2018-06-16] MEDS ORDERED: *HR* Rocuronium Bromide 50 MG/5 ML VIAL ONE (07:10)
[2018-06-16] MEDS ORDERED: Lidocaine -MPF 4% 5 ML AMPUL ONE (07:12)
[2018-06-16] MEDS ORDERED: Heparin 1,000 UNITS/500 mL 1,500 ML ONE (07:21)
--- NOTE | 2018-06-16 07:26 | History & Physical Report ---
Date of Encounter: 06/16/18 Time of Encounter: 07:25 24 Hour HP Update - Instructions Instructions: If the History and Physical is less than 30 days old and was completed prior to A.M. admission and or procedure and has NOT been updated on calendar day of procedure please complete this update prior to performing procedure. - Update Patient reports changes in Medical Condition: No Changes in examination, assessment, or condition: No Changes in Medication: No Preop tests/diagnostics Reviewed: Yes Surgery Remains Indicated: Yes Consent for Planned Operative Procedure(s) Verified: Yes - Pre-Operative Checklist Preoperative Checklist Indicated: No Prophylactic Antibiotic Ordered: Yes (vancomycin due to MRSA risk) Home Medications Include Beta Tsering: Yes Beta Tsering Taken Today (Day of Surgery): Yes Beta Tsering Taken Yesterday (Day Prior to Surgery): Yes Is VTE Prophylaxis Indicated?: Yes
--- NOTE | 2018-06-16 07:38 | Anesthesia Evaluation PreOp ---
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 History: CVA (no residual deficits) Other Medical History: GERD, Other (blood disorder - polycythemia vera on hydroxyurea, multiple chronically abnormal labs (leukocytosis, currently with anemia), and hyperkalemia - will re-draw since this is a new abnormality) Anesthesia History: No Prior Anesthetic Complications, Past Anesthesia (C-S, hysterectomy, total knee replacement, foot surgery, brigette knee replacements, foot surgery, vein stripping, right leg stent 07/2017) Alcohol Use: none Drug use: none Medications and Allergies Hydroxyurea [Hydrea] 500 mg PO DAILY 07/12/17 [History] Apixaban [Eliquis] 5 mg PO BID 08/01/17 [History] Metoprolol [Lopressor] 50 mg PO BID 08/01/17 [History] Aspirin [Lo-Dose Aspirin EC] 81 mg PO DAILY 05/24/18 [History] LORazepam [Ativan] 0.5 mg PO TID 06/16/18 [History] Lisinopril [Zestril] 10 mg PO DAILY 06/16/18 [History] Oxycodone HCl/Acetaminophen [Percocet 5-325 mg Tablet] 1 tab PO HS 06/16/18 [History] Allergy/AdvReac Type Severity Reaction Status Date / Time Sulfa (Sulfonamide AdvReac Severe Rash Verified 06/16/18 07:24 Antibiotics) clindamycin AdvReac Shakiness Verified 06/16/18 07:24 - Meds/Allergy Pre-op Review Medications Reviewed: Yes Allergies Reviewed: Yes Beta Blockers on Current Med List: Yes (metoprolol) If Beta Blockers taken, Date/Time (Last Dose taken): 06-16-18 metoprolol 5:30 Anesthesia Results - Labs Last Vital Signs Temp 98.6 F 06/16/18 06:46 Pulse 60 06/16/18 06:46 Resp 18 06/16/18 06:46 BP 175/71 06/16/18 06:46 Pulse Ox 99 06/16/18 06:46 - Imaging EKG: report reviewed, image reviewed (SINUS RHYTHM WITH FREQUENT VENTRICULAR PREMATURE COMPLEXES WITH OCCASIONAL SUPRAVENTRICULAR PREMATURE COMPLEXES MINIMAL VOLTAGE CRITERIA FOR LVH, CONSIDER NORMAL VARIANT ABNORMAL RHYTHM ECG) Anesthesia Exam Last Vital Signs Temp 98.6 F 06/16/18 06:46 Pulse 60 06/16/18 06:46 Resp 18 06/16/18 06:46 BP 175/71 06/16/18 06:46 Pulse Ox 99 06/16/18 06:46 Weight: 69 kg NPO (# of Hours): > 8 hrs - HEENT Pupil (Motor): Pupils equal, EOMI Mallampati: II Teeth: Missing Denture Type: Upper: Complete, Lower: Complete Oral Opening: Greater than 3 - [employer] HOME SERV[employer] LOC: Oriented - Cardiac Rhythm: Regular Murmur: None - Pulmonary Breath Sounds: bilateral Clear Respiratory Effort: Symmetrical Anesthesia Assess/Plan ASA Score: 4 Level of consciousness: Cooperative Anesthetic Plan: General Monitoring Plan: Standard Monitors, A-Line Recovery Plan: PACU
[2018-06-16] MEDS ORDERED: Heparin 1,000 UNITS/500 mL 500 ML ONE (07:39)
[2018-06-16] MEDS ORDERED: Vancomycin 1,000 MG, Sodium Chloride IRRigation 1,000 ML IR ONE (07:45)
[2018-06-16 08:13] LABS: Hematocrit 36.3 % (35.3-44.9); Hemoglobin 10.3 g/dL (11.5-15.4); Mean Corpuscular HGB Conc 28.4 g/dL (31.6-35.5); Mean Corpuscular Hemoglobin 25.6 pg (28.0-33.3); Mean Corpuscular Volume 90.1 fL (83.0-100.0); Platelet Count 188 K/mcL (140-400); Red Blood Count 4.03 M/mcL (3.82-4.97); Red Cell Distribution Width 21.5 % (11.5-14.5)
[2018-06-16 08:21] LABS: INR 1.2; Prothrombin Time 13.3 Seconds (9.4-12.1)
[2018-06-16 08:23] LABS: Activated Partial Thrombo Time 39.8 Seconds (26.0-36.0)
[2018-06-16 08:31] LABS: BUN/Creatinine Ratio 28 (6-26); Blood Urea Nitrogen 29 mg/dL (8-23); Calcium 9.6 mg/dL (8.6-10.3); Carbon Dioxide 23 mEq/L (23-29); Chloride 107 mEq/L (98-107); Glucose 79 mg/dL (70-105); Osmolality,Calculated 293 (280-300); Sodium 139 mEq/L (136-145); eGFR For Non-African Americans 51 (> 60)
[2018-06-16] MEDS ORDERED: Esmolol 100 MG/10 ML VIAL IVP ONE (08:44)
[2018-06-16] MEDS ORDERED: EPHEDrine 50 MG/ML VIAL ONE (08:44)
[2018-06-16] MEDS ORDERED: *HR* Phenylephrine 10 MG/ML VIAL ONE (08:44)
[2018-06-16] MEDS ORDERED: *HR* Heparin 5,000 UNIT/ML VIAL ONE ×2 (09:44→10:47)
[2018-06-16] MEDS ORDERED: *HR* FentaNYL (PF) 100 MCG/2 ML VIAL IVP PRN (09:49)
[2018-06-16] MEDS ORDERED: Acetaminophen IV 1,000 MG/100 ML INFUS..BTL IVPB ONE (09:49)
[2018-06-16] MEDS ORDERED: *HR* OxyCODONE Immed Rel 5 MG TABLET PO PRN (09:49)
[2018-06-16] MEDS ORDERED: *HR* Promethazine 25 MG/ML VIAL IVP PRN (09:49)
[2018-06-16] MEDS ORDERED: Protamine Sulfate 50 MG/5 ML VIAL IVP ONE (10:48)
[2018-06-16] MEDS ORDERED: Neostigmine Methylsulfate 3 MG/3 ML SYRINGE ONE (11:18)
--- NOTE | 2018-06-16 12:21 | Operative Note ---
Date of procedure: 06/16/18 Pre-op diagnosis: Peripheral vascular disease with rest pain. Post-op diagnosis: same Procedure: 1. Left superficial femoral to above-knee popliteal artery bypass with cadaveric femoral artery. 2. Left superficial femoral artery endarterectomy. 3. Left popliteal artery endarterectomy. Complications: None Anesthesia: JOHNATHON Surgeon: Trevor Heller Was there an metal moulder's assistant present: No Estimated blood loss (cc): 200 Specimen: Lower extremity plaque Condition: stable Disposition: PACU Procedure in Detail: Indications: The patient is an 87 year old female who was found to have peripheral vascular disease with rest pain. Her left popliteal artery was noted to be occluded and she had single vessel runoff via her left anterior tibial artery. Revascularization was recommended to reduce her risk of limb loss. Procedure: The patient was identified in the preoperative area. The risks, benefits, and alternatives of the procedure were discussed. All questions were answered. The patient was taken to the operating room and placed in supine position on the operating room table. After the induction of general endotracheal anesthesia, he was cleaned and draped in normal sterile fashion. A longitudinal incision was made over the left mid thigh. Hemostasis was obtained with electrocautery. Through a process of blunt, sharp, and electrocautery dissection, the left distal superficial femoral artery and proximal popliteal artery were dissected circumferentially and surrounded with vessel loops. An incision was made on the left medial calf sharply. Hemostasis was obtained with electrocautery. Through a process of blunt, sharp, and electrocautery dissection, the left below-knee popliteal artery was dissected proximally and distally and surrounded with vessel loops. A cadaveric arterial graft was tunneled between the 2 incisions. Care was taken to avoid tension or torsion on the The patient received 5000 units of heparin intravenously. Additional heparin was given throughout the case to maintain adequate anticoagulation. An arteriotomy was made in the distal superficial femoral artery. Dense irregular plaque was identified in the superficial femoral artery. Using a dental freer and endarterectomy was performed on the superficial femoral artery. Endpoints were inspected and no elevated flaps were noted. The lumen was flushed with heparinized saline. The cadaveric arterial graft was cut to fit the arteriotomy and sutured in place with a running 6-0 Prolene. The graft was clamped with an atraumatic vascular clamp and flow was restored through the superficial femoral artery. Thrombin Gelfoam used to aid in hemostasis. The below-knee proximal and distal popliteal artery was occluded by applying tension to the Vessel loops. A longitudinal arteriotomy was made into the popliteal artery. Dense plaque was noted to be along the posterior and lateral wall of the arteriotomy. Using a dental freer a standard endarterectomy was performed. Proximal and distal endpoints were inspected and no elevated flaps were noted. The distal end of the bypass graft was cut to fit the arteriotomy and sutured in place with a running 6-0 Prolene. Prior to completing the anastomosis, each vessel and the bypass graft was flushed and then infused heparinized saline. The anastomosis was completed and flow was restored. Polyphasic signals noted distal to the distal anastomosis as well as at the dorsalis pedis at the ankle. The wounds were irrigated with antibiotic-containing saline. Thrombin and gelfoam were used to aid in hemostasis. Platelet rich and platelet poor plasma were infused into the wounds. Meticulous hemostasis was obtained throughout the wounds with electrocautery. The wounds were reapproximated with layers of 2-0 and 3-0 Vicryl. Skin was reapproximated with 3-0 Monocryl. A sterile dressing was applied. The patient was then extubated and taken to recovery room in stable condition.
--- NOTE | 2018-06-16 12:49 | Anesthesia Evaluation Post Op ---
Date of Encounter: 06/16/18 Time of Encounter: 12:30 - Vital Signs Vital Signs: Vital Signs/O2 Sat/Glucose, Most Current Temp Pulse Resp BP Pulse Ox 06/16/18 12:34 97.8 F 56 16 136/57 98 06/16/18 12:24 51 18 134/57 98 06/16/18 12:14 62 18 136/56 97 06/16/18 12:04 98.6 F 62 18 132/57 92 - Lungs Lungs: Clear Ascult./Percussion - Airway Airway: Non-obstructed - Cardiovascular Regular Rate - Mental Status Mental Status: Alert & Oriented, Answers Appropriately - Pain Pain Scale: 0 - Nausea Vomiting Nausea Vomiting: Not Present - Hydration Hydration: NPO, Tolerates oral liquids, Has not voided - Discharge PostOp Status: Transfer Patient to floor
--- NOTE | 2018-06-16 13:11 | Discharge Summary ---
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 Honeycutt is a 87 year old female - Time Spent with Patient Total time spent providing and/or coordinating discharge services: - Discharge Medications Prescriptions: No Action Hydroxyurea [Hydrea] 500 mg PO DAILY Metoprolol [Lopressor] 50 mg PO BID Apixaban [Eliquis] 2.5 mg PO BID Aspirin [Lo-Dose Aspirin EC] 81 mg PO DAILY LORazepam [Ativan] 0.5 mg PO TID Lisinopril [Zestril] 10 mg PO DAILY Oxycodone HCl/Acetaminophen [Percocet 5-325 mg Tablet] 1 tab PO HS Home Medications: Hydroxyurea [Hydrea] 500 mg PO DAILY 07/12/17 [History] Apixaban [Eliquis] 2.5 mg PO BID 08/01/17 [History] Metoprolol [Lopressor] 50 mg PO BID 08/01/17 [History] Aspirin [Lo-Dose Aspirin EC] 81 mg PO DAILY 05/24/18 [History] LORazepam [Ativan] 0.5 mg PO TID 06/16/18 [History] Lisinopril [Zestril] 10 mg PO DAILY 06/16/18 [History] Oxycodone HCl/Acetaminophen [Percocet 5-325 mg Tablet] 1 tab PO HS 06/16/18 [History] Allergies/Adverse Reactions: Allergy/AdvReac Type Severity Reaction Status Date / Time Sulfa (Sulfonamide AdvReac Severe Rash Verified 06/16/18 07:24 Antibiotics) clindamycin AdvReac Shakiness Verified 06/16/18 07:24 Primary care physician: Manuela Franco CNP Exam Vital Signs, Last 4 Hours Temp Pulse Resp BP Pulse Ox 06/16/18 12:24 51 18 134/57 98 06/16/18 12:14 62 18 136/56 97 06/16/18 12:04 98.6 F 62 18 132/57 92 - Discharge Instructions Follow Up With: Manuela Franco CNP [Primary Care Provider] - 06/26/18 11:40 am Trevor Heller MD [Partnered Physician] - 07/05/18 10:00 am
[2018-06-16] MEDS ORDERED: 0.9 % Sodium Chloride 1,000 ML IVC SCH (13:41)
[2018-06-16] MEDS ORDERED: *HR* Labetalol 20 MG/4 ML SYRINGE IVP PRN (13:41)
[2018-06-16] MEDS ORDERED: OXYCODONE Oral CONC 10 MG/0.5 ML ORAL.SYG SL PRN (13:41)
[2018-06-16] MEDS ORDERED: Naloxone 0.4 MG/ML INJ IVP PRN (13:41)
[2018-06-16] MEDS ORDERED: Acetaminophen 325 MG TABLET PO PRN (13:41)
[2018-06-16] MEDS: *HR* LORazepam 0.5 MG TABLET PO SCH ×2 (14:14→20:05)
[2018-06-16] MEDS: OXYCODONE Oral CONC 10 MG/0.5 ML ORAL.SYG SL PRN ×2 (14:15→22:49)
[2018-06-16] MEDS: *HR* OxyCODONE Immed Rel 5 MG TABLET PO PRN ×2 (15:27→21:29)
[2018-06-16] MEDS: *HR* Metoprolol 5 MG/5 ML VIAL IVP SCH (17:57)
[2018-06-16] MEDS: Ondansetron 4 MG/2 ML VIAL IVP PRN (18:14)
[2018-06-16] MEDS: *HR* HYDROcodone/Acet 5/325 mg TABLET PO PRN (20:05)
[2018-06-16] MEDS ORDERED: *HR* Morphine 2 MG/ML SYRINGE IVP ONE (23:03)
[2018-06-17] MEDS: *HR* Metoprolol 5 MG/5 ML VIAL IVP SCH ×4 (00:03→20:54)
[2018-06-17] MEDS ORDERED: Isovue-370 500 ML BOTTLE IVP ONE ×2 (00:07→03:17)
[2018-06-17] MEDS: OXYCODONE Oral CONC 10 MG/0.5 ML ORAL.SYG SL PRN (02:33)
[2018-06-17] MEDS: Ondansetron 4 MG/2 ML VIAL IVP PRN (03:41)
[2018-06-17] MEDS ORDERED: *HR* FentaNYL (PF) 100 MCG/2 ML VIAL ONE (03:51)
[2018-06-17] MEDS ORDERED: *HR* Rocuronium Bromide 50 MG/5 ML VIAL ONE (03:51)
[2018-06-17] MEDS ORDERED: *HR* Etomidate 40 MG/20 ML VIAL IVP ONE (03:51)
[2018-06-17] MEDS ORDERED: Lidocaine -MPF 4% 5 ML AMPUL ONE (03:51)
[2018-06-17] MEDS ORDERED: Lidocaine -MPF 2% 2 ML VIAL ONE ×2 (03:51→04:00)
[2018-06-17] MEDS ORDERED: *HR* Succinylcholine 200 MG/10 ML VIAL IVP ONE (03:52)
[2018-06-17] MEDS ORDERED: *HR* PHENYLEPHRINE 1,000 MCG/10 ML SYRINGE IVP ONE (03:57)
[2018-06-17] MEDS ORDERED: Heparin 1,000 UNITS/500 mL 500 ML ONE (04:05)
[2018-06-17] MEDS ORDERED: Vancomycin 1,000 MG VIAL ONE (04:21)
[2018-06-17] MEDS ORDERED: Heparin 1,000 UNITS/500 mL 1,500 ML ONE (04:21)
--- NOTE | 2018-06-17 04:45 | Vascular/[facility] Progress Note ---
Date of Encounter: 06/17/18 Time of Encounter: 04:41 - Assessment and plan (1) Hematoma of left thigh Current Visit: Yes Status: Acute Qualifiers: Encounter type: initial encounter Qualified Code(s): S70.12XA - Contusion of left thigh, initial encounter (2) Compartment syndrome of left lower extremity Current Visit: Yes Status: Acute Compartment syndrome left posterior calf compartment. This is secondary to bleeding. The patient is on aspirin. She can move her toes a slightly. Forefoot is cold to touch. I am unable to feel a pulse in her left dorsalis pedis. I will recommend urgent exploration of her left popliteal fossa to evacuate her hematoma. Consent was obtained from the patient and from her son. Her hemoglobin is 10 but I will suspect it will drop significantly postoperatively. 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 I suspect that the bypass is open. Her left tibioperoneal artery is occluded. The left anterior tibial artery is the main runoff. I was not able to see well the area between the popliteal graft and anterior tibial artery and I suspect that it is open as the foot does not look very ischemic. There is evidence of contrast in the hematoma the left calf. Her left calf hematoma is expanding. - Subjective Interval history: I was called in around 11:00 for worsening pain involving the patient left lower extremity. The pain starts in the calf and extend down to the foot. The patient is status post left superficial femoral artery to above-knee popliteal bypass. The patient is known to have a patent left anterior tibial artery. Her apixaban was stopped 2 days prior. She is on aspirin. The patient underwent a CT scan of the abdomen and bilateral lower extremities. The left lower extremity CT had to be repeated due to the lack of contrast on her initial assessment. Her femoral to popliteal bypass appears to be patent. The popliteal artery below the knee appears to be occluded just before the take off the anterior tibial artery. The patient has two hematomas one in the thigh and one in the calf. Extravasation of contrast is noted in the below knee Segment. The hematoma is very tense and contained in the posterior compartment. The patient has received significant amount of narcotics and still complaining of significant pain in her calf and foot. The patient claims that the foot is numb. The patient claims that she has difficulties moving her toes. - Physical Examination General: Present: No Apparent Distress HEENT: Present: Pupils equal Lungs: Present: Normal Breath Sounds, No Wheeze, Rales, Rhonchi Neuro: Present: Other (Limited mobility of her left foot toes.) Vascular: Present: Pulse, absent (The left dorsalis pedis pulse is absent.), Cyanosis Abdomen: Present: Soft, Non-tender Skin: Present: Other (Bruising is noted in the left thigh. The thighs very swollen. The calf is very swollen. The Is very tense and tender. She has limited mobility of her foot.) Results 06/17/18 09:25 06/17/18 07:34 Lab Results, Last 24 hours 06/16/18 06/16/18 06/16/18 07:50 07:50 07:50 WBC 52.3 H* Hgb 10.3 L Hct 36.3 Plt Count 188 INR 1.2 APTT 39.8 H Sodium 139 Potassium 5.0 Chloride 107 Carbon Dioxide 23 BUN 29 H Creatinine 1.02 Glucose 79 Calcium 9.6 Consult Discharge Plan - Plan Referrals: Manuela Franco CNP [Primary Care Provider] - 06/26/18 11:40 am Trevor Heller MD [Partnered Physician] - 07/05/18 10:00 am
[2018-06-17] MEDS ORDERED: Dexamethasone 4 MG/ML VIAL ONE (05:11)
[2018-06-17] MEDS ORDERED: ceFAZolin 2,000 MG in Water for inj. (sterile) 20 ML IVP ONE (05:34)
[2018-06-17] MEDS ORDERED: *HR* FentaNYL (PF) 100 MCG/2 ML VIAL IVP PRN (05:36)
[2018-06-17] MEDS ORDERED: Ondansetron 4 MG/2 ML VIAL IVP ONE (05:36)
[2018-06-17] MEDS ORDERED: *HR* OxyCODONE Immed Rel 5 MG TABLET PO PRN (05:36)
[2018-06-17] MEDS ORDERED: Ringers Solution, Lactated 1,000 ML IVC SCH (05:45)
[2018-06-17] MEDS ORDERED: *HR* Heparin 5,000 UNIT/ML VIAL SQ SCH (06:00)
[2018-06-17] MEDS ORDERED: Ondansetron 4 MG/2 ML VIAL ONE (06:09)
[2018-06-17] MEDS ORDERED: Neostigmine Methylsulfate 3 MG/3 ML SYRINGE ONE (06:09)
--- NOTE | 2018-06-17 06:35 | Operative Note ---
Date of procedure: 06/17/18 Pre-op diagnosis: Left calf compartment syndrome. Left thigh hematoma. Post-op diagnosis: same Procedure: 1. Evacuation hematoma left thigh. 2. Evacuation hematoma left calf. Release of the left posterior superficial fascia. 3. Exploration of left femoral to popliteal bypass without repair. Implants: None Complications: None Anesthesia: GETA Local Anesthetics: Other Surgeon: Mitch Muhammad Was there an hearing aid assistant present: No Estimated blood loss (cc): 100 (Blood evacuated was around 600 mL.) Urine output (cc): 200 Condition: stable Disposition: PACU Procedure in Detail: Mrs. Honeycutt underwent left superficial femoral artery endarterectomy and left superficial femoral to below-knee popliteal bypass was his xenograft. Her surgical procedure was done for severe chronic peripheral vascular disease and nonhealing ulcer to the left foot. Her apixaban was stopped 2 days prior she is on aspirin. The patient developed severe pain in her left calf and foot. On exam the thigh was swollen with significant bruising noted on the medial aspect of her left thigh. Her left calf was very tense to touch. She was having difficulties extending her left toes. Her leg was cold. She has no palpable dorsalis pedis or posterior tibial pulses. She has a faint left dorsalis pedis signal. CT angiogram of the abdomen and bilateral lower extremities showed a patent left leg bypass. Severely compressed popliteal vein. Large hematoma in the thigh and calf. Contrast noted in the hematoma below the knee. I was concerned that the distal popliteal artery below the anastomosis is occluded. Consent was obtained for surgical exploration of the bypass at the thigh and calf. Consent was obtained from the patient and her son. Her hemoglobin was 10. The patient was brought to the operating room. She was placed on the table in the supine comfortable position. Gen. anesthesia was administered to the patient without any significant problems or issues. The patient has a Guerrero catheter from previous surgery. She received Ancef 2 g intravenously prophylactically. The left leg was prepped and draped in usual sterile fashion. Timeout was called. The procedure was started by opening the left calf wound. The was no blood between the skin and the fascia area and the fascia felt to be very tense. the vicryl sutures were divided. Large hematoma was evacuated. Few veins were identified in the depth of the wound measuring around 2 mm in diameter were clipped. The distal end of the femoral to popliteal bypass was examined. The graft had a nice strong pulse. I was able to feel a pulse in the distal popliteal artery. There was no bleeding from the anastomosis. There was no bleeding from the tunnel. The patient had a strong dorsalis pedis signal but no pulses. The signal disappears with compression of the bypass. I did not decide to pursue with an angiogram. Her foot at this stage was very warm. But I was not able to feel a dorsalis pedis pulse. I elected to open the thigh wound as her thigh was very swollen and has a large hematoma. I wanted to make sure the etiology of the bleeding is not from the proximal anastomosis. I opened the wound all the way down to the anastomosis. The anastomosis was not bleeding. I have encountered a couple of 3 mm veins which were clipped. She had no arterial bleeding. The wound was very dry. The proximal anastomosis was not bleeding. The graft itself for the visualized segment was not bleeding. There was no bleeding coming from the distal tunnel. The graft was patent as well as the popliteal and the proximal anterior tibial arteries. The thigh wound was closed in usual fashion. 2-0 Vicryl for the fascia 2-0 Vicryl for the soft tissue and gary for the skin. I was not able to appro ximate the posterior fascia at the calf. I have sutured the anterior lip of the fascia to the soft tissue. The soft tissue was significantly destroyed by the swelling. The bypass was totally covered. I have elected to placed nylon stitches to approximate the soft tissue and to place gary in between. I was not able to suture the soft tissue as it was very frail. The patient tolerated the procedure well. She was ascending back to [address] [place] [address]. We will check her hemoglobin and transfuse her if her hemoglobin is less than 7.
--- NOTE | 2018-06-17 06:53 | Anesthesia Evaluation Post Op ---
Date of Encounter: 06/17/18 Time of Encounter: 06:52 - Vital Signs Vital Signs: Vital Signs/O2 Sat, Most Current Temp Pulse Resp BP Pulse Ox 97.1 F L 61 13 142/49 100 06/17/18 06:27 06/17/18 06:37 06/17/18 06:37 06/17/18 06:37 06/17/18 06:37 - Lungs Lungs: Clear Ascult./Percussion - Airway Airway: Non-obstructed - Cardiovascular Irregular Rate, Baseline Rhythm - Mental Status Mental Status: Asleep with brisk response to light stimulation, Baseline Status - Pain Pain Scale: 0 Pain Scale used: Numeric (1 - 10) - Nausea Vomiting Nausea Vomiting: Not Present - Hydration Hydration: NPO, Guerrero catheter - Discharge PostOp Status: Transfer Patient to floor
[2018-06-17 08:29] LABS: Calcium 8.2 mg/dL (8.6-10.3); Potassium 5.1 mEq/L (3.5-5.1)
[2018-06-17 09:37] LABS: Hematocrit 23.5 % (35.3-44.9); Hemoglobin 6.7 g/dL (11.5-15.4); Mean Corpuscular HGB Conc 28.5 g/dL (31.6-35.5); Mean Corpuscular Hemoglobin 26.2 pg (28.0-33.3); Mean Corpuscular Volume 91.8 fL (83.0-100.0); Nucleated Red Blood Cells 0.3 /100 WBC (0); Platelet Count 156 K/mcL (140-400); Red Blood Count 2.56 M/mcL (3.82-4.97); Red Cell Distribution Width 21.2 % (11.5-14.5)
[2018-06-17] MEDS: *HR* LORazepam 0.5 MG TABLET PO SCH ×3 (09:51→20:56)
[2018-06-17] MEDS: Aspirin Enteric Coated 81 MG Tablet PO SCH (09:51)
[2018-06-17 10:03] LABS: Hypochromasia Present (Not Present); Lymphocytes # 4.7 K/mcL (0.6-4.6); Monocytes # 4.7 K/mcL (0.0-1.3); Neutrophils # 69.1 K/mcL (1.6-8.9); Platelet Estimate Normal (Normal)
[2018-06-17] MEDS ORDERED: 0.9 % Sodium Chloride 250 ML ONE (10:03)
[2018-06-17] MEDS: *HR* HYDROcodone/Acet 5/325 mg TABLET PO PRN (14:56)
[2018-06-17 17:40] LABS: Hematocrit 27.3 % (35.3-44.9)
[2018-06-17 17:42] LABS: Hemoglobin 8.2 g/dL (11.5-15.4)
[2018-06-17] MEDS: *HR* Heparin 5,000 UNIT/ML VIAL SQ SCH ×2 (18:31→19:02)
[2018-06-18 04:06] LABS: Nucleated Red Blood Cells 0.6 /100 WBC (0); Platelet Count 144 K/mcL (140-400); Red Cell Distribution Width 18.8 % (11.5-14.5)
[2018-06-18 04:08] LABS: Hematocrit 24.6 % (35.3-44.9); Hemoglobin 7.7 g/dL (11.5-15.4); Mean Corpuscular HGB Conc 31.3 g/dL (31.6-35.5); Mean Corpuscular Volume 89.5 fL (83.0-100.0); Mean Platelet Volume 11.6 fL (9.4-12.4); Red Blood Count 2.75 M/mcL (3.82-4.97)
[2018-06-18 04:26] LABS: Calcium 8.3 mg/dL (8.6-10.3)
[2018-06-18 04:37] LABS: Anisocytosis 1+ (Not Present); Lymphocytes # 1.3 K/mcL (0.6-4.6); Microcytosis Present (Not Present); Monocytes # 2.5 K/mcL (0.0-1.3); Neutrophils # 58.5 K/mcL (1.6-8.9); Platelet Estimate Normal (Normal); Poikilocytosis 1+ (Not Present); Polychromasia 1+ (Not Present); Smudge Cells Present (Not Present); Target Cells 1+ (Not Present)
[2018-06-18] MEDS: *HR* Heparin 5,000 UNIT/ML VIAL SQ SCH ×2 (06:33→18:24)
[2018-06-18] MEDS: Aspirin Enteric Coated 81 MG Tablet PO SCH (09:04)
[2018-06-18] MEDS: *HR* LORazepam 0.5 MG TABLET PO SCH ×3 (09:05→20:42)
[2018-06-18] MEDS: *HR* HYDROcodone/Acet 5/325 mg TABLET PO PRN (09:21)
--- NOTE | 2018-06-18 13:25 | Vascular/[facility] Progress Note ---
Date of Encounter: 06/18/18 Time of Encounter: 13:23 - Assessment and plan (1) Hematoma of left thigh Current Visit: Yes Status: Acute Qualifiers: Encounter type: subsequent encounter Qualified Code(s): S70.12XD - Contusion of left thigh, subsequent encounter (2) Compartment syndrome of left lower extremity Current Visit: Yes Status: Acute The patient status post evacuation of hematoma from the left thigh and calf. Patient had compartment syndrome with severe pain in her left foot. She is doing well without any pain at this stage. She is happy with the outcome of the procedure. The patient developed postoperative anemia secondary to blood loss and her thigh and calf. Her estimated blood loss from the surgery itself was less than 100 100 mL. The patient has received 2 units of packed red blood cells. Her Guerrero catheter was removed she is making good urine output. She is tolerating her clear liquid diet. We will recheck her hemoglobin in the morning. Consider to transfuse if it drops below 7. It is okay to continue heparin subcutaneously for DVT prophylaxis and aspirin. We will advance her to [place] [employer] diet. 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 I suspect that the bypass is open. Her left tibioperoneal artery is occluded. The left anterior tibial artery is the main runoff. I was not able to see well the area between the popliteal graft and anterior tibial artery and I suspect that it is open as the foot does not look very ischemic. There is evidence of contrast in the hematoma the left calf. Her left calf hematoma is expanding. - Subjective Interval history: Status post evacuation of hematoma from left thigh and calf. The patient denies any pain at this stage. She is happy with the outcome of her procedure. She can move her toes and her left foot. The patient has received 2 units of packed red blood cells. She has been tolerating clear liquid diet. Her Guerrero catheter was removed. Vital Signs, Last 4 Hours Temp Pulse Resp BP Pulse Ox 06/18/18 11:15 64 17 98 06/18/18 11:08 98.2 F 78 18 144/68 100 - Physical Examination General: Present: No Apparent Distress Cardiac: Present: Reg Rate and Rhythm, Normal S1 and S2, No Murmur Lungs: Present: Normal Breath Sounds, No Wheeze, Rales, Rhonchi Vascular: Present: Normal capillary refill, Pulse, absent, Pulse, normal, Edema (Left calf), Color/Temperature (The left calf and foot are warm to touch. There are pink in color.) Abdomen: Present: Soft, Non-tender Skin: Present: No rashes noted on visualized skin Results 06/18/18 03:53 06/18/18 03:53 Lab Results, Last 24 hours 06/17/18 06/18/18 06/18/18 17:17 03:53 03:53 WBC 63.6 H* Hgb 8.2 L D 7.7 L Hct 27.3 L 24.6 L Plt Count 144 Sodium 132 L Potassium 5.0 Chloride 106 Carbon Dioxide 19 L BUN 30 H Creatinine 1.35 H Glucose 89 Calcium 8.3 L Consult Discharge Plan - Plan Referrals: Manuela Franco CNP [Primary Care Provider] - 06/26/18 11:40 am Trevor Heller MD [Partnered Physician] - 07/05/18 10:00 am
[2018-06-19 03:35] LABS: Mean Corpuscular Hemoglobin 27.3 pg (28.0-33.3); Monocytes % 11.9 %; Segmented Neutrophils % 78.1 %
[2018-06-19 03:37] LABS: Basophils # 0.2 K/mcL (0.0-0.2); Basophils % 0.3 %; Eosinophils # 0.3 K/mcL (0.0-0.6); Eosinophils % 0.6 %; Hematocrit 23.3 % (35.3-44.9); Immature Granulocytes % 4.3 % (0-4); Lymphocytes # 2.6 K/mcL (0.6-4.6); Lymphocytes % 4.8 %; Mean Platelet Volume 11.6 fL (9.4-12.4); Monocytes # 6.5 K/mcL (0.0-1.3); Nucleated Red Blood Cells 0.3 /100 WBC (0); Platelet Count 125 K/mcL (140-400); Red Blood Count 2.56 M/mcL (3.82-4.97)
[2018-06-19 03:38] LABS: Neutrophils # 42.6 K/mcL (1.6-8.9)
[2018-06-19 03:54] LABS: Albumin 3.1 g/dL (3.5-5.7); Albumin/Globulin Ratio 1.8 (1.1-2.2); Bilirubin,Total 0.4 mg/dL (0.3-1.0); Calcium 8.1 mg/dL (8.6-10.3); Globulin 1.7 g/dL (2.4-3.5); Potassium 4.7 mEq/L (3.5-5.1); Total Protein 4.8 g/dL (6.4-8.9)
[2018-06-19] MEDS: *HR* HYDROcodone/Acet 5/325 mg TABLET PO PRN ×3 (03:58→18:11)
[2018-06-19 04:08] LABS: Anisocytosis 1+ (Not Present); Hypochromasia Present (Not Present); Polychromasia 1+ (Not Present)
[2018-06-19 04:09] LABS: Platelet Estimate Slight Decrease (Normal)
[2018-06-19] MEDS: *HR* Heparin 5,000 UNIT/ML VIAL SQ SCH ×2 (06:34→18:14)
[2018-06-19] MEDS: *HR* OxyCODONE Immed Rel 5 MG TABLET PO PRN ×3 (07:58→20:20)
[2018-06-19] MEDS: *HR* LORazepam 0.5 MG TABLET PO SCH ×3 (07:58→20:18)
[2018-06-19] MEDS: Aspirin Enteric Coated 81 MG Tablet PO SCH (07:58)
--- NOTE | 2018-06-19 08:38 | Vascular/[facility] Progress Note ---
Date of Encounter: 06/19/18 Time of Encounter: 07:35 - Assessment and plan (1) Atherosclerosis of left lower extremity with rest pain Current Visit: Yes Status: Chronic Qualifiers: Peripheral atherosclerosis artery type: [place] artery Qualified Code(s): I70.222 - Atherosclerosis of [place] arteries of extremities with rest pain, left leg Vital Signs, Last 4 Hours Temp Pulse Resp BP Pulse Ox 06/19/18 07:32 98.1 F 83 18 139/83 98 Results 06/19/18 03:04 06/19/18 03:04 Lab Results, Last 24 hours 06/19/18 06/19/18 03:04 03:04 WBC 54.5 H* Hgb 7.0 L Hct 23.3 L Plt Count 125 L Sodium 135 L Potassium 4.7 Chloride 109 H Carbon Dioxide 20 L BUN 29 H Creatinine 1.09 Glucose 79 Calcium 8.1 L Total Bilirubin 0.4 AST 26 ALT 6 L Alkaline Phosphatase 71 Consult Discharge Plan - Plan Referrals: Manuela Franco CNP [Primary Care Provider] - 06/26/18 11:40 am Trevor Heller MD [Partnered Physician] - 07/05/18 10:00 am
[2018-06-19] MEDS ORDERED: 0.9 % Sodium Chloride 250 ML ONE (11:05)
[2018-06-20] MEDS: *HR* HYDROcodone/Acet 5/325 mg TABLET PO PRN ×2 (00:22→13:20)
[2018-06-20] MEDS: *HR* Heparin 5,000 UNIT/ML VIAL SQ SCH (06:26)
[2018-06-20 07:46] LABS: Red Cell Distribution Width 18.6 % (11.5-14.5)
[2018-06-20 07:47] LABS: Hematocrit 26.6 % (35.3-44.9); Hemoglobin 7.8 g/dL (11.5-15.4); Mean Corpuscular HGB Conc 29.3 g/dL (31.6-35.5); Mean Corpuscular Hemoglobin 27.2 pg (28.0-33.3); Mean Corpuscular Volume 92.7 fL (83.0-100.0); Mean Platelet Volume 11.8 fL (9.4-12.4); Platelet Count 104 K/mcL (140-400); Red Blood Count 2.87 M/mcL (3.82-4.97)
[2018-06-20] MEDS: *HR* LORazepam 0.5 MG TABLET PO SCH ×2 (09:02→15:42)
[2018-06-20] MEDS: *HR* OxyCODONE Immed Rel 5 MG TABLET PO PRN ×2 (09:04→15:42)
[2018-06-20] MEDS: Aspirin Enteric Coated 81 MG Tablet PO SCH (09:04)
[2018-06-20 11:17] VITALS: BP 160/66
--- NOTE | 2018-06-20 11:37 | Discharge Summary ---
Orders not resulted at time of discharge: Pending orders 06/16/18 PLASMA [BBK] Stat Red Blood Cells [BBK] Stat 06/16/18 11:47 Surgical Pathology [PTH] Routine Date of Encounter: 06/20/18 Time of Encounter: 11:25 - Discharge Diagnosis (1) Atherosclerosis of left lower extremity with rest pain Status: Chronic Qualifiers: Peripheral atherosclerosis artery type: [place] artery Qualified Code(s): I70.222 - Atherosclerosis of [place] arteries of extremities with rest pain, left leg - Hospital Course Hospital course: Ms. Honeycutt is a 87 year old female - Time Spent with Patient Total time spent providing and/or coordinating discharge services: - Discharge Medications Prescriptions: New OxyCODONE/APAP 10/325 [Percocet 10/325 MG] 1 each PO Q4HR PRN 7 Days #25 tablet PRN Reason: POSTOPERATIVE PAIN Continued Hydroxyurea [Hydrea] 500 mg PO DAILY Metoprolol [Lopressor] 50 mg PO BID Apixaban [Eliquis] 2.5 mg PO BID Aspirin [Lo-Dose Aspirin EC] 81 mg PO DAILY LORazepam [Ativan] 0.5 mg PO TID Lisinopril [Zestril] 10 mg PO DAILY Discontinued Oxycodone HCl/Acetaminophen [Percocet 5-325 mg Tablet] 1 tab PO HS Home Medications: Hydroxyurea [Hydrea] 500 mg PO DAILY 07/12/17 [History] Apixaban [Eliquis] 2.5 mg PO BID 08/01/17 [History] Metoprolol [Lopressor] 50 mg PO BID 08/01/17 [History] Aspirin [Lo-Dose Aspirin EC] 81 mg PO DAILY 05/24/18 [History] LORazepam [Ativan] 0.5 mg PO TID 06/16/18 [History] Lisinopril [Zestril] 10 mg PO DAILY 06/16/18 [History] OxyCODONE/APAP 10/325 [Percocet 10/325 MG] 1 each PO Q4HR PRN 7 Days #25 tablet 06/20/18 [Rx] Allergies/Adverse Reactions: Allergy/AdvReac Type Severity Reaction Status Date / Time Sulfa (Sulfonamide AdvReac Severe Rash Verified 06/16/18 07:24 Antibiotics) clindamycin AdvReac Shakiness Verified 06/16/18 07:24 Date of admission: 06/16/18 13:19 Primary care physician: Manuela Franco CNP Consults: 06/19/18 07:37 Consult to Physical Therapy [CONS] Routine Comment: Evaluate, develop and implement POC Reason for Consult: mobility Does patient have active BEDREST order?: No Is patient medically & hemodynamically stable?: Yes Patient assessed for mobility or mobilized this visit?: No 06/19/18 07:39 Consult to Occupational Therapy [CONS] Routine Comment: Evaluate, develop and implement POC Reason for Consult: mobility Does patient have active BEDREST order?: No Is patient medically & hemodynamically stable?: Yes Patient assessed for mobility or mobilized this visit?: No Discharging clinician: Trevor Heller Anticipated date of discharge: 06/20/18 Exam Vital Signs, Last 4 Hours Temp Pulse Resp BP Pulse Ox 06/20/18 11:15 97.8 F 73 16 160/66 98 - Patient Status Disposition: Home Health Service Functional capacity at discharge: uses cane/walker Overall status at discharge: patient is progressing back to baseline - Discharge Instructions Follow Up With: Manuela Franco CNP [Primary Care Provider] - 06/26/18 11:40 am Trevor Heller MD [Partnered Physician] - 07/05/18 10:00 am Additional Instructions: May shower. Wash wounds gently and pat to dry. Apply ABD pad and kerlix to left leg wounds daily. Elevate left lower extremity when seated. No tub baths or swimming until 08/14/2018. Call Dr. Heller at [phone] with questions or concerns. - Diet and Activity Activity: increase activity as tolerated Diet: advance to your usual diet
--- NOTE | 2018-06-20 11:42 | Physician Discharge Referral ---
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 For more information, call the [employer] Tobacco Quit Line at 9-343-XYHH-NOW. - Diet/Nutrition Diet/Nutrition Orders: Regular - Activity Activity Orders: Up ad fe, Walker - Services Needed Following services are medically necessary services: Home Health Aide, Physical Therapy, Occupational Therapy Home Care Orders: Daily wound care to right foot ulcer as directed by Podiatry. Cleanse left thigh and leg wounds daily. Apply ABD and kerlix to left thigh and leg wound daily. - Transfer Medications Prescriptions: OxyCODONE/APAP 10/325 [Percocet 10/325 MG] 1 each PO Q4HR PRN 7 Days #25 tablet PRN Reason: POSTOPERATIVE PAIN Home Medications: Hydroxyurea [Hydrea] 500 mg PO DAILY 07/12/17 [History] Apixaban [Eliquis] 2.5 mg PO BID 08/01/17 [History] Metoprolol [Lopressor] 50 mg PO BID 08/01/17 [History] Aspirin [Lo-Dose Aspirin EC] 81 mg PO DAILY 05/24/18 [History] LORazepam [Ativan] 0.5 mg PO TID 06/16/18 [History] Lisinopril [Zestril] 10 mg PO DAILY 06/16/18 [History] OxyCODONE/APAP 10/325 [Percocet 10/325 MG] 1 each PO Q4HR PRN 7 Days #25 tablet 06/20/18 [Rx] Allergies/Adverse Reactions: Allergy/AdvReac Type Severity Reaction Status Date / Time Sulfa (Sulfonamide AdvReac Severe Rash Verified 06/16/18 07:24 Antibiotics) clindamycin AdvReac Shakiness Verified 06/16/18 07:24 Certification: Further, I certify that my clinical findings support that this patient is homebound (i.e. absences from home require considerable and taxing effort and are for medical reasons or holiness services or infrequently or short duration when for other reasons) because: Homebound Reason: Patient requires assistance of a person or device to safely leave home, Post-surgery restriction and or conditions limit ability to leave home, Leaving home requires considerable and taxing effort due to condition Attestation: My signature below is to certify that this patient is under my care and that I, or nurse practitioner, or a physician's marketing support assistant working with me, has a [id number] encounter with this patient.
== END 2018-06-20 16:00 | disposition home health service (06) | DRG 253 ==
LOC: SAMDAY 06:14 → 2NNU 13:19
PROVIDERS: ADMIT Surgery; ATTEND Surgery

== ENCOUNTER 2018-09-29 13:51 | Inpatient (IN) ==
[2018-09-29] MEDS: Acetaminophen 325 MG TABLET PO PRN (16:21)
[2018-09-29] MEDS ORDERED: 0.9 % Sodium Chloride 1,000 ML IV ONE (16:47)
[2018-09-29] MEDS ORDERED: Naloxone 0.4 MG/ML INJ IVP PRN (17:06)
[2018-09-29] MEDS ORDERED: Pregabalin 75 MG CAPSULE PO ONE (17:22)
[2018-09-29 17:32] LABS: Magnesium 1.9 mg/dL (1.6-2.6); Phosphorous 4.1 mg/dL (2.7-4.5)
[2018-09-29] MEDS: Piperacillin/Tazobactam 3.375 GM in 0.9 % Sodium Chloride Mini Bag 100 ML IVPB SCH (17:48)
[2018-09-29 17:55] LABS: Albumin 3.2 g/dL (3.5-5.7); Albumin/Globulin Ratio 1.7 (1.1-2.2); Calcium 8.3 mg/dL (8.6-10.3); Globulin 1.9 g/dL (2.4-3.5); Potassium 4.5 mEq/L (3.5-5.1); Total Protein 5.1 g/dL (6.4-8.9)
[2018-09-29] MEDS: 0.9 % Sodium Chloride 1,000 ML IVC SCH (19:41)
[2018-09-29] MEDS: Apixaban 5 MG TABLET PO SCH (20:09)
[2018-09-30] MEDS: Piperacillin/Tazobactam 3.375 GM in 0.9 % Sodium Chloride Mini Bag 100 ML IVPB SCH ×3 (00:50→17:27)
[2018-09-30 04:12] LABS: Hematocrit 36.1 % (35.3-44.9); Hemoglobin 10.3 g/dL (11.5-15.4); Mean Corpuscular HGB Conc 28.5 g/dL (31.6-35.5); Mean Corpuscular Hemoglobin 23.7 pg (28.0-33.3); Nucleated Red Blood Cells 0.5 /100 WBC (0); Platelet Count 116 K/mcL (140-400); Red Blood Count 4.35 M/mcL (3.82-4.97)
[2018-09-30 04:17] LABS: White Blood Count 46.2 K/mcL (4.3-11.1)
[2018-09-30 04:30] LABS: Albumin/Globulin Ratio 1.6 (1.1-2.2); Globulin 1.9 g/dL (2.4-3.5); Magnesium 1.9 mg/dL (1.6-2.6); Phosphorous 4.2 mg/dL (2.7-4.5); Total Protein 4.9 g/dL (6.4-8.9)
[2018-09-30 04:32] LABS: Hypochromasia Present (Not Present); Lymphocytes # 3.7 K/mcL (0.6-4.6); Monocytes # 4.6 K/mcL (0.0-1.3); Neutrophils # 37.9 K/mcL (1.6-8.9)
[2018-09-30 04:33] LABS: Anisocytosis 1+ (Not Present); Platelet Estimate Decreased (Normal)
[2018-09-30] MEDS: Apixaban 5 MG TABLET PO SCH ×2 (10:08→21:01)
[2018-09-30] MEDS: *HR* HYDROcodone/Acet 10/325 mg TABLET PO PRN (10:08)
[2018-09-30] MEDS: Pregabalin 75 MG CAPSULE PO SCH ×2 (10:08→21:01)
[2018-09-30] MEDS: Acetaminophen 325 MG TABLET PO PRN (17:24)
[2018-10-01 02:18] LABS: Hematocrit 38.4 % (35.3-44.9); Nucleated Red Blood Cells 0.4 /100 WBC (0)
[2018-10-01 02:20] LABS: Basophils # 0.3 K/mcL (0.0-0.2); Basophils % 0.6 %; Eosinophils # 0.4 K/mcL (0.0-0.6); Eosinophils % 0.7 %; Hemoglobin 10.8 g/dL (11.5-15.4); Immature Granulocytes % 6.3 % (0-4); Lymphocytes # 2.6 K/mcL (0.6-4.6); Lymphocytes % 4.9 %; Mean Corpuscular HGB Conc 28.1 g/dL (31.6-35.5); Mean Corpuscular Hemoglobin 23.3 pg (28.0-33.3); Mean Corpuscular Volume 82.8 fL (83.0-100.0); Monocytes # 5.7 K/mcL (0.0-1.3); Monocytes % 10.9 %; Neutrophils # 40.4 K/mcL (1.6-8.9); Platelet Count 149 K/mcL (140-400); Red Blood Count 4.64 M/mcL (3.82-4.97); Red Cell Distribution Width 20.2 % (11.5-14.5); Segmented Neutrophils % 76.6 %
[2018-10-01 02:26] LABS: White Blood Count 52.7 K/mcL (4.3-11.1)
[2018-10-01 02:35] LABS: Potassium 3.8 mEq/L (3.5-5.1)
[2018-10-01] MEDS: Piperacillin/Tazobactam 3.375 GM in 0.9 % Sodium Chloride Mini Bag 100 ML IVPB SCH ×3 (02:53→18:13)
[2018-10-01 03:00] LABS: Platelet Estimate Normal (Normal)
[2018-10-01] MEDS: Acetaminophen 325 MG TABLET PO PRN (03:00)
[2018-10-01] MEDS: Apixaban 5 MG TABLET PO SCH ×2 (08:42→20:00)
[2018-10-01] MEDS: Pregabalin 75 MG CAPSULE PO SCH ×2 (08:42→19:59)
[2018-10-02] MEDS: Piperacillin/Tazobactam 3.375 GM in 0.9 % Sodium Chloride Mini Bag 100 ML IVPB SCH ×3 (01:00→17:09)
[2018-10-02 04:08] LABS: Hemoglobin 11.2 g/dL (11.5-15.4); Immature Granulocytes % 8.2 % (0-4); Lymphocytes % 5.5 %; Nucleated Red Blood Cells 0.5 /100 WBC (0)
[2018-10-02 04:09] LABS: Basophils # 0.4 K/mcL (0.0-0.2); Basophils % 0.8 %; Eosinophils # 0.7 K/mcL (0.0-0.6); Eosinophils % 1.4 %; Hematocrit 39.5 % (35.3-44.9); Mean Corpuscular HGB Conc 28.4 g/dL (31.6-35.5); Mean Corpuscular Hemoglobin 23.5 pg (28.0-33.3); Mean Corpuscular Volume 82.8 fL (83.0-100.0); Monocytes # 4.5 K/mcL (0.0-1.3); Monocytes % 9.7 %; Platelet Count 153 K/mcL (140-400); Red Blood Count 4.77 M/mcL (3.82-4.97); Red Cell Distribution Width 20.1 % (11.5-14.5); Segmented Neutrophils % 74.4 %
[2018-10-02 04:16] LABS: Lymphocytes # 2.5 K/mcL (0.6-4.6); Neutrophils # 34.4 K/mcL (1.6-8.9)
[2018-10-02 04:17] LABS: White Blood Count 46.2 K/mcL (4.3-11.1)
[2018-10-02 04:26] LABS: Calcium 8.1 mg/dL (8.6-10.3); Potassium 3.8 mEq/L (3.5-5.1)
[2018-10-02 04:40] LABS: Platelet Estimate Decreased (Normal)
[2018-10-02] MEDS: Pregabalin 75 MG CAPSULE PO SCH ×2 (07:33→20:13)
[2018-10-02] MEDS: *HR* HYDROcodone/Acet 10/325 mg TABLET PO PRN ×2 (07:33→18:21)
[2018-10-02] MEDS: Apixaban 5 MG TABLET PO SCH ×2 (07:33→20:13)
[2018-10-02] MEDS ORDERED: Furosemide 20 MG TABLET PO PRN (10:27)
[2018-10-02] MEDS: *HR* LORazepam 0.5 MG TABLET PO PRN ×2 (11:57→20:13)
[2018-10-02] MEDS: Furosemide 20 MG TABLET PO SCH (11:57)
[2018-10-02] MEDS ORDERED: Aminoglycoside Consult 1 EACH MC ONE (14:49)
[2018-10-02] MEDS: 0.9 % Sodium Chloride 1,000 ML IVC SCH (20:04)
[2018-10-03] MEDS: Piperacillin/Tazobactam 3.375 GM in 0.9 % Sodium Chloride Mini Bag 100 ML IVPB SCH (02:03)
[2018-10-03 04:23] LABS: Hemoglobin 10.9 g/dL (11.5-15.4); Nucleated Red Blood Cells 0.6 /100 WBC (0)
[2018-10-03 04:25] LABS: Hematocrit 38.7 % (35.3-44.9); Mean Corpuscular HGB Conc 28.2 g/dL (31.6-35.5); Mean Corpuscular Hemoglobin 22.9 pg (28.0-33.3); Mean Corpuscular Volume 81.1 fL (83.0-100.0); Monocytes # 3.8 K/mcL (0.0-1.3); Platelet Count 155 K/mcL (140-400); Red Blood Count 4.77 M/mcL (3.82-4.97); Red Cell Distribution Width 20.1 % (11.5-14.5)
[2018-10-03 04:38] LABS: White Blood Count 37.9 K/mcL (4.3-11.1)
[2018-10-03 04:39] LABS: BUN/Creatinine Ratio 26 (6-26); Blood Urea Nitrogen 26 mg/dL (8-23); Carbon Dioxide 21 mEq/L (23-29); Chloride 112 mEq/L (98-107); Glucose 65 mg/dL (70-105); Osmolality,Calculated 297 (280-300); Potassium 3.7 mEq/L (3.5-5.1); Sodium 142 mEq/L (136-145); eGFR For African Americans > 60 (> 60); eGFR For Non-African Americans 52 (> 60)
[2018-10-03 05:00] LABS: Eosinophils # 1.5 K/mcL (0.0-0.6); Lymphocytes # 3.8 K/mcL (0.6-4.6); Neutrophils # 28.8 K/mcL (1.6-8.9); Platelet Estimate Normal (Normal)
[2018-10-03] MEDS: Pregabalin 75 MG CAPSULE PO SCH (07:56)
[2018-10-03] MEDS: Furosemide 20 MG TABLET PO SCH (07:56)
[2018-10-03] MEDS: Apixaban 5 MG TABLET PO SCH (07:56)
[2018-10-03] MEDS ORDERED: Ondansetron ODT 4 MG TAB.RAPDIS SL PRN (08:37)
[2018-10-03] MEDS ORDERED: Doxycycline 100 MG CAPSULE PO SCH (09:00)
[2018-10-03] MEDS ORDERED: Lactobacillus 1 EACH CAP.SPRINK PO SCH (09:00)
[2018-10-03 11:14] VITALS: BP 148/54
== END 2018-10-03 14:50 | disposition home health service (06) | DRG 872 ==
LOC: SUATTDRO 15:36 → 2NNU 15:36
PROVIDERS: ADMIT Internal Medicine; ATTEND Family Medicine

== ENCOUNTER 2018-11-30 20:13 | Observation (INO) ==
[2018-11-30] MEDS ORDERED: Naloxone 0.4 MG/ML INJ IVP PRN (23:19)
[2018-11-30] MEDS ORDERED: Heparin 25,000 UNIT/250 ML D5W 25,000 UNIT/250 ML IV.SOLN IVC SCH (23:30)
[2018-11-30] MEDS ORDERED: *HR* Heparin 5,000 UNIT/ML VIAL IVP PRN ×2 (23:53)
[2018-12-01 00:11] LABS: Heparin anti-factor XA UFH 0.99 IU/mL (0.30-0.70); INR 1.4; Prothrombin Time 15.9 Seconds (9.4-12.1)
[2018-12-01 00:17] LABS: BUN/Creatinine Ratio 38 (6-26); Blood Urea Nitrogen 40 mg/dL (8-23); Calcium 8.6 mg/dL (8.6-10.3); Carbon Dioxide 23 mEq/L (23-29); Chloride 104 mEq/L (98-107); Glucose 88 mg/dL (70-105); Osmolality,Calculated 281 (280-300); Sodium 131 mEq/L (136-145); eGFR For African Americans > 60 (> 60); eGFR For Non-African Americans 50 (> 60)
[2018-12-01 00:31] LABS: Activated Partial Thrombo Time 245.5 Seconds (26.0-36.0)
[2018-12-01 00:37] LABS: Red Cell Distribution Width 24.2 % (11.5-14.5)
[2018-12-01 00:38] LABS: Hematocrit 37.6 % (35.3-44.9); Mean Corpuscular HGB Conc 29.3 g/dL (31.6-35.5); Mean Corpuscular Hemoglobin 20.7 pg (28.0-33.3); Mean Corpuscular Volume 70.7 fL (83.0-100.0); Platelet Count 119 K/mcL (140-400); Red Blood Count 5.32 M/mcL (3.82-4.97)
[2018-12-01 00:43] LABS: White Blood Count 91.9 K/mcL (4.3-11.1)
[2018-12-01] MEDS: Heparin 25,000 UNIT/250 ML D5W 25,000 UNIT/250 ML IV.SOLN IVC SCH ×2 (00:51→17:45)
[2018-12-01] MEDS ORDERED: *HR* LORazepam 0.5 MG TABLET PO PRN (01:06)
[2018-12-01] MEDS ORDERED: Morphine Sulfate 2 MG/ML SYRINGE IVP ONE (01:12)
[2018-12-01] MEDS: Morphine Sulfate 2 MG/ML SYRINGE IVP PRN ×2 (03:50→06:52)
[2018-12-01] MEDS: Ketorolac 30 MG/ML VIAL IVP PRN ×3 (04:28→17:15)
[2018-12-01 05:44] LABS: Hematocrit 35.6 % (35.3-44.9); Hemoglobin 10.5 g/dL (11.5-15.4); Mean Corpuscular HGB Conc 29.5 g/dL (31.6-35.5); Mean Corpuscular Hemoglobin 20.7 pg (28.0-33.3); Mean Corpuscular Volume 70.1 fL (83.0-100.0); Platelet Count 128 K/mcL (140-400); Red Blood Count 5.08 M/mcL (3.82-4.97); Red Cell Distribution Width 24.1 % (11.5-14.5)
[2018-12-01 05:50] LABS: White Blood Count 112.3 K/mcL (4.3-11.1)
[2018-12-01 06:03] LABS: Calcium 8.5 mg/dL (8.6-10.3)
[2018-12-01] MEDS: Pregabalin 75 MG CAPSULE PO SCH ×2 (07:48→21:22)
[2018-12-01] MEDS ORDERED: Aspirin Enteric Coated 81 MG Tablet PO SCH (09:00)
[2018-12-01 09:13] LABS: Activated Partial Thrombo Time > 300.0 Seconds (26.0-36.0); Heparin anti-factor XA UFH 1.66 IU/mL (0.30-0.70)
[2018-12-01] MEDS ORDERED: 0.9 % Sodium Chloride 500 ML IVC ONE (21:20)
[2018-12-01] MEDS ORDERED: 0.9 % Sodium Chloride 250 ML IVC ONE (23:26)
[2018-12-02] MEDS ORDERED: Heparin 25,000 UNIT/250 ML D5W 25,000 UNIT/250 ML IV.SOLN IVC SCH (00:30)
[2018-12-02 04:34] VITALS: BP 99/61
[2018-12-02] MEDS ORDERED: Morphine Sulfate 2 MG/ML SYRINGE IVP ONE (06:06)
[2018-12-02] MEDS ORDERED: 0.9 % Sodium Chloride 500 ML IVC ONE (06:08)
[2018-12-02 06:32] LABS: Hematocrit 30.5 % (35.3-44.9); Hemoglobin 8.8 g/dL (11.5-15.4); Mean Corpuscular HGB Conc 28.9 g/dL (31.6-35.5); Mean Corpuscular Hemoglobin 21.9 pg (28.0-33.3); Mean Corpuscular Volume 75.9 fL (83.0-100.0); Nucleated Red Blood Cells 12.6 /100 WBC (0); Platelet Count 167 K/mcL (140-400); Red Blood Count 4.02 M/mcL (3.82-4.97); Red Cell Distribution Width 24.9 % (11.5-14.5)
[2018-12-02 06:46] LABS: White Blood Count 263.5 K/mcL (4.3-11.1)
[2018-12-02 06:55] LABS: Calcium 8.6 mg/dL (8.6-10.3); Potassium 6.5 mEq/L (3.5-5.1)
[2018-12-02] MEDS ORDERED: Calcium Gluconate 1gm/50mL 1 GM/50 ML BAG IVPB ONE (06:58)
[2018-12-02] MEDS ORDERED: Albuterol 2.5 MG/3 ML NEBULIZER IH ONE (07:00)
[2018-12-02] MEDS ORDERED: Insulin Human Regular 10 UNIT in 0.9 % Sodium Chloride 10 ML IV ONE (07:01)
[2018-12-02] MEDS ORDERED: *HR* Dextrose 50 % in Water (Syg) 50 ML SYRINGE IVP ONE (07:02)
[2018-12-02 08:25] LABS: Eosinophils # 5.3 K/mcL (0.0-0.6); Lymphocytes # 36.9 K/mcL (0.6-4.6); Monocytes # 31.6 K/mcL (0.0-1.3); Neutrophils # 189.7 K/mcL (1.6-8.9)
[2018-12-02 08:26] LABS: Platelet Estimate Normal (Normal)
[2018-12-02 08:27] LABS: Anisocytosis 1+ (Not Present)
== END 2018-12-02 08:16 | disposition expired ==
LOC: 2ANU → SUATTDRO 22:29
PROVIDERS: ADMIT Family Medicine; ATTEND Internal Medicine